=== PATIENT | male | born 1990 | race Caucasian/White ===

== ENCOUNTER 2016-09-22 12:05 | Emergency (ER) | payer OTHER ==
[2016-09-22] MEDS ORDERED: ONDANSETRON 4 MG/2 ML VIAL IVP STA (12:19)
[2016-09-22] MEDS ORDERED: SODIUM CHLORIDE 0.9% 1,000 ML IV STA (12:19)
[2016-09-22] MEDS ORDERED: HYDROmorphone 1 MG/ML 1 ML SYRINGE IVP STA (12:19)
--- NOTE | 2016-09-22 12:21 | ED ---
General Adult HPI - General Chief complaint: Abdominal Pain Stated complaint: Abd Pain Time Seen by Provider: 09/22/16 12:16 Source: patient, RN notes reviewed Mode of arrival: ambulatory Limitations: no limitations - History of Present Illness Initial comments: Patient 26-year-old male who presents emergency room today with a chief complaint of bilateral flank pain that started yesterday. He describes a "sharp " type pain. States both on left and right flank area. States only had pain like this in the past when he does not eat. He states he has been eating. He currently rates pain 9/10. Admits to diarrhea prior to coming to the emergency room. states tried ibuprofen at home with little relief the symptoms. Patient denies any recent fever, chills, shortness of breath, chest pain, nausea or vomiting, numbness or tingling, dysuria or hematuria, constipation, headaches or visual changes, or any other complaints. - Related Data Home Medications Medication Instructions Recorded Confirmed Dextroamphetamine Sulfate 5 mg PO DAILY@1500 09/22/16 09/22/16 [Dexedrine] Ibuprofen [Motrin] 800 mg PO Q6H PRN 09/22/16 09/22/16 Allergies Allergy/AdvReac Type Severity Reaction Status Date / Time cefaclor [From Ceclor] Allergy Rash/Hives Verified 09/22/16 12:52 cephalexin [From Keflex] Allergy Unknown Verified 09/22/16 12:52 Childhood Review of Systems ROS Statement: Those systems with pertinent positive or pertinent negative responses have been documented in the HPI. ROS Other: All systems not noted in ROS Statement are negative. Past Medical History Past Medical History: Sleep Apnea/CPAP/BIPAP Additional Past Medical History / Comment(s): NEUROFIBROMATOSIS, MIGRAINE HEADACHE History of Any Multi-Drug Resistant Organisms: None Reported Past Surgical History: Adenoidectomy, Ear Surgery, Tonsillectomy Additional Past Surgical History / Comment(s): SKIN BIOPSY-ARM, pyloric stenosis repair Past Anesthesia/Blood Transfusion Reactions: No Reported Reaction Past Psychological History: Depression Smoking Status: Never smoker Past Alcohol Use History: Occasional Past Drug Use History: None Reported General Exam - General Exam Comments Initial Comments: General: The patient is awake and alert, in no distress, and does not appear acutely ill. Eye: Pupils are equal, round and reactive to light, extra-ocular movements are intact. No nystagmus. There is normal conjunctiva bilaterally. No signs of icterus. Ears, nose, mouth and throat: There are moist mucous membranes and no oral lesions. Neck: The neck is supple, there is no tenderness or JVD. Cardiovascular: There is a regular rate and rhythm. No murmur, rub or gallop is appreciated. Respiratory: Lungs are clear to auscultation, respirations are non-labored, breath sounds are equal. No wheezes, stridor, rales, or rhonchi. Gastrointestinal: Normal appearance abdomen. Normal bowel sounds. Abdomen soft on palpation. Patient does have tenderness in both left and right lower quadrants. Also tender in the left upper quadrant. No rebound tenderness. No guarding. No CVA tenderness. Musculoskeletal: Normal ROM, no tenderness. Strength 5/5. Sensation intact. Pulses equal bilaterally 2+. Neurological: A&O x 3. CN II-XII intact, There are no obvious motor or sensory deficits. Coordination appears grossly intact. Speech is normal. Skin: Skin is warm and dry and no rashes or lesions are noted. Psychiatric: Cooperative, appropriate mood & affect, normal judgment. Limitations: no limitations Course Vital Signs 09/22/16 09/22/16 09/22/16 12:11 13:45 14:35 Temperature 98.5 F 97.8 F Pulse Rate 97 89 66 Respiratory 18 16 16 Rate Blood Pressure 139/73 132/70 118/74 O2 Sat by Pulse 98 98 97 Oximetry Medical Decision Making - Medical Decision Making Patient reexamined at this time shows no signs of distress. Patient's labs been reviewed unremarkable. CT of the abdomen and pelvis does show evidence for cystic-like structures consistent with his neurofibromatosis. Patient is advised follow-up with family doctor and also his specialist through [facility]. He was is advised to use pain medication. He states he does not want any stronger than Tylenol or Motrin. He'll be continued on these advised to return for any other concerns. - Lab Data Result diagrams: 09/22/16 12:25 09/22/16 12:25 Lab Results 09/22/16 09/22/16 09/22/16 Range/Units 12:25 12:25 13:50 WBC 7.5 (3.8-10.6) k/uL RBC 5.09 (4.30-5.90) m/uL Hgb 15.5 (13.0-17.5) gm/dL Hct 44.6 (39.0-53.0) % MCV 87.5 (80.0-100.0) fL MCH 30.5 (25.0-35.0) pg MCHC 34.8 (31.0-37.0) g/dL RDW 12.7 (11.5-15.5) % Plt Count 226 (150-450) k/uL Neutrophils % 66 % Lymphocytes % 23 % Monocytes % 5 % Eosinophils % 2 % Basophils % 1 % Neutrophils # 4.9 (1.3-7.7) k/uL Lymphocytes # 1.7 (1.0-4.8) k/uL Monocytes # 0.4 (0-1.0) k/uL Eosinophils # 0.2 (0-0.7) k/uL Basophils # 0.1 (0-0.2) k/uL Sodium 142 (137-145) mmol/L Potassium 4.1 (3.5-5.1) mmol/L Chloride 106 (98-107) mmol/L Carbon Dioxide 25 (22-30) mmol/L Anion Gap 11 mmol/L BUN 12 (9-20) mg/dL Creatinine 0.91 (0.66-1.25) mg/dL Est GFR (MDRD) Af Amer >60 (>60 ml/min/1.73 sqM) Est GFR (MDRD) Non-Af >60 (>60 ml/min/1.73 sqM) Glucose 96 (74-99) mg/dL Calcium 9.5 (8.4-10.2) mg/dL Total Bilirubin 1.3 (0.2-1.3) mg/dL AST 14 L (17-59) U/L ALT 34 (21-72) U/L Alkaline Phosphatase 62 (38-126) U/L Total Protein 7.4 (6.3-8.2) g/dL Albumin 4.8 (3.5-5.0) g/dL Amylase 56 (30-110) U/L Lipase 48 (23-300) U/L Urine Color Yellow Urine Appearance Clear (Clear) Urine pH 6.0 (5.0-8.0) Ur Specific Cecilia 1.031 (1.001-1.035) Urine Protein 1+ H (Negative) Urine Glucose (UA) Negative (Negative) Urine Ketones 1+ H (Negative) Urine Blood Negative (Negative) Urine Nitrite Negative (Negative) Urine Bilirubin Negative (Negative) Urine Urobilinogen 2.0 (<2.0) mg/dL Ur Leukocyte Esterase Negative (Negative) Urine WBC 1 (0-5) /hpf Ur Squamous Epith Cells <1 (0-4) /hpf Urine Mucus Many H (None) /hpf Disposition Clinical Impression: Neurofibromatosis, Abdominal pain Disposition: HOME SELF-CARE Condition: Good Instructions: Abdominal Pain (ED) Additional Instructions: Please continue Tylenol/ibuprofen for pain as discussed and follow-up with your specialist and family doctor. Please return for any other concerns. Referrals: Nitin Rogel DO [Primary Care Provider] - 1-2 days Time of Disposition: 15:28
[2016-09-22 12:38] LABS: Basophils # (A) 0.1 k/uL (0-0.2); Basophils % (A) 1 %; CH 31.7; CHCM 36.3; Eosinophils # (A) 0.2 k/uL (0-0.7); Eosinophils % (A) 2 %; HCT 44.6 % (39.0-53.0); HDW 2.73; HGB 15.5 gm/dL (13.0-17.5); Luc # (Auto) 0.17; Luc % (Auto) 2; Lymphocytes # (A) 1.7 k/uL (1.0-4.8); Lymphocytes % (A) 23 %; MCH 30.5 pg (25.0-35.0); MCHC 34.8 g/dL (31.0-37.0); MCV 87.5 fL (80.0-100.0); Mean Platelet Volume 7.5; Monocytes # (A) 0.4 k/uL (0-1.0); Monocytes % (A) 5 %; Neutrophils # (A) 4.9 k/uL (1.3-7.7); Neutrophils % (A) 66 %; RBC 5.09 m/uL (4.30-5.90); RDW 12.7 % (11.5-15.5); WBC 7.5 k/uL (3.8-10.6); WBC (Perox) 7.49
[2016-09-22 12:44] LABS: ALT 34 U/L (21-72); AST 14 U/L (17-59); Alkaline Phosphatase 62 U/L (38-126); Amylase 56 U/L (30-110); Anion Gap 11 mmol/L; Blood Urea Nitrogen 12 mg/dL (9-20); Calcium 9.5 mg/dL (8.4-10.2); Carbon Dioxide 25 mmol/L (22-30); Chloride 106 mmol/L (98-107); Glucose 96 mg/dL (74-99); Non-African American GFR(MDRD) >60 (>60 ml/min/1.73 sqM); Potassium 4.1 mmol/L (3.5-5.1); Sodium 142 mmol/L (137-145); Total Bilirubin 1.3 mg/dL (0.2-1.3); Total Protein 7.4 g/dL (6.3-8.2)
--- NOTE | 2016-09-22 12:49 | XR ---
EXAMINATION TYPE: XR KUB DATE OF EXAM ORDERED: 09/22/2016 HISTORY: abdominal pain. COMPARISON: None. FINDINGS: The abdominal gas pattern is normal. There is no evidence of obstruction or free air. No u nusual calcifications are seen. The lung bases are clear. IMPRESSION: NORMAL ABDOMEN.
[2016-09-22 13:47] VITALS: RESP 16; TEMP 97.8
[2016-09-22 14:09] LABS: Appearance,Urine Clear (Clear); Bilirubin,Urine Negative (Negative); Glucose,Urine (UA) Negative (Negative); Ketones,Urine 1+ (Negative); Leukocyte Esterase,Urine Negative (Negative); Mucus,Urine Many /hpf; Nitrite,Urine Negative (Negative); Particle Count 5786; Protein,Urine 1+ (Negative); Specific Gravity,Urine 1.031 (1.001-1.035); Squamous Epithelial Cell,Urine <1 /hpf (0-4); UA Billing (MACRO vs. MICRO) MICRO; WBC,Urine 1 /hpf (0-5)
[2016-09-22 14:36] VITALS: BP 118/74; PULSE 66
--- NOTE | 2016-09-22 15:05 | CT ---
EXAMINATION TYPE: CT abdomen pelvis wo con DATE OF EXAM: 09/22/2016 COMPARISON: Abdomen same date HISTORY: Pt states of abdominal pain x1 day. CT DLP: 804 mGycm Automated exposure control for dose reduction was used. TECHNIQUE: Helical acquisition of images from the lung bases through the pelvis. FINDINGS: Lack of intravenous contrast may compromise sensitivity. LUNG BASES: No significant abnormality is appreciated. There is no pleural or pericardial effusion AORTA: No significant abnormality is appreciated. LIVER/GB: No significant abnormality is appreciated. PANCREAS: No significant abnormality is seen. SPLEEN: No significant abnormality is seen. ADRENALS: No significant abnormality is seen. KIDNEYS: No significant abnormality is seen. REPRODUCTIVE ORGANS: No significant abnormality is seen. URINARY BLADDER: No significant abnormality is seen. BOWEL: No significant abnormality is seen. FREE AIR: No Free Air is visible. ASCITES: None visible. PELVIC ADENOPATHY: None visualized. RETROPERITONEAL ADENOPATHY: No Retroperitoneal Adenopathy visible. OSSEOUS STRUCTURES: No significant abnormality is seen. Within the abductor musculature there is low dense focus present measuring approximately 6.6 x 4 x 3.1 cm. 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 Within the abdo kristina musculature laterally seen best on axial image 46 there is a 4 cm low dense mass present. Right psoas shows a low dense focus measuring approximately 14 mm, with additional vague areas of low atte nuation bilaterally. In the ischiorectal fat on the right a 2 cm hypodense lesion is also present. Si milar finding present at the level of the neuroforamen on the left at L4-5. Cutaneous nodule noted in the right lower quadrant anteriorly, smaller skin nodules also suspected. There is a small umbilical hernia containing fat. Subcutaneous fat over the right gluteal region shows some increased attenuati on possibly due to local edema or ecchymosis, correlate for any history of trauma. IMPRESSION: FINDINGS LIKELY ARE RELATED TO PATIENT'S HISTORY OF NEUROFIBROMATOSIS. Additional findings above.
== END 2016-09-22 15:37 | disposition home or self-care (01) ==
LOC: EC 12:05
DX: Q85.00 Neurofibromatosis, unspecified (principal); R10.9 Unspecified abdominal pain; Z88.1 Allergy status to other antibiotic agents; Z79.899 Other long term (current) drug therapy
CPT/HCPCS: 99284; 96374; 96375; 96361; 36415; 80053; 82150; 83690; 85025; 81001; 74000; 74176; J2405; J1170

== ENCOUNTER 2016-10-10 10:40 | Emergency (ER) | payer OTHER ==
[2016-10-10] MEDS ORDERED: DIPH,PERTUS(ACELL)TETVAC-LF 0.5 ML VIAL IM ONE (11:57)
--- NOTE | 2016-10-10 12:00 | ED ---
Wound/Laceration HPI - General Chief Complaint: Wound/Laceration Stated Complaint: LACERATION, LEFT MIDDLE FINGER Time Seen by Provider: 10/10/16 11:24 Source: patient, RN notes reviewed Mode of arrival: ambulatory Limitations: no limitations - History of Present Illness Initial Comments: 26-year-old male presents emergency from shingling a laceration to his left hand middle finger. Patient states he was using a box shook patcher to cut a zip tie and slipped and nicked his finger. He states bleeding has stopped but is unsure when his last tetanus was. Patient has full range of motion no numbness or tingling. - Related Data Home Medications Medication Instructions Recorded Confirmed Ibuprofen [Motrin] 800 mg PO Q6H PRN 09/22/16 10/10/16 Allergies Allergy/AdvReac Type Severity Reaction Status Date / Time cefaclor [From Ceclor] Allergy Rash/Hives Verified 10/10/16 11:03 cephalexin [From Keflex] Allergy Unknown Verified 10/10/16 11:03 Childhood Review of Systems ROS Statement: Those systems with pertinent positive or pertinent negative responses have been documented in the HPI. ROS Other: All systems not noted in ROS Statement are negative. Past Medical History Past Medical History: Sleep Apnea/CPAP/BIPAP Additional Past Medical History / Comment(s): NEUROFIBROMATOSIS, MIGRAINE HEADACHE History of Any Multi-Drug Resistant Organisms: None Reported Past Surgical History: Adenoidectomy, Ear Surgery, Tonsillectomy Additional Past Surgical History / Comment(s): SKIN BIOPSY-ARM, pyloric stenosis repair Past Anesthesia/Blood Transfusion Reactions: No Reported Reaction Past Psychological History: Depression Smoking Status: Never smoker Past Alcohol Use History: Occasional Past Drug Use History: None Reported General Exam Limitations: no limitations General appearance: alert, in no apparent distress Respiratory exam: Present: normal lung sounds bilaterally. Absent: respiratory distress, wheezes, rales, rhonchi, stridor Cardiovascular Exam: Present: regular rate, normal rhythm, normal heart sounds. Absent: systolic murmur, diastolic murmur, rubs, gallop, clicks Extremities exam: Present: other (Left hand third digit there is a concern 0.5 cm superficial laceration without deep significant injury. Patient has full range of motion neurovascular intact) Course Vital Signs 10/10/16 10:47 Temperature 99.1 F Pulse Rate 81 Respiratory 20 Rate Blood Pressure 125/63 O2 Sat by Pulse 97 Oximetry Medical Decision Making - Medical Decision Making 26 show male present emergency from for leg laceration. This is a superficial wound. I did offer the patient 1 suture to help close 1 when he states that he just needs his tetanus updated. Patient be discharged at this time return parameters discussed Disposition Clinical Impression: Finger laceration Disposition: HOME SELF-CARE Condition: Stable Instructions: Finger Laceration (ED) Additional Instructions: Please return to the Emergency Department if symptoms worsen or any other concerns. Referrals: Nitin Rogel DO [Primary Care Provider] - 1-2 days Time of Disposition: 11:59
[2016-10-10 12:24] VITALS: BP 123/65; PULSE 77; RESP 18; TEMP 97.8
== END 2016-10-10 12:23 | disposition home or self-care (01) ==
LOC: EC 10:40
DX: S61.213A Laceration without foreign body of left middle finger without damage to nail, initial encounter (principal); Z23 Encounter for immunization; Z88.1 Allergy status to other antibiotic agents; W26.8XXA Contact with other sharp object(s), not elsewhere classified, initial encounter
CPT/HCPCS: 90471; 90715; 99282

== ENCOUNTER 2016-11-22 18:34 | Inpatient (IN) | payer OTHER ==
--- NOTE | 2016-11-22 19:26 | ED ---
General Adult HPI - General Source: patient, RN notes reviewed Mode of arrival: ambulatory Limitations: no limitations <Uri Washington - Last Filed: 11/22/16 19:49> <Katherine Ortiz - Last Filed: 11/22/16 20:51> - General Chief complaint: Neuro Symptoms/Deficit Stated complaint: left hand numbness Time Seen by Provider: 11/22/16 18:48 - History of Present Illness Initial comments: Patient is a 26-year-old male significant past medical history for neurofibromatosis, who presents emergency room today with a chief complaint of numbness sensation to the left lower arm. 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 He states he went onto long runs. He states that he went to turn on the point currently noticed that his left hand was numb. States he has a numbness sensation entire left hand and forearm all the way around. He states that just above the left elbow he does have feeling. He states he has full range of motion. He states he has full strength. He states he just cannot feel anything on this left lower arm. States never had similar symptoms in the past. He denies any other complaints or symptoms. He denies any injury or trauma. Denies any neck pain. Patient denies any recent fever, chills, shortness of breath, chest pain, back pain, abdominal pain, nausea or vomiting, dysuria or hematuria, constipation or diarrhea, headaches or visual changes, or any other complaints. (Uri Washington) - Related Data Home Medications Medication Instructions Recorded Confirmed Ibuprofen [Motrin] 800 mg PO Q6H PRN 09/22/16 11/22/16 Allergies Allergy/AdvReac Type Severity Reaction Status Date / Time cefaclor [From Ceclor] Allergy Rash/Hives Verified 11/22/16 18:59 cephalexin [From Keflex] Allergy Unknown Verified 11/22/16 18:59 Childhood Review of Systems ROS Other: All systems not noted in ROS Statement are negative. <Uri Washington - Last Filed: 11/22/16 19:49> ROS Other: All systems not noted in ROS Statement are negative. <Katherine Ortiz - Last Filed: 11/22/16 20:51> ROS Statement: Those systems with pertinent positive or pertinent negative responses have been documented in the HPI. Past Medical History Past Medical History: Sleep Apnea/CPAP/BIPAP Additional Past Medical History / Comment(s): NEUROFIBROMATOSIS, MIGRAINE HEADACHE History of Any Multi-Drug Resistant Organisms: None Reported Past Surgical History: Adenoidectomy, Ear Surgery, Tonsillectomy Additional Past Surgical History / Comment(s): SKIN BIOPSY-ARM, pyloric stenosis repair Past Anesthesia/Blood Transfusion Reactions: No Reported Reaction Past Psychological History: Depression Smoking Status: Never smoker Past Alcohol Use History: Occasional Past Drug Use History: None Reported <Uri Washington - Last Filed: 11/22/16 19:49> General Exam Limitations: no limitations <Uri Washington - Last Filed: 11/22/16 19:49> <Katherine Ortiz - Last Filed: 11/22/16 20:51> - General Exam Comments Initial Comments: General: The patient is awake and alert, in no distress, and does not appear acutely ill. Eye: Pupils are equal, round and reactive to light, extra-ocular movements are intact. No nystagmus. There is normal conjunctiva bilaterally. No signs of icterus. Ears, nose, mouth and throat: There are moist mucous membranes and no oral lesions. Neck: The neck is supple, there is no tenderness or JVD. Cardiovascular: There is a regular rate and rhythm. No murmur, rub or gallop is appreciated. Respiratory: Lungs are clear to auscultation, respirations are non-labored, breath sounds are equal. No wheezes, stridor, rales, or rhonchi. Gastrointestinal: Soft, non-distended, non-tender abdomen without masses or organomegaly noted. There is no rebound or guarding present. No CVA tenderness. Bowel sounds are unremarkable. Musculoskeletal: Normal ROM, no tenderness. Strength 5/5. Patient has decreased sensation to both sharp and light touch all the way around from the left elbow down to the fingertips. Cap refill less than 2 seconds. Pulses equal bilaterally 2+. Neurological: A&O x 3. CN II-XII intact, There are no obvious motor or sensory deficits. Coordination appears grossly intact. Speech is normal. Skin: Skin is warm and dry and no rashes or lesions are noted. Psychiatric: Cooperative, appropriate mood & affect, normal judgment. 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 (Uri Washington) EKG Findings - EKG Comments: EKG Findings:: EKG performed at 1944: Shows sinus tachycardia 111 bpm. First- degree AV block. CT interval 214. QRS 84. QT/QTC 308/418. No acute ST changes. <Uri Washington - Last Filed: 11/22/16 19:49> Medical Decision Making - Lab Data Result diagrams: 11/22/16 19:14 11/22/16 19:14 <Uri Washington - Last Filed: 11/22/16 19:49> - Lab Data Result diagrams: 11/22/16 19:14 11/22/16 19:14 <Katherine Ortiz - Last Filed: 11/22/16 20:51> - Lab Data Lab Results 11/22/16 11/22/16 11/22/16 Range/Units 19:14 19:14 19:14 WBC 8.0 (3.8-10.6) k/uL RBC 4.77 (4.30-5.90) m/uL Hgb 15.0 (13.0-17.5) gm/dL Hct 40.7 (39.0-53.0) % MCV 85.3 (80.0-100.0) fL MCH 31.5 (25.0-35.0) pg MCHC 36.9 (31.0-37.0) g/dL RDW 12.1 (11.5-15.5) % Plt Count 224 (150-450) k/uL Neutrophils % 57 % Lymphocytes % 31 % Monocytes % 5 % Eosinophils % 6 % Basophils % 0 % Neutrophils # 4.5 (1.3-7.7) k/uL Lymphocytes # 2.5 (1.0-4.8) k/uL Monocytes # 0.4 (0-1.0) k/uL Eosinophils # 0.5 (0-0.7) k/uL Basophils # 0.0 (0-0.2) k/uL Sodium 141 (137-145) mmol/L Potassium 3.9 (3.5-5.1) mmol/L Chloride 105 (98-107) mmol/L Carbon Dioxide 23 (22-30) mmol/L Anion Gap 13 mmol/L BUN 15 (9-20) mg/dL Creatinine 0.90 (0.66-1.25) mg/dL Est GFR (MDRD) Af Amer >60 (>60 ml/min/1.73 sqM) Est GFR (MDRD) Non-Af >60 (>60 ml/min/1.73 sqM) Glucose 111 H (74-99) mg/dL Calcium 9.5 (8.4-10.2) mg/dL Total Bilirubin 0.5 (0.2-1.3) mg/dL AST 17 (17-59) U/L ALT 50 (21-72) U/L Alkaline Phosphatase 49 (38-126) U/L Total Protein 6.5 (6.3-8.2) g/dL Albumin 4.3 (3.5-5.0) g/dL Vitamin B12 334 (239-931) pg/mL Folate 3.79 (>2.75) ng/mL TSH 2.200 (0.465-4.680) mIU/L Disposition <Uri Washington - Last Filed: 11/22/16 19:49> <Katherine Ortiz - Last Filed: 11/22/16 20:51> Clinical Impression: Left arm numbness, Tachycardia Disposition: ADMITTED IP TO THIS [facility] Condition: Good Referrals: Nitin Rogel DO [Primary Care Provider] - 1-2 days
[2016-11-22 19:28] LABS: Basophils % (A) 0 %; CH 31.3; CHCM 36.8; Eosinophils # (A) 0.5 k/uL (0-0.7); Eosinophils % (A) 6 %; HCT 40.7 % (39.0-53.0); HDW 2.71; Luc # (Auto) 0.16; Luc % (Auto) 2; Lymphocytes # (A) 2.5 k/uL (1.0-4.8); Lymphocytes % (A) 31 %; MCH 31.5 pg (25.0-35.0); MCHC 36.9 g/dL (31.0-37.0); MCV 85.3 fL (80.0-100.0); Mean Platelet Volume 7.8; Monocytes # (A) 0.4 k/uL (0-1.0); Monocytes % (A) 5 %; Neutrophils # (A) 4.5 k/uL (1.3-7.7); Neutrophils % (A) 57 %; RBC 4.77 m/uL (4.30-5.90); RDW 12.1 % (11.5-15.5); WBC (Perox) 8.02
[2016-11-22 19:36] LABS: ALT 50 U/L (21-72); AST 17 U/L (17-59); Alkaline Phosphatase 49 U/L (38-126); Anion Gap 13 mmol/L; Blood Urea Nitrogen 15 mg/dL (9-20); Calcium 9.5 mg/dL (8.4-10.2); Carbon Dioxide 23 mmol/L (22-30); Chloride 105 mmol/L (98-107); Glucose 111 mg/dL (74-99); Non-African American GFR(MDRD) >60 (>60 ml/min/1.73 sqM); Potassium 3.9 mmol/L (3.5-5.1); Sodium 141 mmol/L (137-145); Total Bilirubin 0.5 mg/dL (0.2-1.3); Total Protein 6.5 g/dL (6.3-8.2)
[2016-11-22] MEDS ORDERED: SODIUM CHLORIDE 0.9% 1,000 ML IV STA (19:43)
--- NOTE | 2016-11-22 20:19 | CT ---
EXAMINATION TYPE: CT brain wo con DATE OF EXAM: 11/22/2016 COMPARISON: NONE HISTORY: Left arm numbness. CT DLP: 1017.90 mGycm. Automated Exposure Control for Dose Reduction was Utilized. TECHNIQUE: CT scan of the head is performed without contrast. FINDINGS: Ventricles and sulci appear normal. There is no mass effect nor midline shift. There is no sign of intracranial hemorrhage. Calvarium appears normal.. IMPRESSION: Normal head CT scan.
[2016-11-22 20:42] LABS: Vitamin B12 334 pg/mL (239-931)
[2016-11-22] MEDS ORDERED: NITROGLYCERIN SL TABS 0.4 MG TAB SUBLINGUAL PRN (20:52)
[2016-11-22 21:33] LABS: Creatine Kinase 94 U/L (55-170)
[2016-11-22 21:46] LABS: Creatine Kinase MB 0.4 ng/mL (0.0-2.4); Troponin I <0.012 ng/mL (0.000-0.034)
[2016-11-22 21:52] VITALS: BMI 26.3
[2016-11-23] MEDS: SODIUM CHLORIDE 0.9% 1,000 ML IV SCH ×3 (00:36→16:25)
[2016-11-23] MEDS: ACETAMINOPHEN TAB 325 MG TAB PO PRN ×2 (00:36→20:25)
[2016-11-23 02:32] LABS: Creatine Kinase 124 U/L (55-170)
[2016-11-23 02:46] LABS: Creatine Kinase MB 0.4 ng/mL (0.0-2.4); Troponin I <0.012 ng/mL (0.000-0.034)
[2016-11-23 03:11] LABS: Cholesterol 140 mg/dL (<200); HDL Cholesterol 21 mg/dL (40-60)
[2016-11-23] MEDS: MORPHINE SULFATE 2 MG/ML SYRINGE IVP PRN ×2 (05:41→23:38)
[2016-11-23] MEDS: ASPIRIN 325 MG TAB PO SCH (08:30)
--- NOTE | 2016-11-23 09:56 | P.CRDCN ---
History of Present Illness Consult date: 11/23/16 Requesting physician: Johann Betancourt Consult reason: chest pain Chief complaint: Chest pain History of present illness: This is a pleasant 26-year-old gentleman with history of neurofibromatosis, cardiac risk factors negative for hypertension, no diabetes, no hyperlipidemia, he is a nonsmoker, he states he used to drink alcohol heavily but has not done that for several years. He presents to the hospital with symptoms of numbness in his left arm from the elbow down. 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 This morning at the time my examination his main complaint is that of chest pain, he states that the pain is sharp in nature, radiates through to his shoulder blades, he gets mild associated shortness of breath, denies any nausea, no diaphoresis. Pain worsens with deep breathing it also worsens with movement of the chest or lying in certain positions. EKG shows a sinus tachycardia with a first-degree AV block, nonspecific ST-T wave changes in the inferior leads. Troponins are negative 2. CBC normal. Potassium 3.9, BUN 15, creatinine 0.9. TSH is normal. Blood pressure 132/70 with a heart rate in the 1 teens. At the time of my examination this morning, patient continues to complain of sharp chest pain, 3 nitroglycerin were given without any relief of symptoms. He was given morphine earlier which he states brought the pain down to a 4 but it is back up to an 8 again. Past Medical History Past Medical History: Sleep Apnea/CPAP/BIPAP Additional Past Medical History / Comment(s): NEUROFIBROMATOSIS, MIGRAINE HEADACHE History of Any Multi-Drug Resistant Organisms: None Reported Past Surgical History: Adenoidectomy, Ear Surgery, Tonsillectomy Additional Past Surgical History / Comment(s): SKIN BIOPSY-ARM, pyloric stenosis repair Past Anesthesia/Blood Transfusion Reactions: No Reported Reaction Past Psychological History: Depression Smoking Status: Never smoker Past Alcohol Use History: Occasional Past Drug Use History: None Reported - Past Family History Mother Family Medical History: Unable to Obtain Father Family Medical History: Unable to Obtain Medications and Allergies Home Medications Medication Instructions Recorded Confirmed Type Ibuprofen [Motrin] 800 mg PO Q6H PRN 09/22/16 11/22/16 History Allergies Allergy/AdvReac Type Severity Reaction Status Date / Time [facility] Allergy Rash/Hives Verified 11/22/16 18:59 cephalexin [From Keflex] Allergy Unknown Verified 11/22/16 18:59 Childhood Physical Exam Vitals: Vital Signs Temp Pulse Pulse Resp BP BP Pulse Ox 11/23/16 05:42 70 18 137/75 93 L 11/23/16 04:00 97.3 F L 91 14 131/73 97 11/22/16 23:30 95 16 11/22/16 23:28 98.4 F 95 16 145/67 99 11/22/16 21:26 98.6 F 110 H 16 149/76 97 11/22/16 21:12 99.1 F 113 H 18 138/60 98 11/22/16 18:45 98.4 F 110 H 18 132/78 97 Intake and Output 11/22/16 11/23/16 11/23/16 22:59 06:59 14:59 Intake Total 100 Output Total 0 Balance 100 0 Intake: Intake, IV Titration 100 Amount Sodium Chloride 0.9% 1, 100 000 ml @ 100 mls/hr IV . Q10H [facility] Rx#:[id number] Output: Urine 0 Other: Weight 76.204 kg 82.5 kg PHYSICAL EXAMINATION: HEENT: Head is atraumatic, normocephalic. Pupils equal, round. Neck is supple. There is no elevated jugular venous pressure. HEART EXAMINATION: Heart S1, S2 normal. No murmur or gallop heard. CHEST EXAMINATION: Lungs are clear to auscultation and precussion. No chest wall tenderness is noted on palpation or with deep breathing. ABDOMEN: Soft, nontender. Bowel sounds are heard. No organomegaly noted. EXTREMITIES: 2+ peripheral pulses with no evidence of peripheral edema and no calf tenderness noted. NEUROLOGIC patient is awake, alert and oriented -3. Multiple nodularities from the neurofibromatosis noted on the entire body. . Results 11/22/16 19:14 11/22/16 19:14 Cardiac Enzymes 11/22/16 11/22/16 11/23/16 Range/Units 19:14 19:14 01:47 AST 17 (17-59) U/L CK-MB (CK-2) 0.4 0.4 (0.0-2.4) ng/mL Troponin I <0.012 <0.012 (0.000-0.034) ng/mL Lipids 11/23/16 Range/Units 02:10 Triglycerides 219 H (<150) mg/dL Cholesterol 140 (<200) mg/dL HDL Cholesterol 21 L (40-60) mg/dL CBC 11/22/16 Range/Units 19:14 WBC 8.0 (3.8-10.6) k/uL RBC 4.77 (4.30-5.90) m/uL Hgb 15.0 (13.0-17.5) gm/dL Hct 40.7 (39.0-53.0) % Plt Count 224 (150-450) k/uL Comprehensive Metabolic Panel 11/22/16 Range/Units 19:14 Sodium 141 (137-145) mmol/L Potassium 3.9 (3.5-5.1) mmol/L Chloride 105 (98-107) mmol/L Carbon Dioxide 23 (22-30) mmol/L BUN 15 (9-20) mg/dL Creatinine 0.90 (0.66-1.25) mg/dL Glucose 111 H (74-99) mg/dL Calcium 9.5 (8.4-10.2) mg/dL AST 17 (17-59) U/L ALT 50 (21-72) U/L Alkaline Phosphatase 49 (38-126) U/L Total Protein 6.5 (6.3-8.2) g/dL Albumin 4.3 (3.5-5.0) g/dL Current Medications Generic Name Dose Route Start Last Admin Trade Name Freq PRN Reason Stop Dose Admin Acetaminophen 650 mg 11/22/16 20:52 11/23/16 00:36 Tylenol Tab PO 650 mg Q4HR PRN Administration Pain Aspirin 325 mg 11/23/16 09:00 11/23/16 08:30 Aspirin PO 325 mg DAILY MESSI Administration Enoxaparin Sodium 40 mg 11/23/16 09:00 Lovenox SQ DAILY MESSI Sodium Chloride 1,000 mls @ 100 mls/hr 11/22/16 21:00 11/23/16 06:30 Saline 0.9% IV 100 mls/hr .Q10H MESSI Administration Morphine Sulfate 2 mg 11/22/16 20:52 11/23/16 05:41 Morphine Sulfate (Inj) IVP 2 mg Q5M PRN Administration Chest Pain Nitroglycerin 0.4 mg 11/22/16 20:52 Nitrostat SUBLINGUAL Q5M PRN Chest Pain Intake and Output 11/22/16 11/23/16 11/23/16 22:59 06:59 14:59 Intake Total 100 Output Total 0 Balance 100 0 Intake: Intake, IV Titration 100 Amount Sodium Chloride 0.9% 1, 100 000 ml @ 100 mls/hr IV . Q10H [facility] Rx#:[id number] Output: Urine 0 Other: Weight 76.204 kg 82.5 kg 11/22/16 19:14 11/22/16 19:14 EKG Interpretations (text) EKG shows a sinus tachycardia first-degree AV block with nonspecific ST-T wave changes in the inferior leads. Assessment and Plan Plan: Assessment and plan #1 chest pain, atypical for acute coronary syndrome. Patient also has symptoms of left arm numbness from the elbow down. Troponins negative 2. EKG shows a sinus tachycardia with first-degree AV block and nonspecific ST-T wave changes in the inferior leads. #2 sinus tachycardia, TSH 2.2. #3 neurofibromatosis Plan We will obtain an echocardiogram with Doppler study. Obtain third troponin value, if negative we'll discontinue the Lovenox. Patient is noted to be in a sinus tachycardia, we will request a d-dimer be performed as well. Further recommendations to follow. DNP note has been reviewed, I agree with a documented findings and plan of care. Patient was seen and examined.
[2016-11-23 10:02] LABS: Basophils # (A) 0.1 k/uL (0-0.2); Basophils % (A) 1 %; CH 31.9; CHCM 36.5; Eosinophils # (A) 0.4 k/uL (0-0.7); Eosinophils % (A) 4 %; HCT 41.5 % (39.0-53.0); HDW 2.65; HGB 14.5 gm/dL (13.0-17.5); Luc # (Auto) 0.18; Luc % (Auto) 2; Lymphocytes # (A) 2.1 k/uL (1.0-4.8); Lymphocytes % (A) 19 %; MCH 30.6 pg (25.0-35.0); MCHC 34.9 g/dL (31.0-37.0); MCV 87.8 fL (80.0-100.0); Mean Platelet Volume 8.4; Monocytes # (A) 0.5 k/uL (0-1.0); Monocytes % (A) 5 %; Neutrophils # (A) 7.5 k/uL (1.3-7.7); Neutrophils % (A) 70 %; RBC 4.72 m/uL (4.30-5.90); RDW 13.4 % (11.5-15.5); WBC 10.7 k/uL (3.8-10.6); WBC (Perox) 9.96
[2016-11-23] MEDS: ENOXAPARIN 40 MG/0.4 ML SYRINGE SQ SCH (10:27)
[2016-11-23 10:33] LABS: Anion Gap 8 mmol/L; Blood Urea Nitrogen 10 mg/dL (9-20); Calcium 8.6 mg/dL (8.4-10.2); Carbon Dioxide 25 mmol/L (22-30); Chloride 106 mmol/L (98-107); Glucose 85 mg/dL (74-99); Non-African American GFR(MDRD) >60 (>60 ml/min/1.73 sqM); Potassium 3.8 mmol/L (3.5-5.1); Sodium 139 mmol/L (137-145)
--- NOTE | 2016-11-23 11:20 | ECHOF ---
Referral Reason:assess lvf MEASUREMENTS -------- HEIGHT: 170.2 cm WEIGHT: 82.1 kg BP: 110/60 IVSd: 0.9 cm (0.6 - 1.1) LVIDd: 4.4 cm (3.9 - 5.3) LVPWd: 1.0 cm (0.6 - 1.1) IVSs: 1.2 cm LVIDs: 2.9 cm LVPWs: 1.4 cm LA Diam: 2.3 cm (2.7 - 3.8) Ao Diam: 2.8 cm (2.0 - 3.7) AV Cusp: 2.3 cm (1.5 - 2.6) LA Diam: 2.9 cm (2.7 - 3.8) MV EXCURSION: 15.792 mm (> 18.000) MV EF SLOPE: 51 mm/s (70 - 150) EPSS: 1.1 cm MV E Dash: 0.88 m/s MV DecT: 201 ms MV A Dash: 0.86 m/s MV E/A Ratio: 1.02 RAP: 5.00 mmHg RVSP: 10.57 mmHg FINDINGS -------- Sinus rhythm. This was a technically good study. LV size, wall thickness and systolic function are normal, with an EF greater than 55%. The right ventricle is normal in size. The left atrial size is normal. The right atrial size is normal. The aortic valve is trileaflet, and appears structurally normal. No aortic stenosis or regurgitation. There is trace mitral regurgitation. Mild tricuspid regurgitation present. There is no evidence of pulmonary hypertension. The right ventricular systolic pressure, as measured by Doppler, is 10.57mmHg. There is no pulmonic regurgitation present. The aortic root size is normal. There is no pericardial effusion. CONCLUSIONS -------- 1. LV size, wall thickness and systolic function are normal, with an EF greater than 55%. 2. There is trace mitral regurgitation. 3. Mild tricuspid regurgitation present. 4. There is no evidence of pulmonary hypertension. 5. The right ventricular systolic pressure, as measured by Doppler, is 10.57mmHg. [employer] SUPERVISOR: Do Swanson RDCS
--- NOTE | 2016-11-23 14:54 | P.HPIM ---
History of Present Illness H&P Date: 11/23/16 Chief Complaint: Left arm numbness This is a pleasant 26-year-old patient of Dr. Rogel. Has a diagnosis of neurofibromatosis. Chronic stable medical conditions include obstructive sleep apnea. Patient's father and brother have caf au lait spots. 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 The same thing happened again. Patient noticed that he was numb from his elbow down. He also had some weakness distally. The knot of the upper arm. There is no headache no vision changes no changes speech no change in his walking. He does have and the neurologist out of [place]. Earlier he had some sharp left-sided chest pain in the early hours the morning and for which cardiology was consulted. Chest pain was short-lived, no perspiration or radiation no dizziness nor lightheadedness. Review of Systems GEN.: None EYES: None HEENT: None NECK: None RESPIRATORY: None CARDIOVASCULAR: As above GASTROINTESTINAL: None GENITOURINARY: None MUSCULOSKELETAL: None LYMPHATICS: None HEMATOLOGICAL: None PSYCHIATRY: None NEUROLOGICAL: As above DERMATOLOGICAL: Multiple lumps Past Medical History Past Medical History: Sleep Apnea/CPAP/BIPAP Additional Past Medical History / Comment(s): NEUROFIBROMATOSIS, MIGRAINE HEADACHE History of Any Multi-Drug Resistant Organisms: None Reported Past Surgical History: Adenoidectomy, Ear Surgery, Tonsillectomy Additional Past Surgical History / Comment(s): SKIN BIOPSY-ARM, pyloric stenosis repair Past Anesthesia/Blood Transfusion Reactions: No Reported Reaction Past Psychological History: Depression Smoking Status: Never smoker Past Alcohol Use History: Occasional Past Drug Use History: None Reported Additional History: Does not smoke, alcohol occasionally, 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 - Past Family History Mother Family Medical History: Unable to Obtain Additional Family Medical History / Comment(s): Father and brother have caf au lait spots Father Family Medical History: Unable to Obtain Medications and Allergies Home Medications Medication Instructions Recorded Confirmed Type Ibuprofen [Motrin] 800 mg PO Q6H PRN 09/22/16 11/22/16 History Allergies Allergy/AdvReac Type Severity Reaction Status Date / Time cefaclor [From Ceclor] Allergy Rash/Hives Verified 11/22/16 18:59 cephalexin [From Keflex] Allergy Unknown Verified 11/22/16 18:59 Childhood Physical Exam Vitals: Vital Signs Temp Pulse Pulse Resp BP BP Pulse Ox 11/23/16 12:00 97.8 F 99 18 143/66 95 11/23/16 08:00 97.5 F L 99 18 127/63 98 11/23/16 07:25 146/80 11/23/16 05:42 70 18 137/75 93 L 11/23/16 04:00 97.3 F L 91 14 131/73 97 11/22/16 23:30 95 16 11/22/16 23:28 98.4 F 95 16 145/67 99 11/22/16 21:26 98.6 F 110 H 16 149/76 97 11/22/16 21:12 99.1 F 113 H 18 138/60 98 11/22/16 18:45 98.4 F 110 H 18 132/78 97 Intake and Output VITAL SIGNS: Reviewed. BMI noted GENERAL: Average built, sitting up, comfortable. EYES: Pupils equal. Conjunctiva normal. HEENT: External appearance of nose and ears normal, oral cavity grossly normal. NECK: JVD not raised; masses not palpable. HEART: First and second heart sounds are normal; no edema. LUNGS: Respiratory rate normal; clear to auscultation. ABDOMEN: Soft, nontender, liver spleen not palpable, no masses palpable. LYMPHATICS: No lymph nodes palpable in the axilla and neck. PSYCH: Alert and oriented x3; mood and affect normal. NEUROLOGICAL: Cranial nerves grossly intact; no facial asymmetry, patient's good weakness in the left arm below the left elbow power being about 4 x 5 also patient got decreased sensation in the left arm distal to the left elbow.. Results CBC & Chem 7: 11/23/16 09:03 11/23/16 09:03 Labs: Abnormal Lab Results - Last 24 Hours (Table) 11/22/16 11/23/16 11/23/16 Range/Units 19:14 02:10 09:03 WBC 10.7 H (3.8-10.6) k/uL Glucose 111 H (74-99) mg/dL Triglycerides 219 H (<150) mg/dL HDL Cholesterol 21 L (40-60) mg/dL Computed tomography scan of the brain unremarkable Assessment and Plan Plan: Assessment: -This is a patient with known neurofibromatosis who presents with acute onset of numbness in the left arm distal to the elbow. This could well be a manifestation of the neurofibromatosis itself which could be the spinal cord on the surrounding tissue. Neurology Dr. retana was consulted and will await his input. -Left-sided chest pain sharp in nature sounds very atypical probably musculoskeletal which cardiology was consulted -Neurofibromatosis -Obstructive sleep apnea uses CPAP machine Plan: Neurology was consulted. Await their input. Cardiology was consulted who ordered a stress test awaiting results. Monitors in the room rather anxious and explained to her at that the exercise science instructor and the neurologist and speak to her and we'll take it from there. This was explained to the patient.
--- NOTE | 2016-11-23 19:19 | P.CNNES ---
History of Present Illness Consult date: 11/23/16 Requesting physician: Johann Betancourt Reason for Consult: Numbness Chief complaint: Numbness on left side History of Present Illness: The patient is a pleasant 26-year-old male who is being evaluated by the neurology service per the request of Dr. Betancourt for left sided numbness. The patient has history of neurofibromatosis, type I and 2 according to his mother. Yesterday, he developed a sudden onset of numbness and tingling involving the lower half of his left upper extremity. Later at night, he started noticing numbness and tingling in his left foot. He denies any previous symptoms similar to this. He was brought into [facility] emergency room for further workup and management. In the emergency room, a computed tomography scan of the brain was done which was normal. His CBC, comprehensive metabolic profile, cardiac enzymes, vitamin B12 level, and TSH were normal. His fasting lipid panel was normal except for mild dyslipidemia with a cholesterol of 219. At the time of my evaluation, he is laying in his bed then appears to be in no acute distress. He denies any changes in the intensity of the numbness involving the left upper and lower extremity. He denies any extremity weakness. He denies any dizziness, vertigo, or hearing loss. Review of Systems All systems: negative Constitutional: Denies chills, Denies fever Eyes: denies blurred vision, denies pain Ears, nose, mouth and throat: Denies headache, Denies sore throat Cardiovascular: Denies chest pain, Denies shortness of breath Respiratory: Denies cough Gastrointestinal: Denies abdominal pain, Denies diarrhea, Denies nausea, Denies vomiting Musculoskeletal: Reports arm numbness/tingling, Denies myalgias Integumentary: Reports as per HPI, Reports darkening of skin, Denies pruritus, Denies rash Neurological: Reports as per HPI, Reports numbness, Denies weakness Psychiatric: Denies anxiety, Denies depression Endocrine: Denies fatigue, Denies weight change Past Medical History Past Medical History: Sleep Apnea/CPAP/BIPAP Additional Past Medical History / Comment(s): NEUROFIBROMATOSIS, MIGRAINE HEADACHE History of Any Multi-Drug Resistant Organisms: None Reported Past Surgical History: Adenoidectomy, Ear Surgery, Tonsillectomy Additional Past Surgical History / Comment(s): SKIN BIOPSY-ARM, pyloric stenosis repair Past Anesthesia/Blood Transfusion Reactions: No Reported Reaction Past Psychological History: Depression Smoking Status: Never smoker Past Alcohol Use History: Occasional Past Drug Use History: None Reported - Past Family History Mother Family Medical History: Unable to Obtain Additional Family Medical History / Comment(s): Father and brother have caf au lait spots Father Family Medical History: Unable to Obtain Medications and Allergies Home Medications Medication Instructions Recorded Confirmed Type Ibuprofen [Motrin] 800 mg PO Q6H PRN 09/22/16 11/22/16 History Allergies Allergy/AdvReac Type Severity Reaction Status Date / Time cefaclor [From Ceclor] Allergy Rash/Hives Verified 11/22/16 18:59 cephalexin [From Keflex] Allergy Unknown Verified 11/22/16 18:59 Childhood Physical Examination - Vital Signs Vital Signs: Vital Signs Temp Pulse Pulse Resp BP BP Pulse Ox 11/23/16 16:00 98 F 100 18 145/78 97 11/23/16 12:00 97.8 F 99 18 143/66 95 11/23/16 08:00 97.5 F L 99 18 127/63 98 11/23/16 07:25 146/80 11/23/16 05:42 70 18 137/75 93 L 11/23/16 04:00 97.3 F L 91 14 131/73 97 11/22/16 23:30 95 16 11/22/16 23:28 98.4 F 95 16 145/67 99 11/22/16 21:26 98.6 F 110 H 16 149/76 97 11/22/16 21:12 99.1 F 113 H 18 138/60 98 Intake and Output 11/23/16 11/23/16 11/23/16 06:59 14:59 22:59 Intake Total 800 100 Output Total 0 Balance 0 800 100 Intake: Intake, IV Titration 800 Amount Sodium Chloride 0.9% 1, 800 000 ml @ 100 mls/hr IV . Q10H [facility] Rx#:[id number] Oral 100 Output: Urine 0 Other: # Voids 3 Weight 82.5 kg - Constitutional General appearance: average body habitus, cooperative - EENT EENT: ATNC, PERRL, hearing intact - Cardiovascular Cardiovascular: regular rate Extremities: no peripheral edema bilaterally - Gastrointestinal Gastrointestinal: soft, non-tender - Integumentary Integumentary: other (Multiple neurofibromas seen.) - Neurologic The patient is alert aware and oriented 3. Speech and language are normal. Sensory exam showed diminished light touch sensation on the left upper extremity , from the mid arm down. Sensory exam was also diminished in the left lower extremity from the mid leg and distal. Strength is 5-/5 in the left access director, and 5 /5 elsewhere. No facial asymmetry is noticed on cranial nerve testing. No tremors or seizure-like activity is seen. No dysmetria is noticed. - Psychiatric Psychiatric: mood/affect appropriate, cooperative Results - Laboratory Findings CBC and BMP: 11/23/16 09:03 11/23/16 09:03 Abnormal Lab Findings: Abnormal Labs 11/22/16 11/23/16 11/23/16 19:14 02:10 09:03 WBC 10.7 H Glucose 111 H Triglycerides 219 H HDL Cholesterol 21 L - Diagnostic Findings Comments: Computed tomography scan of the brain was reviewed and was normal. All laboratory workup was normal except for slightly elevated cholesterol at 219. 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 I had a lengthy discussion with the patient and his mother regarding the differential diagnosis. I will order an MRI of the brain and cervical spine with and without contrast. The patient will need further outpatient neurophysiological workup. Depending on the MRI findings, I will consider Solu-Medrol or Decadron therapy. Physical therapy will be consulted. I will continue to follow with you. Further recommendations to follow. Thank you for allowing me to participate in the care of your patient. If you have any questions, please for free to contact me. Time with Patient: Greater than 30
[2016-11-24] MEDS: SODIUM CHLORIDE 0.9% 1,000 ML IV SCH ×3 (03:30→20:39)
[2016-11-24 06:02] LABS: Basophils # (A) 0.1 k/uL (0-0.2); Basophils % (A) 1 %; CH 31.7; CHCM 35.7; Eosinophils # (A) 0.4 k/uL (0-0.7); Eosinophils % (A) 5 %; HCT 40.8 % (39.0-53.0); HDW 2.61; HGB 13.9 gm/dL (13.0-17.5); Luc # (Auto) 0.14; Luc % (Auto) 2; Lymphocytes % (A) 28 %; MCH 30.5 pg (25.0-35.0); MCHC 34.2 g/dL (31.0-37.0); MCV 89.2 fL (80.0-100.0); Monocytes # (A) 0.4 k/uL (0-1.0); Monocytes % (A) 6 %; Neutrophils # (A) 4.1 k/uL (1.3-7.7); Neutrophils % (A) 58 %; RBC 4.57 m/uL (4.30-5.90); RDW 13.5 % (11.5-15.5); WBC 7.1 k/uL (3.8-10.6); WBC (Perox) 6.83
[2016-11-24 06:11] LABS: Anion Gap 8 mmol/L; Blood Urea Nitrogen 10 mg/dL (9-20); Calcium 8.8 mg/dL (8.4-10.2); Carbon Dioxide 24 mmol/L (22-30); Chloride 107 mmol/L (98-107); Glucose 82 mg/dL (74-99); Non-African American GFR(MDRD) >60 (>60 ml/min/1.73 sqM); Potassium 4.3 mmol/L (3.5-5.1); Sodium 139 mmol/L (137-145)
[2016-11-24] MEDS: ENOXAPARIN 40 MG/0.4 ML SYRINGE SQ SCH (08:01)
[2016-11-24] MEDS: MORPHINE SULFATE 2 MG/ML SYRINGE IVP PRN (08:02)
[2016-11-24] MEDS: ASPIRIN 325 MG TAB PO SCH (08:02)
--- NOTE | 2016-11-24 11:26 | P.STRESS ---
- Stress Test Note Stress Test Results/Findings: Exam Performed: stress test Exam Date: 11/23/16 Reason for Exam: Chest pain Height: 5 ft 7 in Weight: 80.9 kg Protocol: Faisal Stage: 3 Duration of Exercise: 10:10 Resting Heart Rate: 91 Resting Blood Pressure: 135/72 Maximum Achieved Heart Rate: 172 Maximum Achieved Blood Pressure: 187/72 85% PMHR: 165 100% PMHR: 194 METS: 11.9 Technologist Comment: Stress Test Results/Findings: Resting EKG shows normal sinus rhythm with normal MD interval and QRS duration and normal St t waves.no ST segment depression suggestive ischemia is noted isolated PVCs are noted. Patient did not complain of any chest pain during the test. Isolated PVCs are noted. Conclusion. Stress electrocardiogram is not suggestive ischemia Selected PVCs are noted. His exercise tolerance is normal.
--- NOTE | 2016-11-24 15:17 | MR ---
EXAMINATION TYPE: MR brain/cspine wo/w DATE OF EXAM: 11/24/2016 COMPARISON: 08/28/2014 HISTORY: Left-sided numbness, history of neurofibromatosis. TECHNIQUE: Multiplanar, multisequence images of the brain and brainstem is performed without and with IV contras t, utilizing 0 mL intravenous MultiHance . FINDINGS: Craniovertebral junction is normal. Pituitary is unremarkable. Corpus callosum appears unremarkable. Optic chiasm appears normal. Diffusion-weighted imaging is performed.. No suspicious focal hyperintensity is present to suggest [place] ischemic changes. Cerebellar pontine angle is normal. Internal auditory canals appear normal. Normal vascular flow void s are present. Bilateral cerebral hemispheres are unremarkable. Multiple calvarial hyperintensities on T2 and inversion recovery weighted sequences are again evident and appears stable. The largest anterior right frontal vertex measures 2.4 cm in transverse dimensio n. Additional frontal subcutaneous nodules are present. Scalp lesions near the vertex are evident nor present previously. Suspicious enhancement is not evident within the brain. IMPRESSION: 1. Scattered soft tissue lesions appear stable, largest in the frontal vertex region. 2. Intracranial contents appear normal. EXAMINATION TYPE: MR brain/cspine wo/w DATE OF EXAM: 11/24/2016 COMPARISON: NONE HISTORY: Left-sided numbness CONTRAST: Performed utilizing 0 mL intravenous MultiHance gadolinium contrast. TECHNIQUE: Multiplanar multiecho imaging on a 3.0 Renetta magnet is performed through the cervical spin e. Motion artifact is present causing some limitation on evaluation. FINDINGS: The craniovertebral junction is normal. Vertebral body alignment is normal. Some disc de siccation appears to be present C2-C3, C3-C4, C4-C5. C7-T1: No focal disc herniation or significant disc bulge is evident. No spinal canal stenosis or n eural foraminal stenosis is present. C6-7: Mild disc bulging is anterior thecal sac contact. No cord contact is evident. No spinal canal s tenosis or neural foraminal stenosis is present.. C5-6: No focal disc herniation or significant disc bulge is evident. No spinal canal stenosis or venkat ral foraminal stenosis is present. C4-5: No focal disc herniation or significant disc bulge is evident. No spinal canal stenosis or venkat ral foraminal stenosis is present. C3-4: No focal disc herniation or significant disc bulge is evident. No spinal canal stenosis or venkat ral foraminal stenosis is present. C2-3: No focal disc herniation or significant disc bulge is evident. No spinal canal stenosis or venkat ral foraminal stenosis is present. Postcontrast imaging is performed. Suspicious enhancement is not evident. IMPRESSIONS: 1. Motion artifact limits the examination. 2. Mild disc desiccation. 3. Minimal disc bulge may be present C6-7 without significant thecal sac compression. 4. No suspicious nodules or neural fibromas within the cervical spine.
--- NOTE | 2016-11-24 16:46 | EST ---
Stress Test Results/Findings: Exam Performed: stress test Exam Date: 11/23/16 Reason for Exam: Chest pain Height: 5 ft 7 in Weight: 80.9 kg Protocol: Faisal Stage: 3 Duration of Exercise: 10:10 Resting Heart Rate: 91 Resting Blood Pressure: 135/72 Maximum Achieved Heart Rate: 172 Maximum Achieved Blood Pressure: 187/72 85% PMHR: 165 100% PMHR: 194 METS: 11.9 Technologist Comment: Stress Test Results/Findings: Resting EKG shows normal sinus rhythm with normal [place] interval and QRS duration and normal St t waves.no ST segment depression suggestive ischemia is noted isolated PVCs are noted. Patient did not complain of any chest pain during the test. Isolated PVCs are noted. Conclusion. Stress electrocardiogram is not suggestive ischemia Selected PVCs are noted. His exercise tolerance is normal. MTDD
--- NOTE | 2016-11-24 17:32 | P.PN ---
Progress Note - Text DATE OF SERVICE: 11/24/2016 PRESENTING COMPLAINT: Left hand/arm numbness INTERVAL HISTORY: 6-year-old patient who has a history of neurofibromatosis. 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 First episode was ignored the second one patient came into the emergency department 11/24/2016: Lying in bed appears comfortable. States he continues to have, chest pressure stress test was negative for any acute process. Numbness to left hand and forearm to the elbow as well as numbness to the left foot up to the knee. Anticipating MRI study to be completed today. REVIEW OF SYSTEMS: Done for constitutional ,cardiovascular, GI, pulmonary, neurologic with relevant findings as above. CURRENT MEDICATIONS Aspirin, Lovenox, morphine. PHYSICAL EXAM VITAL SIGNS: Temperature 97.1, pulse 94, respirations 16, blood pressure 135/62, oxygen saturation 97% on room air. GENERAL APPEARANCE: Lying in bed, not in distress. EYES: Pupils equal. Conjunctiva normal. NECK: JVD not raised. Mass not palpable. RESPIRATORY: Respiratory effort normal. Lungs clear to auscultation. CARDIOVASCULAR: First and second sounds normal. No edema. ABDOMEN: Soft. Liver and spleen not palpable. No tenderness. No mass palpable. PSYCHIATRY: Alert and oriented x3. Mood and affect normal. NEUROLOGICAL: Cranial nerves grossly intact. No facial asymmetry. Power and sensation grossly intact INVESTIGATIONS: CBC and BMP unremarkable Stress test: Resting EKG shows normal sinus rhythm normal WV interval and QRS duration normal ST-T waves no ST segment depression, suggestive of ischemia is noted. Isolated PVCs. No complete said chest pain during the test. ASSESSMENT: -Acute onset of numbness in the left arm distal to the elbow as well as left foot traveling up towards the knee, in a patient with known neurofibromatosis. May be manifestation of chronic condition or potentially the spinal cord on the surrounding tissue. -Left-sided chest pain sharp in nature, atypical, likely musculoskeletal, stress test negative -Neurofibromatosis, chronic -Obstructive sleep apnea uses CPAP machine PLAN: await completion of MRI, neurology continues to follow and we'll await their input. Stress test negative. Based on findings from the MRI patient may in fact need to transfer to a tertiary care center, we will continue to follow closely and attempt to facilitate that process if necessary. APPLICATION PENETRATION TESTER statement: Patient was seen and examined by nurse practitioner Nataliya Hirsch and all elements of the case discussed with attending Dr. Betancourt
[2016-11-24] MEDS: ACETAMINOPHEN TAB 325 MG TAB PO PRN (19:00)
--- NOTE | 2016-11-24 19:35 | P.PN ---
Subjective Principal diagnosis: numbness, left side The patient is seen today in a follow-up visit. He is sitting up in his bed then appears to be in no acute distress. He denies any changes in the intensity of the numbness and tingling that he is feeling in his left upper extremity and distal left lower extremity. I did review his MRI of the brain which showed no acute abnormalities. Extracranial nodules are seen which is consistent with his neurofibromatosis diagnosis. I also reviewed his MRI of the cervical spine which showed no evidence of any neuromas. The patient and his mother were reassured from that standpoint. The MRI of the cervical spine did show a mild disc bulge which could be contributing to his left upper extremity symptoms. He denies any new neurological complaints. Objective - Vital Signs Vital signs: Vital Signs Temp 97.1 F L 11/24/16 08:00 Pulse 85 11/24/16 16:00 Resp 16 11/24/16 16:00 BP 130/77 11/24/16 16:00 Pulse Ox 97 11/24/16 16:00 Intake & Output 11/24/16 11/24/16 11/25/16 06:59 18:59 06:59 Intake Total 300 590 Output Total 300 Balance 0 590 Weight 80.9 kg Intake: Intake, IV Titration 300 Amount Sodium Chloride 0.9% 1, 300 000 ml @ 100 mls/hr IV . Q10H MESSI Rx#:[id number] Oral 590 Output: Urine 300 Other: # Voids 1 3 - Constitutional General appearance: Present: average body habitus - EENT Eyes: Present: EOMI - Neck Neck: Present: normal ROM - Cardiovascular Rhythm: regular - Integumentary Integumentary Comment(s): Neurofibromas are seen - Neurologic Neurologic Comment(s): The patient is alert aware and oriented 3. Speech and language are normal. He continues to have sensory deficit in the distal left lower extremity and distal left upper extremity, unchanged from yesterday. No lateralizing weakness is seen. 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 As mentioned above, I did discuss with him and his mother the results of his MRI of the brain and cervical spine. He was reassured that no fibromas are seen within the spinal canal. Treatment options were discussed. I will start him on Solu-Medrol 125 mg IV every 8 hours. Continue with physical therapy. Depending on the extent of his improvement, we will consider clearing him for discharge tomorrow.
[2016-11-24] MEDS: methylPREDNISolone SOD SUCCI 125 MG/2 ML VIAL IV SCH (20:10)
[2016-11-24] MEDS: INSULIN LISPRO (humaLOG) 300 UNIT/3 ML VIAL SQ SCH (20:11)
[2016-11-24] MEDS ORDERED: SENNOSIDES 8.6 MG TAB PO PRN (21:00)
[2016-11-25] MEDS: methylPREDNISolone SOD SUCCI 125 MG/2 ML VIAL IV SCH ×3 (01:06→15:21)
[2016-11-25] MEDS: ASPIRIN 325 MG TAB PO SCH (07:21)
[2016-11-25] MEDS: INSULIN LISPRO (humaLOG) 300 UNIT/3 ML VIAL SQ SCH ×4 (07:21→21:15)
[2016-11-25] MEDS: ENOXAPARIN 40 MG/0.4 ML SYRINGE SQ SCH (07:21)
[2016-11-25] MEDS: SODIUM CHLORIDE 0.9% 1,000 ML IV SCH ×2 (07:22→21:25)
[2016-11-25 07:34] LABS: Glucose,Whole Blood 137 mg/dL (75-99)
[2016-11-25 12:19] LABS: Glucose,Whole Blood 156 mg/dL (75-99)
--- NOTE | 2016-11-25 15:48 | P.PN ---
Subjective Principal diagnosis: Left-sided numbness This is a 26-year-old male continuing to be evaluated by the neurology service. He continues to have some numbness in the left upper and lower extremity. This remains even after his IV steroid treatments. His MRI of the brain and cervical spine showed no acute abnormalities and no new lesions from his known neurofibromatosis. There is a small cervical disc displacement with no adjacent spinal cord abnormality. He denies any new neurological complaints. Preparations are being made to transfer him to the facility at which his neurologist is associated. Objective - Vital Signs Vital signs: Vital Signs Temp 100.7 F H 11/25/16 14:54 Pulse 125 H 11/25/16 14:54 Resp 20 11/25/16 14:54 BP 136/73 11/25/16 14:54 Pulse Ox 95 11/25/16 14:54 Intake & Output 11/24/16 11/25/16 11/25/16 18:59 06:59 18:59 Intake Total 590 500 320 Output Total 1 Balance 590 499 320 Intake: Intake, IV Titration 100 Amount Sodium Chloride 0.9% 1, 100 000 ml @ 100 mls/hr IV . Q10H MESSI Rx#:[id number] Oral 590 400 320 Output: Urine 1 Other: Voiding Method Toilet # Voids 3 1 2 - Constitutional General appearance: Present: average body habitus, cooperative, no acute distress - EENT Eyes: Present: PERRLA. Absent: abnormal pupil, ptosis ENT: Present: hearing grossly normal - Neck Neck: Present: normal ROM. Absent: rigidity - Respiratory Respiratory: negative: prolonged expiration, prolonged inspiration - Cardiovascular Rhythm: regular - Neurologic Neurologic Comment(s): Is alert awake and oriented 3. Speech-language are normal. A left upper and lower extremity mild sensory deficit remains. There is no lateralizing weakness. - Labs CBC & Chem 7: 11/24/16 05:38 11/24/16 05:38 Labs: Abnormal Lab Results - Last 24 Hours (Table) 11/25/16 11/25/16 Range/Units 07:20 12:17 POC Glucose (mg/dL) 137 H 156 H (75-99) mg/dL Assessment and Plan (1) Disturbance of skin sensation Status: Acute (2) Left arm numbness Status: Acute (3) Neurofibromatosis II Status: Chronic (4) Neurofibromatosis, type 1 Status: Chronic Plan: His symptoms remain unchanged. He has had no significant improvement with Solu- Medrol IV. As above transfer arrangements are being made. We agree with this decision. I have performed a history and physical on the above patient. I have reviewed the above note, and agree.
[2016-11-25 17:25] LABS: Glucose,Whole Blood 124 mg/dL (75-99)
[2016-11-25] MEDS: ACETAMINOPHEN TAB 325 MG TAB PO PRN (19:43)
[2016-11-25 21:07] LABS: Glucose,Whole Blood 141 mg/dL (75-99)
[2016-11-26] MEDS: methylPREDNISolone SOD SUCCI 125 MG/2 ML VIAL IV SCH ×2 (00:36→08:38)
[2016-11-26] MEDS: SODIUM CHLORIDE 0.9% 1,000 ML IV SCH (06:35)
[2016-11-26 07:33] LABS: Glucose,Whole Blood 128 mg/dL (75-99)
[2016-11-26 07:34] VITALS: BP 131/67; PULSE 101; RESP 16; TEMP 97.8
[2016-11-26 07:57] LABS: Basophils % (A) 0 %; CH 31.6; CHCM 36.3; Eosinophils % (A) 0 %; HCT 41.8 % (39.0-53.0); Luc # (Auto) 0.08; Luc % (Auto) 0; Lymphocytes # (A) 1.5 k/uL (1.0-4.8); Lymphocytes % (A) 8 %; MCH 31.2 pg (25.0-35.0); MCHC 35.8 g/dL (31.0-37.0); MCV 87.2 fL (80.0-100.0); Mean Platelet Volume 7.7; Monocytes # (A) 0.5 k/uL (0-1.0); Monocytes % (A) 3 %; Neutrophils # (A) 16.7 k/uL (1.3-7.7); Neutrophils % (A) 89 %; RBC 4.79 m/uL (4.30-5.90); RDW 12.4 % (11.5-15.5); WBC 18.8 k/uL (3.8-10.6); WBC (Perox) 19.46
[2016-11-26] MEDS: INSULIN LISPRO (humaLOG) 300 UNIT/3 ML VIAL SQ SCH ×2 (07:57→12:04)
[2016-11-26 08:28] LABS: Blood Urea Nitrogen 17 mg/dL (9-20); Calcium 9.3 mg/dL (8.4-10.2); Carbon Dioxide 22 mmol/L (22-30); Glucose 119 mg/dL (74-99); Non-African American GFR(MDRD) >60 (>60 ml/min/1.73 sqM); Potassium 4.2 mmol/L (3.5-5.1); Sodium 140 mmol/L (137-145)
[2016-11-26 08:31] LABS: Anion Gap 12 mmol/L; Chloride 106 mmol/L (98-107)
--- NOTE | 2016-11-26 08:36 | P.CNOR ---
History of Present Illness - [facility] Consult date: 11/26/16 History of present illness: This is a 26-year-old male admitted to [facility] with numbness to the left upper extremity as well as the left lower extremity. The patient has history of neurofibromatosis. He denies any recent trauma or injury. He denies history of similar symptoms. He states that the numbness to the left arm extends from his elbow to the fingertips. He claims to have no sensation the forearm, hand or fingers. He states that he feels that he has normal strength but just no feeling. He states that the numbness in his lower leg began after his admission and started in the toes and worked its way up to his knee.. We're consulted for orthopedic spine evaluation. The patient advised me this morning that he is being transferred to [facility] wear his neurologist practices. Past Medical History Past Medical History: Sleep Apnea/CPAP/BIPAP Additional Past Medical History / Comment(s): NEUROFIBROMATOSIS, MIGRAINE HEADACHE History of Any Multi-Drug Resistant Organisms: None Reported Past Surgical History: Adenoidectomy, Ear Surgery, Tonsillectomy Additional Past Surgical History / Comment(s): SKIN BIOPSY-ARM, pyloric stenosis repair Past Anesthesia/Blood Transfusion Reactions: No Reported Reaction Past Psychological History: Depression Smoking Status: Never smoker Past Alcohol Use History: Occasional Past Drug Use History: None Reported - Past Family History Mother Family Medical History: Unable to Obtain Additional Family Medical History / Comment(s): Father and brother have caf au lait spots Father Family Medical History: Unable to Obtain Medications and Allergies Home Medications Medication Instructions Recorded Confirmed Type Ibuprofen [Motrin] 800 mg PO Q6H PRN 09/22/16 11/22/16 History Allergies Allergy/AdvReac Type Severity Reaction Status Date / Time cefaclor [From Ceclor] Allergy Rash/Hives Verified 11/22/16 18:59 cephalexin [From Keflex] Allergy Unknown Verified 11/22/16 18:59 Childhood Physical Examination this is a pleasant 26-year-old male in no acute distress. He is alert and oriented 3. Exam of the head neck reveal no obvious deformity. There are multiple small nodules on his skin throughout his body. He has full cervical spine motion without difficulty or pain. There is no pain on palpation about cervical spine or paraspinal musculature. Exam the upper extremities reveals no obvious deformity. He has decreased sensation to the forearm hand and fingers. He has 5/5 strength bilateral upper extremities with food and drug inspector strength, finger abduction and thumb extension. There is slight weakness with finger extension to the left upper extremity compared to the right. Exam of the lower extremities reveals no obvious deformity. He has no hip pain with rotation bilaterally. He is able lift each leg off the bed independently with good strength. He has 5/5 strength with dorsiflexion of the great toe against resistance. He has decreased sensation from the knee down to the toes on the left lower extremity. Results MRI of the cervical spine reveals no cord compression. No obvious myelopathy noted. There is a slight disc bulge at C6 7 with no spinal or foraminal stenosis noted. - Labs Labs: Abnormal Lab Results - Last 24 Hours (Table) 11/25/16 11/25/16 11/25/16 Range/Units 12:17 17:01 21:04 WBC (3.8-10.6) k/uL Neutrophils # (1.3-7.7) k/uL POC Glucose (mg/dL) 156 H 124 H 141 H (75-99) mg/dL 11/26/16 11/26/16 Range/Units 07:06 07:25 WBC 18.8 H (3.8-10.6) k/uL Neutrophils # 16.7 H (1.3-7.7) k/uL POC Glucose (mg/dL) 128 H (75-99) mg/dL H & H 11/22/16 11/23/16 11/24/16 Range/Units 19:14 09:03 05:38 Hgb 15.0 14.5 13.9 (13.0-17.5) gm/dL Hct 40.7 41.5 40.8 (39.0-53.0) % 11/26/16 Range/Units 07:06 Hgb 15.0 (13.0-17.5) gm/dL Hct 41.8 (39.0-53.0) % Result Diagrams: 11/26/16 07:06 11/24/16 05:38 Assessment and Plan (1) Left leg numbness Status: Acute (2) Left arm numbness Status: Acute (3) Neurofibromatosis, type 1 Status: Chronic Plan: The clinical and MRI findings are discussed the patient. He is being transferred out to [facility] which I feel is appropriate. I recommend that he continue on the steroids until transfer.
[2016-11-26] MEDS: ENOXAPARIN 40 MG/0.4 ML SYRINGE SQ SCH (08:38)
[2016-11-26] MEDS: ASPIRIN 325 MG TAB PO SCH (08:38)
--- NOTE | 2016-11-26 11:34 | PN ---
DATE OF SERVICE: 11/25/2016 PRESENTING COMPLAINT: Numbness. INTERVAL HISTORY: This is a patient with neurofibromatosis, initially presented with numbness of the left arm distal to the elbow, then developed numbness below the left knee down to the foot. Started on IV ( ), not much improvement. The patient concerned about the same. No other new symptoms. Review of systems done for constitutional, cardiovascular, GI, pulmonary, relevant findings as above. Current medications are reviewed that include: IV Solu-Medrol 125 mg q8. On examination, temperature 97.4, pulse 101, respiratory rate 16, blood pressure 126/74. Pulse ox 97% on room air. General appearance: Sitting up comfortable. Eyes : Pupils equal. Conjunctivae normal. Neck: JVD not raised. Mass not palpable. Respiratory effort normal. Lungs are clear. Cardiovascular: First and second sounds normal. No edema. Abdomen soft, nontender. Liver and spleen not palpable. Neurological: Decreased sensation distally on the left arm below the elbow and on the left leg below the knee. INVESTIGATIONS: No blood work from today. MRI showed mild dyskinesia C6, C7. ASSESSMENT: 1. Increased numbness on the left arm distal to the elbow and left leg distal to the left knee in a patient with known neurofibromatosis. The patient has been found to have some element of dyskinesia C6, C7 but that does not explain her findings. 2. Musculoskeletal chest pain, resolved. 3. Obstructive sleep apnea, uses CPAP machine. PLAN: The patient is concerned about not getting better. I spoke to the neurological team at [facility] and explained to them that his clinical findings are not compatible with anatomical finding of the MRI and because of high level of care, and expert opinion, and not missing anything, the patient should be transferred there. He thinks the patient will be accepted there. This was done after the patient acceptable to get transferred down to [facility]. In the meantime, continue current medication and treatment plan. Follow. [facility]
[2016-11-26 11:57] LABS: Glucose,Whole Blood 115 mg/dL (75-99)
--- NOTE | 2016-11-26 19:50 | DS ---
FINAL DIAGNOSES: 1. Acute numbness of left arm distal to the elbow and left leg distal to the left knee progressive, getting worse in a patient with known neurofibromatosis. 2. Left sided anterior chest wall pain felt to be musculoskeletal. 3. Obstructive sleep apnea, uses CPAP machine. 4. Neurofibromatosis. CONSULTATION: Dr. Locke from neurology. Dr. Shah from orthopedic spine. Dr. Shaffer from cardiology. HOSPITAL COURSE: This very pleasant gentleman with known history of neurofibromatosis presented with numbness to the left arm distal to the elbow. Initially had tingling of the left toes, then did progress to below the left knee. The patient did undergo brain cervical spine MRI which is essentially unremarkable. Today when I spoke to the patient, he said his left leg was starting to buckle, getting worse. I spoke to the doctor from [facility] , spoke to the transferring team and did state that symptoms getting worse, we do not have a clear cut diagnosis. The patient was started on IV Solu-Medrol to which he was not getting better. Hence transfer to high level of care and worsening neurological status, he is being transferred. The patient also had some sharp chest pain. Did have stress test that was negative. 2D echocardiogram was unremarkable. On examination, numbness and decreased sensation of the left arm, beyond the left elbow and left leg below the left knee and gait dysfunction from the above. DISPOSITION: [facility] for high level of care and worsening symptoms. Discharge planning more than [address] Rogel. RADHA
== END 2016-11-26 13:30 | disposition short-term general hospital (02) | DRG 93 ==
LOC: EC 18:34 → 6SEL 20:52 → OBSVTOIN 11-24 10:13 → 5MS5E 11-24 11:27 → 6SEL 11-24 11:33 → 4MS4W 11-24 20:37
PROVIDERS: ADMIT Hospitalist; ATTEND Hospitalist
DX: R20.0 Anesthesia of skin (principal); M50.20 Other cervical disc displacement, unspecified cervical region; F32.9 Major depressive disorder, single episode, unspecified; Q85.01 Neurofibromatosis, type 1; E78.5 Hyperlipidemia, unspecified; R26.9 Unspecified abnormalities of gait and mobility; R20.2 Paresthesia of skin; R07.89 Other chest pain; G47.33 Obstructive sleep apnea (adult) (pediatric); I44.0 Atrioventricular block, first degree; G43.909 Migraine, unspecified, not intractable, without status migrainosus; R00.0 Tachycardia, unspecified; Z88.1 Allergy status to other antibiotic agents
CPT/HCPCS: 36415; 70450; 70553; 72156; 80048; 80053; 80061; 82550; 82553; 82607; 82746; 84443; 84484; 85025; 85379; 93005; 93017; 93306; 96360; 96361; 99285

== ENCOUNTER 2017-12-27 06:18 | Emergency (ER) | payer OTHER ==
[2017-12-27 06:24] VITALS: BP 132/84; PULSE 62; RESP 18; TEMP 98.4
[2017-12-27] MEDS ORDERED: KETOROLAC 30 MG/ML 1 ML VIAL IVP STA (07:30)
[2017-12-27] MEDS ORDERED: SODIUM CHLORIDE 0.9% 1,000 ML IV STA (07:30)
--- NOTE | 2017-12-27 07:33 | ED ---
Abdominal Pain HPI - General Chief Complaint: Abdominal Pain Stated Complaint: Abdominal Pain Time Seen by Provider: 12/27/17 07:00 Source: patient, RN notes reviewed Mode of arrival: ambulatory Limitations: no limitations - History of Present Illness Initial Comments: This is a 27-year-old male with a benign history states he woke up around 6 AM this morning with sharp right-sided abdominal pain with nausea. States the pain is 6-7/10 severity does get worse with deep breathing denies any overt nausea vomiting states she's had some loose stools for past several days. He is concerned with his appendix. He states he has had pain similar to this in the past he has no known history kidney stones. No cough or phlegm production no abdominal surgery no fevers chills sweats or other symptoms at this time. MD Complaint: abdominal pain - Related Data Home Medications Medication Instructions Recorded Confirmed Hydrochlorothiazide [Hydrodiuril] 25 mg PO DAILY 12/27/17 12/27/17 Verapamil HCl [Verapamil ER] 240 mg PO DAILY 12/27/17 12/27/17 Previous Rx's Medication Instructions Recorded Dicyclomine [Bentyl] 10 mg PO TID PRN #10 capsule 12/27/17 Allergies Allergy/AdvReac Type Severity Reaction Status Date / Time cefaclor [From Ceclor] Allergy Rash/Hives Verified 12/27/17 07:34 cephalexin [From Keflex] Allergy Unknown Verified 12/27/17 07:34 Childhood Review of Systems ROS Statement: Those systems with pertinent positive or pertinent negative responses have been documented in the HPI. ROS Other: All systems not noted in ROS Statement are negative. Past Medical History Past Medical History: Sleep Apnea/CPAP/BIPAP Additional Past Medical History / Comment(s): NEUROFIBROMATOSIS, MIGRAINE HEADACHE History of Any Multi-Drug Resistant Organisms: None Reported Past Surgical History: Adenoidectomy, Ear Surgery, Tonsillectomy Additional Past Surgical History / Comment(s): SKIN BIOPSY-ARM, pyloric stenosis repair Past Anesthesia/Blood Transfusion Reactions: No Reported Reaction Past Psychological History: Depression Smoking Status: Never smoker Past Alcohol Use History: Occasional Past Drug Use History: None Reported - Past Family History Mother Family Medical History: Unable to Obtain Additional Family Medical History / Comment(s): Father and brother have caf au lait spots Father Family Medical History: Unable to Obtain General Exam - General Exam Comments Initial Comments: This is a well-developed well-nourished awake alert oriented times 3 male Limitations: no limitations General appearance: alert, in no apparent distress Head exam: Present: atraumatic, normocephalic, normal inspection Eye exam: Present: normal appearance, PERRL, EOMI. Absent: scleral icterus, conjunctival injection, periorbital swelling ENT exam: Present: normal exam, mucous membranes moist Neck exam: Present: normal inspection. Absent: tenderness, meningismus, lymphadenopathy Respiratory exam: Present: normal lung sounds bilaterally. Absent: respiratory distress, wheezes, rales, rhonchi, stridor Cardiovascular Exam: Present: regular rate, normal rhythm, normal heart sounds. Absent: systolic murmur, diastolic murmur, rubs, gallop, clicks GI/Abdominal exam: Present: soft, tenderness (Tenderness to the right flank and right lower quadrant with no guarding or rebound at this time. No obturator psoas signs noted), normal bowel sounds. Absent: distended, guarding, rebound, rigid Rectal exam: Present: deferred Extremities exam: Present: normal inspection, full ROM, normal capillary refill. Absent: tenderness, pedal edema, joint swelling, calf tenderness Back exam: Present: normal inspection Neurological exam: Present: alert, oriented X3, CN II-XII intact Psychiatric exam: Present: normal affect, normal mood Skin exam: Present: warm, dry, intact, normal color, other (Patient does have multiple skin nodules noted). Absent: rash Course Vital Signs 12/27/17 06:22 Temperature 98.4 F Pulse Rate 62 Respiratory 18 Rate Blood Pressure 132/84 O2 Sat by Pulse 97 Oximetry Medical Decision Making - Medical Decision Making I did discuss the findings with the patient has . Patient be discharged presentation is consistent with a ball spasm. - Lab Data Result diagrams: 12/27/17 07:46 12/27/17 07:46 Lab Results 12/27/17 12/27/17 12/27/17 Range/Units 07:46 07:46 10:26 WBC 6.8 (3.8-10.6) k/uL RBC 4.95 (4.30-5.90) m/uL Hgb 14.8 (13.0-17.5) gm/dL Hct 43.1 (39.0-53.0) % MCV 87.1 (80.0-100.0) fL MCH 29.9 (25.0-35.0) pg MCHC 34.3 (31.0-37.0) g/dL RDW 12.7 (11.5-15.5) % Plt Count 231 (150-450) k/uL Neutrophils % 57 % Lymphocytes % 28 % Monocytes % 6 % Eosinophils % 6 % Basophils % 1 % Neutrophils # 3.9 (1.3-7.7) k/uL Lymphocytes # 1.9 (1.0-4.8) k/uL Monocytes # 0.4 (0-1.0) k/uL Eosinophils # 0.4 (0-0.7) k/uL Basophils # 0.1 (0-0.2) k/uL Sodium 141 (137-145) mmol/L Potassium 3.4 L (3.5-5.1) mmol/L Chloride 105 (98-107) mmol/L Carbon Dioxide 26 (22-30) mmol/L Anion Gap 10 mmol/L BUN 15 (9-20) mg/dL Creatinine 1.02 (0.66-1.25) mg/dL Est GFR (CKD-EPI)AfAm >90 (>60 ml/min/1.73 sqM) Est GFR (CKD-EPI)NonAf >90 (>60 ml/min/1.73 sqM) Glucose 93 (74-99) mg/dL Calcium 9.3 (8.4-10.2) mg/dL Magnesium 1.7 (1.6-2.3) mg/dL Total Bilirubin 0.7 (0.2-1.3) mg/dL AST 13 L (17-59) U/L ALT 31 (21-72) U/L Alkaline Phosphatase 44 (38-126) U/L Total Protein 6.5 (6.3-8.2) g/dL Albumin 4.1 (3.5-5.0) g/dL Amylase 61 (30-110) U/L Lipase 73 (23-300) U/L Urine Color Yellow Urine Appearance Clear (Clear) Urine pH 6.0 (5.0-8.0) Ur Specific Bryan 1.030 (1.001-1.035) Urine Protein 1+ H (Negative) Urine Glucose (UA) Negative (Negative) Urine Ketones Negative (Negative) Urine Blood Negative (Negative) Urine Nitrite Negative (Negative) Urine Bilirubin Negative (Negative) Urine Urobilinogen 3.0 (<2.0) mg/dL Ur Leukocyte Esterase Negative (Negative) Urine WBC 1 (0-5) /hpf Urine Mucus Many H (None) /hpf - Radiology Data Radiology results: report reviewed (I did review the imaging and report no acute findings.), image reviewed Disposition Clinical Impression: Abdominal pain, Spastic colon Disposition: HOME SELF-CARE Condition: Good Prescriptions: Dicyclomine [Bentyl] 10 mg PO TID PRN #10 capsule PRN Reason: Pain Is patient prescribed a controlled substance at d/c from ED?: No Referrals: Nitin Rogel DO [Primary Care Provider] - 1-2 days
[2017-12-27 08:02] LABS: Basophils # (A) 0.1 k/uL (0-0.2); Basophils % (A) 1 %; Eosinophils # (A) 0.4 k/uL (0-0.7); Eosinophils % (A) 6 %; HCT 43.1 % (39.0-53.0); HGB 14.8 gm/dL (13.0-17.5); Lymphocytes # (A) 1.9 k/uL (1.0-4.8); Lymphocytes % (A) 28 %; MCH 29.9 pg (25.0-35.0); MCHC 34.3 g/dL (31.0-37.0); MCV 87.1 fL (80.0-100.0); Mean Platelet Volume 7.2; Monocytes # (A) 0.4 k/uL (0-1.0); Monocytes % (A) 6 %; Neutrophils # (A) 3.9 k/uL (1.3-7.7); Neutrophils % (A) 57 %; Platelet Count 231 k/uL (150-450); RBC 4.95 m/uL (4.30-5.90); RDW 12.7 % (11.5-15.5); WBC 6.8 k/uL (3.8-10.6)
[2017-12-27 08:11] LABS: ALT 31 U/L (21-72); AST 13 U/L (17-59); Albumin 4.1 g/dL (3.5-5.0); Alkaline Phosphatase 44 U/L (38-126); Amylase 61 U/L (30-110); Anion Gap 10 mmol/L; Blood Urea Nitrogen 15 mg/dL (9-20); Calcium 9.3 mg/dL (8.4-10.2); Carbon Dioxide 26 mmol/L (22-30); Chloride 105 mmol/L (98-107); Glucose 93 mg/dL (74-99); Lipase 73 U/L (23-300); Magnesium 1.7 mg/dL (1.6-2.3); Potassium 3.4 mmol/L (3.5-5.1); Sodium 141 mmol/L (137-145); Total Bilirubin 0.7 mg/dL (0.2-1.3); Total Protein 6.5 g/dL (6.3-8.2)
--- NOTE | 2017-12-27 08:25 | XR ---
EXAMINATION TYPE: XR KUB DATE OF EXAM: 12/27/2017 COMPARISON: 09/22/2016 INDICATION: Right lower quadrant pain, nausea TECHNIQUE: Single view abdomen upright view FINDINGS: There is a normal bowel gas pattern. Psoas margins are normal. No organomegaly is present. Mild fecal retention is through the colon. IMPRESSION: 1. Unremarkable Abdomen
--- NOTE | 2017-12-27 10:03 | CT ---
EXAMINATION TYPE: CT abdomen pelvis wo con DATE OF EXAM: 12/27/2017 COMPARISON: 09/22/2016 INDICATION: abdominal pain DLP: 369.2 mGycm, Automated exposure control for dose reduction was used. CONTRAST: 0 mL of Isovue 300. Study performed without Oral Contrast TECHNIQUE: Axial images were obtained from above the diaphragm to the pubic rami in the axial plane a t 5 mm thick sections. Reconstructed images are reviewed on the computer in the coronal plane. FINDINGS: Limited CT sections are obtained the lung bases. The lung bases are clear. CT ABDOMEN: There are multiple subcutaneous and superficial skin nodules. Larger example images serie s 4 image 23. Liver: Portion of the liver included within the [id number] is normal. Spleen: Normal Pancreas: Normal Adrenal glands: The adrenal glands are normal. Gallbladder: Normal Kidneys: No masses are evident. No hydronephrosis is present. No cysts are present. Delayed images were obtained through the kidneys, which remain unremarkable. Aorta: Normal Inferior vena cava: Normal. CT PELVIS: There is a 1.3 cm nodule within the right peroneal region. Series 4 image 69 Loops of bowel within the abdomen and pelvis are normal. There are loops of bowel which are incom pletely distended or lack oral contrast limiting their evaluation. Appendix: Normal as visualized. Urinary bladder: Normal. Genitourinary structures: Prostate is somewhat prominent for the patient age. Osseous structures: No suspicious lytic or sclerotic lesions. There is a 3.3 cm hypodensity within the medial right thigh musculature. Series 4 image 80. Consider abscess and hematoma within the differential. Underlying mass could be considered. There is a 2.2 cm mass in the right rectus abdominis muscular region displacing the peritoneal margin medially. This wa s present previously. There is a 1.4 cm iso to hypoechoic dense area within the gluteus delmer muscl e on right side. Series 4 image 56. There is a 2.1 cm mass in the left presacral space. Series 4 imag e 53. IMPRESSIONS: 1. No suspicious acute changes identified. 2. Multiple lesions masses present previously discussed above may be related to the patient's reporte d neurofibromatosis.
[2017-12-27 11:03] LABS: Appearance,Urine Clear (Clear); Bilirubin,Urine Negative (Negative); Blood,Urine Negative (Negative); Color,Urine Yellow; Glucose,Urine (UA) Negative (Negative); Ketones,Urine Negative (Negative); Leukocyte Esterase,Urine Negative (Negative); Mucus,Urine Many /hpf; Nitrite,Urine Negative (Negative); Protein,Urine 1+ (Negative); WBC,Urine 1 /hpf (0-5)
== END 2017-12-27 11:18 | disposition home or self-care (01) ==
LOC: EC 06:18
DX: K58.9 Irritable bowel syndrome, unspecified (principal); G47.30 Sleep apnea, unspecified; Z99.89 Dependence on other enabling machines and devices; Z87.19 Personal history of other diseases of the digestive system; Z98.890 Other specified postprocedural states; Z79.899 Other long term (current) drug therapy; Z88.1 Allergy status to other antibiotic agents
CPT/HCPCS: 99284; 96374; 96361 ×3; 36415; 80053; 82150; 83690; 83735; 85025; 81001; 74018; 74176; J1885

== ENCOUNTER → 2018-01-10 | Outpatient (CLI) | payer OTHER ==
--- NOTE | 2018-01-10 10:54 | XR ---
EXAMINATION TYPE: XR knee complete LT DATE OF EXAM: 01/10/2018 CLINICAL HISTORY: Arthritic pain in left knee . Pain per order. TECHNIQUE: Three views of the left knee are obtained. COMPARISON: None. FINDINGS: There is no acute fracture/dislocation evident in left knee. Fairly mild tricompartment howie int space loss is present. No significant spurring is seen. The overlying soft tissue appears unremar kable. IMPRESSION: As above.
== END | disposition home or self-care (01) ==
LOC: RADXRMAIN 10:19
PROVIDERS: ATTEND Family Medicine
DX: M25.862 Other specified joint disorders, left knee (principal); M25.562 Pain in left knee

== ENCOUNTER 2018-03-19 20:33 | Emergency (ER) | payer OTHER ==
--- NOTE | 2018-03-19 22:32 | ED ---
Syncope HPI - General Chief Complaint: Extremity Injury, Upper Stated Complaint: Hand numb Time Seen by Provider: 03/19/18 21:35 Source: patient Mode of arrival: ambulatory Limitations: no limitations - History of Present Illness Initial Comments: This patient is a 27-year-old man who presents to be evaluated after a near- syncopal episode. The patient was at work tonight. 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 This is a new job for him. He states that at one point he felt lightheaded, like he was going to pass out. The patient states that he went down to his knees that he would not fall, and then the next thing he knew his work carton and can supply supervisor was showing a flashlight in his face and asking if he was okay. The patient does not believe that he actually lost consciousness. He states that he did not have any trauma. The patient states that he is Back his baseline, just that his right hand feels a little tingly. MD Complaint: felt faint, almost passed out -: hour(s) Prodromal Symptoms: lightheaded -: second(s) Witnessed: yes - by bystander Injuries Sustained Associated with Event: None Current Symptoms: other (Right hand tingling) Context: other (While working) Treatments Prior to Arrival: none - Related Data Home Medications Medication Instructions Recorded Confirmed Hydrochlorothiazide [Hydrodiuril] 25 mg PO DAILY 12/27/17 03/19/18 Verapamil HCl [Verapamil ER] 240 mg PO DAILY 12/27/17 03/19/18 Bismuth Subsalicylate 30 ml PO DAILY 03/19/18 03/19/18 [Pepto-Bismol] Cholecalciferol (Vitamin D3) 2,000 unit PO DAILY 03/19/18 03/19/18 [Vitamin D3] Cyanocobalamin (Vitamin B-12) 2,500 mcg PO DAILY 03/19/18 03/19/18 [Vitamin B12] Allergies Allergy/AdvReac Type Severity Reaction Status Date / Time cefaclor [From Ceclor] Allergy Rash/Hives Verified 03/19/18 20:37 cephalexin [From Keflex] Allergy Unknown Verified 03/19/18 20:37 Childhood Review of Systems ROS Statement: Those systems with pertinent positive or pertinent negative responses have been documented in the HPI. ROS Other: All systems not noted in ROS Statement are negative. Constitutional: Denies: fever, chills Eyes: Denies: vision change Respiratory: Denies: cough, dyspnea Cardiovascular: Reports: as per HPI, syncope (Near syncope). Denies: chest pain , palpitations, orthopnea, edema Gastrointestinal: Denies: abdominal pain, nausea, vomiting, diarrhea Musculoskeletal: Denies: back pain Skin: Denies: rash Neurological: Reports: paresthesias. Denies: headache, weakness, numbness Psychiatric: Denies: anxiety Past Medical History Past Medical History: Sleep Apnea/CPAP/BIPAP Additional Past Medical History / Comment(s): NEUROFIBROMATOSIS, MIGRAINE HEADACHE History of Any Multi-Drug Resistant Organisms: None Reported Past Surgical History: Adenoidectomy, Ear Surgery, Tonsillectomy Additional Past Surgical History / Comment(s): SKIN BIOPSY-ARM, pyloric stenosis repair Past Anesthesia/Blood Transfusion Reactions: No Reported Reaction Past Psychological History: Depression Smoking Status: Never smoker Past Alcohol Use History: Occasional Past Drug Use History: None Reported - Past Family History Mother Family Medical History: Unable to Obtain Additional Family Medical History / Comment(s): Father and brother have caf au lait spots Father Family Medical History: Unable to Obtain General Exam Limitations: no limitations General appearance: alert, in no apparent distress Head exam: Present: atraumatic, normocephalic, normal inspection Eye exam: Present: normal appearance, PERRL, EOMI. Absent: scleral icterus, conjunctival injection, nystagmus ENT exam: Present: normal oropharynx, mucous membranes moist Respiratory exam: Present: normal lung sounds bilaterally. Absent: respiratory distress, wheezes, rales, rhonchi, stridor Cardiovascular Exam: Present: regular rate, normal rhythm, normal heart sounds. Absent: systolic murmur, diastolic murmur, rubs, gallop GI/Abdominal exam: Present: soft. Absent: distended, tenderness, guarding, rebound, rigid, mass Extremities exam: Present: normal inspection, normal capillary refill. Absent: pedal edema, calf tenderness Back exam: Present: normal inspection Neurological exam: Present: alert, oriented X3, CN II-XII intact, normal gait. Absent: motor sensory deficit Skin exam: Present: warm, dry, intact, normal color. Absent: rash Course Vital Signs 03/19/18 20:35 Temperature 98.4 F Pulse Rate 103 H Respiratory 18 Rate Blood Pressure 116/74 O2 Sat by Pulse 96 Oximetry Medical Decision Making - Lab Data Result diagrams: 03/19/18 22:35 03/19/18 22:35 Lab Results 03/19/18 03/19/18 Range/Units 22:35 22:35 WBC 11.3 H (3.8-10.6) k/uL RBC 4.90 (4.30-5.90) m/uL Hgb 15.5 (13.0-17.5) gm/dL Hct 41.9 (39.0-53.0) % MCV 85.6 (80.0-100.0) fL MCH 31.6 (25.0-35.0) pg MCHC 37.0 (31.0-37.0) g/dL RDW 12.1 (11.5-15.5) % Plt Count 252 (150-450) k/uL Neutrophils % 73 % Lymphocytes % 19 % Monocytes % 4 % Eosinophils % 2 % Basophils % 0 % Neutrophils # 8.2 H (1.3-7.7) k/uL Lymphocytes # 2.2 (1.0-4.8) k/uL Monocytes # 0.5 (0-1.0) k/uL Eosinophils # 0.3 (0-0.7) k/uL Basophils # 0.1 (0-0.2) k/uL Sodium 140 (137-145) mmol/L Potassium 3.7 (3.5-5.1) mmol/L Chloride 102 (98-107) mmol/L Carbon Dioxide 26 (22-30) mmol/L Anion Gap 12 mmol/L BUN 16 (9-20) mg/dL Creatinine 0.91 (0.66-1.25) mg/dL Est GFR (CKD-EPI)AfAm >90 (>60 ml/min/1.73 sqM) Est GFR (CKD-EPI)NonAf >90 (>60 ml/min/1.73 sqM) Glucose 95 (74-99) mg/dL Calcium 9.8 (8.4-10.2) mg/dL Magnesium 1.6 (1.6-2.3) mg/dL Disposition Clinical Impression: Disturbance of skin sensation, Near syncope Disposition: HOME SELF-CARE Condition: Good Instructions: Paresthesia (ED), Near Syncope (ED) Is patient prescribed a controlled substance at d/c from ED?: No Referrals: Nitin Rogel DO [Primary Care Provider] - 1-2 days Ana Sahni MD [STAFF PHYSICIAN] - 1-2 days
[2018-03-19 22:58] LABS: Basophils # (A) 0.1 k/uL (0-0.2); Basophils % (A) 0 %; Eosinophils # (A) 0.3 k/uL (0-0.7); Eosinophils % (A) 2 %; HCT 41.9 % (39.0-53.0); HGB 15.5 gm/dL (13.0-17.5); Lymphocytes # (A) 2.2 k/uL (1.0-4.8); Lymphocytes % (A) 19 %; MCH 31.6 pg (25.0-35.0); MCV 85.6 fL (80.0-100.0); Mean Platelet Volume 7.7; Monocytes # (A) 0.5 k/uL (0-1.0); Monocytes % (A) 4 %; Neutrophils # (A) 8.2 k/uL (1.3-7.7); Neutrophils % (A) 73 %; Platelet Count 252 k/uL (150-450); RDW 12.1 % (11.5-15.5); WBC 11.3 k/uL (3.8-10.6)
[2018-03-19 22:59] LABS: Anion Gap 12 mmol/L; Blood Urea Nitrogen 16 mg/dL (9-20); Calcium 9.8 mg/dL (8.4-10.2); Carbon Dioxide 26 mmol/L (22-30); Chloride 102 mmol/L (98-107); Glucose 95 mg/dL (74-99); Magnesium 1.6 mg/dL (1.6-2.3); Potassium 3.7 mmol/L (3.5-5.1); Sodium 140 mmol/L (137-145)
[2018-03-20 00:43] VITALS: BP 129/69; PULSE 78; RESP 20; TEMP 97
== END 2018-03-20 00:43 | disposition home or self-care (01) ==
LOC: EC 20:33
DX: R55 Syncope and collapse (principal); R20.2 Paresthesia of skin; G47.30 Sleep apnea, unspecified; Z99.89 Dependence on other enabling machines and devices; Z86.69 Personal history of other diseases of the nervous system and sense organs; Z98.890 Other specified postprocedural states; Z79.899 Other long term (current) drug therapy; Z88.1 Allergy status to other antibiotic agents
CPT/HCPCS: 36415; 80048; 83735; 85025; 99283; 99284

== ENCOUNTER → 2018-05-17 | Outpatient (CLI) | payer OTHER ==
--- NOTE | 2018-05-18 14:54 | ECHOS ---
Stress Test Results/Findings: Exam Performed: stress echo exercise Exam Date: 05/17/18 Reason for Exam: dyspnea Height: 5 ft 8 in Weight: 83.461 kg Protocol: sosa Stage: 4 Duration of Exercise: 11min 19sec Resting Heart Rate: 79 Resting Blood Pressure: 119/54 Maximum Achieved Heart Rate: 164 Maximum Achieved Blood Pressure: 169/31 85% PMHR: 163 100% PMHR: 192 METS: 11.9 Technologist Comment: Stress Test Results/Findings: Baseline heart rate 79 beats a minute Baseline blood pressure 119/54 mmHg a central ECG shows normal sinus rhythm normal cardiac intervals Impression to exercise on a Sosa protocol for 11 minutes 19 seconds achieving a peak heart rate was 64 beats a minute He complained of shortness of breath at peak exercise no chest pain There is no ECG evidence for ischemia Baseline 2-D echo which showed normal LV size and systolic function without segmental wall motion abnormalities At peak exercise there was excellent augmentation of overall LV contractility without wall (4 motion abnormalities At recovery lesion global LV systolic function remained normal Impression No ECG or echocardiographic evidence for ischemia and good exercise capacity [id number]
== END | disposition home or self-care (01) ==
LOC: RADNMMAIN 09:48
PROVIDERS: ATTEND Family Medicine
DX: R06.09 Other forms of dyspnea (principal)
CPT/HCPCS: 93351

== ENCOUNTER → 2018-06-05 | Outpatient (CLI) | payer OTHER ==
--- NOTE | 2018-06-05 16:18 | CONS ---
CONSULTATION REASON FOR CONSULTATION: Excessive daytime sleepiness and the patient reports waking up tired. This is a 28-year-old boy who is coming in with symptoms of excessive daytime sleepiness. This is not his first visit to the sleep center. The patient was evaluated approximately 3 years ago for the same problem here in the sleep center. At that time the patient was seen by Dr. Moeller. The workup back then included a PSG and MSLT. The PSG back then showed a sleep efficiency of 75%. The sleep architecture was characterized by 9.6% stage I, 66% stage II, 12% stage III and 12.2% REM sleep. REM sleep latency was 139 minutes. The patient had an arousal index of 9.7 with a total of 47 arousals. Apnea-hypopnea index was 0.6. This was negative for sleep apnea. Following that, the patient was given an MSLT and the patient was given a total of 4 naps. The mean sleep latency for a total of 4 naps was 8 minutes and the patient had 4 REM-onset sleeps. Based on that, the patient was given a diagnosis of narcolepsy. Subsequently the patient was given an MWT test on 07/01/2015, and yet again the test was abnormal. The patient fell asleep on 4 naps, achieving REM sleep in all of these naps. Based on all these data, the patient was given the diagnosis of narcolepsy. Initially he was given dextroamphetamine/Dexedrine. The response was not that favorable. The patient continued to be symptomatic and sleepy. Following that he saw his primary care physician, and he was tried on modafinil at various doses; and yet again he continued to be sleepy and he claimed that the treatment itself had no impact or any affect on his excessive daytime sleepiness and fatigue. 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 Currently he is working at [employer] on [employer] [place]. His sleep schedule varies, depending on whether he has to go to work or not. In general he goes to bed around 11 p.m. and wakes up at 6 to 7 a.m. in the morning. He takes naps anytime he has a chance to do so. He is quite busy during the day and gets very tired and sleepy. He does not fall asleep while driving. On few instances he has seen scary dreams and vivid images that were quite disturbing; however, this is not a common occurrence. On a few instances he has also experienced weakness in his muscles. He says this has occurred especially when he is feeling happy and during a laughing episode. I reviewed his medical records from the hospital. I see that the patient has a history of neurofibromatosis. He has been hospitalized with symptoms of right upper extremity numbness, and had further investigation with an MRI of his brachial plexus and the spine that showed neurofibromas possibly causing his upper extremity weakness, knowing that the patient was found to have a large lesion in the axilla anterior to the subscapularis muscle in addition to another lesion in the posterior location, infraclavicular, causing some mass effect on the brachial plexus. He was seen by Neurology back then. On today's evaluation, the patient is symptomatic. He claims that his sleepiness is affecting his quality of life. His weight is essentially stable at 184. Overall he has gained around 11 pounds since his last evaluation back in 2016. He has a soft snore. Denies any insomnia. No choking or gasping sensation. Occasional dryness in his mouth when he wakes up and occasional grinding of the teeth. He is waking up tired and he has fallen asleep during the day, especially on instances that he does not have to. He is very worried about his sleep quality. His Waldorf Score is 12. No history of any motor vehicle accident because of feeling drowsy or sleepy. He used to drink alcohol and currently is done with alcohol drinking; his last drink was approximately one year ago. His other comorbidities include a history of hypertension. PAST MEDICAL HISTORY: 1. Narcolepsy. 2. Neurofibromatosis. 3. Hypertension. 4. History of headaches. SURGICAL HISTORY: Includes: 1. Ear surgery. 2. Tonsillectomy. 3. Adenoidectomy. 4. Skin biopsy. 5. Repair of pyloric stenosis at a young age. SOCIAL HISTORY: Lifetime nonsmoker. No history of alcoholism. No history of IV drugs. FAMILY HISTORY: His father and brother both have [id number] spots. His grandmother allegedly has narcolepsy and she has taken stimulant therapy and she also has obstructive sleep apnea. She is on CPAP therapy. OUTPATIENT MEDICATIONS: Include hydrochlorothiazide and verapamil. REVIEW OF SYSTEMS: Twelve-point review of systems was done. Positive findings were all mentioned above in the history of present illness. Fortunately his right upper extremity weakness has improved, although he still has some numbness. No significant weight gain. No heartburn. No palpitations. No shortness of breath. He has some history of depression. Currently he has no depression. No history of anxiety. He has had vivid dreams during naps, and this has been documented on multiple occasions. PHYSICAL EXAMINATION: HIS VITALS: BP is 122/75, pulse rate 76, respirations 16, temperature 98.3, saturation 98% on room air. Height is 5 feet 6 inches, weight 184. Neck size is 16 inches. GENERAL APPEARANCE: Calm, comfortable. Head is atraumatic, normocephalic. NECK: Supple. There is no JVD. No goiter or neck masses. Evidence of grinding of the teeth. LUNGS: Clear to auscultation. HEART: Heart sounds are regular rate and rhythm. Normal S1, S2. No S3, S4. No murmurs. ABDOMEN: Soft, nontender. No organomegaly. EXTREMITIES: No edema. No cyanosis or clubbing. SKIN: Neurofibromatous cysts and lesions throughout his face, neck upper and lower extremities and trunk. IMPRESSION: 1. Type 1 narcolepsy. Reviewed the sleep studies from 2016. The patient had a negative sleep study. The MSLT showed a mean sleep latency barely above 8 minutes; however, the patient had 4 instances of REM-onset sleep. This, along with his excessive daytime sleepiness, hallucinations, vivid dreams and some cataplectic events, supports the diagnosis of narcolepsy. His MWT test that was done back in 2016 was also abnormal and the patient had 4 episodes of REM-onset sleep during the MWT test. The patient has been tried on stimulants, including dextroamphetamine modafinil, and he has failed to respond to treatment. 2. Neurofibromatosis. 3. Hypertension. PLAN: 1. I had a lengthy discussion with the patient. 2. I am convinced that we have the right diagnosis. I think we are dealing with narcolepsy, type 1. 3. I do not see the need to repeat the sleep study. I reviewed the PSG and MSLT and MWT tests that were done on this patient back in 2016, and the results are quite convincing. Based on this, I discussed with the patient different treatment options. First of all, the patient needs to extend his sleep hours to average around 7 to 8 hours of sleep if possible. He may need to take naps during the day if needed, and these will be power naps. They are very refreshing in case of narcolepsy. I do not think there is a need to put the patient on the stimulant therapy. Based on his history of cataplexy and based on his history of narcolepsy, I think the treatment of choice for this patient will be Xyrem. I explained the medication for this patient. I explained the serious side effects, which could include breathing problems, mental health problems such as confusion, anxiety, depression. I also explained that it can cause sleepwalking. These are obvious side effects of Xyrem. Other side effects are nausea, dizziness, throwing up, bedwetting and diarrhea. He will report to me, should he have any of these side effects. The dose will be started at 2.25 grams x2 in a 3- hour period, and the starting dose will be 4.5 grams. The dose will be titrated up by 1.5 grams to reach a maximum dose of 9 grams over a month. The patient should not drink alcohol or take any other medication without consulting with me while being on Xyrem. The patient should not drive a car or operate heavy machinery or do anything dangerous that requires alertness for the first 6 hours after taking Xyrem. This medication should be kept in a safe place and be taken only during bedtime. The appropriate information was given. A specialty pharmacy will be contacting this patient. We will initiate the treatment and I will see this patient in 2 weeks' time in my office to assess treatment response and make further adjustments if needed. We will continue to follow. MMFRANKIL / IJN: [id number] /
== END ==
LOC: SLEEP 13:13
PROVIDERS: ATTEND Internal Medicine Critical Care Medicine
DX: G47.419 Narcolepsy without cataplexy (principal); Q85.00 Neurofibromatosis, unspecified; I10 Essential (primary) hypertension; Z99.89 Dependence on other enabling machines and devices; Z79.899 Other long term (current) drug therapy
CPT/HCPCS: 99211

== ENCOUNTER → 2018-07-31 | Outpatient (CLI) | payer OTHER ==
--- NOTE | 2018-07-31 16:31 | PN ---
PROGRESS NOTE Deepak is 28, with type 1 narcolepsy. The patient saw me in consultation approximately 2 months ago. Since then I have been trying to improve this patient on Xyrem. He has [place] insurance, and this has been very difficult. He has gotten paperwork going back and forth to try to improve the medication and until now we have not been able to successfully deliver the medication to him. We are still working with a specialty pharmacy. I have discussed this with the [facility] and I have also discussed this with the specialty pharmacy and been in constant contact with them. He had to send in some financial report and paperwork, which he did, and despite that he has not been able to get his medication yet. He is still working at [employer]. He is quite tired and sleepy during the day. He is going to bed around 9 p.m., wakes up frequently throughout the night, and ultimately gets out of bed around 6 a.m. He is averaging around 9 hours of sleep throughout the night. He is not taking any form of stimulant treatment for now. He is very tired and sleepy during the afternoon. He does not fall asleep at work. His quality of life is extremely poor. No reported cataplectic episodes. No episodes of sleep paralysis. He does not take any form of sedative medications or stimulants at this point in time. No alcohol use. REVIEW OF SYSTEMS: Fourteen-point review of system was done. Positive findings are all mentioned above in my history of present illness in addition to my earlier consultation note. In general, the patient remains very sleepy and tired during the day. No history of weight gain. His sleep apnea screen was negative. No snoring. No witnessed apneas. No waking up choking or gasping for air. No vivid dreams. No sleep paralysis. No hallucinations. No significant anxiety or depression. No substance abuse. No head trauma. No meningitis. No other complaints. PHYSICAL EXAMINATION: BP is 123/52, pulse 88, respirations 16, temperature 98.2, saturation 97% on room air. Weight is 186, height 5 feet 7 inches. GENERAL APPEARANCE: Calm, comfortable. Head is atraumatic, normocephalic. NECK: Supple. No JVD. No goiter or neck masses. LUNGS: Clear to auscultation. HEART: Heart sounds are regular rate and rhythm. Normal S1, S2. No S3, S4. No murmurs. ABDOMEN: Soft, nontender. No organomegaly. EXTREMITIES: No edema. No cyanosis or clubbing. Neurologically, the patient has multiple skin neurofibromas throughout the body. SKIN: Neurofibromas. No open wounds or ulcerations. IMPRESSION: 1. Type 1 narcolepsy, symptomatic. Awaiting treatment. Currently the patient is not taking or receiving any form of stimulant treatment, and we are in the process of trying to put this patient on Xyrem. 2. Neurofibromatosis. 3. Hypertension. 4. Excessive hypersomnia. PLAN: 1. Will continue our efforts to get this patient on Xyrem, knowing that he has type 1 narcolepsy, knowing the FDA medication approved for this type of condition. 2. Will try meanwhile to optimize his condition by using Provigil 200 mg once a day. A prescription was given for a total of 60 tablets. 3. Continue implementing good sleep hygiene measures. 4. Frequent naps. 5. Avoid alcohol. 6. Will continue to follow. MMODL / IJN: [id number] /
== END ==
LOC: SLEEP 13:52
PROVIDERS: ATTEND Internal Medicine Critical Care Medicine
DX: G47.419 Narcolepsy without cataplexy (principal); Q85.00 Neurofibromatosis, unspecified; I10 Essential (primary) hypertension; G47.10 Hypersomnia, unspecified; Z79.899 Other long term (current) drug therapy

== ENCOUNTER 2018-12-05 21:24 | Emergency (ER) | payer OTHER ==
[2018-12-05 21:48] VITALS: PULSE 98; RESP 20; TEMP 98.4
--- NOTE | 2018-12-05 22:38 | ED ---
General Adult HPI - General Chief complaint: Recheck/Abnormal Lab/Rx Stated complaint: Dizzy, High BP Time Seen by Provider: 12/05/18 22:11 Source: patient Mode of arrival: ambulatory Limitations: no limitations - History of Present Illness Initial comments: This patient is a 28-year-old man with history of hypertension. He states that he was sent here from his place of employment, [employer] after they found his blood pressure being elevated. It was reportedly approximately 160/90. The patient states that they checked his blood pressure because he had been having dizziness the prior shift at work and he was found to be hypertensive, and they want to make sure that his blood pressure did come down before he was starting work again. The patient denies any symptoms, and states that he is compliant with his hypertensive regimen which includes verapamil and hydrochlorothiazide. -: hour(s) Consistency: constant Improves with: none Worsens with: none Associated Symptoms: denies other symptoms - Related Data Home Medications Medication Instructions Recorded Confirmed Hydrochlorothiazide [Hydrodiuril] 25 mg PO DAILY 12/27/17 12/05/18 Verapamil HCl [Verapamil ER] 240 mg PO DAILY 12/27/17 12/05/18 Ibuprofen [Motrin] 800 mg PO DAILY PRN 12/05/18 12/05/18 Allergies Allergy/AdvReac Type Severity Reaction Status Date / Time cefaclor [From Ceclor] Allergy Rash/Hives Verified 12/05/18 22:18 cephalexin [From Keflex] Allergy Unknown Verified 12/05/18 22:18 Childhood Review of Systems ROS Statement: Those systems with pertinent positive or pertinent negative responses have been documented in the HPI. ROS Other: All systems not noted in ROS Statement are negative. Constitutional: Denies: fever, chills Eyes: Denies: vision change Respiratory: Denies: cough, dyspnea Cardiovascular: Denies: chest pain, palpitations, dyspnea on exertion, orthopnea, edema, syncope Gastrointestinal: Denies: abdominal pain Musculoskeletal: Denies: back pain Neurological: Denies: headache Past Medical History Past Medical History: Sleep Apnea/CPAP/BIPAP Additional Past Medical History / Comment(s): NEUROFIBROMATOSIS, MIGRAINE HEADACHE History of Any Multi-Drug Resistant Organisms: None Reported Past Surgical History: Adenoidectomy, Ear Surgery, Tonsillectomy Additional Past Surgical History / Comment(s): SKIN BIOPSY-ARM, pyloric stenosis repair Past Anesthesia/Blood Transfusion Reactions: No Reported Reaction Past Psychological History: Depression Smoking Status: Never smoker Past Alcohol Use History: Occasional Past Drug Use History: None Reported - Past Family History Mother Family Medical History: Unable to Obtain Additional Family Medical History / Comment(s): Father and brother have caf au lait spots Father Family Medical History: Unable to Obtain General Exam Limitations: no limitations General appearance: alert, in no apparent distress Head exam: Present: atraumatic, normocephalic Eye exam: Present: normal appearance Respiratory exam: Present: normal lung sounds bilaterally. Absent: respiratory distress, wheezes, rales, rhonchi, stridor Cardiovascular Exam: Present: regular rate, normal rhythm, normal heart sounds. Absent: systolic murmur, diastolic murmur, rubs, gallop GI/Abdominal exam: Present: soft. Absent: distended, tenderness, guarding, rebound, rigid, pulsatile mass Extremities exam: Absent: pedal edema Neurological exam: Present: alert, normal gait Skin exam: Present: warm, dry, intact, normal color, other (Now fibromatosis). Absent: rash Course Vital Signs 12/05/18 21:45 Temperature 98.4 F Pulse Rate 98 Respiratory 20 Rate Blood Pressure 151/88 O2 Sat by Pulse 99 Oximetry Medical Decision Making - Medical Decision Making Patient is 20-year-old man with history of hypertension who states she is compliant with his treatment, and was sent here from his place of employment when they found his blood pressure being mildly elevated. He is not having any symptoms. His blood pressure here has been acceptable and he again has no symptoms. We'll have the patient follow with his physician. Discussed return parameters. Disposition Clinical Impression: Hypertension Disposition: HOME SELF-CARE Condition: Good Instructions (If sedation given, give patient instructions): Hypertension (ED) Is patient prescribed a controlled substance at d/c from ED?: No Referrals: Nitin Rogel DO [Primary Care Provider] - 1-2 days
[2018-12-05 22:52] VITALS: BP 96/53
== END 2018-12-05 22:53 | disposition home or self-care (01) ==
LOC: EC 21:24
DX: I10 Essential (primary) hypertension (principal); M72.9 Fibroblastic disorder, unspecified; G47.30 Sleep apnea, unspecified; Z88.1 Allergy status to other antibiotic agents; Z79.899 Other long term (current) drug therapy; Z99.89 Dependence on other enabling machines and devices
CPT/HCPCS: 99283

== ENCOUNTER 2019-01-05 02:24 | Emergency (ER) | payer OTHER ==
[2019-01-05 02:33] VITALS: RESP 18
[2019-01-05] MEDS ORDERED: SODIUM CHLORIDE 0.9% 1,000 ML IV ONE (02:48)
[2019-01-05] MEDS ORDERED: KETOROLAC 30 MG/ML 1 ML VIAL IVP STA (02:48)
[2019-01-05] MEDS ORDERED: ONDANSETRON 4 MG/2 ML VIAL IVP STA (02:48)
[2019-01-05] MEDS ORDERED: DEXAMETHASONE SOD PHOSPHATE 10 MG/ML 1 ML VIAL IV STA (03:58)
[2019-01-05] MEDS ORDERED: ACETAMINOPHEN TAB 500 MG TAB PO STA (03:58)
--- NOTE | 2019-01-05 03:58 | ED ---
Headache HPI - General Chief Complaint: Headache Stated Complaint: headache Time Seen by Provider: 01/05/19 02:39 Mode of arrival: ambulatory Limitations: no limitations - History of Present Illness Initial Comments: 28-year-old male patient with past history significant for neurofibromatosis and migraine headaches presents to the emergency department today for evaluation of headache. Patient states his headache last 2-3 days. Patient states that he has been doing his usual medications without relief. Patient states that the headache worsened this evening and woke him from sleep twice. Patient states that he did have 2 episodes of vomiting this evening. He denies any blurred or double vision. Does report sensitivity to light. Denies any fever or chills. Denies any recent head injury. Denies any dizziness, weakness, numbness, or tingling. States his symptoms are consistent with his usual migraine pattern. Patient denies any recent rash, fever, chills, shortness breath, chest pain, abdominal pain, diarrhea, constipation, back pain, hematuria, dysuria, urinary urgency, urinary frequency, or any other complaints. - Related Data Home Medications Medication Instructions Recorded Confirmed Hydrochlorothiazide [Hydrodiuril] 25 mg PO DAILY 12/27/17 12/05/18 Verapamil HCl [Verapamil ER] 240 mg PO DAILY 12/27/17 12/05/18 Ibuprofen [Motrin] 800 mg PO DAILY PRN 12/05/18 12/05/18 Allergies Allergy/AdvReac Type Severity Reaction Status Date / Time cefaclor [From Ceclor] Allergy Rash/Hives Verified 01/05/19 17:22 cephalexin [From Keflex] Allergy Unknown Verified 01/05/19 17:22 Childhood Review of Systems ROS Statement: Those systems with pertinent positive or pertinent negative responses have been documented in the HPI. ROS Other: All systems not noted in ROS Statement are negative. Past Medical History Past Medical History: Sleep Apnea/CPAP/BIPAP Additional Past Medical History / Comment(s): NEUROFIBROMATOSIS, MIGRAINE HEADACHE History of Any Multi-Drug Resistant Organisms: None Reported Past Surgical History: Adenoidectomy, Ear Surgery, Tonsillectomy Additional Past Surgical History / Comment(s): SKIN BIOPSY-ARM, pyloric stenosis repair Past Anesthesia/Blood Transfusion Reactions: No Reported Reaction Past Psychological History: Depression Smoking Status: Never smoker Past Alcohol Use History: Occasional Past Drug Use History: None Reported - Past Family History Mother Family Medical History: Unable to Obtain Additional Family Medical History / Comment(s): Father and brother have caf au lait spots Father Family Medical History: Unable to Obtain General Exam Limitations: no limitations General appearance: alert, in no apparent distress, other (This is a well- developed, well-nourished adult male patient in no acute distress. Vital signs upon presentation are temperature 97.9F, pulse 89, respirations 18, blood pressure 142/90, pulse ox 98% on room air.) Eye exam: Present: normal appearance, PERRL, EOMI. Absent: scleral icterus, conjunctival injection, periorbital swelling ENT exam: Present: normal exam, normal oropharynx, mucous membranes moist Respiratory exam: Present: normal lung sounds bilaterally. Absent: respiratory distress, wheezes, rales, rhonchi, stridor Cardiovascular Exam: Present: regular rate, normal rhythm, normal heart sounds. Absent: systolic murmur, diastolic murmur, rubs, gallop, clicks GI/Abdominal exam: Present: soft, normal bowel sounds. Absent: distended, tenderness, guarding, rebound, rigid Neurological exam: Present: alert, oriented X3, CN II-XII intact, other (Strength in all 4 extremities is 5/5.) Psychiatric exam: Present: normal affect, normal mood Skin exam: Present: warm, dry, intact, normal color. Absent: rash Course Vital Signs 01/05/19 01/05/19 02:30 04:32 Temperature 97.9 F 98.1 F Pulse Rate 89 98 Respiratory 18 18 Rate Blood Pressure 142/90 153/81 O2 Sat by Pulse 98 98 Oximetry Medical Decision Making - Medical Decision Making 28-year-old male patient presents to the emergency department today for evaluation of migraine headache. Physical examination is unremarkable. He is neurologically intact with no focal deficits. Patient was given several medications and IV fluids here in the emergency department. Patient does report mild improvement of symptoms. Unfortunately unable to administer any Benadryl, Reglan, or other pain medications because patient is driving himself home. He will be discharged this time to follow-up with his primary care physician for recheck in 1-2 days. He is instructed to rest and increase fluids. Return parameters were discussed in detail. He verbalizes understanding and agrees this plan. Disposition Clinical Impression: Migraine headache Disposition: HOME SELF-CARE Condition: Good Instructions (If sedation given, give patient instructions): Migraine Headache (ED) Additional Instructions: Increase fluids. Rest. Follow-up through primary care physician for recheck in 1-2 days. Return to the emergency department immediately for any new, worsening, or concerning symptoms. Is patient prescribed a controlled substance at d/c from ED?: No Referrals: Nitin Rogel DO [Primary Care Provider] - 1-2 days Time of Disposition: 03:58
[2019-01-05 04:34] VITALS: BP 153/81; PULSE 98; TEMP 98.1
== END 2019-01-05 04:41 | disposition home or self-care (01) ==
LOC: EC 02:24
DX: G43.909 Migraine, unspecified, not intractable, without status migrainosus (principal); G47.30 Sleep apnea, unspecified; Z99.89 Dependence on other enabling machines and devices; Z79.899 Other long term (current) drug therapy; Z88.1 Allergy status to other antibiotic agents
CPT/HCPCS: 99283; 96374; 96375 ×2; 96361; J1100; J2405; J1885

== ENCOUNTER 2019-01-05 17:16 | Emergency (ER) | payer OTHER ==
[2019-01-05 17:24] VITALS: RESP 18; TEMP 98
[2019-01-05] MEDS ORDERED: diphenhydrAMINE 50 MG/ML 1 ML VIAL IVP STA (18:13)
[2019-01-05] MEDS ORDERED: SODIUM CHLORIDE 0.9% 1,000 ML IV STA (18:13)
[2019-01-05] MEDS ORDERED: METOCLOPRAMIDE 5 MG/ML 2 ML VIAL IVP STA (18:13)
[2019-01-05] MEDS ORDERED: KETOROLAC 30 MG/ML 1 ML VIAL IVP STA (18:44)
[2019-01-05 19:17] LABS: Basophils % (A) 0 %; Eosinophils # (A) 0.1 k/uL (0-0.7); Eosinophils % (A) 1 %; HCT 39.9 % (39.0-53.0); HGB 14.1 gm/dL (13.0-17.5); Lymphocytes # (A) 1.5 k/uL (1.0-4.8); Lymphocytes % (A) 12 %; MCH 30.6 pg (25.0-35.0); MCHC 35.3 g/dL (31.0-37.0); MCV 86.7 fL (80.0-100.0); Mean Platelet Volume 8.2; Monocytes # (A) 0.6 k/uL (0-1.0); Monocytes % (A) 5 %; Neutrophils % (A) 82 %; Platelet Count 238 k/uL (150-450); RDW 14.2 % (11.5-15.5); WBC 12.2 k/uL (3.8-10.6)
--- NOTE | 2019-01-05 19:20 | ED ---
General Adult HPI - General Chief complaint: Headache Stated complaint: recheck headache Time Seen by Provider: 01/05/19 17:32 Source: patient, RN notes reviewed Mode of arrival: ambulatory Limitations: no limitations - History of Present Illness Initial comments: 28-year-old male presents to the emergency department for a chief complaint of headache 2 days.. Patient is a history of neurofibromatosis and does have tumor in his head and he last had image in 2017. Patient states has history of migraines and this is consistent with his migraines but is somewhat worse than normal. States it is in the center of his forehead. Does admit to nausea and vomiting from his headache that he does occasionally get from his migraines. Denies any fevers or chills. Denies any neck pain or stiffness. Denies any maximal intensity at onset.Patient has no other complaints at this time including shortness of breath, chest pain, abdominal pain, nausea or vomiting, or visual changes. - Related Data Home Medications Medication Instructions Recorded Confirmed Hydrochlorothiazide [Hydrodiuril] 25 mg PO DAILY 12/27/17 12/05/18 Verapamil HCl [Verapamil ER] 240 mg PO DAILY 12/27/17 12/05/18 Ibuprofen [Motrin] 800 mg PO DAILY PRN 12/05/18 12/05/18 Allergies Allergy/AdvReac Type Severity Reaction Status Date / Time cefaclor [From Ceclor] Allergy Rash/Hives Verified 01/05/19 17:22 cephalexin [From Keflex] Allergy Unknown Verified 01/05/19 17:22 Childhood Review of Systems ROS Statement: Those systems with pertinent positive or pertinent negative responses have been documented in the HPI. ROS Other: All systems not noted in ROS Statement are negative. Past Medical History Past Medical History: Sleep Apnea/CPAP/BIPAP Additional Past Medical History / Comment(s): NEUROFIBROMATOSIS, MIGRAINE HEADACHE History of Any Multi-Drug Resistant Organisms: None Reported Past Surgical History: Adenoidectomy, Ear Surgery, Tonsillectomy Additional Past Surgical History / Comment(s): SKIN BIOPSY-ARM, pyloric stenosis repair Past Anesthesia/Blood Transfusion Reactions: No Reported Reaction Past Psychological History: Depression Smoking Status: Never smoker Past Alcohol Use History: Occasional Past Drug Use History: None Reported - Past Family History Mother Family Medical History: Unable to Obtain Additional Family Medical History / Comment(s): Father and brother have caf au lait spots Father Family Medical History: Unable to Obtain General Exam Limitations: no limitations General appearance: alert, in no apparent distress Head exam: Present: atraumatic, normocephalic, normal inspection Eye exam: Present: normal appearance, PERRL, EOMI. Absent: scleral icterus, conjunctival injection, periorbital swelling ENT exam: Present: normal exam, mucous membranes moist Neck exam: Present: normal inspection, full ROM. Absent: tenderness, meningismus (neg kernig, brudzinsky), lymphadenopathy Respiratory exam: Present: normal lung sounds bilaterally. Absent: respiratory distress, wheezes, rales, rhonchi, stridor Cardiovascular Exam: Present: regular rate, normal rhythm, normal heart sounds. Absent: systolic murmur, diastolic murmur, rubs, gallop, clicks Neurological exam: Present: alert, oriented X3, CN II-XII intact, normal gait, other (GCS 15) Expanded Patient oriented to: Present: person, place, time Speech: Present: fluid speech Cranial nerves: EOM's Intact: Normal, Gag Reflex: Normal, Tongue Deviation: Normal, Nystagmus: Normal, Facial Sensation: Normal Cerebellar function: Finger to Nose: Normal Upper motor neuron: Pronator Drift: Normal Sensory exam: Upper Extremity Light Touch: Normal, Upper Extremity Pin Prick: Normal, Lower Extremity Light Touch: Normal, Lower Extremity Pin Prick: Normal Motor strength exam: RUE: 5, LUE: 5, RLE: 5, LLE: 5 Eye Response: (4) open spontaneously Motor Response: (6) obeys commands Verbal Response: (5) oriented [place] Total: 15 Psychiatric exam: Present: normal affect, normal mood Course Vital Signs 01/05/19 01/05/19 01/05/19 17:22 19:08 21:03 Temperature 98 F Pulse Rate 129 H 111 H 97 Respiratory 18 18 18 Rate Blood Pressure 132/72 101/47 O2 Sat by Pulse 98 97 98 Oximetry Medical Decision Making - Medical Decision Making 20-year-old male presents to the emergency room for a chief complaint of headache 2 days. Patient has a history of neurofibromatosis and does have a tumor in his head. States that the headache today is consistent with his migraines but is somewhat worse than normal. His is in the center of his head. Does admit to nausea and vomiting this morning which she gets her migraines. No neck pain or stiffness. Patient initially tachycardic with a heart rate of 129, given IV fluids. Basic labs are obtained which showed a mild degree of dehydration with mild leukocytosis likely reactive in nature. CT brain shows no acute intracranial abnormality. Patient was given first migraine cocktail and pain degree cement 10 to a 9. Patient was then given a second dose of IV steroids and imitrex. Pain decreased to a 4. At this time patient is requesting discharge. He'll be discharged home with migraine diagnoses. He will follow up with primary care in 1-2 days. Patient is aware to return if he has any worsening symptoms such as neck pain, worsening headache, fevers, confusion, difficulty walking, or any other worsening symptoms which were all discussed in depth with him. - Lab Data Result diagrams: 01/05/19 19:07 01/05/19 19:07 Lab Results 01/05/19 01/05/19 Range/Units 19:07 19:07 WBC 12.2 H (3.8-10.6) k/uL RBC 4.60 (4.30-5.90) m/uL Hgb 14.1 (13.0-17.5) gm/dL Hct 39.9 (39.0-53.0) % MCV 86.7 (80.0-100.0) fL MCH 30.6 (25.0-35.0) pg MCHC 35.3 (31.0-37.0) g/dL RDW 14.2 (11.5-15.5) % Plt Count 238 (150-450) k/uL Neutrophils % 82 % Lymphocytes % 12 % Monocytes % 5 % Eosinophils % 1 % Basophils % 0 % Neutrophils # 10.0 H (1.3-7.7) k/uL Lymphocytes # 1.5 (1.0-4.8) k/uL Monocytes # 0.6 (0-1.0) k/uL Eosinophils # 0.1 (0-0.7) k/uL Basophils # 0.0 (0-0.2) k/uL Sodium 139 (137-145) mmol/L Potassium 3.9 (3.5-5.1) mmol/L Chloride 105 (98-107) mmol/L Carbon Dioxide 23 (22-30) mmol/L Anion Gap 11 mmol/L BUN 23 H (9-20) mg/dL Creatinine 0.90 (0.66-1.25) mg/dL Est GFR (CKD-EPI)AfAm >90 (>60 ml/min/1.73 sqM) Est GFR (CKD-EPI)NonAf >90 (>60 ml/min/1.73 sqM) Glucose 127 H (74-99) mg/dL Calcium 9.4 (8.4-10.2) mg/dL Total Bilirubin 0.5 (0.2-1.3) mg/dL AST 22 (17-59) U/L ALT 27 (21-72) U/L Alkaline Phosphatase 43 (38-126) U/L Total Protein 7.0 (6.3-8.2) g/dL Albumin 4.5 (3.5-5.0) g/dL Disposition Clinical Impression: Headache Disposition: HOME SELF-CARE Condition: Good Instructions (If sedation given, give patient instructions): Acute Headache (ED) Additional Instructions: Please take Motrin and Tylenol for pain. Please follow-up with primary care in 1-2 days. Please return to the emergency department if you have any worsening symptoms. Is patient prescribed a controlled substance at d/c from ED?: No Referrals: Nitin Rogel DO [Primary Care Provider] - 1-2 days Time of Disposition: 21:02
[2019-01-05 19:26] LABS: ALT 27 U/L (21-72); AST 22 U/L (17-59); African American GFR (CKD) >90 (>60 ml/min/1.73 sqM); Albumin 4.5 g/dL (3.5-5.0); Alkaline Phosphatase 43 U/L (38-126); Anion Gap 11 mmol/L; Blood Urea Nitrogen 23 mg/dL (9-20); Calcium 9.4 mg/dL (8.4-10.2); Carbon Dioxide 23 mmol/L (22-30); Chloride 105 mmol/L (98-107); Glucose 127 mg/dL (74-99); Potassium 3.9 mmol/L (3.5-5.1); Sodium 139 mmol/L (137-145); Total Bilirubin 0.5 mg/dL (0.2-1.3)
--- NOTE | 2019-01-05 20:01 | CT ---
EXAMINATION TYPE: CT brain wo con DATE OF EXAM: 01/05/2019 COMPARISON: 11/22/2016 HISTORY: 28-year-old male with headache TODAY TECHNIQUE: Examination was done in axial plane without intravenous contrast. Coronal and sagittal r econstructions performed. CT DLP: 1153.4 mGycm Automated exposure control for dose reduction was used. FINDINGS: There is no evidence of acute intracranial hemorrhage, acute ischemic changes, mass, mass-effect, or extra-axial fluid collection. There is no effacement of cerebral sulci or basal subarachnoid cister ns. There is no hydrocephalus. There is no midline shift. Kaye-white matter distinction is preserv ed. Paranasal sinuses and mastoid air cells are well pneumatized. Orbits and globes are intact. IMPRESSION: No acute intracranial abnormality seen.
[2019-01-05] MEDS ORDERED: SUMAtriptan SUCCINATE 6 MG/0.5 ML VIAL SQ STA (20:19)
[2019-01-05] MEDS ORDERED: methylPREDNISolone SOD SUCCI 125 MG/2 ML VIAL IV STA (20:19)
[2019-01-05] MEDS ORDERED: ACETAMINOPHEN TAB 500 MG TAB PO STA (20:20)
[2019-01-05] MEDS ORDERED: DEXAMETHASONE SOD PHOSPHATE 10 MG/ML 1 ML VIAL IV STA (20:21)
[2019-01-05] MEDS ORDERED: HYDROmorphone 0.5 MG/0.5 ML SYRINGE IVP STA (20:41)
[2019-01-05 21:07] VITALS: BP 101/47; PULSE 97
== END 2019-01-05 21:38 | disposition home or self-care (01) ==
LOC: EC 17:16
DX: R51 Headache (principal); R11.2 Nausea with vomiting, unspecified; E86.0 Dehydration; D72.829 Elevated white blood cell count, unspecified; R00.0 Tachycardia, unspecified; G47.30 Sleep apnea, unspecified; Z99.89 Dependence on other enabling machines and devices; Z86.69 Personal history of other diseases of the nervous system and sense organs; Z86.011 Personal history of benign neoplasm of the brain; Z79.899 Other long term (current) drug therapy; Z88.1 Allergy status to other antibiotic agents; Z53.8 Procedure and treatment not carried out for other reasons
CPT/HCPCS: 36415; 80053; 85025; 70450; 99284; 96374; 96375 ×3; 96361 ×2; 96372; J3030; J1200; J1100; J2765; J1885

== ENCOUNTER 2019-02-27 18:25 | Emergency (ER) | payer OTHER ==
[2019-02-27 18:28] VITALS: TEMP 97.9
[2019-02-27] MEDS ORDERED: KETOROLAC 30 MG/ML 1 ML VIAL IM STA (18:44)
[2019-02-27] MEDS ORDERED: ONDANSETRON ODT 4 MG TAB PO STA (18:45)
--- NOTE | 2019-02-27 18:47 | ED ---
General Adult HPI - General Chief complaint: Headache Stated complaint: Migraine Time Seen by Provider: 02/27/19 18:32 Source: patient, RN notes reviewed, old records reviewed Mode of arrival: ambulatory Limitations: no limitations - History of Present Illness Initial comments: 28-year-old male with a past medical history of neurofibromatosis, migraines presents to the emergency department for headache. Patient states he has a history of migraine headaches and states this feels exactly similar. States it started about 24 hours ago. States it came on gradually. Patient has associated nausea but denies vomiting. States he is not yet sensitive to light. Patient states he is currently seeing a neurologist for his migraines and is scheduled to have repeat MRI.Patient has no other complaints at this time including shortness of breath, chest pain, abdominal pain, nausea or vomiting, or visual changes. - Related Data Home Medications Medication Instructions Recorded Confirmed Hydrochlorothiazide [Hydrodiuril] 25 mg PO DAILY 12/27/17 12/05/18 Verapamil HCl [Verapamil ER] 240 mg PO DAILY 12/27/17 12/05/18 Ibuprofen [Motrin] 800 mg PO DAILY PRN 12/05/18 12/05/18 Allergies Allergy/AdvReac Type Severity Reaction Status Date / Time cefaclor [From Ceclor] Allergy Rash/Hives Verified 02/27/19 18:28 cephalexin [From Keflex] Allergy Unknown Verified 02/27/19 18:28 Childhood Review of Systems ROS Statement: Those systems with pertinent positive or pertinent negative responses have been documented in the HPI. ROS Other: All systems not noted in ROS Statement are negative. Past Medical History Past Medical History: Sleep Apnea/CPAP/BIPAP Additional Past Medical History / Comment(s): NEUROFIBROMATOSIS, MIGRAINE HEADACHE History of Any Multi-Drug Resistant Organisms: None Reported Past Surgical History: Adenoidectomy, Ear Surgery, Tonsillectomy Additional Past Surgical History / Comment(s): SKIN BIOPSY-ARM, pyloric stenosis repair Past Anesthesia/Blood Transfusion Reactions: No Reported Reaction Past Psychological History: Depression Smoking Status: Never smoker Past Alcohol Use History: Occasional Past Drug Use History: None Reported - Past Family History Mother Family Medical History: Unable to Obtain Additional Family Medical History / Comment(s): Father and brother have caf au lait spots Father Family Medical History: Unable to Obtain General Exam Limitations: no limitations General appearance: alert, in no apparent distress (Smiling and speaking without difficulty, no distress) Head exam: Present: atraumatic, normocephalic, normal inspection Eye exam: Present: normal appearance, PERRL, EOMI. Absent: scleral icterus, conjunctival injection, periorbital swelling ENT exam: Present: normal exam, mucous membranes moist Neck exam: Present: normal inspection, full ROM. Absent: tenderness, meningismus, lymphadenopathy Respiratory exam: Present: normal lung sounds bilaterally. Absent: respiratory distress, wheezes, rales, rhonchi, stridor Cardiovascular Exam: Present: regular rate, normal rhythm, normal heart sounds. Absent: systolic murmur, diastolic murmur, rubs, gallop, clicks Neurological exam: Present: alert, oriented X3, CN II-XII intact, normal gait, other (GCS 15) Psychiatric exam: Present: normal affect, normal mood Course Vital Signs 02/27/19 02/27/19 02/27/19 18:26 20:28 21:00 Temperature 97.9 F Pulse Rate 79 89 83 Respiratory 18 20 18 Rate Blood Pressure 136/82 131/80 133/72 O2 Sat by Pulse 99 97 97 Oximetry Medical Decision Making - Medical Decision Making Patient's previous visits were reviewed. He did have a computed tomography scan of the brain without contrast on 01/05/2019 that showed no acute intracranial abnormality. Patient presents with headache. History of migraines. States this feels exactly the same. No sudden onset. Negative computed tomography scan 2 months ago. Patient will be getting an MRI shortly ordered by his neurologist. She was given several different medications. Patient does have some improvement in pain. He is resting comfortably, watching TV, there are no evident signs of distress. Patient has no other complaints at this time including shortness of breath, chest pain, abdominal pain, nausea or vomiting, headache, or visual changes. Disposition Clinical Impression: Migraine Disposition: HOME SELF-CARE Condition: Good Instructions (If sedation given, give patient instructions): Acute Headache (ED) Additional Instructions: Please follow up with neurology in 1-2 days. Return to the emergency department if you have any worsening symptoms. Is patient prescribed a controlled substance at d/c from ED?: No Referrals: Nitin Rogel DO [Primary Care Provider] - 1-2 days Time of Disposition: 21:20
[2019-02-27] MEDS ORDERED: SODIUM CHLORIDE 0.9% 1,000 ML IV STA (19:52)
[2019-02-27] MEDS ORDERED: diphenhydrAMINE 50 MG/ML 1 ML VIAL IVP STA (19:52)
[2019-02-27] MEDS ORDERED: METOCLOPRAMIDE 5 MG/ML 2 ML VIAL IVP STA (19:52)
[2019-02-27] MEDS ORDERED: DEXAMETHASONE SOD PHOSPHATE 10 MG/ML 1 ML VIAL IV STA (19:53)
[2019-02-27 21:14] VITALS: BP 133/72; PULSE 83; RESP 18
== END 2019-02-27 21:30 | disposition home or self-care (01) ==
LOC: EC 18:25
DX: G43.909 Migraine, unspecified, not intractable, without status migrainosus (principal); G47.30 Sleep apnea, unspecified; Z99.89 Dependence on other enabling machines and devices; Z79.899 Other long term (current) drug therapy; Z88.1 Allergy status to other antibiotic agents
CPT/HCPCS: 99283; 96374; 96375 ×2; 96361; 96372; J1200; J1100; J2765; J1885

== ENCOUNTER 2019-02-28 19:47 | Emergency (ER) | payer OTHER ==
[2019-02-28] MEDS ORDERED: SODIUM CHLORIDE 0.9% 1,000 ML IV STA ×2 (20:04→21:21)
[2019-02-28] MEDS ORDERED: ACETAMINOPHEN TAB 500 MG TAB PO STA (20:13)
[2019-02-28 20:20] LABS: INR 1.1 (<1.2); Partial Thromboplastin Time 23.3 sec (22.0-30.0); Prothrombin Time 11.4 sec (9.0-12.0)
[2019-02-28 20:22] LABS: ALT 24 U/L (21-72); AST 14 U/L (17-59); African American GFR (CKD) >90 (>60 ml/min/1.73 sqM); Albumin 4.8 g/dL (3.5-5.0); Alkaline Phosphatase 44 U/L (38-126); Anion Gap 12 mmol/L; Blood Urea Nitrogen 17 mg/dL (9-20); Calcium 9.6 mg/dL (8.4-10.2); Carbon Dioxide 23 mmol/L (22-30); Chloride 106 mmol/L (98-107); Glucose 111 mg/dL (74-99); Potassium 3.8 mmol/L (3.5-5.1); Sodium 141 mmol/L (137-145); Total Bilirubin 0.5 mg/dL (0.2-1.3); Total Protein 7.1 g/dL (6.3-8.2)
[2019-02-28 20:29] LABS: Basophils % (A) 0 %; Eosinophils % (A) 0 %; HCT 40.9 % (39.0-53.0); HGB 14.1 gm/dL (13.0-17.5); Lymphocytes # (A) 1.8 k/uL (1.0-4.8); Lymphocytes % (A) 9 %; MCH 30.9 pg (25.0-35.0); MCHC 34.5 g/dL (31.0-37.0); MCV 89.5 fL (80.0-100.0); Mean Platelet Volume 7.2; Monocytes % (A) 5 %; Neutrophils # (A) 16.8 k/uL (1.3-7.7); Neutrophils % (A) 85 %; Platelet Count 236 k/uL (150-450); RBC 4.56 m/uL (4.30-5.90); RDW 12.5 % (11.5-15.5); WBC 19.8 k/uL (3.8-10.6)
--- NOTE | 2019-02-28 21:04 | XR ---
EXAMINATION TYPE: XR chest 2V DATE OF EXAM: 02/28/2019 COMPARISON: 11/10/2014 HISTORY: Chest pain TECHNIQUE: Frontal and lateral views of the chest are obtained. FINDINGS: Heart and mediastinum are normal. Lungs are clear. Diaphragm is normal. Bony thorax appear s normal. IMPRESSION: Normal chest . No change.
--- NOTE | 2019-02-28 21:10 | ED ---
General Adult HPI - General Chief complaint: Syncope Stated complaint: Syncope Time Seen by Provider: 02/28/19 19:50 Source: EMS Mode of arrival: EMS Limitations: no limitations - History of Present Illness Initial comments: Patient is a 28-year-old male presenting to emergency Department after having a syncopal episode at work today. Patient states he was in the ER yesterday for a migraine. Patient states he felt good waking up this morning, no headache, and went to work as normal. Patient states during work he started feeling more fatigued and kind of "out of it." Patient states he was helping pass food out at his work in the next thing he knew he woke up to his coworker shaking him. Coworkers state he was out for approximately 2-3 minutes. Patient denies having a headache at this time. Patient states he is having some left-sided chest pain that feels like something is stabbing him. Patient states he did not feel this this morning. Patient denies fever, chills, recent cold or cough, nausea, vomiting, diarrhea. Patient has no other complaints at this time. Upon arrival to ER, Patient was febrile at 101.2, tachycardia at 113, respiratory 20, BP 134/84, 99% on room air. - Related Data Home Medications Medication Instructions Recorded Confirmed Hydrochlorothiazide [Hydrodiuril] 25 mg PO DAILY 12/27/17 02/28/19 Verapamil HCl [Verapamil ER] 240 mg PO DAILY 12/27/17 02/28/19 Ibuprofen [Motrin] 800 mg PO Q8H PRN 12/05/18 02/28/19 Lisinopril [Zestril] 10 mg PO DAILY 02/28/19 02/28/19 SUMAtriptan SUCCINATE [Imitrex] 100 mg PO BID PRN 02/28/19 02/28/19 Allergies Allergy/AdvReac Type Severity Reaction Status Date / Time cefaclor [From Ceclor] Allergy Rash/Hives Verified 03/01/19 09:29 cephalexin [From Keflex] Allergy Unknown Verified 03/01/19 09:29 Childhood Review of Systems ROS Statement: Those systems with pertinent positive or pertinent negative responses have been documented in the HPI. ROS Other: All systems not noted in ROS Statement are negative. Past Medical History Past Medical History: Sleep Apnea/CPAP/BIPAP Additional Past Medical History / Comment(s): NEUROFIBROMATOSIS, MIGRAINE HE ADACHE History of Any Multi-Drug Resistant Organisms: None Reported Past Surgical History: Adenoidectomy, Ear Surgery, Tonsillectomy Additional Past Surgical History / Comment(s): SKIN BIOPSY-ARM, pyloric stenosis repair Past Anesthesia/Blood Transfusion Reactions: No Reported Reaction Past Psychological History: Depression Smoking Status: Never smoker Past Alcohol Use History: Occasional Past Drug Use History: None Reported - Past Family History Mother Family Medical History: Unable to Obtain Additional Family Medical History / Comment(s): Father and brother have caf au lait spots Father Family Medical History: Unable to Obtain General Exam - General Exam Comments Initial Comments: GENERAL: Well-appearing, well-nourished and in no acute distress. HEAD: Atraumatic, normocephalic. EYES: Pupils equal round and reactive to light, extraocular movements intact, sclera anicteric, conjunctiva are normal. ENT: TMs normal, nares patent, oropharynx clear without exudates. Moist mucous memb ranes. NECK: Normal range of motion, supple without lymphadenopathy or JVD. LUNGS: Breath sounds clear to auscultation bilaterally and equal. No wheezes rales or rhonchi. HEART: Slightly tachycardia rate and rhythm without murmurs, rubs or gallops. ABDOMEN: Soft, nontender, normoactive bowel sounds. No guarding, no rebound. No masses appreciated. : Deferred EXTREMITIES: Normal range of motion, no pitting or edema. No clubbing or cyanosis. NEUROLOGICAL: Cranial nerves II through XII grossly intact. Normal speech, normal gait. PSYCH: Normal mood, normal affect. SKIN: Warm, Dry, normal turgor, no rashes. Patient has history of neurofibromatosis, multiple small tumors covered the body. Limitations: no limitations Course Vital Signs 02/28/19 02/28/19 02/28/19 19:48 21:06 22:05 Temperature 101.2 F H 99.1 F 98.9 F Pulse Rate 113 H 119 H 114 H Respiratory 20 20 16 Rate Blood Pressure 134/84 140/73 136/74 O2 Sat by Pulse 99 99 97 Oximetry 02/28/19 02/28/19 22:14 23:55 Temperature 98.1 F Pulse Rate 101 H 114 H Respiratory 20 Rate Blood Pressure 121/65 O2 Sat by Pulse 99 Oximetry EKG Findings - EKG Comments: EKG Findings:: Ventricular rate 110, MN interval 216, QTC 422. Sinus tach with first-degree AV block. Nonspecific ST and T-wave abnormalities. EKG is similar to previous in 11/22/2016. Medical Decision Making - Medical Decision Making Patient is a 28-year-old male presenting with a syncopal episode at work today. Upon arrival, patient was febrile and tachycardia at 101.2 and a 113. Patient has past medical history of migraines and neurofibromatosis. Patient was in the ER yesterday for a migraine and states he felt fine this morning. Patient's exam is unremarkable. Patient is complaining of some mild left-sided chest pain. EKG shows no acute changes, similar to previous EKG in 2017. Patient's lab reveal a white count of 19.8. Rest of labs are within normal limits. Troponin is normal, coags are normal. Patient's UA shows 1+ ketones, no other acute findings. Influenza is negative. Chest x-ray is normal. CT of the brain shows no acute findings. The leukocytosis is most likely related to the steroids that were given yesterday for his headache. Patient was given 2 L of fluids as well as Tylenol for his fever. Patient is currently afebrile. Patient has no meningeal signs. Discussed with patient doing a lumbar puncture however patient declined at this time. Patient thinks he is feeling this way secondary to not eating for most the day. Patient was given food and is stable for discharge at this time. Discussed with patient his symptoms are most likely related to a viral illness. Return parameters were discussed with the patient he verbalizes understanding. Patient was discussed with Dr. Butt who also evaluated the patient and agrees with this plan of care. - Lab Data Result diagrams: 02/28/19 19:58 02/28/19 19:58 Lab Results 02/28/19 02/28/19 02/28/19 Range/Units 19:58 19:58 19:58 WBC 19.8 H (3.8-10.6) k/uL RBC 4.56 (4.30-5.90) m/uL Hgb 14.1 (13.0-17.5) gm/dL Hct 40.9 (39.0-53.0) % MCV 89.5 (80.0-100.0) fL MCH 30.9 (25.0-35.0) pg MCHC 34.5 (31.0-37.0) g/dL RDW 12.5 (11.5-15.5) % Plt Count 236 (150-450) k/uL Neutrophils % 85 % Lymphocytes % 9 % Monocytes % 5 % Eosinophils % 0 % Basophils % 0 % Neutrophils # 16.8 H (1.3-7.7) k/uL Lymphocytes # 1.8 (1.0-4.8) k/uL Monocytes # 1.0 (0-1.0) k/uL Eosinophils # 0.0 (0-0.7) k/uL Basophils # 0.0 (0-0.2) k/uL PT (9.0-12.0) sec INR (<1.2) APTT (22.0-30.0) sec Sodium 141 (137-145) mmol/L Potassium 3.8 (3.5-5.1) mmol/L Chloride 106 (98-107) mmol/L Carbon Dioxide 23 (22-30) mmol/L Anion Gap 12 mmol/L BUN 17 (9-20) mg/dL Creatinine 0.91 (0.66-1.25) mg/dL Est GFR (CKD-EPI)AfAm >90 (>60 ml/min/1.73 sqM) Est GFR (CKD-EPI)NonAf >90 (>60 ml/min/1.73 sqM) Glucose 111 H (74-99) mg/dL Calcium 9.6 (8.4-10.2) mg/dL Total Bilirubin 0.5 (0.2-1.3) mg/dL AST 14 L (17-59) U/L ALT 24 (21-72) U/L Alkaline Phosphatase 44 (38-126) U/L Troponin I (0.000-0.034) ng/mL Total Protein 7.1 (6.3-8.2) g/dL Albumin 4.8 (3.5-5.0) g/dL Urine Color Urine Appearance (Clear) Urine pH (5.0-8.0) Ur Specific [place] (1.001-1.035) Urine Protein (Negative) Urine Glucose (UA) (Negative) Urine Ketones (Negative) Urine Blood (Negative) Urine Nitrite (Negative) Urine Bilirubin (Negative) Urine Urobilinogen (<2.0) mg/dL Ur Leukocyte Esterase (Negative) Influenza Type A RNA Not Detected (Not Detectd) Influenza Type B (PCR) Not Detected (Not Detectd) 02/28/19 02/28/19 02/28/19 Range/Units 19:58 19:58 22:46 WBC (3.8-10.6) k/uL RBC (4.30-5.90) m/uL Hgb (13.0-17.5) gm/dL Hct (39.0-53.0) % MCV (80.0-100.0) fL MCH (25.0-35.0) pg MCHC (31.0-37.0) g/dL RDW (11.5-15.5) % Plt Count (150-450) k/uL Neutrophils % % Lymphocytes % % Monocytes % % Eosinophils % % Basophils % % Neutrophils # (1.3-7.7) k/uL Lymphocytes # (1.0-4.8) k/uL Monocytes # (0-1.0) k/uL Eosinophils # (0-0.7) k/uL Basophils # (0-0.2) k/uL PT 11.4 (9.0-12.0) sec INR 1.1 (<1.2) APTT 23.3 (22.0-30.0) sec Sodium (137-145) mmol/L Potassium (3.5-5.1) mmol/L Chloride (98-107) mmol/L Carbon Dioxide (22-30) mmol/L Anion Gap mmol/L BUN (9-20) mg/dL Creatinine (0.66-1.25) mg/dL Est GFR (CKD-EPI)AfAm (>60 ml/min/1.73 sqM) Est GFR (CKD-EPI)NonAf (>60 ml/min/1.73 sqM) Glucose (74-99) mg/dL Calcium (8.4-10.2) mg/dL Total Bilirubin (0.2-1.3) mg/dL AST (17-59) U/L ALT (21-72) U/L Alkaline Phosphatase (38-126) U/L Troponin I <0.012 (0.000-0.034) ng/mL Total Protein (6.3-8.2) g/dL Albumin (3.5-5.0) g/dL Urine Color Yellow Urine Appearance Clear (Clear) Urine pH 6.0 (5.0-8.0) Ur Specific [place] 1.037 H (1.001-1.035) Urine Protein Trace H (Negative) Urine Glucose (UA) Negative (Negative) Urine Ketones 1+ H (Negative) Urine Blood Negative (Negative) Urine Nitrite Negative (Negative) Urine Bilirubin Negative (Negative) Urine Urobilinogen 2.0 (<2.0) mg/dL Ur Leukocyte Esterase Negative (Negative) Influenza Type A RNA (Not Detectd) Influenza Type B (PCR) (Not Detectd) Disposition Clinical Impression: Syncope, Viral illness, Febrile Disposition: HOME SELF-CARE Condition: Stable Instructions (If sedation given, give patient instructions): Syncope (ED) Additional Instructions: Please return to the Emergency Department if symptoms worsen or any other concerns. Patient will follow up with neurologist or his PCP as needed. Patient will continue to increase fluids and eat a normal diet. Is patient prescribed a controlled substance at d/c from ED?: No Referrals: Nitin Rogel DO [Primary Care Provider] - 1-2 days
[2019-02-28 22:52] LABS: Appearance,Urine Clear (Clear); Bilirubin,Urine Negative (Negative); Blood,Urine Negative (Negative); Color,Urine Yellow; Glucose,Urine (UA) Negative (Negative); Ketones,Urine 1+ (Negative); Leukocyte Esterase,Urine Negative (Negative); Nitrite,Urine Negative (Negative); Protein,Urine Trace (Negative); Specific Gravity,Urine 1.037 (1.001-1.035)
--- NOTE | 2019-02-28 23:44 | CT ---
EXAMINATION TYPE: CT brain wo con DATE OF EXAM: 02/28/2019 COMPARISON: 01/05/2019 HISTORY: Syncopal episodes, febrile CT DLP: 113.4 mGycm. Automated Exposure Control for Dose Reduction was Utilized. TECHNIQUE: CT scan of the head is performed without contrast. FINDINGS: Ventricles have normal size. There is no mass effect nor midline shift. There is no sign of intracranial hemorrhage. Calvarium is intact. There is no sign of cerebral edema. IMPRESSION: Negative CT scan of the brain. No change.
[2019-02-28 23:55] VITALS: BP 121/65; PULSE 114; RESP 20; TEMP 98.1
== END 2019-03-01 00:37 | disposition home or self-care (01) ==
LOC: EC 19:47
DX: B34.9 Viral infection, unspecified (principal); R55 Syncope and collapse; G43.909 Migraine, unspecified, not intractable, without status migrainosus; Q85.00 Neurofibromatosis, unspecified; G47.30 Sleep apnea, unspecified; Z79.899 Other long term (current) drug therapy; Z88.1 Allergy status to other antibiotic agents; Z99.89 Dependence on other enabling machines and devices
CPT/HCPCS: 36415; 70450; 71046; 80053; 81003; 84484; 85025; 85610; 85730; 87502; 93005; 96360; 96361; 99285

== ENCOUNTER 2019-03-01 09:24 | Emergency (ER) | payer OTHER ==
--- NOTE | 2019-03-01 10:35 | XR ---
EXAMINATION TYPE: XR chest 2V DATE OF EXAM: 03/01/2019 COMPARISON: 02/28/2019 HISTORY: 28-year-old male with syncope and shortness of breath TECHNIQUE: PA and lateral views FINDINGS: The cardiomediastinal silhouette, aorta, and pulmonary vasculature are within normal limits. Lungs an d pleural spaces are clear. IMPRESSION: No acute cardiopulmonary process.
--- NOTE | 2019-03-01 10:36 | ED ---
General Adult HPI - General Chief complaint: Syncope Stated complaint: abnormal ekg Time Seen by Provider: 03/01/19 09:50 Source: patient Mode of arrival: ambulatory Limitations: no limitations - History of Present Illness Initial comments: 28-year-old male presenting for syncopal episodes x 2 days. Patient states that he has had 3 total syncopal episodes within the last 2 days. He states is presented emergency department yesterday for this complaint. Patient states he starts feeling lightheaded and then blacks out not remembering the incident. P atient states that he usually feels it coming on and has not fallen or hit his head. Patient states he did have a headache a few days ago however this is abnormal for him. Patient states that he has no chest pain or shortness of breath. Patient states he feels fine both before and after the episodes. Patient denies any leg swelling history of cancer. 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 Patient states this is being further evaluated by his neurologist and will follow-up. Patient denies known cardiac history however has prescriptions for lisinopril and verapamil and hydrochlorothiazide for hypertension. Patient states he did have a CT was brain yesterday which showed no acute process. Patient had follow-up to his primary care provider when he had a syncopal episode and a normal EKG findings and was sent to the emergency department for further evaluation. Upon arrival patient appears well signs of acute distress. Denies any current complaints - Related Data Home Medications Medication Instructions Recorded Confirmed Hydrochlorothiazide [Hydrodiuril] 25 mg PO DAILY 12/27/17 03/01/19 Verapamil HCl [Verapamil ER] 240 mg PO DAILY 12/27/17 03/01/19 Ibuprofen [Motrin] 800 mg PO Q8H PRN 12/05/18 03/01/19 Lisinopril [Zestril] 10 mg PO DAILY 02/28/19 03/01/19 SUMAtriptan SUCCINATE [Imitrex] 100 mg PO BID PRN 02/28/19 03/01/19 Allergies Allergy/AdvReac Type Severity Reaction Status Date / Time cefaclor [From Ceclor] Allergy Rash/Hives Verified 03/01/19 10:36 cephalexin [From Keflex] Allergy Unknown Verified 03/01/19 10:36 Childhood Review of Systems ROS Statement: Those systems with pertinent positive or pertinent negative responses have been documented in the HPI. ROS Other: All systems not noted in ROS Statement are negative. Past Medical History Past Medical History: Sleep Apnea/CPAP/BIPAP Additional Past Medical History / Comment(s): NEUROFIBROMATOSIS, MIGRAINE HEADACHE History of Any Multi-Drug Resistant Organisms: None Reported Past Surgical History: Adenoidectomy, Ear Surgery, Tonsillectomy Additional Past Surgical History / Comment(s): SKIN BIOPSY-ARM, pyloric stenosis repair Past Anesthesia/Blood Transfusion Reactions: No Reported Reaction Past Psychological History: Depression Smoking Status: Never smoker Past Alcohol Use History: Occasional Past Drug Use History: None Reported - Past Family History Mother Family Medical History: Unable to Obtain Additional Family Medical History / Comment(s): Father and brother have caf au lait spots Father Family Medical History: Unable to Obtain General Exam - General Exam Comments Initial Comments: General: The patient is awake and alert, in no distress Eye: +3 mm pupils are equal, round and reactive to light, extra-ocular movements are intact. No nystagmus. There is normal conjunctiva bilaterally. No signs of icterus. Ears, nose, mouth and throat: There are moist mucous membranes and no oral lesions. Neck: The neck is supple, there is no tenderness or JVD. Cardiovascular: There is a regular rate and rhythm. No murmur, rub or gallop is appreciated. Respiratory: Lungs are clear to auscultation, respirations are non-labored, breath sounds are equal. No wheezes, stridor, rales, or rhonchi. Gastrointestinal: Soft, non-distended, non-tender abdomen without masses or organomegaly noted. There is no rebound or guarding present. Musculoskeletal: Normal ROM, no tenderness. Strength 5/5. Sensation intact. Radial pulses equal bilaterally 2+. Neurological: A&O x 3. CN II-XII intact, There are no obvious motor or sensory deficits. Coordination appears grossly intact. Speech is normal. Skin: Skin is warm and dry and no rashes. Small subcutaneous nodules from head to toe. Sizes ranging from 1 cm or less. Flesh color. No LE edema. Psychiatric: Cooperative, appropriate mood & affect, normal judgment. Limitations: no limitations Course Vital Signs 03/01/19 03/01/19 03/01/19 09:28 12:02 14:25 Temperature 97.7 F 98.1 F Pulse Rate 94 80 96 Respiratory 20 17 16 Rate Blood Pressure 143/71 120/75 129/75 O2 Sat by Pulse 99 99 97 Oximetry - Reevaluation(s) Reevaluation #1: We have contacted and will, a total of 3 times in regards to accepting admitting provider after speaking with physician oral surgery assistant who recommended direct admission--they states they have not recieved a return page from admitting provider. 03/01/19 14:18 Reevaluation #2: AUNG is accepting physician at [facility]. 03/01/19 15:10 Medical Decision Making - Medical Decision Making 28-year-old male history of neurofibromatosis presents versus part for evaluation of syncopal episodes. Patient provided vague history. It was difficult to decipher if episodes were true syncopal episodes versus absent seizure. He was a family history of absent seizures. Differential diagnosis includes hypersensitive carotid sinus syndrome due to fibromatosis type I. Patient has established neurology care at [facility]. At this time given no abnormal laboratory, imaging or specific EKG findings after 2 visits the patient to be further evaluated by both neurology and cardiology inpatient. I contacted and [facility] the patient has established care with neurology at that facility. Spoke with the ER physician Dr. Candelaria who recommended direct admission. I spoke with Chel [id number] to transfer as well as a physician oral surgery assistant that was able to contact accepting admitting provider (see course), and patient will be transferred pending bed availability. Remains stable in ER. Dr. Delatorre will resume care until transfer of patient. Patient on telemetry. - Lab Data Result diagrams: 03/01/19 10:18 03/01/19 10:18 Lab Results 03/01/19 03/01/19 03/01/19 Range/Units 10:18 10:18 10:18 WBC 9.9 (3.8-10.6) k/uL RBC 4.68 (4.30-5.90) m/uL Hgb 14.6 (13.0-17.5) gm/dL Hct 41.7 (39.0-53.0) % MCV 89.1 (80.0-100.0) fL MCH 31.2 (25.0-35.0) pg MCHC 35.0 (31.0-37.0) g/dL RDW 12.5 (11.5-15.5) % Plt Count 199 (150-450) k/uL Neutrophils % 66 % Lymphocytes % 26 % Monocytes % 6 % Eosinophils % 1 % Basophils % 0 % Neutrophils # 6.5 (1.3-7.7) k/uL Lymphocytes # 2.6 (1.0-4.8) k/uL Monocytes # 0.6 (0-1.0) k/uL Eosinophils # 0.1 (0-0.7) k/uL Basophils # 0.0 (0-0.2) k/uL PT 11.2 (9.0-12.0) sec INR 1.1 (<1.2) APTT 24.0 (22.0-30.0) sec Sodium 142 (137-145) mmol/L Potassium 3.7 (3.5-5.1) mmol/L Chloride 109 H (98-107) mmol/L Carbon Dioxide 24 (22-30) mmol/L Anion Gap 9 mmol/L BUN 16 (9-20) mg/dL Creatinine 0.88 (0.66-1.25) mg/dL Est GFR (CKD-EPI)AfAm >90 (>60 ml/min/1.73 sqM) Est GFR (CKD-EPI)NonAf >90 (>60 ml/min/1.73 sqM) Glucose 91 (74-99) mg/dL Calcium 9.2 (8.4-10.2) mg/dL Total Bilirubin 0.8 (0.2-1.3) mg/dL AST 13 L (17-59) U/L ALT 24 (21-72) U/L Alkaline Phosphatase 40 (38-126) U/L Troponin I (0.000-0.034) ng/mL Total Protein 6.8 (6.3-8.2) g/dL Albumin 4.4 (3.5-5.0) g/dL Urine Color Urine Appearance (Clear) Urine pH (5.0-8.0) Ur Specific [place] (1.001-1.035) Urine Protein (Negative) Urine Glucose (UA) (Negative) Urine Ketones (Negative) Urine Blood (Negative) Urine Nitrite (Negative) Urine Bilirubin (Negative) Urine Urobilinogen (<2.0) mg/dL Ur Leukocyte Esterase (Negative) Urine RBC (0-5) /hpf Urine WBC (0-5) /hpf Urine Mucus (None) /hpf 03/01/19 03/01/19 Range/Units 10:18 10:45 WBC (3.8-10.6) k/uL RBC (4.30-5.90) m/uL Hgb (13.0-17.5) gm/dL Hct (39.0-53.0) % MCV (80.0-100.0) fL MCH (25.0-35.0) pg MCHC (31.0-37.0) g/dL RDW (11.5-15.5) % Plt Count (150-450) k/uL Neutrophils % % Lymphocytes % % Monocytes % % Eosinophils % % Basophils % % Neutrophils # (1.3-7.7) k/uL Lymphocytes # (1.0-4.8) k/uL Monocytes # (0-1.0) k/uL Eosinophils # (0-0.7) k/uL Basophils # (0-0.2) k/uL PT (9.0-12.0) sec INR (<1.2) APTT (22.0-30.0) sec Sodium (137-145) mmol/L Potassium (3.5-5.1) mmol/L Chloride (98-107) mmol/L Carbon Dioxide (22-30) mmol/L Anion Gap mmol/L BUN (9-20) mg/dL Creatinine (0.66-1.25) mg/dL Est GFR (CKD-EPI)AfAm (>60 ml/min/1.73 sqM) Est GFR (CKD-EPI)NonAf (>60 ml/min/1.73 sqM) Glucose (74-99) mg/dL Calcium (8.4-10.2) mg/dL Total Bilirubin (0.2-1.3) mg/dL AST (17-59) U/L ALT (21-72) U/L Alkaline Phosphatase (38-126) U/L Troponin I <0.012 (0.000-0.034) ng/mL Total Protein (6.3-8.2) g/dL Albumin (3.5-5.0) g/dL Urine Color Yellow Urine Appearance Clear (Clear) Urine pH 6.0 (5.0-8.0) Ur Specific [place] 1.038 H (1.001-1.035) Urine Protein 1+ H (Negative) Urine Glucose (UA) Negative (Negative) Urine Ketones Negative (Negative) Urine Blood Negative (Negative) Urine Nitrite Negative (Negative) Urine Bilirubin Negative (Negative) Urine Urobilinogen 2.0 (<2.0) mg/dL Ur Leukocyte Esterase Negative (Negative) Urine RBC <1 (0-5) /hpf Urine WBC 2 (0-5) /hpf Urine Mucus Many H (None) /hpf Disposition Clinical Impression: Syncope, Hx of neurofibromatosis Disposition: OTHER INSTITUTION NOT DEFINED Condition: Stable Is patient prescribed a controlled substance at d/c from ED?: No Referrals: Nitin Rogel DO [Primary Care Provider] - 1-2 days Time of Disposition: 11:28 - Out of Hospital Transfer - Req. Specs Out of Hospital Transfer - Requested Specifics: Other Non-Acute (Telemetry; [facility])
[2019-03-01 10:44] LABS: ALT 24 U/L (21-72); AST 13 U/L (17-59); African American GFR (CKD) >90 (>60 ml/min/1.73 sqM); Albumin 4.4 g/dL (3.5-5.0); Alkaline Phosphatase 40 U/L (38-126); Anion Gap 9 mmol/L; Blood Urea Nitrogen 16 mg/dL (9-20); Calcium 9.2 mg/dL (8.4-10.2); Carbon Dioxide 24 mmol/L (22-30); Chloride 109 mmol/L (98-107); Glucose 91 mg/dL (74-99); Potassium 3.7 mmol/L (3.5-5.1); Sodium 142 mmol/L (137-145); Total Bilirubin 0.8 mg/dL (0.2-1.3); Total Protein 6.8 g/dL (6.3-8.2)
[2019-03-01 10:50] LABS: Basophils % (A) 0 %; Eosinophils # (A) 0.1 k/uL (0-0.7); Eosinophils % (A) 1 %; HCT 41.7 % (39.0-53.0); HGB 14.6 gm/dL (13.0-17.5); Lymphocytes # (A) 2.6 k/uL (1.0-4.8); Lymphocytes % (A) 26 %; MCH 31.2 pg (25.0-35.0); MCV 89.1 fL (80.0-100.0); Mean Platelet Volume 7.2; Monocytes # (A) 0.6 k/uL (0-1.0); Monocytes % (A) 6 %; Neutrophils # (A) 6.5 k/uL (1.3-7.7); Neutrophils % (A) 66 %; Platelet Count 199 k/uL (150-450); RBC 4.68 m/uL (4.30-5.90); RDW 12.5 % (11.5-15.5); WBC 9.9 k/uL (3.8-10.6)
[2019-03-01 10:57] LABS: INR 1.1 (<1.2); Prothrombin Time 11.2 sec (9.0-12.0)
[2019-03-01 11:03] LABS: Appearance,Urine Clear (Clear); Bilirubin,Urine Negative (Negative); Blood,Urine Negative (Negative); Color,Urine Yellow; Glucose,Urine (UA) Negative (Negative); Ketones,Urine Negative (Negative); Leukocyte Esterase,Urine Negative (Negative); Mucus,Urine Many /hpf; Nitrite,Urine Negative (Negative); Protein,Urine 1+ (Negative); RBC,Urine <1 /hpf (0-5); Specific Gravity,Urine 1.038 (1.001-1.035); WBC,Urine 2 /hpf (0-5)
[2019-03-01] MEDS ORDERED: KETOROLAC 30 MG/ML 1 ML VIAL IVP STA (16:42)
[2019-03-01] MEDS ORDERED: ACETAMINOPHEN TAB 325 MG TAB PO STA (20:11)
[2019-03-02] MEDS ORDERED: diphenhydrAMINE 50 MG/ML 1 ML VIAL IVP STA (00:23)
[2019-03-02] MEDS ORDERED: METOCLOPRAMIDE 5 MG/ML 2 ML VIAL IVP STA (00:23)
[2019-03-02 06:46] VITALS: PULSE 70; RESP 16
[2019-03-02 08:49] VITALS: BP 131/74; TEMP 98
[2019-03-02] MEDS ORDERED: LISINOPRIL 10 MG TAB PO SCH (09:00)
[2019-03-02] MEDS ORDERED: VERAPAMIL SR 240 MG TABLET.ER PO SCH (09:00)
[2019-03-02] MEDS ORDERED: HYDROCHLOROTHIAZIDE 25 MG TAB PO SCH (09:00)
== END 2019-03-02 09:02 | disposition other institution (70) ==
LOC: EC 09:24
DX: R55 Syncope and collapse (principal); R94.31 Abnormal electrocardiogram [ECG] [EKG]; R42 Dizziness and giddiness; G47.30 Sleep apnea, unspecified; I10 Essential (primary) hypertension; Z79.899 Other long term (current) drug therapy; Z88.1 Allergy status to other antibiotic agents; Z86.69 Personal history of other diseases of the nervous system and sense organs
CPT/HCPCS: 36415; 93005; 80053; 84484; 85025; 85610; 85730; 81001; 71046; 99285; 96374; 96375 ×2; J1200; J2765; J1885

== ENCOUNTER → 2019-03-18 | Outpatient (CLI) | payer OTHER ==
--- NOTE | 2019-04-06 16:27 | HM ---
HOLTER MONITOR REPORT REFERRING DOCTOR: Dr. Rogel The patient was monitored for 14 days. The baseline rhythm appeared to be a sinus mechanism. The patient did have multiple episodes of sinus tachycardia. The patient did have multiple episodes of sinus bradycardia. No profound bradycardia is seen. No advanced AV block seen. No evidence of sinus pause or sinus arrest. The patient did not report any symptoms. CONCLUSION: 1. Sinus rhythm as a baseline mechanism. 2. The patient did have multiple episodes of sinus tachycardia. 3. There is no evidence of any SVT noted. 4. There is no evidence of any advanced AV block. 5. There is no evidence of any sinus pause or sinus arrest. 6. The patient reported no symptoms. MMODL / IJN: [id number] /
== END ==
LOC: RADECHMAIN 11:48
PROVIDERS: ATTEND Family Medicine
DX: R00.0 Tachycardia, unspecified (principal)
CPT/HCPCS: 93270

== ENCOUNTER 2019-03-19 13:53 | Observation (INO) | payer OTHER ==
[2019-03-19] MEDS ORDERED: ASPIRIN 81 MG PO STA (14:16)
--- NOTE | 2019-03-19 14:33 | ED ---
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 Reports that he had an episode of heart rate extending up to 150, 160. Patient reports that during this time. He was at rest. Patient reports that earlier today he did have some chest tightness. Denies any current chest tightness. Denies any other complaints at this time. Systemic: Pt denies fatigue, fever/chills, rash. Pt denies weakness, night sweats, weight loss. Neuro: Pt denies headache, visual disturbances, syncope or pre-syncope. HEENT: Pt denies ocular discharge or irritation, otalgia, rhinorrhea, pharyngitis or notable lymphadenopathy. Cardiopulmonary: Pt denies SOB, heart palpitations, dyspnea on exertion. Abdominal/GI: Pt denies abdominal pain, n/v/d. : Pt denies dysuria, burning w/ urination, frequency/urgency. Denies new onset urinary or bowel incontinence. MSK: Pt denies myalgia, loss of strength or function in extremities. Neuro: Pt denies new onset weakness, paresthesias. - Related Data Home Medications Medication Instructions Recorded Confirmed Hydrochlorothiazide [Hydrodiuril] 25 mg PO DAILY 12/27/17 03/01/19 Verapamil HCl [Verapamil ER] 240 mg PO DAILY 12/27/17 03/01/19 Ibuprofen [Motrin] 800 mg PO Q8H PRN 12/05/18 03/01/19 Lisinopril [Zestril] 10 mg PO DAILY 02/28/19 03/01/19 SUMAtriptan SUCCINATE [Imitrex] 100 mg PO BID PRN 02/28/19 03/01/19 Allergies Allergy/AdvReac Type Severity Reaction Status Date / Time cefaclor [From Ceclor] Allergy Rash/Hives Verified 03/19/19 14:05 cephalexin [From Keflex] Allergy Unknown Verified 03/19/19 14:05 Childhood Review of Systems ROS Statement: Those systems with pertinent positive or pertinent negative responses have been documented in the HPI. ROS Other: All systems not noted in ROS Statement are negative. Past Medical History Past Medical History: Sleep Apnea/CPAP/BIPAP Additional Past Medical History / Comment(s): NEUROFIBROMATOSIS, MIGRAINE HE ADACHE History of Any Multi-Drug Resistant Organisms: None Reported Past Surgical History: Adenoidectomy, Ear Surgery, Tonsillectomy Additional Past Surgical History / Comment(s): SKIN BIOPSY-ARM, pyloric stenosis repair Past Anesthesia/Blood Transfusion Reactions: No Reported Reaction Past Psychological History: Depression Smoking Status: Never smoker Past Alcohol Use History: Occasional Past Drug Use History: None Reported - Past Family History Mother Family Medical History: Unable to Obtain Additional Family Medical History / Comment(s): Father and brother have caf au lait spots Father Family Medical History: Unable to Obtain General Exam - General Exam Comments Initial Comments: Constitutional: NAD, AOX3, Pt has pleasant affect. HEENT: NC/AT, trachea midline, neck supple, no lymphadenopathy. Posterior pharynx non erythematous, without exudates. External ears appear normal, without discharge. Mucous membranes moist. Eyes PERRLA, EOM intact. There is no scleral icterus. No pallor noted. Cardiopulmonary: RRR, no murmurs, rubs or gallops, no JVD noted. Lungs CTAB in anterior and posterior zambrano. No peripheral edema. Abdominal exam: Abdomen soft and non-distended. Abdomen non-tender to palpation in all 4 quadrants. Bowel sounds active in LLQ. No hepatosplenomegaly. No ecchymosis Neuro: CN II-XII grossly intact. No nuchal rigidity. No raccon eyes, no johnson sign, no hemotympanum. No cervical spinal tenderness. MSK: No posterior calf tenderness bilaterally, homans sign negative bilaterally. Posterior tibialis and radial pulse +2 bilaterally. Sensation intact in upper and lower extremities. Full active ROM in upper and lower extremities, 5/5 stregnth. Limitations: no limitations Course Vital Signs 03/19/19 03/19/19 03/19/19 14:02 14:30 15:35 Temperature 98.7 F Pulse Rate 92 80 Pulse Rate [ 85 Dinkey Operator ] Respiratory 20 18 Rate Blood Pressure 125/70 110/65 O2 Sat by Pulse 98 96 Oximetry 03/19/19 03/19/19 03/19/19 16:47 16:55 17:16 Temperature Pulse Rate 112 H 88 130 H Pulse Rate [ Dinkey Operator ] Respiratory 18 18 18 Rate Blood Pressure 123/68 111/63 112/72 O2 Sat by Pulse 98 98 98 Oximetry 03/19/19 17:34 Temperature Pulse Rate 111 H Pulse Rate [ Dinkey Operator ] Respiratory 18 Rate Blood Pressure 121/64 O2 Sat by Pulse 98 Oximetry Medical Decision Making - Medical Decision Making 28-year-old male patient past medical history significant for neurofibromatosis currently wearing an event monitor after syncopal episode and diagnosis of pericarditis approximately 3 weeks ago presents to ED after call from event marketing coordinator 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 Reports that he had an episode of heart rate extending up to 150, 160. Patient reports that during this time. He was at rest. Patient reports that earlier today he did have some chest tightness. Denies any current chest tightness. Denies any other complaints at this time. Patient vital signs stable, did display some mild tachycardia afterwards. Ph ysical exam did not display acute pathology. EKG revealed nonischemic EKG. Review of rhythm strip did not reveal any intergluteal tachycardias. Investigations are non-impressive. Troponin is negative. Patient will be admitted for telemetry observation. Case discussed with Dr. Malone. - Lab Data Result diagrams: 03/19/19 15:15 03/19/19 15:15 Lab Results 03/19/19 03/19/19 03/19/19 Range/Units 15:15 15:15 15:15 WBC 7.7 (3.8-10.6) k/uL RBC 4.40 (4.30-5.90) m/uL Hgb 13.7 (13.0-17.5) gm/dL Hct 38.4 L (39.0-53.0) % MCV 87.3 (80.0-100.0) fL MCH 31.1 (25.0-35.0) pg MCHC 35.6 (31.0-37.0) g/dL RDW 12.2 (11.5-15.5) % Plt Count 249 (150-450) k/uL Neutrophils % 63 % Lymphocytes % 24 % Monocytes % 7 % Eosinophils % 3 % Basophils % 1 % Neutrophils # 4.8 (1.3-7.7) k/uL Lymphocytes # 1.9 (1.0-4.8) k/uL Monocytes # 0.6 (0-1.0) k/uL Eosinophils # 0.2 (0-0.7) k/uL Basophils # 0.1 (0-0.2) k/uL Sodium 139 (137-145) mmol/L Potassium 3.8 (3.5-5.1) mmol/L Chloride 108 H (98-107) mmol/L Carbon Dioxide 25 (22-30) mmol/L Anion Gap 6 mmol/L BUN 17 (9-20) mg/dL Creatinine 0.82 (0.66-1.25) mg/dL Est GFR (CKD-EPI)AfAm >90 (>60 ml/min/1.73 sqM) Est GFR (CKD-EPI)NonAf >90 (>60 ml/min/1.73 sqM) Glucose 121 H (74-99) mg/dL Calcium 9.1 (8.4-10.2) mg/dL Magnesium 1.8 (1.6-2.3) mg/dL Total Bilirubin 0.5 (0.2-1.3) mg/dL AST 15 L (17-59) U/L ALT 29 (21-72) U/L Alkaline Phosphatase 46 (38-126) U/L Troponin I (0.000-0.034) ng/mL NT-Pro-B Natriuret Pep 84 pg/mL Total Protein 6.1 L (6.3-8.2) g/dL Albumin 3.9 (3.5-5.0) g/dL Lipase 92 (23-300) U/L 03/19/19 Range/Units 15:15 WBC (3.8-10.6) k/uL RBC (4.30-5.90) m/uL Hgb (13.0-17.5) gm/dL Hct (39.0-53.0) % MCV (80.0-100.0) fL MCH (25.0-35.0) pg MCHC (31.0-37.0) g/dL RDW (11.5-15.5) % Plt Count (150-450) k/uL Neutrophils % % Lymphocytes % % Monocytes % % Eosinophils % % Basophils % % Neutrophils # (1.3-7.7) k/uL Lymphocytes # (1.0-4.8) k/uL Monocytes # (0-1.0) k/uL Eosinophils # (0-0.7) k/uL Basophils # (0-0.2) k/uL Sodium (137-145) mmol/L Potassium (3.5-5.1) mmol/L Chloride (98-107) mmol/L Carbon Dioxide (22-30) mmol/L Anion Gap mmol/L BUN (9-20) mg/dL Creatinine (0.66-1.25) mg/dL Est GFR (CKD-EPI)AfAm (>60 ml/min/1.73 sqM) Est GFR (CKD-EPI)NonAf (>60 ml/min/1.73 sqM) Glucose (74-99) mg/dL Calcium (8.4-10.2) mg/dL Magnesium (1.6-2.3) mg/dL Total Bilirubin (0.2-1.3) mg/dL AST (17-59) U/L ALT (21-72) U/L Alkaline Phosphatase (38-126) U/L Troponin I <0.012 (0.000-0.034) ng/mL NT-Pro-B Natriuret Pep pg/mL Total Protein (6.3-8.2) g/dL Albumin (3.5-5.0) g/dL Lipase (23-300) U/L - EKG Data -: EKG Interpreted by Me (and Dr. Malone) EKG Comments: 1) ventricular rate 86, when necessary flow 178, QRS 82, QT/QTc 358/428. Normal sinus rhythm, nonspecific ST-T wave abdomen mildly. Abnormal EKG. No concern for acute ischemia. 2) ventricular rate 100, when necessary for 174, QRS 80, QT/QTC 326 as 420. Normal sinus rhythm, normal EKG, no concern for acute ischemia. Disposition Clinical Impression: Tachycardia Disposition: ADMITTED IP TO THIS HOSP Condition: Fair Is patient prescribed a controlled substance at d/c from ED?: No Referrals: Nitin Rogel DO [Primary Care Provider] - 1-2 days
--- NOTE | 2019-03-19 14:43 | XR ---
EXAMINATION TYPE: XR chest 2V DATE OF EXAM: 03/19/2019 COMPARISON: 03/01/2019 HISTORY: 28-year-old male with chest pain TECHNIQUE: PA and lateral views FINDINGS: The cardiomediastinal silhouette, aorta, and pulmonary vasculature are within normal limits. Lungs an d pleural spaces are clear. IMPRESSION: No acute cardiopulmonary process.
[2019-03-19 15:29] LABS: Basophils # (A) 0.1 k/uL (0-0.2); Basophils % (A) 1 %; Eosinophils # (A) 0.2 k/uL (0-0.7); Eosinophils % (A) 3 %; HCT 38.4 % (39.0-53.0); HGB 13.7 gm/dL (13.0-17.5); Lymphocytes # (A) 1.9 k/uL (1.0-4.8); Lymphocytes % (A) 24 %; MCH 31.1 pg (25.0-35.0); MCHC 35.6 g/dL (31.0-37.0); MCV 87.3 fL (80.0-100.0); Mean Platelet Volume 8.4; Monocytes # (A) 0.6 k/uL (0-1.0); Monocytes % (A) 7 %; Neutrophils # (A) 4.8 k/uL (1.3-7.7); Neutrophils % (A) 63 %; Platelet Count 249 k/uL (150-450); RDW 12.2 % (11.5-15.5); WBC 7.7 k/uL (3.8-10.6)
[2019-03-19 15:39] LABS: Partial Thromboplastin Time 24.5 sec (22.0-30.0); Prothrombin Time 10.8 sec (9.0-12.0)
[2019-03-19 15:43] LABS: ALT 29 U/L (21-72); AST 15 U/L (17-59); African American GFR (CKD) >90 (>60 ml/min/1.73 sqM); Albumin 3.9 g/dL (3.5-5.0); Alkaline Phosphatase 46 U/L (38-126); Anion Gap 6 mmol/L; Blood Urea Nitrogen 17 mg/dL (9-20); Calcium 9.1 mg/dL (8.4-10.2); Carbon Dioxide 25 mmol/L (22-30); Chloride 108 mmol/L (98-107); Glucose 121 mg/dL (74-99); Magnesium 1.8 mg/dL (1.6-2.3); Non-African American GFR(CKD) >90 (>60 ml/min/1.73 sqM); Potassium 3.8 mmol/L (3.5-5.1); Sodium 139 mmol/L (137-145); Total Bilirubin 0.5 mg/dL (0.2-1.3); Total Protein 6.1 g/dL (6.3-8.2)
[2019-03-19] MEDS ORDERED: NALOXONE 0.4 MG/ML 1 ML VIAL IV PRN (18:00)
[2019-03-19] MEDS: SODIUM CHLORIDE 0.9% 1,000 ML IV SCH (18:19)
[2019-03-19] MEDS ORDERED: ALBUTEROL NEBULIZED 2.5 MG/3 ML INHALATION PRN (21:37)
[2019-03-19] MEDS: PANTOPRAZOLE 40 MG TABLET PO SCH (21:51)
[2019-03-19] MEDS: VERAPAMIL SR 240 MG TABLET.ER PO SCH (21:51)
[2019-03-19] MEDS: METOPROLOL TARTRATE 12.5 MG TAB PO SCH (22:33)
[2019-03-20] MEDS: ACETAMINOPHEN TAB 325 MG TAB PO PRN (02:42)
[2019-03-20] MEDS: METOPROLOL TARTRATE 12.5 MG TAB PO SCH ×2 (07:51→19:53)
[2019-03-20] MEDS: PANTOPRAZOLE 40 MG TABLET PO SCH (07:51)
[2019-03-20] MEDS: SODIUM CHLORIDE 0.9% 1,000 ML IV SCH ×2 (07:52→19:34)
[2019-03-20] MEDS: COLCHICINE 0.6 MG TAB PO SCH ×2 (09:16→19:53)
[2019-03-20] MEDS ORDERED: IBUPROFEN 800 MG TAB PO PRN (09:57)
--- NOTE | 2019-03-20 10:00 | ECHOF ---
Referral Reason:cp, assess for pericardial effusion MEASUREMENTS -------- HEIGHT: 172.7 cm WEIGHT: 81.6 kg BP: FINDINGS -------- Sinus rhythm. Echo Done 03/12 at [facility], Limited Echo for Pericardial Effusion. There is no pericardial effusion. CONCLUSIONS -------- 1. Sinus rhythm. 2. There is no pericardial effusion. CRIME PREVENTION WORKER: Do Swanson RDCS
[2019-03-20] MEDS: LISINOPRIL 10 MG TAB PO SCH (10:14)
[2019-03-20] MEDS: HYDROCHLOROTHIAZIDE 25 MG TAB PO SCH (10:14)
--- NOTE | 2019-03-20 10:17 | P.CRDCN ---
History of Present Illness History of present illness: 03/01 had a syncopal episode at work. came here and everything was normal. saw his pcp and had an event monitor applied. sent in for abnormal rhythm on monitor. felt an episode of chest pain yesterday all day yesterday like someone was stabbing him. was home watching tv all day. HISTORY OF PRESENTING ILLNESS This is a pleasant 28-year-old male past medical history significant for neurof ibromatosis and hypertension. He also recently was diagnosed with seizures, idiopathic pericarditis and syncope. He presented with palpitations and chest pain. He follows in the office with Deborah. We have been asked to see him in consultation for chest pain. All of his symptoms started earlier this month when he passed out while at work. He ultimately was diagnosed with seizures and idiopathic pericarditis. He is maintained on colchicine and ibuprofen. He followed up with Dr. Cabrera in the office 03/15 and had a repeat echo that was normal. Ejection fraction 55%, normal diastolic function and no pericardial fluid. He saw his PCP on Monday and was complaining of ongoing chest pain and palpitations. Event monitor was placed from the hospital on Monday. Reports that were faxed over from [employer] reveal an episode of sinus tachycardia, heart rate 136. No acute arrhythmia. He continues to feel intermittent episodes of chest pain with no specific aggravating or alleviating factors. Denies shortness of breath, dizziness, nausea, vomiting or diaphoresis. Repeat limited echo shows no pericardial effusion. DIAGNOSTICS EKG reveals sinus mechanism with non-specific abnormalities. No acute changes from previous. Chest xray negative for an acute cardiopulmonary process. Laboratory reviewed, WBC 7.7, hgb 13.7, plt 249, sodium 139, potassium 3.8, creatinine 0.82, cardiac enzymes negative x3, proBNP 84. Current cardiac medications include hydrochlorothiazide 25 mg daily, lisinopril 10 mg daily, Lopressor 12.5 mg BID, verapamil 240 mg daily, colchicine 0.3 mg BID and motrin 800 mg TID PRN. REVIEW OF SYSTEMS At the time of my exam: CONSTITUTIONAL: Denies fever or chills. CARDIOVASCULAR: Denies chest pain, shortness of breath, orthopnea, PND or palpitations. RESPIRATORY: Denies cough. GASTROINTESTINAL: Denies abdominal pain, diarrhea, constipation, nausea or vomiting. MUSCULOSKELETAL: Denies myalgias. NEUROLOGIC: Denies numbness, tingling or weakness. ENDOCRINE: Denies fatigue, weight change, polydipsia or polyurina. GENITOURINARY: Denies burning, hematuria or urgency with micturation. HEMATOLOGIC: Denies history of anemia or bleeding. PHYSICAL EXAMINATION Blood pressure 110/59 heart rate 67 afebrile and maintaining oxygen saturaiton on room air. CONSTITUTIONAL: No apparent distress. HEENT: Head is normocephalic. Pupils are equal, round. Sclerae anicteric. Mucous membranes of the mouth are moist. No JVD. No carotid bruit. CHEST EXAMINATION: Lungs are clear to auscultation. No chest wall tenderness is noted on palpation or with deep breathing. HEART EXAMINATION: Regular rate and rhythm. S1, S2 heard. No murmurs, gallops or rub. ABDOMEN: Soft, nontender. Positive bowel sounds. EXTREMITIES: 2+ peripheral pulses, no lower extremity edema and no calf tenderness. NEUROLOGIC EXAMINATION: Patient is awake, alert and oriented x3. ASSESSMENT Chest pain, atypical. An acute event has been ruled out. Sinus tachycardia History of pericarditis diagnosed at [facility] 05/02/2018 Hypertension Neurofibromatosis PLAN An acute coronary event has been ruled out. The event tracings reveal sinus tachycardia. No acute arrhythmia. Echocardiogram revealed no pericardial effusion. May discontinue colchicine and ibuprofen as his course has been completed and there is no pericardial effusion. Ongoing medical management, we will follow as needed. Follow up with Dr. Cabrera in the office in 2-3 weeks. Thank you kindly for this consultation. Nurse Practitioner note has been reviewed, I agree with a documented findings and plan of care. Patient was seen and examined. Past Medical History Past Medical History: Sleep Apnea/CPAP/BIPAP Additional Past Medical History / Comment(s): NEUROFIBROMATOSIS, MIGRAINE HEADACHE History of Any Multi-Drug Resistant Organisms: None Reported Past Surgical History: Adenoidectomy, Ear Surgery, Tonsillectomy Additional Past Surgical History / Comment(s): SKIN BIOPSY-ARM, pyloric stenosis repair Past Anesthesia/Blood Transfusion Reactions: No Reported Reaction Smoking Status: Never smoker - Past Family History Mother Family Medical History: Unable to Obtain Additional Family Medical History / Comment(s): Father and brother have caf au lait spots Father Family Medical History: Unable to Obtain Medications and Allergies Home Medications Medication Instructions Recorded Confirmed Type Hydrochlorothiazide [Hydrodiuril] 25 mg PO DAILY 12/27/17 03/19/19 History Verapamil HCl [Verapamil ER] 240 mg PO HS 12/27/17 03/19/19 History Ibuprofen [Motrin] 800 mg PO Q8H PRN 12/05/18 03/19/19 History Lisinopril [Zestril] 10 mg PO DAILY 02/28/19 03/19/19 History SUMAtriptan SUCCINATE [Imitrex] 100 mg PO BID PRN 02/28/19 03/19/19 History Albuterol Inhaler [Ventolin Hfa 1 - 2 puff INHALATION RT-Q6H PRN 03/19/19 03/19/19 History Inhaler] Colchicine 0.3 mg PO BID 03/19/19 03/19/19 History Metoprolol Tartrate [Lopressor] 12.5 mg PO BID 03/19/19 03/19/19 History Omeprazole 20 mg PO DAILY 03/19/19 03/19/19 History Allergies Allergy/AdvReac Type Severity Reaction Status Date / Time cefaclor [From Ceclor] Allergy FAMILY Verified 03/19/19 21:18 HISTORY cephalexin [From Keflex] Allergy Dyspnea Verified 03/19/19 21:18 Physical Exam Vitals: Vital Signs Temp Pulse Pulse Pulse Resp BP BP 03/20/19 07:00 98.1 F 67 18 110/59 03/20/19 03:00 18 03/19/19 23:50 98.2 F 80 18 114/62 03/19/19 23:28 18 03/19/19 20:00 98.3 F 71 18 115/65 03/19/19 19:59 86 16 114/68 03/19/19 19:00 84 16 109/62 03/19/19 18:10 112 H 18 128/79 03/19/19 17:34 111 H 18 121/64 03/19/19 17:16 130 H 18 112/72 03/19/19 16:55 88 18 111/63 03/19/19 16:47 112 H 18 123/68 03/19/19 15:35 80 18 110/65 03/19/19 14:30 85 03/19/19 14:02 98.7 F 92 20 125/70 Pulse Ox 03/20/19 07:00 97 03/20/19 03:00 03/19/19 23:50 96 03/19/19 23:28 03/19/19 20:00 98 03/19/19 19:59 96 03/19/19 19:00 96 03/19/19 18:10 98 03/19/19 17:34 98 03/19/19 17:16 98 03/19/19 16:55 98 03/19/19 16:47 98 03/19/19 15:35 96 03/19/19 14:30 03/19/19 14:02 98 Intake and Output 03/19/19 03/20/19 03/20/19 22:59 06:59 14:59 Other: # Voids 1 1 Weight 77.111 kg Results 03/19/19 15:15 03/19/19 15:15 Cardiac Enzymes 03/19/19 03/19/19 03/19/19 Range/Units 15:15 15:15 22:35 AST 15 L (17-59) U/L Troponin I <0.012 <0.012 (0.000-0.034) ng/mL 03/20/19 Range/Units 02:38 AST (17-59) U/L Troponin I <0.012 (0.000-0.034) ng/mL Coagulation 03/19/19 Range/Units 15:15 PT 10.8 (9.0-12.0) sec APTT 24.5 (22.0-30.0) sec CBC 03/19/19 Range/Units 15:15 WBC 7.7 (3.8-10.6) k/uL RBC 4.40 (4.30-5.90) m/uL Hgb 13.7 (13.0-17.5) gm/dL Hct 38.4 L (39.0-53.0) % Plt Count 249 (150-450) k/uL Comprehensive Metabolic Panel 03/19/19 Range/Units 15:15 Sodium 139 (137-145) mmol/L Potassium 3.8 (3.5-5.1) mmol/L Chloride 108 H (98-107) mmol/L Carbon Dioxide 25 (22-30) mmol/L BUN 17 (9-20) mg/dL Creatinine 0.82 (0.66-1.25) mg/dL Glucose 121 H (74-99) mg/dL Calcium 9.1 (8.4-10.2) mg/dL AST 15 L (17-59) U/L ALT 29 (21-72) U/L Alkaline Phosphatase 46 (38-126) U/L Total Protein 6.1 L (6.3-8.2) g/dL Albumin 3.9 (3.5-5.0) g/dL Current Medications Generic Name Dose Route Start Last Admin Trade Name Freq PRN Reason Stop Dose Admin Acetaminophen 650 mg 03/19/19 22:34 03/20/19 02:42 Tylenol Tab PO 650 mg Q4HR PRN Administration Fever and/ or Pain Albuterol Sulfate 2.5 mg 03/19/19 21:37 Ventolin Nebulized INHALATION RT-Q6H PRN Shortness Of Breath Colchicine 0.3 mg 03/20/19 09:00 Colcrys PO BID MESSI Hydrochlorothiazide 25 mg 03/20/19 09:00 Hydrodiuril PO DAILY MESSI Sodium Chloride 1,000 mls @ 80 mls/hr 03/19/19 18:00 03/20/19 07:52 Saline 0.9% IV 80 mls/hr .[id number] MESSI Administration Lisinopril 10 mg 03/20/19 09:00 Zestril PO DAILY MESSI Metoprolol Tartrate 12.5 mg 03/19/19 22:15 03/20/19 07:51 Lopressor PO 12.5 mg BID MESSI Administration Naloxone HCl 0.2 mg 03/19/19 18:00 Narcan IV Q2M PRN Opioid Reversal Pantoprazole Sodium 40 mg 03/19/19 21:45 03/20/19 07:51 Protonix PO 40 mg DAILY MESSI Administration Sumatriptan Succinate 100 mg 03/19/19 22:00 Imitrex PO BID PRN Migraine Headache Verapamil HCl 240 mg 03/19/19 21:45 03/19/19 21:51 Isoptin Sr PO 240 mg HS MESSI Administration Intake and Output 03/19/19 03/20/19 03/20/19 22:59 06:59 14:59 Other: # Voids 1 1 Weight 77.111 kg 03/19/19 15:15 03/19/19 15:15
[2019-03-20] MEDS: SUMAtriptan SUCCINATE 50 MG TAB PO PRN ×2 (13:40→21:28)
[2019-03-20] MEDS: VERAPAMIL SR 240 MG TABLET.ER PO SCH (19:53)
--- NOTE | 2019-03-20 21:52 | P.HPIM ---
History of Present Illness H&P Date: 03/20/19 Chief Complaint: Heart racing History of presenting complaint: This is a very pleasant 28-year-old patient of Dr. Rayna Rogel. Patient has known neurofibromatosis, patient's father and brother have the caf au laitr patches. 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 He did see Dr. Oswaldo Cabrera in the office. Also felt of seizures. Patient had been on colchicine and ibuprofen. Echocardiogram done in the office showed EF of 55%. Saw his family doctor on Monday and has some chest discomfort and palpitation. Found to have sinus tachycardia heart rate in the 130s. No other arrhythmias otherwise. Repeat echocardiogram this morning was negative for any pericardial effusion. No fever no chills. No cough. Patient also notices morning that his leg was numb below the knee down to the feet. When he was walking felt significant numbness. This is a new finding. No pain. No injury. Rest of the left breast normal. Does not complaint of any headache change in vision speech or swallowing. No change in the left arm. Review of systems: GEN.: None EYES: None HEENT: None NECK: None RESPIRATORY: None CARDIOVASCULAR: As above GASTROINTESTINAL: None GENITOURINARY: None MUSCULOSKELETAL: None LYMPHATICS: None HEMATOLOGICAL: None PSYCHIATRY: None NEUROLOGICAL: As above. DERMATOLOGICAL: As above Past medical history to include: Sleep apnea, neurofibromatosis, migraine, idiopathic pericarditis, seizure Social history: Does not smoke. Alcohol occasional. Physical examination: VITAL SIGNS: 98.7, 120, 18, 05/18/1969, 98% room air GENERAL: BMI 25.8, sitting up comfortable. EYES: Pupils equal. Conjunctiva normal. HEENT: External appearance of nose and ears normal, oral cavity grossly normal. NECK: JVD not raised; masses not palpable. HEART: First and second heart sounds are normal; no edema. LUNGS: Respiratory rate normal; clear to auscultation. ABDOMEN: Soft, nontender, liver spleen not palpable, no masses palpable. PSYCH: Alert and oriented x3; mood and affect normal. NEUROLOGICAL: [Cranial nerves grossly intact; no facial asymmetry, decreased sensation in the left leg below the knee down to the foot, some weakness LYMPHATICS: No lymph nodes palpable in the axilla and neck DERMATOLOGICAL: Numerous scattered neurofibromatosis lesions INVESTIGATIONS, reviewed in the clinical context: White count 7.7 hemoglobin 13.7 platelets 249 potassium 3.8 creatinine 0.82 Troponin I 3 negative EKG tracing personally reviewed by me-nonspecific T-wave changes, sinus rhythm Laboratory 2-D echo-no pericardial effusion Assessment: -Paroxysmal sinus tachycardia in a patient who recently had idiopathic pericarditis, with negative limited echocardiogram, no signs of infection. This no fever no white count. -Neurofibromatosis, familial -New-onset of left leg numbness below the knee down to the foot, with some difficulty walking. Patient's has palpable distal dorsalis pedis pulses Plan: Cardiology saw the patient earlier. Patient is on verapamil and Lopressor. Neurology was consulted. Other home medications are continued. Colchicine and ibuprofen may be discontinued as per cardiology. Past Medical History Past Medical History: Sleep Apnea/CPAP/BIPAP Additional Past Medical History / Comment(s): NEUROFIBROMATOSIS, MIGRAINE HEADACHE History of Any Multi-Drug Resistant Organisms: None Reported Past Surgical History: Adenoidectomy, Ear Surgery, Tonsillectomy Additional Past Surgical History / Comment(s): SKIN BIOPSY-ARM, pyloric stenosis repair Past Anesthesia/Blood Transfusion Reactions: No Reported Reaction Smoking Status: Never smoker - Past Family History Mother Family Medical History: Unable to Obtain Additional Family Medical History / Comment(s): Father and brother have caf au lait spots Father Family Medical History: Unable to Obtain Medications and Allergies Home Medications Medication Instructions Recorded Confirmed Type Hydrochlorothiazide [Hydrodiuril] 25 mg PO DAILY 12/27/17 03/19/19 History Verapamil HCl [Verapamil ER] 240 mg PO HS 12/27/17 03/19/19 History Ibuprofen [Motrin] 800 mg PO Q8H PRN 12/05/18 03/19/19 History Lisinopril [Zestril] 10 mg PO DAILY 02/28/19 03/19/19 History SUMAtriptan SUCCINATE [Imitrex] 100 mg PO BID PRN 02/28/19 03/19/19 History Albuterol Inhaler [Ventolin Hfa 1 - 2 puff INHALATION RT-Q6H PRN 03/19/19 03/19/19 History Inhaler] Colchicine 0.3 mg PO BID 03/19/19 03/19/19 History Metoprolol Tartrate [Lopressor] 12.5 mg PO BID 03/19/19 03/19/19 History Omeprazole 20 mg PO DAILY 03/19/19 03/19/19 History Allergies Allergy/AdvReac Type Severity Reaction Status Date / Time cefaclor [From Ceclor] Allergy FAMILY Verified 03/19/19 21:18 HISTORY cephalexin [From Keflex] Allergy Dyspnea Verified 03/19/19 21:18 Physical Exam Vitals: Vital Signs Temp Pulse Pulse Pulse Resp BP BP 03/20/19 08:00 67 18 03/20/19 07:00 98.1 F 67 18 110/59 03/20/19 03:00 18 03/19/19 23:50 98.2 F 80 18 114/62 03/19/19 23:28 18 03/19/19 20:00 98.3 F 71 18 115/65 03/19/19 19:59 86 16 114/68 03/19/19 19:00 84 16 109/62 03/19/19 18:10 112 H 18 128/79 03/19/19 17:34 111 H 18 121/64 03/19/19 17:16 130 H 18 112/72 03/19/19 16:55 88 18 111/63 03/19/19 16:47 112 H 18 123/68 03/19/19 15:35 80 18 110/65 03/19/19 14:30 85 03/19/19 14:02 98.7 F 92 20 125/70 Pulse Ox 03/20/19 08:00 03/20/19 07:00 97 03/20/19 03:00 03/19/19 23:50 96 03/19/19 23:28 03/19/19 20:00 98 03/19/19 19:59 96 03/19/19 19:00 96 03/19/19 18:10 98 03/19/19 17:34 98 03/19/19 17:16 98 03/19/19 16:55 98 03/19/19 16:47 98 03/19/19 15:35 96 03/19/19 14:30 03/19/19 14:02 98 Intake and Output 03/19/19 03/20/19 03/20/19 22:59 06:59 14:59 Other: Voiding Method Toilet # Voids 1 1 Weight 77.111 kg Results CBC & Chem 7: 03/19/19 15:15 03/19/19 15:15 Labs: Abnormal Lab Results - Last 24 Hours (Table) 03/19/19 03/19/19 Range/Units 15:15 15:15 Hct 38.4 L (39.0-53.0) % Chloride 108 H (98-107) mmol/L Glucose 121 H (74-99) mg/dL AST 15 L (17-59) U/L Total Protein 6.1 L (6.3-8.2) g/dL
--- NOTE | 2019-03-20 22:31 | CT ---
EXAMINATION TYPE: CT brain wo con DATE OF EXAM: 03/20/2019 COMPARISON: 02/28/2019 HISTORY: c/o numbness to left leg CT DLP: 1121.4 mGycm. Automated Exposure Control for Dose Reduction was Utilized. TECHNIQUE: CT scan of the head is performed without contrast. FINDINGS: Ventricles have normal size. There is no mass effect nor midline shift. There is no sign of intracranial hemorrhage. The calvarium is intact. IMPRESSION: Normal head CT scan. No change.
[2019-03-20] MEDS: ENOXAPARIN 40 MG/0.4 ML SYRINGE SQ SCH (23:48)
[2019-03-20] MEDS: ASPIRIN 81 MG PO SCH (23:48)
[2019-03-21] MEDS: ACETAMINOPHEN TAB 325 MG TAB PO PRN (04:03)
[2019-03-21 04:27] VITALS: RESP 16
[2019-03-21] MEDS: SODIUM CHLORIDE 0.9% 1,000 ML IV SCH (05:07)
[2019-03-21 08:50] VITALS: BP 99/58; PULSE 72; TEMP 98.1
[2019-03-21] MEDS: ASPIRIN 81 MG PO SCH (08:50)
[2019-03-21] MEDS: LISINOPRIL 10 MG TAB PO SCH (08:53)
[2019-03-21] MEDS: ENOXAPARIN 40 MG/0.4 ML SYRINGE SQ SCH (08:53)
[2019-03-21] MEDS: METOPROLOL TARTRATE 12.5 MG TAB PO SCH (08:53)
[2019-03-21] MEDS: PANTOPRAZOLE 40 MG TABLET PO SCH (08:53)
[2019-03-21] MEDS: HYDROCHLOROTHIAZIDE 25 MG TAB PO SCH (08:54)
--- NOTE | 2019-03-21 19:11 | P.CNNES ---
History of Present Illness Consult date: 03/21/19 Reason for Consult: LLE numbness Chief complaint: LLE numbness History of Present Illness: HISTORY OF PRESENT ILLNESS: Thank you for allowing me to evaluate Mr. Deepak Hurley. Mr. Hurley is a 28 year-old man with PMHx of neurofibromatosis, migraine, sleep apnea, presented to [facility] after getting called from the cardiac event monitoring staff. Of note, patient has been wearing an event monitor after a syncopal episode and diagnosis of pericarditis and about 3 weeks ago. Patient states that he had a similar episode about 2 years ago when he had chest pain and also had entire L-sided numbness that eventually went away. 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 Patient has a neurologist he follows up regularly in [place], and patient also has been following up with Dr. Douglass, neighborhood planner. Patient states that yesterday morning, when he was in the observation unit, patient noticed RLE numbness below his knee level that felt similar to what he had 2 years ago. Patient no longer has the symptom. Denies headache, nausea, vomiting, double/blurry vision, weakness, recent sickness. PAST MEDICAL HISTORY: neurofibromatosis, migraine, sleep apnea PAST SURGICAL HISTORY: Appendectomy, tonsillectomy, skin biopsy, pyloric stenosis repair HOME MEDICATIONS: Verapamil, hydrochlorothiazide, ibuprofen, sumatriptan, lisinopril, albuterol, colchicine, omeprazole, metoprolol ALLERGIES: Cephalexin, cefaclor SOCIAL HISTORY: Never smoker FAMILY HISTORY: Father and brother have caf au lait spots REVIEW OF SYSTEMS: The 14 systems are reviewed and no additional points are identified compared to the review of systems documented history and physical PHYSICAL EXAMINATION: VITAL SIGNS: T 97.9 HR 67 RR 16 BP 107/63 GEN.: NAD, pleasant and cooperative, numerous neurofibromas throughout, less in his b/l LE. HEENT: NCAT, sclera without icterus NECK: Supple SKIN AND EXTREMITIES: Warm to touch, no edema NEURO: MENTAL STATUS: Patient alert and oriented to self, place, time. Able to name the current president. Speech fluent, able to name and repeat, following all commands readily. No right and left disorientation, neglect. CRANIAL NERVES II THROUGH XII: II: Pupils are equal and reactive to light symm etrically. No afferent pupillary defect. Visual zambrano are intact. III, IV, : No ptosis. Extraocular movements full. No nystagmus. V: Facial sensation intact from V1-3. VII. No clear facial asymmetry. VIII: Hearing intact to finger rub bilaterally. IX, X: Symmetric palate elevation. XI: Shoulder shrug intact. XII: Tongue midline without fasciculation or atrophy. MOTOR: Normal bulk/tone. No pronator drift or tremor. Strength is 5/5 throughout all 4 extremities. SENSORY: Intact to light touch in all 4 extremities. Romberg is negative. REFLEXES: 2+ throughout. Toes are downgoing. COORDINATION: Finger to nose intact. No dysmetria. GAIT: Narrow-based and stable. Able to toe/heel/tandem walk DIAGNOSTIC TESTING: LABORATORY: WBC 7.7 hemoglobin 13.7 platelet 249 sodium 139 potassium 3.8 chloride 108 bicarb 25 BUN 17 creatinine 0.82 glucose 121 AST 15 ALT 29 alk phos 46 troponin <0.012 IMAGING: CT head without contrast 03/20/2019: No acute intracranial abnormality. EKG 03/19/2019: Normal sinus rhythm Limited TTE 03/20/2019: Sinus rhythm. There is no pericardial effusion ASSESSMENT/RECOMMENDATIONS: 28 year-old man with PMHx of neurofibromatosis, migraine, sleep apnea, presented to [facility] after getting called from the cardiac event monitoring staff for tachycardia, consulting Neurology for transient LLE numbness. Patient at this time with no symptoms. Patient with a similar episode previously, for which patient has been extensively worked up. There's a possibility that a neurofibroma may be growing and causing these symptoms intermittently but unusual that the numbness is not following any nerve distribution. Patient states he has regular follow ups with his neurologist in [place]. Patient will have one in May or June. Patient is stable for discharge at this time from neurological perspective. Past Medical History Past Medical History: Sleep Apnea/CPAP/BIPAP Additional Past Medical History / Comment(s): NEUROFIBROMATOSIS, MIGRAINE HEADACHE History of Any Multi-Drug Resistant Organisms: None Reported Past Surgical History: Adenoidectomy, Ear Surgery, Tonsillectomy Additional Past Surgical History / Comment(s): SKIN BIOPSY-ARM, pyloric stenosis repair Past Anesthesia/Blood Transfusion Reactions: No Reported Reaction Smoking Status: Never smoker - Past Family History Mother Family Medical History: Unable to Obtain Additional Family Medical History / Comment(s): Father and brother have caf au lait spots Father Family Medical History: Unable to Obtain Medications and Allergies Home Medications Medication Instructions Recorded Confirmed Type Hydrochlorothiazide [Hydrodiuril] 25 mg PO DAILY 12/27/17 03/19/19 History Verapamil HCl [Verapamil ER] 240 mg PO HS 12/27/17 03/19/19 History Ibuprofen [Motrin] 800 mg PO Q8H PRN 12/05/18 03/19/19 History Lisinopril [Zestril] 10 mg PO DAILY 02/28/19 03/19/19 History SUMAtriptan SUCCINATE [Imitrex] 100 mg PO BID PRN 02/28/19 03/19/19 History Albuterol Inhaler [Ventolin Hfa 1 - 2 puff INHALATION RT-Q6H PRN 03/19/19 03/19/19 History Inhaler] Colchicine 0.3 mg PO BID 03/19/19 03/19/19 History Metoprolol Tartrate [Lopressor] 12.5 mg PO BID 03/19/19 03/19/19 History Omeprazole 20 mg PO DAILY 03/19/19 03/19/19 History Allergies Allergy/AdvReac Type Severity Reaction Status Date / Time cefaclor [From Ceclor] Allergy FAMILY Verified 03/19/19 21:18 HISTORY cephalexin [From Keflex] Allergy Dyspnea Verified 03/19/19 21:18 Physical Examination - Vital Signs Vital Signs: Vital Signs Temp Pulse Resp BP Pulse Ox 03/21/19 04:00 97.9 F 67 16 107/63 98 03/21/19 03:43 18 03/21/19 00:00 18 03/20/19 23:19 98.2 F 72 17 96/67 98 03/20/19 20:00 18 03/20/19 18:41 98.3 F 75 18 111/65 97 03/20/19 16:00 98 F 67 18 117/65 97 03/20/19 12:00 68 18 03/20/19 11:08 98.2 F 68 18 126/66 96 03/20/19 08:00 67 18 03/20/19 07:00 98.1 F 67 18 110/59 97 Intake and Output 03/20/19 03/20/19 03/21/19 14:59 22:59 06:59 Intake Total 480 Balance 480 Intake: Oral 480 Other: Voiding Method Toilet Toilet Toilet # Voids 2 1 1 Results - Laboratory Findings CBC and BMP: 03/19/19 15:15 03/19/19 15:15 Abnormal Lab Findings: Abnormal Labs 03/19/19 03/19/19 15:15 15:15 Hct 38.4 L Chloride 108 H Glucose 121 H AST 15 L Total Protein 6.1 L
--- NOTE | 2019-03-21 22:40 | P.DS ---
Providers Date of admission: 03/19/19 17:40 Expected date of discharge: 03/21/19 Attending physician: Johann Betancourt Consults: 03/20/19 08:12 Consult Physician Routine Consulting Provider: Rigo Cabrera Consult Reason/Comments: cp, tachy Do you want consulting provider notified?: Yes 03/20/19 14:30 Consult Physician Routine Consulting Provider: Kamala Henry Consult Reason/Comments: left leg numbness Do you want consulting provider notified?: Yes Primary care physician: Nitin Rogel [facility] Course: Chief Complaint: Heart racing History of presenting complaint: This is a very pleasant 28-year-old patient of Dr. Rayna Rogel. Patient has known neurofibromatosis, patient's father and brother have the caf au laitr patches. 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 He did see Dr. Oswaldo Cabrera in the office. Also felt of seizures. Patient had been on colchicine and ibuprofen. Echocardiogram done in the office showed EF of 55%. Saw his family doctor on Monday and has some chest discomfort and palpitation. Found to have sinus tachycardia heart rate in the 130s. No other arrhythmias otherwise. Repeat echocardiogram this morning was negative for any pericardial effusion. No fever no chills. No cough. Per cardiology patient's colchicine and NSAIDs to be discontinued. Patient was an episode of numbness below the left knee to the foot and loss of over 24 hours. Completely resolved.. Seen by neurology Dr. Henry. It could be peripheral manifestation related to neurofibromatosis. Patient does follow up with the neurologist in [place]. Consultation: Dr. Henry from neurology Dr. Nik Cabrera from cardiology Physical examination: VITAL SIGNS: 98.6, 72, 16, 99/58 and 9 6% room air DERMATOLOGICAL: Numerous scattered neurofibromatosis lesions INVESTIGATIONS, reviewed in the clinical context: White count 7.7 hemoglobin 13.7 platelets 249 potassium 3.8 creatinine 0.82 Troponin I 3 negative EKG tracing personally reviewed by me-nonspecific T-wave changes, sinus rhythm Laboratory 2-D echo-no pericardial effusion Computed tomography scan of the brain-negative Assessment: -Paroxysmal sinus tachycardia in a patient who recently had idiopathic pericarditis, with negative limited echocardiogram, no signs of infection. This no fever no white count. -Neurofibromatosis, familial -New-onset of left leg numbness below the knee down to the foot, possibly from peripheral neuropathy intermittent possibly related to neurofibromatosis Disposition: Home Patient Condition at Discharge: Stable Plan - Discharge Summary New Discharge Prescriptions: Continue Verapamil HCl [Verapamil ER] 240 mg PO HS Hydrochlorothiazide [Hydrodiuril] 25 mg PO DAILY Ibuprofen [Motrin] 800 mg PO Q8H PRN PRN Reason: Migraine Headache SUMAtriptan SUCCINATE [Imitrex] 100 mg PO BID PRN PRN Reason: Migraine Headache Lisinopril [Zestril] 10 mg PO DAILY Albuterol Inhaler [Ventolin Hfa Inhaler] 1 - 2 puff INHALATION RT-Q6H PRN PRN Reason: Shortness Of Breath Colchicine 0.3 mg PO BID Omeprazole 20 mg PO DAILY Metoprolol Tartrate [Lopressor] 12.5 mg PO BID Discharge Medication List Hydrochlorothiazide [Hydrodiuril] 25 mg PO DAILY 12/27/17 [History] Verapamil HCl [Verapamil ER] 240 mg PO HS 12/27/17 [History] Ibuprofen [Motrin] 800 mg PO Q8H PRN 12/05/18 [History] Lisinopril [Zestril] 10 mg PO DAILY 02/28/19 [History] SUMAtriptan SUCCINATE [Imitrex] 100 mg PO BID PRN 02/28/19 [History] Albuterol Inhaler [Ventolin Hfa Inhaler] 1 - 2 puff INHALATION RT-Q6H PRN 03/19/19 [History] Colchicine 0.3 mg PO BID 03/19/19 [History] Metoprolol Tartrate [Lopressor] 12.5 mg PO BID 03/19/19 [History] Omeprazole 20 mg PO DAILY 03/19/19 [History] Follow up Appointment(s)/Referral(s): Nitin Rogel DO [Primary Care Provider] - 1-2 days Kamala Henry MD [STAFF PHYSICIAN] - 1 Week Rigo Cabrera MD [Family Provider] - 1 Week Patient Instructions/Handouts: Chest Pain (DC)
== END 2019-03-21 10:20 | disposition home or self-care (01) ==
LOC: EC 13:53 → 1SOBS 17:40
PROVIDERS: ADMIT Hospitalist; ATTEND Hospitalist
DX: Z79.899 Other long term (current) drug therapy (principal); I47.1 Supraventricular tachycardia; I10 Essential (primary) hypertension; Q85.00 Neurofibromatosis, unspecified; Z88.1 Allergy status to other antibiotic agents; G47.30 Sleep apnea, unspecified; Z99.89 Dependence on other enabling machines and devices; G43.909 Migraine, unspecified, not intractable, without status migrainosus; R26.2 Difficulty in walking, not elsewhere classified; R20.0 Anesthesia of skin; R07.9 Chest pain, unspecified; Z79.1 Long term (current) use of non-steroidal anti-inflammatories (NSAID)
CPT/HCPCS: 96372 ×2; 96360; 99285; 36415; 93005; 93308; 83880; 80053; 83690; 83735; 84484 ×2; 85025; 85610; 85730; 71046; 70450; G0378 ×3; J1650 ×2

== ENCOUNTER 2019-06-07 15:01 | Emergency (ER) | payer OTHER ==
[2019-06-07 15:12] VITALS: RESP 16; TEMP 98.5
--- NOTE | 2019-06-07 15:54 | XR ---
EXAMINATION TYPE: XR chest 2V DATE OF EXAM: 06/07/2019 COMPARISON: 03/19/2019 INDICATION: Difficulty breathing TECHNIQUE: Frontal and lateral views of the chest are obtained. FINDINGS: The heart size is normal. The pulmonary vasculature is normal. The lungs are clear. IMPRESSION: 1. No acute pulmonary process.
[2019-06-07 15:58] LABS: Basophils # (A) 0.1 k/uL (0-0.2); Basophils % (A) 1 %; Eosinophils # (A) 0.7 k/uL (0-0.7); Eosinophils % (A) 7 %; HCT 41.1 % (39.0-53.0); HGB 14.1 gm/dL (13.0-17.5); Lymphocytes % (A) 20 %; MCH 30.7 pg (25.0-35.0); MCHC 34.3 g/dL (31.0-37.0); MCV 89.5 fL (80.0-100.0); Mean Platelet Volume 8.5; Monocytes # (A) 0.4 k/uL (0-1.0); Monocytes % (A) 4 %; Neutrophils # (A) 6.6 k/uL (1.3-7.7); Neutrophils % (A) 66 %; Platelet Count 214 k/uL (150-450); RBC 4.58 m/uL (4.30-5.90); RDW 12.8 % (11.5-15.5)
[2019-06-07 16:05] LABS: ALT 15 U/L (4-49); AST 17 U/L (17-59); African American GFR (CKD) >90 (>60 ml/min/1.73 sqM); Albumin 4.4 g/dL (3.5-5.0); Alkaline Phosphatase 44 U/L (38-126); Anion Gap 10 mmol/L; Blood Urea Nitrogen 20 mg/dL (9-20); Calcium 9.5 mg/dL (8.4-10.2); Carbon Dioxide 22 mmol/L (22-30); Chloride 107 mmol/L (98-107); Glucose 99 mg/dL (74-99); Non-African American GFR(CKD) >90 (>60 ml/min/1.73 sqM); Potassium 4.2 mmol/L (3.5-5.1); Sodium 139 mmol/L (137-145); Total Bilirubin 0.5 mg/dL (0.2-1.3); Total Protein 6.8 g/dL (6.3-8.2)
[2019-06-07 16:42] LABS: D-Dimer <0.17 mg/L FEU (<0.60); Partial Thromboplastin Time 24.4 sec (22.0-30.0); Prothrombin Time 10.8 sec (9.0-12.0)
--- NOTE | 2019-06-07 16:50 | ED ---
SOB HPI - General Chief Complaint: Shortness of Breath Stated Complaint: SOB Time Seen by Provider: 06/07/19 15:14 Source: patient Mode of arrival: ambulatory Limitations: no limitations - History of Present Illness Initial Comments: Patient is a 29-year-old male presenting to emergency Department with complaints of shortness of breath episode that happened at work today. 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 Patient states he called his doctor and they recommended him roge juárez to the ER for evaluation. Patient states he had a single episode of chest pain 5 days ago. Patient states he did go to his PCPs office for a workup there was no abnormality seen. She denies fever, chest pains, nausea, vomiting, abdominal pain. He denies any urinary complaints. He denies any cough or upper respiratory type symptoms. He denies history of asthma. He has no other complaints at this time. Patient states at this moment he is symptom-free. Upon arrival to the ER his vitals are stable. - Related Data Home Medications Medication Instructions Recorded Confirmed Hydrochlorothiazide [Hydrodiuril] 25 mg PO DAILY 12/27/17 03/19/19 Verapamil HCl [Verapamil ER] 240 mg PO HS 12/27/17 03/19/19 Lisinopril [Zestril] 10 mg PO DAILY 02/28/19 03/19/19 SUMAtriptan SUCCINATE [Imitrex] 100 mg PO BID PRN 02/28/19 03/19/19 Albuterol Inhaler [Ventolin Hfa 1 - 2 puff INHALATION RT-Q6H PRN 03/19/19 03/19/19 Inhaler] Metoprolol Tartrate [Lopressor] 12.5 mg PO BID 03/19/19 03/19/19 Omeprazole 20 mg PO DAILY 03/19/19 03/19/19 Allergies Allergy/AdvReac Type Severity Reaction Status Date / Time cefaclor [From Ceclor] Allergy FAMILY Verified 06/07/19 15:12 HISTORY cephalexin [From Keflex] Allergy Dyspnea Verified 06/07/19 15:12 Review of Systems ROS Statement: Those systems with pertinent positive or pertinent negative responses have been documented in the HPI. ROS Other: All systems not noted in ROS Statement are negative. Past Medical History Past Medical History: Sleep Apnea/CPAP/BIPAP Additional Past Medical History / Comment(s): NEUROFIBROMATOSIS, MIGRAINE HEADACHE History of Any Multi-Drug Resistant Organisms: None Reported Past Surgical History: Adenoidectomy, Ear Surgery, Tonsillectomy Additional Past Surgical History / Comment(s): SKIN BIOPSY-ARM, pyloric stenosis repair Past Anesthesia/Blood Transfusion Reactions: No Reported Reaction Past Psychological History: Depression Smoking Status: Never smoker Past Alcohol Use History: Occasional Past Drug Use History: None Reported - Past Family History Mother Family Medical History: Unable to Obtain Additional Family Medical History / Comment(s): Father and brother have caf au lait spots Father Family Medical History: Unable to Obtain General Exam - General Exam Comments Initial Comments: GENERAL: Well-appearing, well-nourished and in no acute distress. HEAD: Atraumatic, normocephalic. EYES: Pupils equal round and reactive to light, extraocular movements intact, sclera anicteric, conjunctiva are normal. ENT: TMs normal, nares patent, oropharynx clear without exudates. Moist mucous membranes. NECK: Normal range of motion, supple without lymphadenopathy or JVD. LUNGS: Breath sounds clear to auscultation bilaterally and equal. No wheezes rales or rhonchi. HEART: Regular rate and rhythm without murmurs, rubs or gallops. ABDOMEN: Soft, nontender, normoactive bowel sounds. No guarding, no rebound. No masses appreciated. : Deferred EXTREMITIES: Normal range of motion, no pitting or edema. No clubbing or cyanosis. NEUROLOGICAL: Normal speech, normal gait. PSYCH: Normal mood, normal affect. SKIN: Warm, Dry, normal turgor, no rashes or lesions noted. Limitations: no limitations Course Vital Signs 06/07/19 06/07/19 15:10 15:44 Temperature 98.5 F Pulse Rate 65 Respiratory 16 16 Rate Blood Pressure 120/71 O2 Sat by Pulse 99 Oximetry Medical Decision Making - Medical Decision Making Patient is a 29-year-old male presenting with shortness of breath episode that happened at work today. This episode only lasted for a few minutes. Patient is currently asymptomatic in the ER. His vital signs are stable. Workup today including chest x-ray, EKG, lab work are all normal. Troponin and d-dimer are both normal. I discussed these findings with the patient. He will follow back up with his PCP. He is stable for discharge at this time. His vitals and symptoms have remained stable. Return parameters were discussed with the patient he verbalizes understanding. - Lab Data Result diagrams: 06/07/19 15:41 06/07/19 15:41 Lab Results 06/07/19 06/07/19 06/07/19 Range/Units 15:41 15:41 15:41 WBC 10.0 (3.8-10.6) k/uL RBC 4.58 (4.30-5.90) m/uL Hgb 14.1 (13.0-17.5) gm/dL Hct 41.1 (39.0-53.0) % MCV 89.5 (80.0-100.0) fL MCH 30.7 (25.0-35.0) pg MCHC 34.3 (31.0-37.0) g/dL RDW 12.8 (11.5-15.5) % Plt Count 214 (150-450) k/uL Neutrophils % 66 % Lymphocytes % 20 % Monocytes % 4 % Eosinophils % 7 % Basophils % 1 % Neutrophils # 6.6 (1.3-7.7) k/uL Lymphocytes # 2.0 (1.0-4.8) k/uL Monocytes # 0.4 (0-1.0) k/uL Eosinophils # 0.7 (0-0.7) k/uL Basophils # 0.1 (0-0.2) k/uL PT 10.8 (9.0-12.0) sec INR 1.0 (<1.2) APTT 24.4 (22.0-30.0) sec D-Dimer <0.17 (<0.60) mg/L FEU Sodium 139 (137-145) mmol/L Potassium 4.2 (3.5-5.1) mmol/L Chloride 107 (98-107) mmol/L Carbon Dioxide 22 (22-30) mmol/L Anion Gap 10 mmol/L BUN 20 (9-20) mg/dL Creatinine 0.86 (0.66-1.25) mg/dL Est GFR (CKD-EPI)AfAm >90 (>60 ml/min/1.73 sqM) Est GFR (CKD-EPI)NonAf >90 (>60 ml/min/1.73 sqM) Glucose 99 (74-99) mg/dL Plasma Lactic Acid Feliz (0.7-2.0) mmol/L Calcium 9.5 (8.4-10.2) mg/dL Total Bilirubin 0.5 (0.2-1.3) mg/dL AST 17 (17-59) U/L ALT 15 (4-49) U/L Alkaline Phosphatase 44 (38-126) U/L Troponin I (0.000-0.034) ng/mL Total Protein 6.8 (6.3-8.2) g/dL Albumin 4.4 (3.5-5.0) g/dL 06/07/19 06/07/19 Range/Units 15:41 15:41 WBC (3.8-10.6) k/uL RBC (4.30-5.90) m/uL Hgb (13.0-17.5) gm/dL Hct (39.0-53.0) % MCV (80.0-100.0) fL MCH (25.0-35.0) pg MCHC (31.0-37.0) g/dL RDW (11.5-15.5) % Plt Count (150-450) k/uL Neutrophils % % Lymphocytes % % Monocytes % % Eosinophils % % Basophils % % Neutrophils # (1.3-7.7) k/uL Lymphocytes # (1.0-4.8) k/uL Monocytes # (0-1.0) k/uL Eosinophils # (0-0.7) k/uL Basophils # (0-0.2) k/uL PT (9.0-12.0) sec INR (<1.2) APTT (22.0-30.0) sec D-Dimer (<0.60) mg/L FEU Sodium (137-145) mmol/L Potassium (3.5-5.1) mmol/L Chloride (98-107) mmol/L Carbon Dioxide (22-30) mmol/L Anion Gap mmol/L BUN (9-20) mg/dL Creatinine (0.66-1.25) mg/dL Est GFR (CKD-EPI)AfAm (>60 ml/min/1.73 sqM) Est GFR (CKD-EPI)NonAf (>60 ml/min/1.73 sqM) Glucose (74-99) mg/dL Plasma Lactic Acid Feliz 0.8 (0.7-2.0) mmol/L Calcium (8.4-10.2) mg/dL Total Bilirubin (0.2-1.3) mg/dL AST (17-59) U/L ALT (4-49) U/L Alkaline Phosphatase (38-126) U/L Troponin I <0.012 (0.000-0.034) ng/mL Total Protein (6.3-8.2) g/dL Albumin (3.5-5.0) g/dL - EKG Data EKG Comments: Ventricular rate 71, OH interval 164, QTC 389. Normal sinus rhythm. Nonspecific ST abnormality. No acute ST segment changes. No signs of ischemic process. Similar to previous EKGs. Disposition Clinical Impression: Shortness of breath Disposition: HOME SELF-CARE Condition: Stable Instructions (If sedation given, give patient instructions): Shortness of Breath (ED) Additional Instructions: Please return to the Emergency Department if symptoms worsen or any other concerns. Follow-up with primary care physician. Is patient prescribed a controlled substance at d/c from ED?: No Referrals: Nitin Rogel DO [Primary Care Provider] - 1-2 days
[2019-06-07 21:07] VITALS: BP 133/77; PULSE 64
== END 2019-06-07 17:16 | disposition home or self-care (01) ==
LOC: EC 15:01
DX: R06.02 Shortness of breath (principal); Q85.00 Neurofibromatosis, unspecified; G47.30 Sleep apnea, unspecified; Z88.1 Allergy status to other antibiotic agents; Z79.899 Other long term (current) drug therapy; Z99.89 Dependence on other enabling machines and devices
CPT/HCPCS: 36415; 71046; 80053; 83605; 84484; 85025; 85379; 85610; 85730; 93005; 99285

== ENCOUNTER → 2019-06-18 | Outpatient (CLI) | payer OTHER ==
--- NOTE | 2019-06-18 11:29 | XR ---
EXAMINATION TYPE: XR chest 2V DATE OF EXAM: 06/18/2019 COMPARISON: 06/07/2019 HISTORY: 29-year-old male for dyspnea TECHNIQUE: Frontal and lateral views FINDINGS: The cardiomediastinal silhouette, aorta, and pulmonary vasculature are within normal limits. Lungs an d pleural spaces are clear. IMPRESSION: No acute cardiopulmonary process.
== END | disposition home or self-care (01) ==
LOC: RADXRMAIN 10:44
PROVIDERS: ATTEND Family Medicine
DX: R07.81 Pleurodynia (principal)
CPT/HCPCS: 71046

== ENCOUNTER → 2019-09-06 | Outpatient (CLI) | payer OTHER ==
[2019-09-06 14:56] LABS: Basophils # (A) 0.1 k/uL (0-0.2); Basophils % (A) 1 %; Eosinophils # (A) 0.8 k/uL (0-0.7); Eosinophils % (A) 7 %; HCT 44.9 % (39.0-53.0); HGB 14.8 gm/dL (13.0-17.5); Lymphocytes # (A) 2.7 k/uL (1.0-4.8); Lymphocytes % (A) 26 %; MCH 29.7 pg (25.0-35.0); MCHC 32.9 g/dL (31.0-37.0); MCV 90.2 fL (80.0-100.0); Mean Platelet Volume 8.7; Monocytes # (A) 0.5 k/uL (0-1.0); Monocytes % (A) 5 %; Neutrophils # (A) 5.9 k/uL (1.3-7.7); Neutrophils % (A) 59 %; Platelet Count 229 k/uL (150-450); RBC 4.98 m/uL (4.30-5.90); RDW 12.1 % (11.5-15.5); WBC 10.2 k/uL (3.8-10.6)
[2019-09-06 15:14] LABS: Creatine Kinase 93 U/L (55-170)
[2019-09-06 15:27] LABS: Creatine Kinase MB 0.5 ng/mL (0.0-2.4); Troponin I <0.012 ng/mL (0.000-0.034)
[2019-09-06 15:42] LABS: Erythrocyte Sedimentation Rate 2 mm/hr (0-15)
== END | disposition home or self-care (01) ==
LOC: LABMAIN 13:54
PROVIDERS: ATTEND Family Medicine
DX: R07.9 Chest pain, unspecified (principal)
CPT/HCPCS: 36415; 82550; 82553; 84484; 85025; 85652

== ENCOUNTER 2019-12-09 09:29 | Emergency (ER) | payer OTHER ==
[2019-12-09 09:32] VITALS: TEMP 98
[2019-12-09] MEDS ORDERED: KETOROLAC 15 MG/ML 1 ML VIAL IVP STA (09:53)
[2019-12-09] MEDS ORDERED: SODIUM CHLORIDE 0.9% 1,000 ML IV STA (09:53)
[2019-12-09] MEDS ORDERED: METOCLOPRAMIDE 5 MG/ML 2 ML VIAL IVP STA (09:53)
[2019-12-09] MEDS ORDERED: diphenhydrAMINE 50 MG/ML 1 ML VIAL IVP STA (09:54)
--- NOTE | 2019-12-09 10:04 | ED ---
Headache HPI - General Chief Complaint: Headache Stated Complaint: low heart rate, headache, nausea Time Seen by Provider: 12/09/19 09:39 Mode of arrival: ambulatory Limitations: no limitations - History of Present Illness Initial Comments: Patient is a 29-year-old male presenting to the emergency Department with complaints of a migraine that started approximately 3 AM this morning. Patient states he does have history of migraines and this feels similar. He states he has not had one for over a year. Patient states he recently had a few teeth pulled and was on antibiotics. He denies any fever, chills, neck pain, chest pain, shortness of breath. He states he did try ibuprofen without relief. He states he is also nauseous and did throw up his breakfast. He states he is also sensitive to light. He states he also charts his blood pressure daily and stated that his heart rate was in the upper 30s this morning. He denies any numbness and tingling to extremities. He denies any abdominal pain. He has no further complaints at this time. Upon arrival to the ER, his vitals are stable. - Related Data Home Medications Medication Instructions Recorded Confirmed lisinopriL [Zestril] 10 mg PO DAILY 02/28/19 12/09/19 Metoprolol Tartrate [Lopressor] 12.5 mg PO BID 03/19/19 12/09/19 Omeprazole 20 mg PO BID 03/19/19 12/09/19 Beclomethasone Dip 80 Mcg/Puff 1 puff INHALATION DAILY 12/09/19 12/09/19 [Qvar 80 mcg] Ibuprofen 800 mg PO Q8H PRN 12/09/19 12/09/19 Topiramate [Topamax] 100 mg PO HS 12/09/19 12/09/19 Verapamil HCl [Verapamil ER] 120 mg PO HS 12/09/19 12/09/19 Allergies Allergy/AdvReac Type Severity Reaction Status Date / Time cefaclor [From Ceclor] Allergy FAMILY Verified 12/09/19 10:12 HISTORY cephalexin [From Keflex] Allergy Dyspnea Verified 12/09/19 10:12 Review of Systems ROS Statement: Those systems with pertinent positive or pertinent negative responses have been documented in the HPI. ROS Other: All systems not noted in ROS Statement are negative. Past Medical History Past Medical History: Sleep Apnea/CPAP/BIPAP Additional Past Medical History / Comment(s): NEUROFIBROMATOSIS, MIGRAINE HEADACHE History of Any Multi-Drug Resistant Organisms: None Reported Past Surgical History: Adenoidectomy, Ear Surgery, Tonsillectomy Additional Past Surgical History / Comment(s): SKIN BIOPSY-ARM, pyloric stenosis repair Past Anesthesia/Blood Transfusion Reactions: No Reported Reaction Past Psychological History: Depression Smoking Status: Never smoker Past Alcohol Use History: Occasional Past Drug Use History: None Reported - Past Family History Mother Family Medical History: Unable to Obtain Additional Family Medical History / Comment(s): Father and brother have caf au lait spots Father Family Medical History: Unable to Obtain General Exam - General Exam Comments Initial Comments: GENERAL: Patient is well-developed and well-nourished. Patient is nontoxic and in no acute distress. HEAD: Atraumatic, normocephalic. EYES: Pupils equal round and reactive to light, extraocular movements intact, sclera anicteric, conjunctiva are normal. Eyelids were unremarkable. ENT: TMs normal, nares patent, oropharynx clear without exudates. Moist mucous membranes. NECK: Normal range of motion, supple without lymphadenopathy or JVD. No neck pain. LUNGS: Unlabored respirations. Breath sounds clear to auscultation bilaterally and equal. No wheezes rales or rhonchi. HEART: Regular rate and rhythm without murmurs, rubs or gallops. ABDOMEN: Soft, nontender, normoactive bowel sounds. No guarding, no rebound. No masses appreciated. : Deferred MUSCULOSKELETAL: Normal extremities with adequate strength and normal range of motion, no pitting or edema. No clubbing or cyanosis. NEUROLOGICAL: Patient is alert and oriented x 3. Motor and sensory are also intact. Cranial nerves II through XII grossly intact. Symmetrical smile. Normal speech, normal gait. PSYCH: Normal mood, normal affect. SKIN: Warm, Dry, normal turgor, no rashes or lesions noted. Limitations: no limitations Course Vital Signs 12/09/19 09:30 Temperature 98.0 F Pulse Rate 87 Respiratory 16 Rate Blood Pressure 123/76 O2 Sat by Pulse 96 Oximetry Medical Decision Making - Medical Decision Making Patient is a 29-year-old male here for a headache since 3 AM this morning, nausea and vomiting. Sensitive to light. He does have a history of migraines. His vital signs are stable, his exam is unremarkable, no neural deficits. Patient was given fluids, typical migraine cocktail. Patient reports improvement in his symptoms. He states he has ready to be discharged. Ayesha ent's vital signs remained stable. He is stable for discharge. Return parameters were discussed with the patient and he verbalized understanding. He will follow up with his PCP. Case discussed with Dr. Villavicencio. Disposition Clinical Impression: Migraine headache Disposition: HOME SELF-CARE Condition: Stable Instructions (If sedation given, give patient instructions): Acute Headache (ED) Additional Instructions: Please return to the Emergency Department if symptoms worsen or any other concerns. Trial of Excedrin for migraine and for future headaches. Follow-up with PCP. Is patient prescribed a controlled substance at d/c from ED?: No Referrals: Nitin Rogel DO [Primary Care Provider] - 1-2 days
[2019-12-09] MEDS ORDERED: ONDANSETRON 4 MG ODT STARTER PACK 2 TAB BTL PO STA (11:05)
[2019-12-09 11:16] VITALS: BP 116/65; PULSE 65; RESP 18
== END 2019-12-09 11:17 | disposition home or self-care (01) ==
LOC: EC 09:29
DX: G43.909 Migraine, unspecified, not intractable, without status migrainosus (principal); G47.30 Sleep apnea, unspecified; Z79.899 Other long term (current) drug therapy; Z79.51 Long term (current) use of inhaled steroids; Z88.1 Allergy status to other antibiotic agents; Z99.89 Dependence on other enabling machines and devices
CPT/HCPCS: 99283; 96374; 96375 ×2; 96361; J1200; J2765; J1885; S0119

== ENCOUNTER 2019-12-25 14:49 | Emergency (ER) | payer OTHER ==
[2019-12-25 14:56] VITALS: RESP 18; TEMP 98.8
[2019-12-25] MEDS ORDERED: KETOROLAC 15 MG/ML 1 ML VIAL IVP STA (15:20)
[2019-12-25 15:40] LABS: Basophils # (A) 0.1 k/uL (0-0.2); Basophils % (A) 1 %; Eosinophils # (A) 0.6 k/uL (0-0.7); Eosinophils % (A) 6 %; HCT 43.3 % (39.0-53.0); HGB 14.8 gm/dL (13.0-17.5); Lymphocytes # (A) 2.5 k/uL (1.0-4.8); Lymphocytes % (A) 24 %; MCH 30.4 pg (25.0-35.0); MCHC 34.2 g/dL (31.0-37.0); MCV 88.9 fL (80.0-100.0); Mean Platelet Volume 8.4; Monocytes # (A) 0.5 k/uL (0-1.0); Monocytes % (A) 4 %; Neutrophils # (A) 6.7 k/uL (1.3-7.7); Neutrophils % (A) 63 %; Platelet Count 238 k/uL (150-450); RBC 4.87 m/uL (4.30-5.90); RDW 12.5 % (11.5-15.5); WBC 10.6 k/uL (3.8-10.6)
[2019-12-25 15:46] LABS: ALT 16 U/L (4-49); AST 20 U/L (17-59); African American GFR (CKD) >90 (>60 ml/min/1.73 sqM); Albumin 4.5 g/dL (3.5-5.0); Alkaline Phosphatase 48 U/L (38-126); Anion Gap 11 mmol/L; Blood Urea Nitrogen 15 mg/dL (9-20); Calcium 9.9 mg/dL (8.4-10.2); Carbon Dioxide 21 mmol/L (22-30); Chloride 104 mmol/L (98-107); Glucose 107 mg/dL (74-99); Magnesium 1.8 mg/dL (1.6-2.3); Non-African American GFR(CKD) >90 (>60 ml/min/1.73 sqM); Potassium 4.3 mmol/L (3.5-5.1); Sodium 136 mmol/L (137-145); Total Bilirubin 0.7 mg/dL (0.2-1.3); Total Protein 6.7 g/dL (6.3-8.2)
[2019-12-25 15:52] LABS: D-Dimer <0.17 mg/L FEU (<0.60); INR 1.1 (<1.2); Partial Thromboplastin Time 24.3 sec (22.0-30.0); Prothrombin Time 10.9 sec (9.0-12.0)
--- NOTE | 2019-12-25 16:07 | ED ---
Chest Pain HPI - General Chief Complaint: Chest Pain Stated Complaint: Chest Pain - sent by pcp Time Seen by Provider: 12/25/19 15:03 Source: patient Mode of arrival: ambulatory Limitations: no limitations - History of Present Illness Initial Comments: Patient is a 29-year-old male, with history of neurofibromatosis, presenting to the emergency Department with complaints of chest pain 2 days as well as some tingling in his left arm that started today. Patient states this first happened yesterday after he ate lunch and was at work, he started having chest pain in the center of his chest, towards the left. He states he called his doctor and he took some Motrin and seemed to improve. Patient states it happened again today but then he had some numbness into his left arm, called his doctor who recommended going to the ER. Patient states he does have history of pericarditis last year that has an unknown cause. His neurology and cardiology are out of [place]. Patient states currently his pain is a 5/10. He denies any nausea, vomiting, abdominal pain, shortness of breath, cough, fever or chills. He denies any injuries or trauma. He has no further complaints at this time. Upon arrival to the ER, his vital signs are stable. - Related Data Home Medications Medication Instructions Recorded Confirmed lisinopriL [Zestril] 10 mg PO DAILY 02/28/19 12/09/19 Metoprolol Tartrate [Lopressor] 12.5 mg PO BID 03/19/19 12/09/19 Omeprazole 20 mg PO BID 03/19/19 12/09/19 Beclomethasone Dip 80 Mcg/Puff 1 puff INHALATION DAILY 12/09/19 12/09/19 [Qvar 80 mcg] Ibuprofen 800 mg PO Q8H PRN 12/09/19 12/09/19 Topiramate [Topamax] 100 mg PO HS 12/09/19 12/09/19 Verapamil HCl [Verapamil ER] 120 mg PO HS 12/09/19 12/09/19 Allergies Allergy/AdvReac Type Severity Reaction Status Date / Time cefaclor [From Ceclor] Allergy FAMILY Verified 12/25/19 14:56 HISTORY cephalexin [From Keflex] Allergy Dyspnea Verified 12/25/19 14:56 Review of Systems ROS Statement: Those systems with pertinent positive or pertinent negative responses have been documented in the HPI. ROS Other: All systems not noted in ROS Statement are negative. EKG Findings - EKG Comments: EKG Findings:: Normal sinus rhythm, nonspecific T-wave changes, no signs of acute ischemia. Ventricular rate 69, NE 168, QTC 360. Past Medical History Past Medical History: Sleep Apnea/CPAP/BIPAP Additional Past Medical History / Comment(s): NEUROFIBROMATOSIS, MIGRAINE HEADACHE History of Any Multi-Drug Resistant Organisms: None Reported Past Surgical History: Adenoidectomy, Ear Surgery, Tonsillectomy Additional Past Surgical History / Comment(s): SKIN BIOPSY-ARM, pyloric stenosis repair Past Anesthesia/Blood Transfusion Reactions: No Reported Reaction Past Psychological History: Depression Smoking Status: Never smoker Past Alcohol Use History: Occasional Past Drug Use History: None Reported - Past Family History Mother Family Medical History: Unable to Obtain Additional Family Medical History / Comment(s): Father and brother have caf au lait spots Father Family Medical History: Unable to Obtain General Exam - General Exam Comments Initial Comments: GENERAL: Patient is well-developed and well-nourished. Patient is nontoxic and in no acute distress. HEAD: Atraumatic, normocephalic. EYES: Pupils equal round and reactive to light, extraocular movements intact, sclera anicteric, conjunctiva are normal. Eyelids were unremarkable. ENT: TMs normal, nares patent, oropharynx clear without exudates. Moist mucous membranes. NECK: Normal range of motion, supple without lymphadenopathy or JVD. LUNGS: Unlabored respirations. Breath sounds clear to auscultation bilaterally and equal. No wheezes rales or rhonchi. HEART: Regular rate and rhythm without murmurs, rubs or gallops. Mild pain with palpation of the sternum. ABDOMEN: Soft, nontender, normoactive bowel sounds. No guarding, no rebound. No masses appreciated. : Deferred MUSCULOSKELETAL: Normal extremities with adequate strength and normal range of motion, no pitting or edema. No clubbing or cyanosis. NEUROLOGICAL: Patient is alert and oriented x 3. Motor and sensory are also intact. Cranial nerves II through XII grossly intact. Symmetrical smile. Normal speech, normal gait. PSYCH: Normal mood, normal affect. SKIN: Warm, Dry, normal turgor, no rashes. Patient has history of neurofibromatosis, multiple lesions covering body. Limitations: no limitations Course Vital Signs 12/25/19 12/25/19 12/25/19 14:52 15:30 16:00 Temperature 98.8 F Pulse Rate 79 70 80 Respiratory 18 18 18 Rate Blood Pressure 159/80 129/74 116/74 O2 Sat by Pulse 97 98 99 Oximetry 12/25/19 12/25/19 16:30 17:00 Temperature Pulse Rate 74 76 Respiratory 19 18 Rate Blood Pressure 113/75 133/77 O2 Sat by Pulse 97 98 Oximetry Chest Pain MDM - MDM Patient is a 29-year-old male here for atypical chest pain with an episode yesterday and then again today. His vital signs are stable. Patient does have mild tenderness with palpation of the sternum. No alleviating factors. EKG s hows no acute process, chest x-ray is normal, lab work also is within normal limits, negative troponin, negative d-dimer. Patient has expressed concern that this could be another pericarditis episode, he spoke with his PCP and they both want to be transferred to [facility]. I did speak to ER physician, Dr. Weber who accepts patient. Patient is unable to drive, we'll transfer via EMS. Patient is agreeable with this plan. Case discussed with Dr. Villavicencio. Disposition Clinical Impression: Atypical chest pain Disposition: OTHER INSTITUTION NOT DEFINED Condition: Stable Is patient prescribed a controlled substance at d/c from ED?: No Referrals: Nitin Rogel DO [Primary Care Provider] - 1-2 days - Out of Hospital Transfer - Req. Specs Out of Hospital Transfer - Requested Specifics: Other Emergency Center ([facility])
--- NOTE | 2019-12-25 16:13 | XR ---
EXAMINATION TYPE: XR chest 2V DATE OF EXAM: 12/25/2019 COMPARISON: Prior chest x-ray 06/18/2019 HISTORY: Chest pain TECHNIQUE: Frontal and lateral views of the chest are obtained. FINDINGS: There is no focal air space opacity, pleural effusion, or pneumothorax seen. The cardiac silhouette size is within normal limits. There are overlying cardiac leads. The osseous structures a re intact. IMPRESSION: No acute cardiopulmonary process.
[2019-12-25 18:12] VITALS: BP 136/75; PULSE 69
== END 2019-12-25 18:56 | disposition other institution (70) ==
LOC: EC 14:49
DX: R07.89 Other chest pain (principal); G47.30 Sleep apnea, unspecified; G43.909 Migraine, unspecified, not intractable, without status migrainosus; Z79.899 Other long term (current) drug therapy; Z79.51 Long term (current) use of inhaled steroids; Z88.1 Allergy status to other antibiotic agents; Z99.89 Dependence on other enabling machines and devices
CPT/HCPCS: 36415; 93005; 85379; 80053; 83735; 84484; 85025; 85610; 85730; 71046; 99285; 96374; J1885

== ENCOUNTER 2020-01-09 20:04 | Emergency (ER) | payer OTHER ==
[2020-01-09 20:09] VITALS: TEMP 98.7
[2020-01-09] MEDS ORDERED: SODIUM CHLORIDE 0.9% 1,000 ML IV ONE (21:22)
--- NOTE | 2020-01-09 23:19 | ED ---
General Adult HPI - General Source: patient, RN notes reviewed, old records reviewed Mode of arrival: ambulatory Limitations: no limitations <Reginaldo Riley - Last Filed: 01/09/20 23:19> <Jose Rivera - Last Filed: 01/10/20 01:17> - General Chief complaint: Urogenital Stated complaint: Catheter issue Time Seen by Provider: 01/09/20 20:38 - History of Present Illness Initial comments: 29-year-old male patient passed history of neurofibromatosis [place] [facility] for evaluation. Patient reports that he had a urinary catheter placed due to urinary retention. He states that last day or so there has been decrease urinary drainage. He reports a does have sensation a little fullness in the superior pubic region. Denies any fevers or chills or dysuria. Denies following up with urologist for [facility]. Denies any other acute complaints at this time. (Reginaldo Riley) - Related Data Home Medications Medication Instructions Recorded Confirmed Metoprolol Tartrate [Lopressor] 25 mg PO BID 03/19/19 12/25/19 Beclomethasone Dip 80 Mcg/Puff 2 puff INHALATION RT-BID 12/09/19 12/25/19 [Qvar 80 mcg] Ibuprofen 800 mg PO Q8H PRN 12/09/19 12/25/19 Topiramate [Topamax] 100 mg PO HS 12/09/19 12/25/19 Verapamil HCl [Verapamil ER] 120 mg PO HS 12/09/19 12/25/19 Colchicine 0.3 mg PO TID PRN 12/25/19 12/25/19 Allergies Allergy/AdvReac Type Severity Reaction Status Date / Time cefaclor [From Ceclor] Allergy FAMILY Verified 01/09/20 20:10 HISTORY cephalexin [From Keflex] Allergy Dyspnea Verified 01/09/20 20:10 Review of Systems ROS Other: All systems not noted in ROS Statement are negative. <Reginaldo Riley - Last Filed: 01/09/20 23:19> ROS Other: All systems not noted in ROS Statement are negative. <Jose Rivera - Last Filed: 01/10/20 01:17> ROS Statement: Those systems with pertinent positive or pertinent negative responses have been documented in the HPI. Past Medical History Past Medical History: Chest Pain / Angina, Prostate Disorder, Sleep Apnea/CPAP/BIPAP Additional Past Medical History / Comment(s): NEUROFIBROMATOSIS, MIGRAINE HEADACHE History of Any Multi-Drug Resistant Organisms: None Reported Past Surgical History: Adenoidectomy, Ear Surgery, Tonsillectomy Additional Past Surgical History / Comment(s): SKIN BIOPSY-ARM, pyloric stenosis repair Past Anesthesia/Blood Transfusion Reactions: No Reported Reaction Past Psychological History: Depression Smoking Status: Never smoker Past Alcohol Use History: Occasional Past Drug Use History: None Reported - Past Family History Mother Family Medical History: Unable to Obtain Additional Family Medical History / Comment(s): Father and brother have caf au lait spots Father Family Medical History: Unable to Obtain <Reginaldo Riley - Last Filed: 01/09/20 23:19> General Exam Limitations: no limitations <Reginaldo Riley - Last Filed: 01/09/20 23:19> General appearance: alert, in no apparent distress Head exam: Present: atraumatic, normocephalic, normal inspection Eye exam: Present: normal appearance, PERRL, EOMI. Absent: scleral icterus, c onjunctival injection, periorbital swelling ENT exam: Present: normal exam, mucous membranes moist Neck exam: Present: normal inspection. Absent: tenderness, meningismus, lymphadenopathy Respiratory exam: Present: normal lung sounds bilaterally. Absent: respiratory distress, wheezes, rales, rhonchi, stridor Cardiovascular Exam: Present: regular rate, normal rhythm, normal heart sounds. Absent: systolic murmur, diastolic murmur, rubs, gallop, clicks GI/Abdominal exam: Present: soft, normal bowel sounds. Absent: distended, tenderness, guarding, rebound, rigid Extremities exam: Present: normal inspection, full ROM, normal capillary refill. Absent: tenderness, pedal edema, joint swelling, calf tenderness Back exam: Present: normal inspection Neurological exam: Present: alert, oriented X3, CN II-XII intact Psychiatric exam: Present: normal affect, normal mood Skin exam: Present: warm, dry, intact, normal color. Absent: rash <Jose Rivera - Last Filed: 01/10/20 01:17> Course <Jose Rivear - Last Filed: 01/10/20 01:17> Vital Signs 01/09/20 01/10/20 20:06 01:11 Temperature 98.7 F Pulse Rate 111 H 87 Respiratory 16 18 Rate Blood Pressure 135/77 136/87 O2 Sat by Pulse 99 99 Oximetry - Reevaluation(s) Reevaluation #1: 01/10/20 01:17 Medical record is reviewed (Jose Rivera) Reevaluation #2: 01/10/20 01:17 Patient heart is improved with hydration (Jose Rivera) Reevaluation #3: 01/10/20 01:17 Informed results and questions are answered (Jose Rivera) Medical Decision Making - Lab Data Result diagrams: 01/09/20 23:15 01/09/20 23:15 <Jose Rivera - Last Filed: 01/10/20 01:17> - Medical Decision Making 29 male with indwelling Martinez catheter patient given significant hydration here in the ER catheter appears to be working without difficulty and can be discharged home (Jose Rivera) - Lab Data Lab Results 01/09/20 01/09/20 01/09/20 Range/Units 23:15 23:15 23:15 WBC 9.4 (3.8-10.6) k/uL RBC 4.60 (4.30-5.90) m/uL Hgb 13.5 (13.0-17.5) gm/dL Hct 40.3 (39.0-53.0) % MCV 87.8 (80.0-100.0) fL MCH 29.4 (25.0-35.0) pg MCHC 33.5 (31.0-37.0) g/dL RDW 12.3 (11.5-15.5) % Plt Count 286 (150-450) k/uL Neutrophils % 66 % Lymphocytes % 26 % Monocytes % 4 % Eosinophils % 4 % Basophils % 1 % Neutrophils # 6.2 (1.3-7.7) k/uL Lymphocytes # 2.4 (1.0-4.8) k/uL Monocytes # 0.4 (0-1.0) k/uL Eosinophils # 0.4 (0-0.7) k/uL Basophils # 0.1 (0-0.2) k/uL Sodium 138 (137-145) mmol/L Potassium 3.8 (3.5-5.1) mmol/L Chloride 110 H (98-107) mmol/L Carbon Dioxide 22 (22-30) mmol/L Anion Gap 6 mmol/L BUN 12 (9-20) mg/dL Creatinine 0.95 (0.66-1.25) mg/dL Est GFR (CKD-EPI)AfAm >90 (>60 ml/min/1.73 sqM) Est GFR (CKD-EPI)NonAf >90 (>60 ml/min/1.73 sqM) Glucose 99 (74-99) mg/dL Calcium 8.8 (8.4-10.2) mg/dL Total Bilirubin 0.4 (0.2-1.3) mg/dL AST 22 (17-59) U/L ALT 13 (4-49) U/L Alkaline Phosphatase 39 (38-126) U/L Creatine Kinase 83 (55-170) U/L Total Protein 6.2 L (6.3-8.2) g/dL Albumin 3.9 (3.5-5.0) g/dL Urine Color Red Urine Appearance Cloudy (Clear) Urine pH 6.0 (5.0-8.0) Ur Specific [place] 1.025 (1.001-1.035) Urine Protein 2+ H (Negative) Urine Glucose (UA) Negative (Negative) Urine Ketones Trace H (Negative) Urine Blood Large H (Negative) Urine Nitrite Negative (Negative) Urine Bilirubin Negative (Negative) Urine Urobilinogen <2.0 (<2.0) mg/dL Ur Leukocyte Esterase Small H (Negative) Urine RBC >182 H (0-5) /hpf Urine WBC 12 H (0-5) /hpf Calcium Oxalate Crystal Few H (None) /hpf Urine Bacteria Occasional H (None) /hpf Urine Mucus Moderate H (None) /hpf Urine Yeast (Budding) Many H (None) /hpf Urine Sperm Few H (None) /hpf Disposition <Reginaldo Riley - Last Filed: 01/09/20 23:19> Is patient prescribed a controlled substance at d/c from ED?: No <Jose Rivera - Last Filed: 01/10/20 01:17> Clinical Impression: Dehydration, Hematuria, Neurofibromatosis, type 1, Indwelling catheter present on admission Disposition: HOME SELF-CARE Condition: Good Instructions (If sedation given, give patient instructions): Dehydration (ED) Referrals: Nitin Rogel DO [Primary Care Provider] - 1-2 days
[2020-01-09 23:23] LABS: Basophils # (A) 0.1 k/uL (0-0.2); Basophils % (A) 1 %; Eosinophils # (A) 0.4 k/uL (0-0.7); Eosinophils % (A) 4 %; HCT 40.3 % (39.0-53.0); HGB 13.5 gm/dL (13.0-17.5); Lymphocytes # (A) 2.4 k/uL (1.0-4.8); Lymphocytes % (A) 26 %; MCH 29.4 pg (25.0-35.0); MCHC 33.5 g/dL (31.0-37.0); MCV 87.8 fL (80.0-100.0); Monocytes # (A) 0.4 k/uL (0-1.0); Monocytes % (A) 4 %; Neutrophils # (A) 6.2 k/uL (1.3-7.7); Neutrophils % (A) 66 %; Platelet Count 286 k/uL (150-450); RDW 12.3 % (11.5-15.5); WBC 9.4 k/uL (3.8-10.6)
[2020-01-09 23:34] LABS: ALT 13 U/L (4-49); AST 22 U/L (17-59); African American GFR (CKD) >90 (>60 ml/min/1.73 sqM); Albumin 3.9 g/dL (3.5-5.0); Alkaline Phosphatase 39 U/L (38-126); Anion Gap 6 mmol/L; Blood Urea Nitrogen 12 mg/dL (9-20); Calcium 8.8 mg/dL (8.4-10.2); Carbon Dioxide 22 mmol/L (22-30); Chloride 110 mmol/L (98-107); Creatine Kinase 83 U/L (55-170); Glucose 99 mg/dL (74-99); Non-African American GFR(CKD) >90 (>60 ml/min/1.73 sqM); Potassium 3.8 mmol/L (3.5-5.1); Sodium 138 mmol/L (137-145); Total Bilirubin 0.4 mg/dL (0.2-1.3); Total Protein 6.2 g/dL (6.3-8.2)
[2020-01-09 23:45] LABS: Appearance,Urine Cloudy (Clear); Bacteria,Urine Occasional /hpf; Bilirubin,Urine Negative (Negative); Blood,Urine Large (Negative); Budding Yeast,Urine Many /hpf; Calcium Oxalate Crystals,Urine Few /hpf; Color,Urine Red; Glucose,Urine (UA) Negative (Negative); Ketones,Urine Trace (Negative); Leukocyte Esterase,Urine Small (Negative); Mucus,Urine Moderate /hpf; Nitrite,Urine Negative (Negative); Protein,Urine 2+ (Negative); RBC,Urine >182 /hpf (0-5); Specific Gravity,Urine 1.025 (1.001-1.035); Sperm,Urine Few /hpf; Urobilinogen,Urine <2.0 mg/dL (<2.0); WBC,Urine 12 /hpf (0-5)
[2020-01-10] MEDS ORDERED: SODIUM CHLORIDE 0.9% 1,000 ML IV ONE (01:03)
[2020-01-10 01:12] VITALS: BP 136/87; PULSE 87; RESP 18
--- NOTE | 2020-01-10 01:47 | ED ---
Medical Decision Making - Medical Decision Making 29 male with Martinez catheter originally placed for cystitis hematuria and urinary retention, was removed once with no success, patient indwelling Martinez now we'll give follow-up with urology for removal - Lab Data Result diagrams: 01/09/20 23:15 01/09/20 23:15 Lab Results 01/09/20 01/09/20 01/09/20 Range/Units 23:15 23:15 23:15 WBC 9.4 (3.8-10.6) k/uL RBC 4.60 (4.30-5.90) m/uL Hgb 13.5 (13.0-17.5) gm/dL Hct 40.3 (39.0-53.0) % MCV 87.8 (80.0-100.0) fL MCH 29.4 (25.0-35.0) pg MCHC 33.5 (31.0-37.0) g/dL RDW 12.3 (11.5-15.5) % Plt Count 286 (150-450) k/uL Neutrophils % 66 % Lymphocytes % 26 % Monocytes % 4 % Eosinophils % 4 % Basophils % 1 % Neutrophils # 6.2 (1.3-7.7) k/uL Lymphocytes # 2.4 (1.0-4.8) k/uL Monocytes # 0.4 (0-1.0) k/uL Eosinophils # 0.4 (0-0.7) k/uL Basophils # 0.1 (0-0.2) k/uL Sodium 138 (137-145) mmol/L Potassium 3.8 (3.5-5.1) mmol/L Chloride 110 H (98-107) mmol/L Carbon Dioxide 22 (22-30) mmol/L Anion Gap 6 mmol/L BUN 12 (9-20) mg/dL Creatinine 0.95 (0.66-1.25) mg/dL Est GFR (CKD-EPI)AfAm >90 (>60 ml/min/1.73 sqM) Est GFR (CKD-EPI)NonAf >90 (>60 ml/min/1.73 sqM) Glucose 99 (74-99) mg/dL Calcium 8.8 (8.4-10.2) mg/dL Total Bilirubin 0.4 (0.2-1.3) mg/dL AST 22 (17-59) U/L ALT 13 (4-49) U/L Alkaline Phosphatase 39 (38-126) U/L Creatine Kinase 83 (55-170) U/L Total Protein 6.2 L (6.3-8.2) g/dL Albumin 3.9 (3.5-5.0) g/dL Urine Color Red Urine Appearance Cloudy (Clear) Urine pH 6.0 (5.0-8.0) Ur Specific [place] 1.025 (1.001-1.035) Urine Protein 2+ H (Negative) Urine Glucose (UA) Negative (Negative) Urine Ketones Trace H (Negative) Urine Blood Large H (Negative) Urine Nitrite Negative (Negative) Urine Bilirubin Negative (Negative) Urine Urobilinogen <2.0 (<2.0) mg/dL Ur Leukocyte Esterase Small H (Negative) Urine RBC >182 H (0-5) /hpf Urine WBC 12 H (0-5) /hpf Calcium Oxalate Crystal Few H (None) /hpf Urine Bacteria Occasional H (None) /hpf Urine Mucus Moderate H (None) /hpf Urine Yeast (Budding) Many H (None) /hpf Urine Sperm Few H (None) /hpf Disposition Clinical Impression: Dehydration, Hematuria, Neurofibromatosis, type 1, Indwelling catheter present on admission, Urinary retention Disposition: HOME SELF-CARE Condition: Good Instructions (If sedation given, give patient instructions): Dehydration (ED) Is patient prescribed a controlled substance at d/c from ED?: No Referrals: Eduard Galo MD [STAFF PHYSICIAN] - 1-2 days
== END 2020-01-10 02:44 | disposition home or self-care (01) ==
LOC: EC 20:04
DX: E86.0 Dehydration (principal); R31.9 Hematuria, unspecified; Q85.01 Neurofibromatosis, type 1; R33.9 Retention of urine, unspecified; F32.9 Major depressive disorder, single episode, unspecified; I25.2 Old myocardial infarction; G47.30 Sleep apnea, unspecified; G43.909 Migraine, unspecified, not intractable, without status migrainosus; Z99.89 Dependence on other enabling machines and devices; Z79.899 Other long term (current) drug therapy; Z96.0 Presence of urogenital implants; Z88.1 Allergy status to other antibiotic agents
CPT/HCPCS: 36415; 80053; 81001; 82550; 85025; 87086; 96360; 96361; 99284

== ENCOUNTER 2020-01-16 18:11 | Emergency (ER) | payer OTHER ==
--- NOTE | 2020-01-16 19:04 | ED ---
General Adult HPI - General Chief complaint: Urogenital Stated complaint: Blood in urine Time Seen by Provider: 01/16/20 18:45 Source: patient, RN notes reviewed, old records reviewed Mode of arrival: ambulatory Limitations: no limitations - History of Present Illness Initial comments: This a 29-year-old male who presents emergency Department complaining of hematuria. Patient states that a catheter placed because of urinary retention that was removed recently replaced again yesterday and today noted blood in the urine. Patient states he has a little suprapubic tenderness but not much. Patient denies any other symptoms. Patient denies a fever chills. Patient denies any upper abdominal pain. Patient denies nausea vomiting diarrhea per patient denies any back pain. - Related Data Home Medications Medication Instructions Recorded Confirmed Metoprolol Tartrate [Lopressor] 25 mg PO BID 03/19/19 12/25/19 Beclomethasone Dip 80 Mcg/Puff 2 puff INHALATION RT-BID 12/09/19 12/25/19 [Qvar 80 mcg] Ibuprofen 800 mg PO Q8H PRN 12/09/19 12/25/19 Topiramate [Topamax] 100 mg PO HS 12/09/19 12/25/19 Verapamil HCl [Verapamil ER] 120 mg PO HS 12/09/19 12/25/19 Colchicine 0.3 mg PO TID PRN 12/25/19 12/25/19 Previous Rx's Medication Instructions Recorded Sulfamethox-Tmp 800-160Mg [Bactrim 1 each PO Q12HR #14 tab 01/16/20 DS 800-160 mg] Allergies Allergy/AdvReac Type Severity Reaction Status Date / Time cefaclor [From Ceclor] Allergy FAMILY Verified 01/16/20 18:46 HISTORY cephalexin [From Keflex] Allergy Dyspnea Verified 01/16/20 18:46 Review of Systems ROS Statement: Those systems with pertinent positive or pertinent negative responses have been documented in the HPI. ROS Other: All systems not noted in ROS Statement are negative. Past Medical History Past Medical History: Chest Pain / Angina, Prostate Disorder, Sleep Apnea/CPAP/BIPAP Additional Past Medical History / Comment(s): NEUROFIBROMATOSIS, MIGRAINE HEADACHE History of Any Multi-Drug Resistant Organisms: None Reported Past Surgical History: Adenoidectomy, Ear Surgery, Tonsillectomy Additional Past Surgical History / Comment(s): SKIN BIOPSY-ARM, pyloric stenosis repair Past Anesthesia/Blood Transfusion Reactions: No Reported Reaction Past Psychological History: Depression Smoking Status: Never smoker Past Alcohol Use History: Occasional Past Drug Use History: None Reported - Past Family History Mother Family Medical History: Unable to Obtain Additional Family Medical History / Comment(s): Father and brother have caf au lait spots Father Family Medical History: Unable to Obtain General Exam - General Exam Comments Initial Comments: GENERAL: Patient is well-developed and well-nourished. Patient is nontoxic and well-hydr ated and is in no acute distress. ENT: Neck is soft and supple. No significant lymphadenopathy is noted. Oropharynx is clear. Moist mucous membranes. Neck has full range of motion without eliciting any pain. EYES: The sclera were anicteric and conjunctiva were pink and moist. Extraocular movements were intact and pupils were equal round and reactive to light. Eyelids were unremarkable. ABDOMEN: Soft and nontender with normal bowel sounds. SKIN: Skin is clear with no lesions or rashes and otherwise unremarkable. NEUROLOGIC: Patient is alert and oriented x3. Cranial nerves II through XII are grossly intact. Motor and sensory are also intact. Normal speech, volume and content. Symmetrical smile. MUSCULOSKELETAL: Normal extremities with adequate strength and full range of motion. LYMPHATICS: No significant lymphadenopathy is noted PSYCHIATRIC: Normal psychiatric evaluation. Limitations: no limitations Course Vital Signs 01/16/20 01/16/20 18:44 20:00 Temperature 98.8 F 98.4 F Pulse Rate 90 75 Respiratory 20 18 Rate Blood Pressure 146/78 126/75 O2 Sat by Pulse 99 100 Oximetry Medical Decision Making - Medical Decision Making Patient received Bactrim in the emergency department - Lab Data Lab Results 01/16/20 Range/Units 19:18 Urine Color Red Urine Appearance Cloudy (Clear) Urine pH 5.5 (5.0-8.0) Ur Specific [place] 1.023 (1.001-1.035) Urine Protein 1+ H (Negative) Urine Glucose (UA) Negative (Negative) Urine Ketones Trace H (Negative) Urine Blood Large H (Negative) Urine Nitrite Negative (Negative) Urine Bilirubin Negative (Negative) Urine Urobilinogen <2.0 (<2.0) mg/dL Ur Leukocyte Esterase Small H (Negative) Urine RBC >182 H (0-5) /hpf Urine WBC 139 H (0-5) /hpf Urine WBC Clumps Many H (None) /hpf Urine Mucus Occasional H (None) /hpf Urine Yeast (Budding) Moderate H (None) /hpf Disposition Clinical Impression: Urinary tract infection Disposition: HOME SELF-CARE Instructions (If sedation given, give patient instructions): Urinary Tract Infection in Men (ED) Prescriptions: Sulfamethox-Tmp 800-160Mg [Bactrim DS 800-160 mg] 1 each PO Q12HR #14 tab Is patient prescribed a controlled substance at d/c from ED?: No Referrals: Nitin Rogel DO [Primary Care Provider] - 1-2 days Time of Disposition: 20:11
[2020-01-16 19:35] LABS: Appearance,Urine Cloudy (Clear); Bilirubin,Urine Negative (Negative); Blood,Urine Large (Negative); Budding Yeast,Urine Moderate /hpf; Color,Urine Red; Glucose,Urine (UA) Negative (Negative); Ketones,Urine Trace (Negative); Leukocyte Esterase,Urine Small (Negative); Mucus,Urine Occasional /hpf; Nitrite,Urine Negative (Negative); PH, Urine 5.5 (5.0-8.0); Protein,Urine 1+ (Negative); RBC,Urine >182 /hpf (0-5); Specific Gravity,Urine 1.023 (1.001-1.035); Urobilinogen,Urine <2.0 mg/dL (<2.0); WBC,Urine 139 /hpf (0-5)
[2020-01-16 20:01] VITALS: BP 126/75; PULSE 75; RESP 18; TEMP 98.4
[2020-01-16] MEDS ORDERED: SULFAMETHOX-TMP 800-160MG 1 EACH TAB PO STA (20:08)
[2020-01-16] MEDS ORDERED: SULFAMETH-TMP DS STARTER PACK 2 TAB BTL PO STA (20:08)
[2020-01-16] MEDS ORDERED: KETOROLAC 15 MG/ML 1 ML VIAL IM STA (21:01)
== END 2020-01-16 21:15 | disposition home or self-care (01) ==
LOC: EC 18:11
DX: N39.0 Urinary tract infection, site not specified (principal); Z88.1 Allergy status to other antibiotic agents; I25.2 Old myocardial infarction; F32.9 Major depressive disorder, single episode, unspecified; G47.30 Sleep apnea, unspecified; G43.909 Migraine, unspecified, not intractable, without status migrainosus; Z99.89 Dependence on other enabling machines and devices; Z79.899 Other long term (current) drug therapy
CPT/HCPCS: 96372 ×2; 99284 ×2; 81001; 87086; 76770; J1885

== ENCOUNTER 2020-01-26 17:45 | Emergency (ER) | payer OTHER ==
[2020-01-26 18:44] LABS: Basophils # (A) 0.1 k/uL (0-0.2); Basophils % (A) 1 %; Eosinophils # (A) 0.9 k/uL (0-0.7); Eosinophils % (A) 11 %; HCT 42.2 % (39.0-53.0); HGB 14.6 gm/dL (13.0-17.5); Lymphocytes # (A) 2.6 k/uL (1.0-4.8); Lymphocytes % (A) 34 %; MCH 30.6 pg (25.0-35.0); MCHC 34.6 g/dL (31.0-37.0); MCV 88.4 fL (80.0-100.0); Mean Platelet Volume 8.4; Monocytes # (A) 0.4 k/uL (0-1.0); Monocytes % (A) 5 %; Neutrophils # (A) 3.6 k/uL (1.3-7.7); Neutrophils % (A) 46 %; Platelet Count 201 k/uL (150-450); RBC 4.78 m/uL (4.30-5.90); RDW 12.2 % (11.5-15.5); WBC 7.7 k/uL (3.8-10.6)
[2020-01-26 18:53] LABS: ALT 23 U/L (4-49); AST 22 U/L (17-59); African American GFR (CKD) >90 (>60 ml/min/1.73 sqM); Albumin 4.3 g/dL (3.5-5.0); Alkaline Phosphatase 49 U/L (38-126); Anion Gap 8 mmol/L; Blood Urea Nitrogen 7 mg/dL (9-20); Calcium 9.4 mg/dL (8.4-10.2); Carbon Dioxide 29 mmol/L (22-30); Chloride 100 mmol/L (98-107); Glucose 100 mg/dL (74-99); Non-African American GFR(CKD) >90 (>60 ml/min/1.73 sqM); Potassium 4.6 mmol/L (3.5-5.1); Sodium 137 mmol/L (137-145); Total Bilirubin 0.4 mg/dL (0.2-1.3); Total Protein 6.6 g/dL (6.3-8.2)
[2020-01-26 19:42] LABS: Prothrombin Time 10.4 sec (9.0-12.0)
[2020-01-26 19:53] LABS: Partial Thromboplastin Time 20.7 sec (22.0-30.0)
[2020-01-26 20:11] LABS: Appearance,Urine Clear (Clear); Bilirubin,Urine Negative (Negative); Blood,Urine Moderate (Negative); Color,Urine Light Yellow; Glucose,Urine (UA) Negative (Negative); Ketones,Urine Negative (Negative); Leukocyte Esterase,Urine Negative (Negative); Nitrite,Urine Negative (Negative); Protein,Urine Negative (Negative); RBC,Urine 30 /hpf (0-5); Specific Gravity,Urine 1.007 (1.001-1.035); Urobilinogen,Urine <2.0 mg/dL (<2.0); WBC,Urine <1 /hpf (0-5)
--- NOTE | 2020-01-26 20:53 | CT ---
EXAMINATION TYPE: CT abdomen pelvis w con DATE OF EXAM: 01/26/2020 COMPARISON: 12/27/2017 HISTORY: Hematuria with dark blood in stool. CT DLP: 975.1 mGycm Automated exposure control for dose reduction was used. CONTRAST: Performed with IV Contrast, patient injected with 100 mL of Isovue 300. Lung bases are clear. There is no pleural effusion. Heart size is normal. Liver spleen stomach pancreas gallbladder appear normal. Bile ducts are not dilated. There is no adrenal mass. Kidneys show satisfactory contrast opacification. There is no hydronephrosi s. Bladder distends smoothly. There is no inguinal hernia. There is 3.5 cm rounded low-density area i n the adductor longus muscle on the right side. This is also present on old CT scan and unchanged. Th ere is a similar appearing lesion in the right side transversus abdominis muscle that measures 4 x 2 cm. This also appears not significantly different than old exam. There are small rounded 1 cm hypoden sities in the right side posterior back muscles. There is 1 cm cutaneous nodule on the right anterior abdominal wall. There is no ascites or free air. There is no bowel obstruction. There is no mesenteric edema. Appendi x is partly filled with air and appears normal. Lumbar vertebra have normal alignment. Disc spaces are fairly normal. The bony pelvis is intact. IMPRESSION: No acute abnormality within the abdomen pelvis. Masses in the muscles on the right side as above appe ar not significantly different than old exam and consistent with neurofibromas. Subcutaneous linear density posterior to the left iliac bone consistent with subcutaneous scarring an d unchanged. I do not see a definite cause for GI bleeding.
--- NOTE | 2020-01-26 21:35 | ED ---
GI Bleed HPI - General Chief complaint: GI Bleed Stated complaint: blood in stool/pain when cathing Time Seen by Provider: 01/26/20 17:54 Source: patient Mode of arrival: ambulatory Limitations: no limitations - History of Present Illness Initial comments: Patient is a 29-year-old male past medical history of neurofibromatosis who presents emergency room with reported hematuria and melenic stools. Patient has been seen in the emergency department 3 times for similar complaint. He recently began having urinary retention and had a catheter placed. He follow-up with Dr. Galo and now straight caths multiple times daily. Reports that he frequently has hematuria. She has an MRI pending of his spine for the recent retention. Patient presents emergency department today for melenic stools. Denies previous history of similar. States that he had 2 bowel movements today for which she saw some dark blood in the toilet bowl. Denies abdominal pain or rectal pain. Colonoscopy 2 years ago was unremarkable. Denies fevers or chills. No diarrhea. Admits to slight difficulty with constipation. No mucoid stools. Denies any back pain. No lower extremity weakness. Patient is not on any blood thinners. No history of peptic ulcer disease. No alcohol or NSAID use. No other alleviating, precipitating or modifying factors - Related Data Home Medications Medication Instructions Recorded Confirmed Metoprolol Tartrate [Lopressor] 25 mg PO BID 03/19/19 12/25/19 Beclomethasone Dip 80 Mcg/Puff 2 puff INHALATION RT-BID 12/09/19 12/25/19 [Qvar 80 mcg] Ibuprofen 800 mg PO Q8H PRN 12/09/19 12/25/19 Topiramate [Topamax] 100 mg PO HS 12/09/19 12/25/19 Verapamil HCl [Verapamil ER] 120 mg PO HS 12/09/19 12/25/19 Colchicine 0.3 mg PO TID PRN 12/25/19 12/25/19 Previous Rx's Medication Instructions Recorded Sulfamethox-Tmp 800-160Mg [Bactrim 1 each PO Q12HR #14 tab 01/16/20 DS 800-160 mg] Allergies Allergy/AdvReac Type Severity Reaction Status Date / Time cefaclor [From Ceclor] Allergy FAMILY Verified 01/26/20 17:50 HISTORY cephalexin [From Keflex] Allergy Dyspnea Verified 01/26/20 17:50 portuguese dressing Allergy Anaphylaxis Uncoded 01/26/20 17:50 Review of Systems ROS Statement: Those systems with pertinent positive or pertinent negative responses have been documented in the HPI. ROS Other: All systems not noted in ROS Statement are negative. Past Medical History Past Medical History: Chest Pain / Angina, Prostate Disorder, Sleep Apnea/CPAP/BIPAP Additional Past Medical History / Comment(s): NEUROFIBROMATOSIS, MIGRAINE HEADACHE History of Any Multi-Drug Resistant Organisms: None Reported Past Surgical History: Adenoidectomy, Ear Surgery, Tonsillectomy Additional Past Surgical History / Comment(s): SKIN BIOPSY-ARM, pyloric stenosis repair Past Anesthesia/Blood Transfusion Reactions: No Reported Reaction Past Psychological History: Depression Smoking Status: Never smoker Past Alcohol Use History: Occasional Past Drug Use History: None Reported - Past Family History Mother Family Medical History: Unable to Obtain Additional Family Medical History / Comment(s): Father and brother have caf au lait spots Father Family Medical History: Unable to Obtain General Exam Limitations: no limitations General appearance: alert, in no apparent distress Head exam: Present: atraumatic, normocephalic, normal inspection Eye exam: Present: normal appearance, PERRL, EOMI. Absent: scleral icterus, conjunctival injection, periorbital swelling ENT exam: Present: normal exam, mucous membranes moist Neck exam: Present: normal inspection. Absent: tenderness, meningismus, lymphadenopathy Respiratory exam: Present: normal lung sounds bilaterally. Absent: respiratory distress, wheezes, rales, rhonchi, stridor Cardiovascular Exam: Present: regular rate, normal rhythm, normal heart sounds. Absent: systolic murmur, diastolic murmur, rubs, gallop, clicks GI/Abdominal exam: Present: soft, normal bowel sounds. Absent: distended, tenderness, guarding, rebound, rigid Rectal exam: Present: normal inspection, heme (-) stool. Absent: black stool, bloody stool, hemorrhoids Extremities exam: Present: normal inspection, full ROM, normal capillary refill. Absent: tenderness, pedal edema, joint swelling, calf tenderness Back exam: Present: normal inspection Neurological exam: Present: alert, oriented X3, CN II-XII intact Psychiatric exam: Present: normal affect, normal mood Skin exam: Present: warm, dry, intact, normal color, rash. Absent: other (multiple soft tissue masses diffusely scattered over entire body) Course Vital Signs 01/26/20 01/26/20 01/26/20 17:48 22:02 22:54 Temperature 98.0 F 98.5 F 98.1 F Pulse Rate 90 86 81 Respiratory 18 18 16 Rate Blood Pressure 131/81 135/78 135/77 O2 Sat by Pulse 98 98 98 Oximetry Medical Decision Making - Medical Decision Making Upon arrival the patient is placed into room 3. A thorough history and physical exam was performed. Rectal exam was performed which demonstrates a small amount of brown stool. No bloody stool noted. Peripheral IV was established. Laboratory studies were conducted. Hemoglobin is 14.6 which is up from the patient's previous value of 13.5 on January 08. Coagulation studies are normal. Urinalysis shows moderate blood with 30 red blood cells. Fecal occult is negative. As the patient has new onset urinary retention with rectal bleeding and did recommend a CT of the patient's abdomen. It demonstrates no acute abnormality within the abdomen and pelvis. I discussed results with the patient. He does straight cath himself. We obtained a post cath bladder scan which demonstrates he has 50 mL in his bladder. Patient appears to be completely emptying his bladder. I did discuss the diagnosis, differential and treatment options. He remained hemolytically stable at this time with a negative occult. The patient will be discharged home and is to follow up with GI and Dr. Galo. Return to the emergency room for any new or worsening symptoms. Patient will be discharged home in stable condition - Lab Data Result diagrams: 01/26/20 18:35 01/26/20 18:35 Lab Results 01/26/20 01/26/20 01/26/20 Range/Units 18:35 18:35 18:35 WBC 7.7 (3.8-10.6) k/uL RBC 4.78 (4.30-5.90) m/uL Hgb 14.6 (13.0-17.5) gm/dL Hct 42.2 (39.0-53.0) % MCV 88.4 (80.0-100.0) fL MCH 30.6 (25.0-35.0) pg MCHC 34.6 (31.0-37.0) g/dL RDW 12.2 (11.5-15.5) % Plt Count 201 (150-450) k/uL Neutrophils % 46 % Lymphocytes % 34 % Monocytes % 5 % Eosinophils % 11 % Basophils % 1 % Neutrophils # 3.6 (1.3-7.7) k/uL Lymphocytes # 2.6 (1.0-4.8) k/uL Monocytes # 0.4 (0-1.0) k/uL Eosinophils # 0.9 H (0-0.7) k/uL Basophils # 0.1 (0-0.2) k/uL PT 10.4 (9.0-12.0) sec INR 1.0 (<1.2) APTT 20.7 L (22.0-30.0) sec Sodium 137 (137-145) mmol/L Potassium 4.6 (3.5-5.1) mmol/L Chloride 100 (98-107) mmol/L Carbon Dioxide 29 (22-30) mmol/L Anion Gap 8 mmol/L BUN 7 L (9-20) mg/dL Creatinine 0.87 (0.66-1.25) mg/dL Est GFR (CKD-EPI)AfAm >90 (>60 ml/min/1.73 sqM) Est GFR (CKD-EPI)NonAf >90 (>60 ml/min/1.73 sqM) Glucose 100 H (74-99) mg/dL Plasma Lactic Acid Efliz (0.7-2.0) mmol/L Calcium 9.4 (8.4-10.2) mg/dL Total Bilirubin 0.4 (0.2-1.3) mg/dL AST 22 (17-59) U/L ALT 23 (4-49) U/L Alkaline Phosphatase 49 (38-126) U/L Total Protein 6.6 (6.3-8.2) g/dL Albumin 4.3 (3.5-5.0) g/dL Urine Color Urine Appearance (Clear) Urine pH (5.0-8.0) Ur Specific [place] (1.001-1.035) Urine Protein (Negative) Urine Glucose (UA) (Negative) Urine Ketones (Negative) Urine Blood (Negative) Urine Nitrite (Negative) Urine Bilirubin (Negative) Urine Urobilinogen (<2.0) mg/dL Ur Leukocyte Esterase (Negative) Urine RBC (0-5) /hpf Urine WBC (0-5) /hpf Stool Occult Blood (Negative) 01/26/20 01/26/20 01/26/20 Range/Units 18:35 19:19 19:19 WBC (3.8-10.6) k/uL RBC (4.30-5.90) m/uL Hgb (13.0-17.5) gm/dL Hct (39.0-53.0) % MCV (80.0-100.0) fL MCH (25.0-35.0) pg MCHC (31.0-37.0) g/dL RDW (11.5-15.5) % Plt Count (150-450) k/uL Neutrophils % % Lymphocytes % % Monocytes % % Eosinophils % % Basophils % % Neutrophils # (1.3-7.7) k/uL Lymphocytes # (1.0-4.8) k/uL Monocytes # (0-1.0) k/uL Eosinophils # (0-0.7) k/uL Basophils # (0-0.2) k/uL PT (9.0-12.0) sec INR (<1.2) APTT (22.0-30.0) sec Sodium (137-145) mmol/L Potassium (3.5-5.1) mmol/L Chloride (98-107) mmol/L Carbon Dioxide (22-30) mmol/L Anion Gap mmol/L BUN (9-20) mg/dL Creatinine (0.66-1.25) mg/dL Est GFR (CKD-EPI)AfAm (>60 ml/min/1.73 sqM) Est GFR (CKD-EPI)NonAf (>60 ml/min/1.73 sqM) Glucose (74-99) mg/dL Plasma Lactic Acid Feliz 1.9 (0.7-2.0) mmol/L Calcium (8.4-10.2) mg/dL Total Bilirubin (0.2-1.3) mg/dL AST (17-59) U/L ALT (4-49) U/L Alkaline Phosphatase (38-126) U/L Total Protein (6.3-8.2) g/dL Albumin (3.5-5.0) g/dL Urine Color Light Yellow Urine Appearance Clear (Clear) Urine pH 7.0 (5.0-8.0) Ur Specific [place] 1.007 (1.001-1.035) Urine Protein Negative (Negative) Urine Glucose (UA) Negative (Negative) Urine Ketones Negative (Negative) Urine Blood Moderate H (Negative) Urine Nitrite Negative (Negative) Urine Bilirubin Negative (Negative) Urine Urobilinogen <2.0 (<2.0) mg/dL Ur Leukocyte Esterase Negative (Negative) Urine RBC 30 H (0-5) /hpf Urine WBC <1 (0-5) /hpf Stool Occult Blood Negative (Negative) Disposition Clinical Impression: Rectal bleed, Hematuria, Urinary retention Disposition: HOME SELF-CARE Condition: Stable Instructions (If sedation given, give patient instructions): Gastrointestinal Bleeding (ED) Additional Instructions: Please call and make an appointment with your GI doctor. Return to the emerge ncy room for any new or worsening symptoms Is patient prescribed a controlled substance at d/c from ED?: No Referrals: Nitin Rogel DO [Primary Care Provider] - 1-2 days Anabela Cabrera MD [STAFF PHYSICIAN] - 1-2 days Time of Disposition: 21:34
[2020-01-26 22:55] VITALS: BP 135/77; PULSE 81; RESP 16; TEMP 98.1
== END 2020-01-26 22:53 | disposition home or self-care (01) ==
LOC: EC 17:45
DX: K62.5 Hemorrhage of anus and rectum (principal); R31.9 Hematuria, unspecified; R33.9 Retention of urine, unspecified; I20.9 Angina pectoris, unspecified; G47.30 Sleep apnea, unspecified; G43.909 Migraine, unspecified, not intractable, without status migrainosus; Z79.51 Long term (current) use of inhaled steroids; Z79.899 Other long term (current) drug therapy; Z88.1 Allergy status to other antibiotic agents; Z91.048 Other nonmedicinal substance allergy status; Z99.89 Dependence on other enabling machines and devices; Z96.0 Presence of urogenital implants
CPT/HCPCS: 36415; 80053; 83605; 85025; 85610; 85730; 82272; 81001; 74177; 99285; Q9967

== ENCOUNTER 2020-02-05 19:45 | Emergency (ER) | payer OTHER ==
[2020-02-05 19:50] VITALS: RESP 18
--- NOTE | 2020-02-05 20:22 | ED ---
General Adult HPI - General Chief complaint: Urogenital Stated complaint: Catheter issues Time Seen by Provider: 02/05/20 19:52 Source: patient, RN notes reviewed Mode of arrival: ambulatory Limitations: no limitations - History of Present Illness Initial comments: Patient is a pleasant 29-year-old male presenting to the emergency department with sensation of urinary urgency however decreased output. Patient has had difficulty with urinating over the past couple months. Patient did self catheterization and then has had a Martinez catheter in place for the past week. Patient does have a urologist at [facility]. Patient does feel like his bladder is somewhat distended. Patient states this is mildly uncomfortable, not severely painful. No back pain. No fevers. No nausea vomiting. - Related Data Home Medications Medication Instructions Recorded Confirmed Metoprolol Tartrate [Lopressor] 25 mg PO BID 03/19/19 12/25/19 Beclomethasone Dip 80 Mcg/Puff 2 puff INHALATION RT-BID 12/09/19 12/25/19 [Qvar 80 mcg] Ibuprofen 800 mg PO Q8H PRN 12/09/19 12/25/19 Topiramate [Topamax] 100 mg PO HS 12/09/19 12/25/19 Verapamil HCl [Verapamil ER] 120 mg PO HS 12/09/19 12/25/19 Colchicine 0.3 mg PO TID PRN 12/25/19 12/25/19 Previous Rx's Medication Instructions Recorded Sulfamethox-Tmp 800-160Mg [Bactrim 1 each PO Q12HR #14 tab 01/16/20 DS 800-160 mg] Sulfamethox-Tmp 800-160Mg [Bactrim 1 each PO Q12HR #18 tab 02/05/20 DS 800-160 mg] Allergies Allergy/AdvReac Type Severity Reaction Status Date / Time cefaclor [From Ceclor] Allergy FAMILY Verified 02/05/20 19:50 HISTORY cephalexin [From Keflex] Allergy Dyspnea Verified 02/05/20 19:50 bahamian dressing Allergy Anaphylaxis Uncoded 02/05/20 19:50 Review of Systems ROS Statement: Those systems with pertinent positive or pertinent negative responses have been documented in the HPI. ROS Other: All systems not noted in ROS Statement are negative. Constitutional: Denies: fever Eyes: Denies: eye pain ENT: Denies: ear pain Respiratory: Denies: cough Cardiovascular: Denies: chest pain Endocrine: Denies: fatigue Gastrointestinal: Denies: abdominal pain Genitourinary: Reports: as per HPI, urgency Musculoskeletal: Denies: back pain Skin: Reports: lesions (Chronic) Neurological: Denies: headache Past Medical History Past Medical History: Chest Pain / Angina, Prostate Disorder, Sleep Apnea/CPAP/BIPAP Additional Past Medical History / Comment(s): NEUROFIBROMATOSIS, MIGRAINE HEADACHE History of Any Multi-Drug Resistant Organisms: None Reported Past Surgical History: Adenoidectomy, Ear Surgery, Tonsillectomy Additional Past Surgical History / Comment(s): SKIN BIOPSY-ARM, pyloric stenosis repair Past Anesthesia/Blood Transfusion Reactions: No Reported Reaction Past Psychological History: Depression Smoking Status: Never smoker Past Alcohol Use History: Occasional Past Drug Use History: None Reported - Past Family History Mother Family Medical History: Unable to Obtain Additional Family Medical History / Comment(s): Father and brother have caf au lait spots Father Family Medical History: Unable to Obtain General Exam Limitations: no limitations General appearance: alert, in no apparent distress Head exam: Present: normocephalic Eye exam: Present: normal appearance Neck exam: Present: normal inspection Respiratory exam: Present: normal lung sounds bilaterally Cardiovascular Exam: Present: regular rate, normal rhythm GI/Abdominal exam: Present: soft. Absent: distended, tenderness Extremities exam: Present: normal inspection Neurological exam: Present: alert Psychiatric exam: Present: normal affect, normal mood Skin exam: Present: other (Diffuse skin lesions consistent with history of neurofibromatosis) Course Vital Signs 02/05/20 19:49 Temperature 99 F Pulse Rate 69 Respiratory 18 Rate Blood Pressure 131/78 O2 Sat by Pulse 99 Oximetry Medical Decision Making - Medical Decision Making Full catheter did drain when patient stood up. Catheter was easily flushed by nursing staff. Patient reevaluated and updated. - Lab Data Lab Results 02/05/20 Range/Units 20:49 Urine Color Yellow Urine Appearance Cloudy (Clear) Urine pH 7.5 (5.0-8.0) Ur Specific [place] 1.022 (1.001-1.035) Urine Protein 2+ H (Negative) Urine Glucose (UA) Negative (Negative) Urine Ketones Negative (Negative) Urine Blood Moderate H (Negative) Urine Nitrite Negative (Negative) Urine Bilirubin Negative (Negative) Urine Urobilinogen <2.0 (<2.0) mg/dL Ur Leukocyte Esterase Large H (Negative) Urine RBC 88 H (0-5) /hpf Urine WBC 101 H (0-5) /hpf Urine WBC Clumps Occasional H (None) /hpf Triple Phos Crystals Occasional H (None) /hpf Urine Bacteria Rare H (None) /hpf Urine Mucus Rare H (None) /hpf Disposition Clinical Impression: Urinary tract infection Disposition: HOME SELF-CARE Condition: Stable Instructions (If sedation given, give patient instructions): Urinary Tract Infection in Men (ED) Additional Instructions: Please follow-up with your urologist in the next couple days for recheck. Return for fever, vomiting, abdominal or back pain, catheter not draining, worsening symptoms or other concerns. Prescription was sent to [facility] pharmacy Prescriptions: Sulfamethox-Tmp 800-160Mg [Bactrim DS 800-160 mg] 1 each PO Q12HR #18 tab Is patient prescribed a controlled substance at d/c from ED?: No When asked, does pt state using other controlled substances?: No Referrals: Nitin Rogel DO [Primary Care Provider] - 1-2 days Eduard Galo MD [STAFF PHYSICIAN] - 1-2 days Time of Disposition: 21:37
[2020-02-05 21:09] LABS: Appearance,Urine Cloudy (Clear); Bacteria,Urine Rare /hpf; Bilirubin,Urine Negative (Negative); Blood,Urine Moderate (Negative); Color,Urine Yellow; Glucose,Urine (UA) Negative (Negative); Ketones,Urine Negative (Negative); Leukocyte Esterase,Urine Large (Negative); Mucus,Urine Rare /hpf; Nitrite,Urine Negative (Negative); PH, Urine 7.5 (5.0-8.0); Protein,Urine 2+ (Negative); RBC,Urine 88 /hpf (0-5); Specific Gravity,Urine 1.022 (1.001-1.035); Triple Phosphate Crystal,Urine Occasional /hpf; Urobilinogen,Urine <2.0 mg/dL (<2.0); WBC,Urine 101 /hpf (0-5)
[2020-02-05] MEDS ORDERED: SULFAMETH-TMP DS STARTER PACK 2 TAB BTL PO STA (21:39)
[2020-02-05 21:48] VITALS: BP 122/73; PULSE 80; TEMP 97.7
== END 2020-02-05 21:49 | disposition home or self-care (01) ==
LOC: EC 19:45
DX: N39.0 Urinary tract infection, site not specified (principal); G43.909 Migraine, unspecified, not intractable, without status migrainosus; I25.2 Old myocardial infarction; Q85.00 Neurofibromatosis, unspecified; G47.30 Sleep apnea, unspecified; Z79.899 Other long term (current) drug therapy; Z91.09 Other allergy status, other than to drugs and biological substances; Z88.1 Allergy status to other antibiotic agents; Z99.89 Dependence on other enabling machines and devices
CPT/HCPCS: 51798; 81001; 87086; 99284

== ENCOUNTER → 2020-02-18 | Outpatient (CLI) | payer OTHER ==
--- NOTE | 2020-02-18 20:52 | MR ---
EXAMINATION TYPE: MR lspine/sacrum wo con DATE OF EXAM: 02/18/2020 COMPARISON: MRI lumbar spine February 22, 2017. January 26, 2020 CT abdomen and pelvis HISTORY: Urinary retention TECHNIQUE: Multiplanar, multisequence imaging of the lumbar spine and sacrum are performed without IV contrast. FINDINGS: Lumbar spine: Sagittal images of the lumbar spine show vertebral body heights and alignment to appear satisfactory. Disc desiccation L5-S1 level otherwise the intervertebral discs demonstrate normal heights and hydra tion. The conus medullaris is normal in position and signal ending mid L1 level. The bone marrow si gnal intensity is within normal limits. Axial images show to the T12-L1, L1-L2, and L2-L3 levels all to appear within normal limits. Axial images at L3-L4 level show mild facet degenerative changes bilaterally otherwise are unremarkab le. Axial images at L4-L5 levels mild broad-based posterior disc protrusion minimally effacing the anteri or thecal sac. Axial images at L5-S1 level broad-based right paracentral disc protrusion mildly effacing the anterio r thecal sac, patent bilateral neural foramina. There are multiple T1 hypointense and T2 hyperintense lesions scattered throughout the paraspinal mus cles bilaterally of varying size and shape, for reference 11 mm lesion noted right iliopsoas muscle a xial image debris. They were present on prior MRI February 22, 2017. Sacrum: Sacral alar are maintained bilaterally. Sacroiliac joints are symmetric and felt within normal limits . Small Tarlov cyst right S3 level axial image 13. There are additional scattered round well-circumsc ribed T1 hypointense and T2 hyperintense lesions in the presacral and perirectal fat bilaterally, lar gest lesion right gluteal region axial image 14 is noted. There is 2.1 cm lesion presacral space left of midline near course of the left S2 nerve which is slightly cranially displaced. Visualized portio n of the bladder is unremarkable. Bone marrow signal intensity is preserved. IMPRESSION: Multiple round well-circumscribed lesions likely reflect neurofibromas redemonstrated thr oughout the surrounding tissues of the lumbar spine and sacrum. Mild degenerative changes mid to lowe r lumbar spine.
== END | disposition home or self-care (01) ==
LOC: RADMRIMAIN 08:33
PROVIDERS: ATTEND Urology
DX: M47.816 Spondylosis without myelopathy or radiculopathy, lumbar region (principal); G95.89 Other specified diseases of spinal cord
CPT/HCPCS: 72148; 72195

== ENCOUNTER 2020-02-20 08:23 | Emergency (ER) | payer OTHER ==
[2020-02-20 08:29] VITALS: BP 123/80; PULSE 98; RESP 18; TEMP 97.4
--- NOTE | 2020-02-20 08:54 | ED ---
General Adult HPI - General Chief complaint: Urogenital Stated complaint: male gu Time Seen by Provider: 02/20/20 08:33 Source: patient, RN notes reviewed Mode of arrival: ambulatory Limitations: no limitations - History of Present Illness Initial comments: Patient is a pleasant 29-year-old male presenting to the emergency Department with complaints of catheter stuck. Patient does do self catheterizations and did drink himself prior to arrival. Patient has had difficulty getting the Martinez catheter out despite several attempts. No pain. No suprapubic fullness. Patient has been undergoing problems with Martinez catheter over the past several months and does see a urologist. Patient does have recent scope and easily did have an MRI. Patient did get in touch with his urology office however they could not get him in for an hour or more. - Related Data Home Medications Medication Instructions Recorded Confirmed Metoprolol Tartrate [Lopressor] 25 mg PO BID 03/19/19 12/25/19 Beclomethasone Dip 80 Mcg/Puff 2 puff INHALATION RT-BID 12/09/19 12/25/19 [Qvar 80 mcg] Ibuprofen 800 mg PO Q8H PRN 12/09/19 12/25/19 Topiramate [Topamax] 100 mg PO HS 12/09/19 12/25/19 Verapamil HCl [Verapamil ER] 120 mg PO HS 12/09/19 12/25/19 Colchicine 0.3 mg PO TID PRN 12/25/19 12/25/19 Previous Rx's Medication Instructions Recorded Sulfamethox-Tmp 800-160Mg [Bactrim 1 each PO Q12HR #14 tab 01/16/20 DS 800-160 mg] Sulfamethox-Tmp 800-160Mg [Bactrim 1 each PO Q12HR #18 tab 02/05/20 DS 800-160 mg] Allergies Allergy/AdvReac Type Severity Reaction Status Date / Time cefaclor [From Ceclor] Allergy FAMILY Verified 02/20/20 08:29 HISTORY cephalexin [From Keflex] Allergy Dyspnea Verified 02/20/20 08:29 ethiopian dressing Allergy Anaphylaxis Uncoded 02/20/20 08:29 Review of Systems ROS Statement: Those systems with pertinent positive or pertinent negative responses have been documented in the HPI. ROS Other: All systems not noted in ROS Statement are negative. Constitutional: Denies: fever Eyes: Denies: eye pain ENT: Denies: ear pain Respiratory: Denies: cough Cardiovascular: Denies: palpitations Endocrine: Denies: fatigue Gastrointestinal: Denies: abdominal pain, vomiting Genitourinary: Reports: as per HPI. Denies: dysuria Skin: Denies: pruritus Neurological: Denies: weakness Past Medical History Past Medical History: Chest Pain / Angina, Prostate Disorder, Sleep Apnea/CPAP/BIPAP Additional Past Medical History / Comment(s): NEUROFIBROMATOSIS, MIGRAINE HEADACHE, urinary retention History of Any Multi-Drug Resistant Organisms: None Reported Past Surgical History: Adenoidectomy, Ear Surgery, Tonsillectomy Additional Past Surgical History / Comment(s): SKIN BIOPSY-ARM, pyloric stenosis repair Past Anesthesia/Blood Transfusion Reactions: No Reported Reaction Past Psychological History: Depression Smoking Status: Never smoker Past Alcohol Use History: Occasional Past Drug Use History: None Reported - Past Family History Mother Family Medical History: Unable to Obtain Additional Family Medical History / Comment(s): Father and brother have caf au lait spots Father Family Medical History: Unable to Obtain General Exam Limitations: no limitations General appearance: alert, in no apparent distress Head exam: Present: normocephalic Eye exam: Present: normal appearance Neck exam: Present: normal inspection Respiratory exam: Present: normal lung sounds bilaterally Cardiovascular Exam: Present: regular rate, normal rhythm GI/Abdominal exam: Present: soft. Absent: tenderness exam: Present: normal inspection, other (Straight catheter extending from the urethra) Extremities exam: Present: normal inspection Neurological exam: Present: alert Psychiatric exam: Present: normal affect, normal mood Skin exam: Present: other (Multiple skin nodules consistent with history of neurofibromatosis) Course Vital Signs 02/20/20 08:26 Temperature 97.4 F L Pulse Rate 98 Respiratory 18 Rate Blood Pressure 123/80 O2 Sat by Pulse 99 Oximetry Procedures - Procedures Initial comment: Straight catheter removed from the urethra without difficulty. No Complication. Disposition Clinical Impression: Urinary catheter dysfunction Disposition: HOME SELF-CARE Condition: Stable Instructions (If sedation given, give patient instructions): Martinez Catheter Placement and Care (ED) Additional Instructions: Please follow-up with your primary care physician and urologist in the next day or 2 for recheck. Return for catheter problems, fevers, abdominal pain, worsening or changing symptoms or other concerns. Is patient prescribed a controlled substance at d/c from ED?: No Referrals: Juan F,Nitin, DO [Primary Care Provider] - 1-2 days Kory Carter MD [STAFF PHYSICIAN] - 1-2 days Time of Disposition: 08:53
== END 2020-02-20 09:10 | disposition home or self-care (01) ==
LOC: EC 08:23
DX: T83.098A Other mechanical complication of other urinary catheter, initial encounter (principal); I20.9 Angina pectoris, unspecified; G47.30 Sleep apnea, unspecified; G43.909 Migraine, unspecified, not intractable, without status migrainosus; Z79.899 Other long term (current) drug therapy; Z79.51 Long term (current) use of inhaled steroids; Z88.1 Allergy status to other antibiotic agents; Z91.048 Other nonmedicinal substance allergy status; Z99.89 Dependence on other enabling machines and devices
CPT/HCPCS: 51798; 99283

== ENCOUNTER 2020-04-12 07:09 | Emergency (ER) | payer MEDICARE, OTHER ==
[2020-04-12 07:13] VITALS: BP 135/80; PULSE 84; RESP 18; TEMP 98
--- NOTE | 2020-04-12 07:36 | ED ---
General Adult HPI - General Chief complaint: Urogenital Stated complaint: Urogenital Time Seen by Provider: 04/12/20 07:17 Source: patient, RN notes reviewed Mode of arrival: ambulatory Limitations: no limitations - History of Present Illness Initial comments: Patient is a pleasant 29-year-old male returning to the emergency Department with difficulty with urination. Last normal amount of urine output was yesterday around 4. Patient feels his catheter was in the right position however no urine came out. Patient does feel somewhat full. Patient does have history of similar symptoms chronically over the past few months and does see urology. Patient did have MRI done and they're questioning placing stimulator. - Related Data Home Medications Medication Instructions Recorded Confirmed Metoprolol Tartrate [Lopressor] 25 mg PO BID 03/19/19 04/12/20 Topiramate [Topamax] 100 mg PO HS 12/09/19 04/12/20 Fluticasone Propionate [Flovent 1 puff INHALATION RT-BID 04/12/20 04/12/20 Hfa 110 mcg] Ibuprofen [Motrin] 800 mg PO Q8H PRN 04/12/20 04/12/20 Verapamil HCl [Verapamil ER] 240 mg PO HS 04/12/20 04/12/20 Allergies Allergy/AdvReac Type Severity Reaction Status Date / Time cefaclor [From Ceclor] Allergy FAMILY Verified 04/12/20 07:45 HISTORY cephalexin [From Keflex] Allergy Dyspnea Verified 04/12/20 07:45 brazilian dressing Allergy Anaphylaxis Uncoded 04/12/20 07:45 Review of Systems ROS Statement: Those systems with pertinent positive or pertinent negative responses have been documented in the HPI. ROS Other: All systems not noted in ROS Statement are negative. Constitutional: Denies: fever Eyes: Denies: eye pain ENT: Denies: ear pain Respiratory: Denies: cough Cardiovascular: Denies: chest pain Endocrine: Denies: fatigue Gastrointestinal: Denies: nausea Genitourinary: Reports: as per HPI Musculoskeletal: Denies: back pain Skin: Denies: rash Neurological: Denies: weakness Past Medical History Past Medical History: Chest Pain / Angina, Prostate Disorder, Sleep Apnea/CPAP/BIPAP Additional Past Medical History / Comment(s): NEUROFIBROMATOSIS, MIGRAINE HEADACHE, urinary retention History of Any Multi-Drug Resistant Organisms: None Reported Past Surgical History: Adenoidectomy, Ear Surgery, Tonsillectomy Additional Past Surgical History / Comment(s): SKIN BIOPSY-ARM, pyloric stenosis repair Past Anesthesia/Blood Transfusion Reactions: No Reported Reaction Past Psychological History: Depression Smoking Status: Never smoker Past Alcohol Use History: Occasional Past Drug Use History: None Reported - Past Family History Mother Family Medical History: Unable to Obtain Additional Family Medical History / Comment(s): Father and brother have caf au lait spots Father Family Medical History: Unable to Obtain General Exam Limitations: no limitations General appearance: alert, in no apparent distress Head exam: Present: normocephalic Eye exam: Present: normal appearance Respiratory exam: Present: normal lung sounds bilaterally Cardiovascular Exam: Present: regular rate, normal rhythm GI/Abdominal exam: Present: soft. Absent: distended, tenderness Extremities exam: Present: normal inspection Neurological exam: Present: alert. Absent: motor sensory deficit Expanded Motor strength exam: RLE: 5, LLE: 5 Psychiatric exam: Present: normal affect, normal mood Skin exam: Present: other (Lesions consistent with history of neurofibromatosis) Course Vital Signs 04/12/20 07:10 Temperature 98 F Pulse Rate 84 Respiratory 18 Rate Blood Pressure 135/80 O2 Sat by Pulse 98 Oximetry Medical Decision Making - Medical Decision Making Bladder scan with 2 readings over 200. Martinez catheter will be placed Martinez catheter with over 300 mL output Disposition Clinical Impression: Urinary retention Disposition: HOME SELF-CARE Condition: Stable Instructions (If sedation given, give patient instructions): Urinary Retention in Men (ED) Additional Instructions: Please follow-up with urology this week, call tomorrow. Return for fevers, abdominal pain, leg weakness or loss of sensation, worsening symptoms or other concerns. Please also follow-up with primary care physician. Is patient prescribed a controlled substance at d/c from ED?: No Referrals: Nitin Rogel DO [Primary Care Provider] - 1-2 days Eduard Galo MD [STAFF PHYSICIAN] - 1-2 days Time of Disposition: 07:35
== END 2020-04-12 07:55 | disposition home or self-care (01) ==
LOC: EC 07:09
DX: R33.9 Retention of urine, unspecified (principal); G47.30 Sleep apnea, unspecified; G43.909 Migraine, unspecified, not intractable, without status migrainosus; I25.2 Old myocardial infarction; N42.9 Disorder of prostate, unspecified; Z79.899 Other long term (current) drug therapy; Z88.1 Allergy status to other antibiotic agents; Z91.09 Other allergy status, other than to drugs and biological substances; Z86.69 Personal history of other diseases of the nervous system and sense organs
CPT/HCPCS: 51702; 51798; 99283

== ENCOUNTER 2020-11-17 11:12 | Emergency (ER) | payer MEDICARE, OTHER ==
[2020-11-17 11:20] VITALS: BP 152/107; PULSE 83; RESP 16; TEMP 98
[2020-11-17] MEDS ORDERED: MORPHINE SULFATE 4 MG/ML SYRINGE IV STA (11:35)
[2020-11-17] MEDS ORDERED: ONDANSETRON 4 MG/2 ML VIAL IVP STA (11:35)
[2020-11-17] MEDS ORDERED: SODIUM CHLORIDE 0.9% 1,000 ML IV STA (11:35)
[2020-11-17 12:35] LABS: ALT 20 U/L (4-49); AST 17 U/L (17-59); African American GFR (CKD) >90 (>60 ml/min/1.73 sqM); Albumin 4.3 g/dL (3.5-5.0); Alkaline Phosphatase 51 U/L (38-126); Amylase 85 U/L (30-110); Anion Gap 8 mmol/L; Blood Urea Nitrogen 23 mg/dL (9-20); Calcium 9.5 mg/dL (8.4-10.2); Carbon Dioxide 23 mmol/L (22-30); Chloride 108 mmol/L (98-107); Glucose 94 mg/dL (74-99); Lipase 89 U/L (23-300); Non-African American GFR(CKD) 86 (>60 ml/min/1.73 sqM); Sodium 139 mmol/L (137-145); Total Bilirubin 0.5 mg/dL (0.2-1.3); Total Protein 6.7 g/dL (6.3-8.2)
--- NOTE | 2020-11-17 12:55 | CT ---
EXAMINATION TYPE: CT abdomen pelvis w con DATE OF EXAM: 11/17/2020 COMPARISON: 01/26/2020 INDICATION: LLQ pain DLP: 906.2 mGycm, Automated exposure control for dose reduction was used. CONTRAST: 100 mL of Isovue 300. Study performed without Oral Contrast TECHNIQUE: Axial images were obtained from above the diaphragm to the pubic rami in the axial plane a t 5 mm thick sections. Reconstructed images are reviewed on the computer in the coronal plane. FINDINGS: Limited CT sections are obtained the lung bases. The lung bases are clear. CT ABDOMEN: Liver: Normal Spleen: Normal Pancreas: Normal Adrenal glands: The adrenal glands are normal. Gallbladder: Normal Kidneys: No masses are evident. No hydronephrosis is present. No cysts are present. Delayed images were obtained through the kidneys, which remain unremarkable. Aorta: Normal Inferior vena cava: Normal. CT PELVIS: Loops of bowel within the abdomen and pelvis are normal. Diverticulosis of the sigmoid colon is note d. There are loops of bowel which are incompletely distended or lack oral contrast limiting their e valuation. Appendix: Normal as visualized. Urinary bladder: Normal. Genitourinary structures: Prostate appears normal Osseous structures: No suspicious lytic or sclerotic lesions. Soft tissues: There is a hypodensity within the thigh muscles measuring 3.2 cm and 18 Hounsfield unit s. An additional hypodensities in the posterior gluteus delmer measures 1.4 cm and was present previ ously. These were present previously. This is nonspecific. Resolving hematoma could be considered. IMPRESSIONS: 1. No suspicious abnormalities account for left lower quadrant pain. 2. Diverticulosis without acute diverticulitis. 3. Low to intermediate collection within the left medial thigh musculature could be resolving hematom a. An additional right gluteus delmer more subtle hypodensity is present.
[2020-11-17 13:04] LABS: Basophils # (A) 0.1 k/uL (0-0.2); Basophils % (A) 1 %; Eosinophils # (A) 0.5 k/uL (0-0.7); Eosinophils % (A) 5 %; HCT 43.3 % (39.0-53.0); HGB 15.3 gm/dL (13.0-17.5); Lymphocytes # (A) 2.5 k/uL (1.0-4.8); Lymphocytes % (A) 27 %; MCH 31.4 pg (25.0-35.0); MCHC 35.4 g/dL (31.0-37.0); MCV 88.8 fL (80.0-100.0); Mean Platelet Volume 8.8; Monocytes # (A) 0.5 k/uL (0-1.0); Monocytes % (A) 5 %; Neutrophils # (A) 5.7 k/uL (1.3-7.7); Neutrophils % (A) 61 %; Platelet Count 212 k/uL (150-450); RBC 4.87 m/uL (4.30-5.90); WBC 9.4 k/uL (3.8-10.6)
--- NOTE | 2020-11-17 13:24 | ED ---
Abdominal Pain HPI - General Chief Complaint: Abdominal Pain Stated Complaint: abd pain Time Seen by Provider: 11/17/20 11:22 Source: family, RN notes reviewed Mode of arrival: ambulatory Limitations: no limitations - History of Present Illness Initial Comments: Patient is a 30-year-old male that presents to the emergency department stating that he had abdominal pain starting last night. He notes that he went to bed woke up pain was still there. He notes that he took some Motrin which relieved the pain or he notes that he got ready for work came in stated the pain started to come back. He noted the pain was approximate 7-8 out of 10. He notes that Motrin did help mildly. He noted that moving around made the pain worse. He can emergency room to get evaluated for possible appendicitis as she did not want that to happen. He was otherwise a well-appearing 30-year-old male who was well-hydrated. He denied any abdominal medical history. He denied any blood in his stool. He denied any chest pain shortness of breath headache vomiting jakub rrhea constipation fever fatigue chills. - Related Data Home Medications Medication Instructions Recorded Confirmed Metoprolol Tartrate [Lopressor] 25 mg PO BID 03/19/19 04/12/20 Topiramate [Topamax] 100 mg PO HS 12/09/19 04/12/20 Fluticasone Propionate [Flovent 1 puff INHALATION RT-BID 04/12/20 04/12/20 Hfa 110 mcg] Ibuprofen [Motrin] 800 mg PO Q8H PRN 04/12/20 04/12/20 Verapamil HCl [Verapamil ER] 240 mg PO HS 04/12/20 04/12/20 Allergies Allergy/AdvReac Type Severity Reaction Status Date / Time cefaclor [From Ceclor] Allergy FAMILY Verified 11/17/20 11:19 HISTORY cephalexin [From Keflex] Allergy Dyspnea Verified 11/17/20 11:19 sami dressing Allergy Anaphylaxis Uncoded 11/17/20 11:19 Review of Systems ROS Statement: Those systems with pertinent positive or pertinent negative responses have been documented in the HPI. ROS Other: All systems not noted in ROS Statement are negative. Past Medical History Past Medical History: Chest Pain / Angina, Prostate Disorder, Sleep Apnea/CPA P/BIPAP Additional Past Medical History / Comment(s): NEUROFIBROMATOSIS, MIGRAINE HEADACHE, urinary retention History of Any Multi-Drug Resistant Organisms: None Reported Past Surgical History: Adenoidectomy, Ear Surgery, Tonsillectomy Additional Past Surgical History / Comment(s): SKIN BIOPSY-ARM, pyloric stenosis repair Past Anesthesia/Blood Transfusion Reactions: No Reported Reaction Past Psychological History: Depression Smoking Status: Never smoker Past Alcohol Use History: Occasional Past Drug Use History: None Reported - Past Family History Mother Family Medical History: Unable to Obtain Additional Family Medical History / Comment(s): Father and brother have caf au lait spots Father Family Medical History: Unable to Obtain General Exam Limitations: no limitations General appearance: alert, in no apparent distress Head exam: Present: atraumatic, normocephalic, normal inspection Eye exam: Present: normal appearance, PERRL, EOMI. Absent: scleral icterus, conjunctival injection, periorbital swelling ENT exam: Present: normal exam Neck exam: Present: normal inspection Respiratory exam: Present: normal lung sounds bilaterally. Absent: respiratory distress, wheezes, rales, rhonchi, stridor Cardiovascular Exam: Present: regular rate, normal rhythm, normal heart sounds. Absent: systolic murmur, diastolic murmur, rubs, gallop, clicks GI/Abdominal exam: Present: soft, tenderness (Left lower quadrant, right upper quadrant and right lower quadrant with deep palpation.), normal bowel sounds. Absent: distended, guarding, rebound, rigid Extremities exam: Present: normal inspection, full ROM, normal capillary refill. Absent: tenderness, pedal edema, joint swelling, calf tenderness Neurological exam: Present: alert, oriented X3 Psychiatric exam: Present: normal affect, normal mood Skin exam: Present: warm, dry, intact, normal color. Absent: rash Course Vital Signs 11/17/20 11:19 Temperature 98.0 F Pulse Rate 83 Respiratory 16 Rate Blood Pressure 152/107 O2 Sat by Pulse 98 Oximetry Medical Decision Making - Medical Decision Making 30-year-old male complaining of abdominal pain starting last night. Labs, 1 L normal saline, 4 g of Zofran, 4 mg of morphine, CT of the abdomen and pelvis ordered. Labs unremarkable always within normal limits. Computed tomography scan negative for any acute abdominal process. Case discussed with Dr. Villavicencio, patient can discharge home with follow-up primary care. - Lab Data Result diagrams: 11/17/20 12:09 11/17/20 12:09 Lab Results 11/17/20 11/17/20 11/17/20 Range/Units 12:09 12:09 12:09 WBC 9.4 (3.8-10.6) k/uL RBC 4.87 (4.30-5.90) m/uL Hgb 15.3 (13.0-17.5) gm/dL Hct 43.3 (39.0-53.0) % MCV 88.8 (80.0-100.0) fL MCH 31.4 (25.0-35.0) pg MCHC 35.4 (31.0-37.0) g/dL RDW 12.0 (11.5-15.5) % Plt Count 212 (150-450) k/uL MPV 8.8 Neutrophils % 61 % Lymphocytes % 27 % Monocytes % 5 % Eosinophils % 5 % Basophils % 1 % Neutrophils # 5.7 (1.3-7.7) k/uL Lymphocytes # 2.5 (1.0-4.8) k/uL Monocytes # 0.5 (0-1.0) k/uL Eosinophils # 0.5 (0-0.7) k/uL Basophils # 0.1 (0-0.2) k/uL Sodium 139 (137-145) mmol/L Potassium 4.0 (3.5-5.1) mmol/L Chloride 108 H (98-107) mmol/L Carbon Dioxide 23 (22-30) mmol/L Anion Gap 8 mmol/L BUN 23 H (9-20) mg/dL Creatinine 1.15 (0.66-1.25) mg/dL Est GFR (CKD-EPI)AfAm >90 (>60 ml/min/1.73 sqM) Est GFR (CKD-EPI)NonAf 86 (>60 ml/min/1.73 sqM) Glucose 94 (74-99) mg/dL Plasma Lactic Acid Feliz 0.9 (0.7-2.0) mmol/L Calcium 9.5 (8.4-10.2) mg/dL Total Bilirubin 0.5 (0.2-1.3) mg/dL AST 17 (17-59) U/L ALT 20 (4-49) U/L Alkaline Phosphatase 51 (38-126) U/L Total Protein 6.7 (6.3-8.2) g/dL Albumin 4.3 (3.5-5.0) g/dL Amylase 85 (30-110) U/L Lipase 89 (23-300) U/L - Radiology Data Radiology results: report reviewed, image reviewed CT of the abdomen and pelvis: No suspicious abnormalities account for left lower quadrant pain. Diverticulosis without acute diverticulitis. Low to intermediate fluid collection with in the left medial thigh musculature could be resolving hematoma. An additional right gluteus delmer more subtle hypodensity is present. Disposition Clinical Impression: Abdominal pain Disposition: HOME SELF-CARE Condition: Stable Instructions (If sedation given, give patient instructions): Abdominal Pain (ED) Additional Instructions: Please return to the Emergency Department if symptoms worsen or any other concerns. Follow-up with primary care in the next 1-2 days. Work note given for today. Continue take at home Motrin around the clock as needed for pain control. Eat a bland diet to help with digestion and bowel rest. Is patient prescribed a controlled substance at d/c from ED?: No Referrals: Nitin Rogel DO [Primary Care Provider] - 1-2 days Time of Disposition: 13:24
== END 2020-11-17 13:40 | disposition home or self-care (01) ==
LOC: EC 11:12
DX: R10.32 Left lower quadrant pain (principal); R10.11 Right upper quadrant pain; R10.31 Right lower quadrant pain; Z79.899 Other long term (current) drug therapy
CPT/HCPCS: 96374; 96375; 99284; 80053; 82150; 83605; 83690; 85025; 74177; J2270; J2405; Q9967

== ENCOUNTER → 2020-12-03 | Outpatient (CLI) | payer MEDICARE, OTHER ==
--- NOTE | 2020-12-03 13:25 | US ---
EXAMINATION TYPE: US abdomen complete DATE OF EXAM: 12/03/2020 COMPARISON: CLINICAL HISTORY: I73.9 Peripheral vascular disease. LLQ pain per patient. Patient not NPO, patient has been on liquid diet and had sprite and beef broth EXAM MEASUREMENTS: Liver Length: 16.1 cm Gallbladder Wall: 0.1 cm CBD: 0.3 cm Spleen: 13.6 cm Right Kidney: 9.4 x 5.0 x 3.2 cm Left Kidney: 9.8 x 4.1 x 3.9 cm Pancreas: Mid and tail obscured by overlying bowel gas Liver: wnl Gallbladder: Limited visualization due to nonNPO status Evidence for sonographic Garcia's sign: neg CBD: wnl Spleen: enlarged in size Right Kidney: No hydronephrosis or masses seen Left Kidney: No hydronephrosis or masses seen Upper IVC: wnl Abd Aorta: No AAA visualized in portions seen IMPRESSION: 1. Limited exam as discussed above demonstrates borderline splenomegaly.
== END | disposition home or self-care (01) ==
LOC: RADUSWWP 12:18
PROVIDERS: ATTEND Family Medicine
DX: R16.1 Splenomegaly, not elsewhere classified (principal)
CPT/HCPCS: 76700

== ENCOUNTER 2020-12-04 11:55 | Inpatient (IN) | payer MEDICARE, OTHER ==
[2020-12-04 12:53] LABS: Basophils # (A) 0.1 k/uL (0-0.2); Basophils % (A) 1 %; Eosinophils # (A) 0.4 k/uL (0-0.7); Eosinophils % (A) 4 %; HCT 45.4 % (39.0-53.0); HGB 15.9 gm/dL (13.0-17.5); Lymphocytes # (A) 2.3 k/uL (1.0-4.8); Lymphocytes % (A) 24 %; MCH 31.7 pg (25.0-35.0); MCV 90.3 fL (80.0-100.0); Mean Platelet Volume 8.2; Monocytes # (A) 0.5 k/uL (0-1.0); Monocytes % (A) 6 %; Neutrophils # (A) 6.3 k/uL (1.3-7.7); Neutrophils % (A) 64 %; Platelet Count 270 k/uL (150-450); RBC 5.02 m/uL (4.30-5.90); WBC 9.8 k/uL (3.8-10.6)
[2020-12-04] MEDS ORDERED: KETOROLAC 15 MG/ML 1 ML VIAL IVP STA (12:56)
[2020-12-04] MEDS ORDERED: SODIUM CHLORIDE 0.9% 1,000 ML IV STA ×3 (12:56→13:41)
--- NOTE | 2020-12-04 12:56 | ED ---
Abdominal Pain HPI - General Chief Complaint: Abdominal Pain Stated Complaint: L side pain Time Seen by Provider: 12/04/20 12:20 Source: patient, RN notes reviewed Mode of arrival: ambulatory Limitations: no limitations - History of Present Illness Initial Comments: This is a 30-year-old male with a history of neurofibromatosis and a history of a stimulator for his bladder who presents with complaints of stabbing left-sided chest and upper quadrant pain. He recently been admitted to [facility] for the same an ultrasound done yesterday with results pending he did have a endoscopy which was apparently within normal limits. He does state he's had decreased oral intake even on a liquid diet. He does occasionally have some lightheadedness and dizziness with attempts to ambulate The pain is about 8/10 severity no shortness of breath no cough or phlegm production he says he does occasionally is some hematuria was cleared up. No fevers chills sweats other symptoms at this time no other modifying factors MD Complaint: flank pain - Related Data Home Medications Medication Instructions Recorded Confirmed Topiramate [Topamax] 100 mg PO BID 12/09/19 12/04/20 Verapamil HCl [Verapamil ER] 240 mg PO DAILY 04/12/20 12/04/20 Ciprofloxacin HCl [Cipro] 500 mg PO Q12HR 12/04/20 12/04/20 EPINEPHrine (Auto Inject) [Epipen] 0.3 mg IM ONCE PRN 12/04/20 12/04/20 Metoprolol Succinate (ER) [Toprol 50 mg PO DAILY 12/04/20 12/04/20 Xl] PARoxetine [Paxil] 20 mg PO DAILY 12/04/20 12/04/20 Pantoprazole Sodium [Protonix] 40 mg PO DAILY 12/04/20 12/04/20 metroNIDAZOLE [Flagyl] 500 mg PO Q8H 12/04/20 12/04/20 Allergies Allergy/AdvReac Type Severity Reaction Status Date / Time cefaclor [From Ceclor] Allergy FAMILY Verified 12/04/20 16:07 HISTORY cephalexin [From Keflex] Allergy Dyspnea Verified 12/04/20 16:07 mohawk dressing Allergy Anaphylaxis Uncoded 12/04/20 12:07 Review of Systems ROS Statement: Those systems with pertinent positive or pertinent negative responses have been documented in the HPI. ROS Other: All systems not noted in ROS Statement are negative. Past Medical History Past Medical History: Chest Pain / Angina, Prostate Disorder, Sleep Apnea/CPAP/BIPAP Additional Past Medical History / Comment(s): NEUROFIBROMATOSIS, MIGRAINE HEADACHE, urinary retention History of Any Multi-Drug Resistant Organisms: None Reported Past Surgical History: Adenoidectomy, Ear Surgery, Tonsillectomy Additional Past Surgical History / Comment(s): SKIN BIOPSY-ARM, pyloric stenosis repair Past Anesthesia/Blood Transfusion Reactions: No Reported Reaction Past Psychological History: Depression Smoking Status: Never smoker Past Alcohol Use History: Occasional Past Drug Use History: None Reported - Past Family History Mother Family Medical History: Unable to Obtain Additional Family Medical History / Comment(s): Father and brother have caf au lait spots Father Family Medical History: Unable to Obtain General Exam - General Exam Comments Initial Comments: This is a well-developed well-nourished awake alert oriented times 3 male Limitations: no limitations General appearance: alert, anxious Head exam: Present: atraumatic, normocephalic, normal inspection Eye exam: Present: normal appearance, PERRL, EOMI. Absent: scleral icterus, conjunctival injection, periorbital swelling ENT exam: Present: mucous membranes dry Neck exam: Present: normal inspection. Absent: tenderness, meningismus, lymphadenopathy Respiratory exam: Present: normal lung sounds bilaterally. Absent: respiratory distress, wheezes, rales, rhonchi, stridor Cardiovascular Exam: Present: regular rate, normal rhythm, normal heart sounds. Absent: systolic murmur, diastolic murmur, rubs, gallop, clicks GI/Abdominal exam: Present: soft, tenderness (Left flank and some anterior tenderness palpation no overt guarding rebound masses or bruits), normal bowel sounds. Absent: distended, guarding, rebound, rigid Rectal exam: Present: deferred Extremities exam: Present: full ROM, normal capillary refill. Absent: tenderness, pedal edema, joint swelling, calf tenderness Back exam: Present: normal inspection Neurological exam: Present: alert, oriented X3, CN II-XII intact Psychiatric exam: Present: normal affect, normal mood Skin exam: Present: warm, dry, intact, normal color, other (Patient does demonstrate the stigmata of neurofibromatosis with multiple lesions over his entire integument.). Absent: rash Course Vital Signs 12/04/20 12/04/20 12:03 14:36 Temperature 98.4 F 98.1 F Pulse Rate 83 71 Respiratory 20 13 Rate Blood Pressure 129/76 121/62 O2 Sat by Pulse 97 96 Oximetry Medical Decision Making - Medical Decision Making The patient has gotten minimal relief thus far from a medication was rendered at this time the abdominal pain is of unknown etiology I did discuss findings with the [facility] service patient will be admitted to Dr. Kinsey. - Lab Data Result diagrams: 12/04/20 12:42 12/04/20 12:42 Lab Results 12/04/20 12/04/20 12/04/20 Range/Units 12:42 12:42 12:42 WBC 9.8 (3.8-10.6) k/uL RBC 5.02 (4.30-5.90) m/uL Hgb 15.9 (13.0-17.5) gm/dL Hct 45.4 (39.0-53.0) % MCV 90.3 (80.0-100.0) fL MCH 31.7 (25.0-35.0) pg MCHC 35.0 (31.0-37.0) g/dL RDW 13.0 (11.5-15.5) % Plt Count 270 (150-450) k/uL MPV 8.2 Neutrophils % 64 % Lymphocytes % 24 % Monocytes % 6 % Eosinophils % 4 % Basophils % 1 % Neutrophils # 6.3 (1.3-7.7) k/uL Lymphocytes # 2.3 (1.0-4.8) k/uL Monocytes # 0.5 (0-1.0) k/uL Eosinophils # 0.4 (0-0.7) k/uL Basophils # 0.1 (0-0.2) k/uL Sodium 139 (137-145) mmol/L Potassium 4.6 (3.5-5.1) mmol/L Chloride 107 (98-107) mmol/L Carbon Dioxide 22 (22-30) mmol/L Anion Gap 10 mmol/L BUN 10 (9-20) mg/dL Creatinine 0.91 (0.66-1.25) mg/dL Est GFR (CKD-EPI)AfAm >90 (>60 ml/min/1.73 sqM) Est GFR (CKD-EPI)NonAf >90 (>60 ml/min/1.73 sqM) Glucose 105 H (74-99) mg/dL Lactic Ac Sepsis Rflx Plasma Lactic Acid Feliz 2.1 H* (0.7-2.0) mmol/L Calcium 9.8 (8.4-10.2) mg/dL Magnesium 1.9 (1.6-2.3) mg/dL Total Bilirubin 0.5 (0.2-1.3) mg/dL AST 23 (17-59) U/L ALT 28 (4-49) U/L Alkaline Phosphatase 48 (38-126) U/L Creatine Kinase 59 (55-170) U/L Troponin I (0.000-0.034) ng/mL Total Protein 6.8 (6.3-8.2) g/dL Albumin 4.3 (3.5-5.0) g/dL Amylase 77 (30-110) U/L Lipase 126 (23-300) U/L 12/04/20 12/04/20 12/04/20 Range/Units 12:42 13:14 16:30 WBC (3.8-10.6) k/uL RBC (4.30-5.90) m/uL Hgb (13.0-17.5) gm/dL Hct (39.0-53.0) % MCV (80.0-100.0) fL MCH (25.0-35.0) pg MCHC (31.0-37.0) g/dL RDW (11.5-15.5) % Plt Count (150-450) k/uL MPV Neutrophils % % Lymphocytes % % Monocytes % % Eosinophils % % Basophils % % Neutrophils # (1.3-7.7) k/uL Lymphocytes # (1.0-4.8) k/uL Monocytes # (0-1.0) k/uL Eosinophils # (0-0.7) k/uL Basophils # (0-0.2) k/uL Sodium (137-145) mmol/L Potassium (3.5-5.1) mmol/L Chloride (98-107) mmol/L Carbon Dioxide (22-30) mmol/L Anion Gap mmol/L BUN (9-20) mg/dL Creatinine (0.66-1.25) mg/dL Est GFR (CKD-EPI)AfAm (>60 ml/min/1.73 sqM) Est GFR (CKD-EPI)NonAf (>60 ml/min/1.73 sqM) Glucose (74-99) mg/dL Lactic Ac Sepsis Rflx Y Plasma Lactic Acid Feliz 0.9 (0.7-2.0) mmol/L Calcium (8.4-10.2) mg/dL Magnesium (1.6-2.3) mg/dL Total Bilirubin (0.2-1.3) mg/dL AST (17-59) U/L ALT (4-49) U/L Alkaline Phosphatase (38-126) U/L Creatine Kinase (55-170) U/L Troponin I <0.012 (0.000-0.034) ng/mL Total Protein (6.3-8.2) g/dL Albumin (3.5-5.0) g/dL Amylase (30-110) U/L Lipase (23-300) U/L - Radiology Data Radiology results: report reviewed (Evaluation of various modalities show no acute findings patient does have evidence of diverticulosis also evidence of some splenic hypertrophy. No other findings), image reviewed Disposition Clinical Impression: Abdominal pain Disposition: ADMITTED IP TO THIS [facility] Condition: Stable Referrals: Nitin Rogel DO [Primary Care Provider] - 1-2 days
[2020-12-04 13:15] LABS: ALT 28 U/L (4-49); AST 23 U/L (17-59); African American GFR (CKD) >90 (>60 ml/min/1.73 sqM); Albumin 4.3 g/dL (3.5-5.0); Alkaline Phosphatase 48 U/L (38-126); Amylase 77 U/L (30-110); Anion Gap 10 mmol/L; Blood Urea Nitrogen 10 mg/dL (9-20); Calcium 9.8 mg/dL (8.4-10.2); Carbon Dioxide 22 mmol/L (22-30); Chloride 107 mmol/L (98-107); Creatine Kinase 59 U/L (55-170); Glucose 105 mg/dL (74-99); Lipase 126 U/L (23-300); Magnesium 1.9 mg/dL (1.6-2.3); Non-African American GFR(CKD) >90 (>60 ml/min/1.73 sqM); Potassium 4.6 mmol/L (3.5-5.1); Sodium 139 mmol/L (137-145); Total Bilirubin 0.5 mg/dL (0.2-1.3); Total Protein 6.8 g/dL (6.3-8.2)
--- NOTE | 2020-12-04 13:39 | XR ---
EXAMINATION TYPE: XR KUB DATE OF EXAM: 12/04/2020 COMPARISON: 12/27/2017 HISTORY: Abdomen pain TECHNIQUE: Single view abdomen upright view FINDINGS: There are multiple scattered rounded densities throughout the abdomen. These were present p reviously. Correlate with patient's history. Normal colonic bowel gas is present. Psoas margins are normal. Osseous structures appear normal. Electronic device is over the left hip. IMPRESSION: 1. No suspicious interval changes. 2. Scattered nodularities likely within subcutaneous tissue. Does the patient have neurofibromatosis? Correlate with the patient's history
[2020-12-04] MEDS ORDERED: DICYCLOMINE 10 MG/ML 2 ML AMP IM STA (14:33)
--- NOTE | 2020-12-04 15:31 | CT ---
EXAMINATION TYPE: CT abdomen pelvis w con DATE OF EXAM: 12/04/2020 COMPARISON: 11/17/2020 INDICATION: Continued pain from prior scan. DLP: 932 mGycm, Automated exposure control for dose reduction was used. CONTRAST: 100 mL of Isovue 300. Study performed without Oral Contrast TECHNIQUE: Axial images were obtained from above the diaphragm to the pubic rami in the axial plane a t 5 mm thick sections. Reconstructed images are reviewed on the computer in the coronal plane. FINDINGS: Limited CT sections are obtained the lung bases. The lung bases are clear. CT ABDOMEN: No free fluid is evident. No organ lacerations are identified. There is a 5.0 x 2.4 cm hy podensity within the lateral abdominal musculature to the right. This could be a intramuscular hemato ma. This is slightly smaller than comparison. Liver: Normal Spleen: Normal Pancreas: Normal Adrenal glands: The adrenal glands are normal. Gallbladder: Decompressed but otherwise unremarkable Kidneys: No masses are evident. No hydronephrosis is present. No cysts are present. Delayed images were obtained through the kidneys, which remain unremarkable. Aorta: Vascular calcification is within the aorta. Inferior vena cava: Normal. CT PELVIS: A few diverticula are present. No acute diverticulitis is evident. This study is performed without or al contrast limiting bowel evaluation. Fecal debris is within the ascending colon. Appendix: Normal as visualized. Urinary bladder: Normal. Genitourinary structures: Prostate is slight prominence Osseous structures: No suspicious lytic or sclerotic lesions. There is a hypodense area within the medial quadriceps muscles near the inguinal region this was pres ent previously IMPRESSIONS: 1. No suspicious acute abnormality to account for abdomen pain. 2. Findings are stable over the interval.
[2020-12-04] MEDS ORDERED: ORPHENADRINE 30 MG/ML 2 ML VIAL IVP STA (15:47)
[2020-12-04] MEDS ORDERED: HYDROmorphone 0.5 MG/0.5 ML SYRINGE IVP STA (15:50)
[2020-12-04] MEDS ORDERED: NALOXONE 0.4 MG/ML 1 ML VIAL IV PRN (17:59)
[2020-12-04] MEDS ORDERED: PANTOPRAZOLE 40 MG/10 ML VIAL IVP ONE (18:01)
[2020-12-04 20:49] LABS: Appearance,Urine Clear (Clear); Bilirubin,Urine Negative (Negative); Blood,Urine Negative (Negative); Color,Urine Yellow; Glucose,Urine (UA) Negative (Negative); Ketones,Urine Negative (Negative); Leukocyte Esterase,Urine Negative (Negative); Nitrite,Urine Negative (Negative); PH, Urine 7.5 (5.0-8.0); Protein,Urine Negative (Negative); Urobilinogen,Urine <2.0 mg/dL (<2.0)
[2020-12-04 21:05] LABS: Amphetamine Screen,Urine Not Detected (NotDetected); Barbiturate Screen,Urine Not Detected (NotDetected); Benzodiazepines Screen,Urine Not Detected (NotDetected); Cocaine Screen,Urine Not Detected (NotDetected); Methadone Screen, Urine Not Detected (NotDetected); Opiate Screen,Urine Detected (NotDetected); Oxycodone Screen, Urine Not Detected (NotDetected); Phencyclidine Screen,Urine Not Detected (NotDetected); Tricyclic Antidepressant,Urine Not Detected (NotDetected); Urn Cannabinoid Scrn Not Detected (NotDetected)
--- NOTE | 2020-12-04 21:29 | HP ---
HISTORY AND PHYSICAL DATE OF SERVICE: 12/04/2020 CHIEF COMPLAINT: Abdominal pain. HISTORY OF PRESENT ILLNESS: This 30-year-old gentleman with a past medical history of prostate disorder, history of sleep apnea, history of neurofibromatosis, migraine headaches, adenoidectomy, history of depression, being followed by Dr. Nitin Rogel in the outpatient setting, was complaining of left abdominal pain starting from the front of the abdomen radiating to the back which was sharp in character. The patient was apparently recently admitted to [facility]. The patient also had a stimulant for bladder. The pain was more stabbing in character. The patient did have endoscopy recently and was evaluated by Dr. Cabrera and Dr. Nielson apparently at [facility]. The patient also had diminished p.o. intake. Because of severe pain, the patient came to [facility] and was admitted for evaluation and treatment. The patient had an abdominal ultrasound recently which showed splenomegaly. The patient also underwent abdominal and pelvic CT scan which showed no splenomegaly. Liver was also normal. There is no history of any fever, rigors or chills. No history of headache, loss of consciousness, seizures at this time. PAST MEDICAL HISTORY: Chest pain, angina, sleep apnea, neurofibromatosis type 1 and 2, migraine headaches, adenoidectomy, ear surgery, depression. MEDICATIONS: Home medications are Flagyl, verapamil, Topamax, Protonix, Paxil, Toprol, EpiPen, Cipro. Doses are reviewed. ALLERGIES: CEFACLOR, KEFLEX and EG[place] DRESSING. FAMILY HISTORY: Unable to obtain. Father and brother had cafe au lait spots. REVIEW OF SYSTEMS: ENT: No diminished hearing. No diminished vision. CARDIOVASCULAR SYSTEM: No angina, palpitations. RESPIRATORY SYSTEM: No cough, hemoptysis. GI: As mentioned earlier. : As mentioned earlier. NERVOUS SYSTEM: As mentioned earlier. ALLERGY/IMMUNOLOGY: No asthma or hay fever. MUSCULOSKELETAL: As mentioned earlier. HEMATOLOGY/ONCOLOGY: No history of anemia. ENDOCRINE: No history of diabetes or hypothyroidism. CONSTITUTIONAL: As mentioned earlier. DERMATOLOGY: As mentioned earlier. RHEUMATOLOGY: Negative. PSYCHIATRY: As mentioned earlier. PHYSICAL EXAMINATION: Patient is alert and oriented x3. Pulse 71, blood pressure 120/60, respiration 13, 98.2, pulse ox 96% on room air. HEENT: Conjunctivae normal. NECK: No jugular venous distention. CARDIOVASCULAR SYSTEM: S1, S2 muffled. RESPIRATORY: Breath sounds diminished at the bases. No rhonchi. No crackles. ABDOMEN: Soft. Mild diffuse tenderness in the left side of the abdomen. No guarding. No rigidity. No mass palpable. LEGS: No edema. No swelling. NERVOUS SYSTEM: Higher functions as mentioned earlier. Moves all 4 limbs. No focal motor or sensory deficit. LYMPHATICS: No lymph node palpable in neck, axillae or groin. SKIN: Diffuse neurofibromatosis and cafe au lait spots also present. JOINTS: No active deforming arthropathy. LABS: CBC within normal limits. Lactic acid is 2.1 and 0.9. Glucose 105. ASSESSMENT: 1. Left-sided abdominal pain for evaluation. Rule out nephrolithiasis. 2. Neurofibromatosis. 3. History of apparent splenomegaly on the ultrasound of the abdomen. 4. Elevated plasma lactic acid 2.1, improved with IV fluids. 5. History of chest pain. 6. History of prostate disorder. 7. History of sleep apnea. 8. History of migraine headaches. 9. History of neurofibromatosis, type 1 and 2. 10.History of adenoidectomy. 11.History of tonsillectomy. 12.History of skin biopsy. 13.History of pyloric stenosis repair. 14.History of depression. 15.FULL CODE. RECOMMENDATIONS AND DISCUSSION: In this 30-year-old gentleman who presented with multiple complex medical issues, we will monitor the patient closely, continue the current medications, continue symptomatic treatment. I would recommend proton pump inhibitors empirically. N.p.o. except medications. Repeat labs. Closely monitor. Guarded prognosis because of multiple complex medical issues. Further recommendations to follow. I will check a UA with micro also to complete the workup. See orders for further details. MMODL / IJN: [id number] / RADHA
[2020-12-04] MEDS: SODIUM CHLORIDE 0.9% 1,000 ML IV SCH (21:42)
[2020-12-04] MEDS: PANTOPRAZOLE 40 MG/10 ML VIAL IV SCH (21:51)
[2020-12-04] MEDS: HYDROmorphone 1 MG/ML 1 ML SYRINGE IVP PRN (21:52)
[2020-12-04] MEDS: LEVOFLOXACIN 500MG-D5W PMX 500 MG in DEXTROSE/WATER 1 100ML.BAG IVPB SCH (22:07)
[2020-12-04] MEDS: TOPIRAMATE 100 MG TAB PO SCH (22:07)
[2020-12-05] MEDS: metroNIDAZOLE-NS PMX 500 MG in SALINE 1 100ML.BAG IVPB SCH ×4 (00:43→23:47)
[2020-12-05] MEDS: HYDROmorphone 1 MG/ML 1 ML SYRINGE IVP PRN ×4 (01:56→16:31)
[2020-12-05] MEDS: SODIUM CHLORIDE 0.9% 1,000 ML IV SCH ×3 (01:58→16:24)
[2020-12-05] MEDS: ONDANSETRON 4 MG/2 ML VIAL IVP PRN ×2 (03:58→11:47)
[2020-12-05 06:24] LABS: Basophils # (A) 0.1 k/uL (0-0.2); Basophils % (A) 1 %; Eosinophils # (A) 0.4 k/uL (0-0.7); Eosinophils % (A) 5 %; HCT 41.1 % (39.0-53.0); HGB 14.2 gm/dL (13.0-17.5); Lymphocytes % (A) 27 %; MCH 31.7 pg (25.0-35.0); MCHC 34.5 g/dL (31.0-37.0); MCV 91.7 fL (80.0-100.0); Mean Platelet Volume 8.2; Monocytes # (A) 0.4 k/uL (0-1.0); Monocytes % (A) 5 %; Neutrophils # (A) 4.5 k/uL (1.3-7.7); Neutrophils % (A) 60 %; Platelet Count 223 k/uL (150-450); RBC 4.48 m/uL (4.30-5.90); RDW 13.2 % (11.5-15.5); WBC 7.4 k/uL (3.8-10.6)
[2020-12-05] MEDS: PANTOPRAZOLE 40 MG/10 ML VIAL IV SCH ×2 (08:01→20:33)
[2020-12-05] MEDS: METOPROLOL SUCCINATE (ER) 50 MG TAB.ER.24H PO SCH (08:07)
[2020-12-05] MEDS: PARoxetine 20 MG TAB PO SCH (08:08)
[2020-12-05] MEDS: TOPIRAMATE 100 MG TAB PO SCH ×2 (08:08→20:34)
[2020-12-05] MEDS: VERAPAMIL SR 240 MG TABLET.ER PO SCH (08:08)
[2020-12-05] MEDS ORDERED: PANTOPRAZOLE 40 MG/10 ML VIAL IV SCH (09:00)
[2020-12-05 09:48] LABS: African American GFR (CKD) 132.4 (60.0-200.0); Anion Gap 1.7 mmol/L (4.00-12.00); BUN/Creat Ratio 11.11 Ratio (12.00-20.00); Calcium 8.3 mg/dL (8.7-10.3); Carbon Dioxide 24.3 mmol/L (21.6-31.8); Non-African American GFR(CKD) 114.2 (60.0-200.0); Potassium 4.8 mmol/L (3.5-5.5)
[2020-12-05 11:33] VITALS: BMI 25.8
--- NOTE | 2020-12-05 15:56 | PN ---
PROGRESS NOTE DATE OF SERVICE: 12/05/2020. HISTORY OF PRESENT ILLNESS: This 30-year-old gentleman with a past medical history of neurofibroma type 1 and 2, being followed by Dr. Nitin Rogel in the outpatient setting, was recently admitted to [facility] with complaints of severe abdominal pain. The patient had recurrence of abdominal pain with failure of outpatient therapy. Patient was admitted for evaluation and treatment. An ultrasound apparently showed evidence of splenomegaly up to 13.6 cm, however, the CT scan is reported as normal. There is no history of any fever, rigor or chills at this time. PHYSICAL EXAMINATION: Alert and oriented. Pulse 67, blood pressure 120/72, respiration 18, temperature 98.2, pulse ox 98% on room air. Conjunctivae normal. Neck no JVD. Cardiovascular exam normal. Muffled breath sounds at the bases. No rhonchi no crackles. Abdomen is soft, mild diffuse tenderness in the left side of the abdomen present. Skin multiple neurofibromatous and capsular patches also present. LABS: CBC within normal limits. ASSESSMENT: 1. Left-sided abdominal pain, rule out nephrolithiasis or related to neurofibromatosis. 2. Neurofibromatosis type 1 and 2. 3. History of hepatosplenomegaly on ultrasound, but with normal CT scan of the abdomen. 4. Elevated plasma lactic acid 2.1, improved with IV fluids, possibly dehydration present on admission. 5. History of chest pain. 6. History of prostate disorder. 7. History of sleep apnea. 8. History of migraine headaches. 9. History of adenoidectomy. 10.History of tonsillectomy. 11.History of skin biopsy. 12.History of pyloric stenosis repair. 13.History of depression. 14.FULL CODE. RECOMMENDATIONS: Continue current management and symptomatic treatment. Add Neurontin to the current regimen. Advance diet to clear liquids and advance as tolerated. Cautious IV fluids. Guarded prognosis because of multiple complex medical issues. Further recommendations to follow. MMODL / IJN: [id number] /
[2020-12-05] MEDS: GABAPENTIN 100 MG CAP PO SCH ×2 (16:23→22:00)
[2020-12-05] MEDS: KETOROLAC 15 MG/ML 1 ML VIAL IVP PRN ×2 (18:04→23:53)
[2020-12-05] MEDS: LEVOFLOXACIN 500MG-D5W PMX 500 MG in DEXTROSE/WATER 1 100ML.BAG IVPB SCH (20:34)
[2020-12-06] MEDS: HYDROmorphone 1 MG/ML 1 ML SYRINGE IVP PRN ×4 (05:20→23:47)
[2020-12-06] MEDS: SODIUM CHLORIDE 0.9% 1,000 ML IV SCH ×2 (06:26→10:19)
[2020-12-06] MEDS: metroNIDAZOLE-NS PMX 500 MG in SALINE 1 100ML.BAG IVPB SCH ×3 (07:37→23:44)
[2020-12-06] MEDS: ONDANSETRON 4 MG/2 ML VIAL IVP PRN ×2 (07:37→17:34)
[2020-12-06] MEDS: GABAPENTIN 100 MG CAP PO SCH ×3 (08:17→19:59)
[2020-12-06] MEDS: PARoxetine 20 MG TAB PO SCH (08:17)
[2020-12-06] MEDS: VERAPAMIL SR 240 MG TABLET.ER PO SCH (08:18)
[2020-12-06] MEDS: PANTOPRAZOLE 40 MG/10 ML VIAL IV SCH ×2 (08:18→19:59)
[2020-12-06] MEDS: METOPROLOL SUCCINATE (ER) 50 MG TAB.ER.24H PO SCH (08:18)
[2020-12-06] MEDS: TOPIRAMATE 100 MG TAB PO SCH ×2 (08:18→19:59)
--- NOTE | 2020-12-06 14:13 | PN ---
PROGRESS NOTE DATE OF SERVICE: 12/06/2020 This 30-year-old gentleman with a past medical history of neurofibromatosis, type 1 and 2, being followed by Dr. Nitin Rogel, was admitted with abdominal pain. The patient was struggling with abdominal pain for several weeks, according to the patient's mother, and the patient has been in different hospitals apparently. The patient also had multiple evaluations. Currently the CT scan of the abdomen and pelvis did not show any acute abnormality; however, the patient had an ultrasound of the abdomen on top of this which showed some splenomegaly. The pain is consistently on the left side and the patient's mother also reports seeing some red skin lesions. The patient was apparently admitted to [facility], was evaluated by Dr. Cabrera also at this time. The patient apparently had an EGD as well. The patient's mother is frustrated because there is no specific reason for the abdominal pain at this time. The patient's mother also reports that the patient previously had evidence of hematemesis, and they could not find any specific lesions. She is also worried about his gallbladder. The patient also had some urinary difficulties, which have been evaluated by multiple doctors, and finally [facility] performed a bladder stimulator, which gives some relief at this time. The patient was also given empiric antibiotics. Past medical history reviewed. REVIEW OF SYSTEMS: CARDIOVASCULAR SYSTEM: No angina or palpitations. RESPIRATION: No cough. GI: As mentioned earlier. : ntd CURRENT MEDICATIONS: Current medications are reviewed and include Neurontin, Dilaudid, Toradol, Levaquin, Flagyl, Protonix, Paxil, Topamax, Isoptin. Dilaudid 1 mg q. p.r.n. PHYSICAL EXAMINATION: Patient is alert, oriented x3. Pulse 62, blood pressure 110/65, respirations 17, temperature 98.2, pulse ox 98% on room air. HEENT: Conjunctivae normal. NECK: No jugular venous distention. CARDIOVASCULAR SYSTEM: S1, S2 muffled. RESPIRATORY: Breath sounds diminished at the bases. A few scattered rhonchi. ABDOMEN: Soft. Mild diffuse tenderness in the left mid quadrant present. No guarding. No rigidity. No mass palpable. LEGS: No edema. No swelling. NERVOUS SYSTEM: No focal deficit. SKIN: Multiple diffuse neurofibromatosis and cafe au lait patches also present. LABS: CBC within normal limits. Sodium 137, potassium 4.8. Anion gap is 1.70. ASSESSMENT: 1. Intractable left-sided abdominal pain of undetermined etiology. 2. Neurofibromatosis, type 1 and 2. 3. History of splenomegaly on ultrasound with normal CT scan of the abdomen reported later. 4. Elevated plasma lactic acid of 2.1, improved with IV fluids, possible dehydration, present on admission. 5. History of chest pain. 6. History of prostate disorder. 7. History of sleep apnea. 8. History of migraine headaches. 9. History of adenoidectomy. 10.History of tonsillectomy. 11.History of skin biopsy. 12.History of pyloric stenosis repair. 13.History of depression. 14.FULL CODE. RECOMMENDATIONS AND DISCUSSION: I recommend to continue current medications, continue with symptomatic treatment. I recommend surgical and gastroenterology evaluations. Continue with conservative line of management. Repeat labs will be ordered for tomorrow. Guarded prognosis, which I discussed at length with the patient's family at the bedside. Further recommendations to follow. MMODL / IJN: [id number] / MTDBuddy
[2020-12-06 15:13] LABS: ALT 22 U/L (4-49); AST 22 U/L (17-59); African American GFR (CKD) >90 (>60 ml/min/1.73 sqM); Albumin 3.5 g/dL (3.5-5.0); Albumin/Globulin Ratio 1.5; Alkaline Phosphatase 32 U/L (38-126); Anion Gap 8 mmol/L; Blood Urea Nitrogen 12 mg/dL (9-20); Calcium 8.7 mg/dL (8.4-10.2); Carbon Dioxide 18 mmol/L (22-30); Chloride 108 mmol/L (98-107); Globulin 2.4 g/dL; Glucose 118 mg/dL (74-99); Non-African American GFR(CKD) >90 (>60 ml/min/1.73 sqM); Potassium 3.7 mmol/L (3.5-5.1); Sodium 134 mmol/L (137-145); Total Bilirubin 0.6 mg/dL (0.2-1.3); Total Protein 5.9 g/dL (6.3-8.2)
[2020-12-06] MEDS: KETOROLAC 15 MG/ML 1 ML VIAL IVP PRN (15:57)
--- NOTE | 2020-12-06 18:04 | P.GSCN ---
History of Present Illness Consult date: 12/06/20 History of present illness: CHIEF COMPLAINT: Abdominal pain HISTORY OF PRESENT ILLNESS: The patient is a 30 year old male who presents with 1 month history of chronic abdominal pain at the left flank to left lower back. He was hospitalizwed at [facility] in the last 2 to 3 weeks for similar episode and had EGD which he reports only showed gastritis. His pain mildly did improve but recurred after going back home. "The pain is so severe that I can't eat; I am always nauseated." He has been seeing his primary care provider for persistent left lower quadrant abdominal pain. No recent colonoscopies performed. He does report change in bowel habits with diarrhea. He also reports having blood in his urine and had a recent cysto less than 4 weeks ago and was clear. He presented to the emergency room due to the severity of his left lower quadrant abdominal pain. This pain is moderate to severe and sharp in nature. General surgery is consulted for persistent left flank and lower abdominal pain. PAST MEDICAL HISTORY: See list and reviewed PAST SURGICAL HISTORY: See list and reviewed MEDICATIONS: See list and reviewed ALLERGIES: See list and reviewed SOCIAL HISTORY: See list and reviewed FAMILY HISTORY: See list and reviewed REVIEW OF ORGAN SYSTEMS: CONSTITUTIONAL: No fevers or chills. EYES: Denies any trouble with vision. No glasses. HEENT: No difficulties with hearing. No nosebleeds. No difficulty swallowing. RESPIRATORY: Has sleep apnea. CARDIOVASCULAR: History of angina and chest pain. GASTROINTESTINAL: Has change in bowel habits. Has EGD less than 4 weeks ago with gastritis. GENITOURINARY: Has pre-existing prostate disorder. Has history of urinary retention. History of hematuria with recent cysto. NEUROLOGICAL: Has migraine disorder. MUSCULOSKELETAL: Denies any back pain, stiffness or joint arthritis. SKIN: Neurofibromatosis PSYCHIATRIC: Has depressive disorder. ENDOCRINE: Denies current thyroid disorders. Denies any blood sugar glucose intolerance. HEME/LYMPHATIC: Denies any lumps and bumps around the neck. No recent deep venous thrombosis. ALLERGY/IMMUNOLOGY: No immunoglobulin therapy. No immune deficiencies. BREAST: Denies current breast lumps, pain or nipple discharge. PHYSICAL EXAM: VITALS: Reviewed CONSTITUTIONAL: Well developed and in no acute distress. EYES: Conjuctivae without sclera icterus. Extraocular movements grossly intact. HEAD, EARS, NOSE, THROAT: Moist buccal mucosa. Head is atraumatic, normocephalic. Hears conversational speech. No nasal drainage. NECK: Mobile. No JV distention. No gorss thyroidomegaly. RESPIRATORY: Non-labored respirations and equal bilateral excursions. No gross wheezes. CARDIOVASCULAR: Regular rate and rhythm. Extremities without moderate edema. Palpable 2+ radial pulses. ABDOMEN: Moderate to severe tenderness left flank. LYMPH: No gross neck lymphadenopathy. MUSCULOSKELETAL: Nail and fingers with good capillary refill. SKIN: Warm and well perfused with good skin turgor. NEUROLOGIC: Cranial nerves II through XII grossly intact. Sensation upper and extremities intact. No focal or lateralizing signs. PSYCH: Appropriate affect. Alert and oriented to person, place and time. Displays appropriate insight. CLINCAL LABS: Reviewed. WBC normal at 7.4. Initial lactate elevated 2.1 now normal. Creatinine normal 0.9. IMAGING: Independently reviewed CT of the abdomen and pelvis demonstrates decompression of the sigmoid colon to rectum and location of pain. Moderate retained stool along the ascending colon and cecum. Intramuscular mass or tumor along the right upper abdominal wall identified. This is my independent interpretation. RADIOLOGY: Report reviewed from ultrasound of the abdomen demonstrating splenomegaly from October 2020. RECORDS: previous old records reviewed with abdominal pain records from the ER visit [address] of the abdomen and pelvis demonstrates stool within the sigmoid colon and few diverticulosis without diverticulitis. ASSESSMENT: 1. Left lower quadrant abdominal pain 2. Neurofibromatosis 3. Left flank pain PLAN: 1. May benefit from colonoscopy to further assess colitis as he has change in bowel habits and left lower quadrant pain at his sigmoid colon. 2. Supportive measure with IV fluid hydration 3. Abdominal binder for support. Thank you for this kind consultation. Past Medical History Past Medical History: Chest Pain / Angina, Prostate Disorder, Sleep Apnea/CPAP/BIPAP Additional Past Medical History / Comment(s): NEUROFIBROMATOSIS, MIGRAINE HEADACHE, urinary retention History of Any Multi-Drug Resistant Organisms: None Reported Past Surgical History: Adenoidectomy, Ear Surgery, Tonsillectomy Additional Past Surgical History / Comment(s): SKIN BIOPSY-ARM, pyloric stenosis repair Past Anesthesia/Blood Transfusion Reactions: No Reported Reaction Past Psychological History: Depression Smoking Status: Never smoker Past Alcohol Use History: Occasional Past Drug Use History: None Reported - Past Family History Mother Family Medical History: Unable to Obtain Additional Family Medical History / Comment(s): Father and brother have caf au lait spots Father Family Medical History: Unable to Obtain Medications and Allergies Home Medications Medication Instructions Recorded Confirmed Type Topiramate [Topamax] 100 mg PO BID 12/09/19 12/04/20 History Verapamil HCl [Verapamil ER] 240 mg PO DAILY 04/12/20 12/04/20 History Ciprofloxacin HCl [Cipro] 500 mg PO Q12HR 12/04/20 12/04/20 History EPINEPHrine (Auto Inject) [Epipen] 0.3 mg IM ONCE PRN 12/04/20 12/04/20 History Metoprolol Succinate (ER) [Toprol 50 mg PO DAILY 12/04/20 12/04/20 History Xl] PARoxetine [Paxil] 20 mg PO DAILY 12/04/20 12/04/20 History Pantoprazole Sodium [Protonix] 40 mg PO DAILY 12/04/20 12/04/20 History metroNIDAZOLE [Flagyl] 500 mg PO Q8H 12/04/20 12/04/20 History Allergies Allergy/AdvReac Type Severity Reaction Status Date / Time cefaclor [From Ceclor] Allergy FAMILY Verified 12/04/20 16:07 HISTORY cephalexin [From Keflex] Allergy Dyspnea Verified 12/04/20 16:07 Fish Containing Products Allergy Unknown Verified 12/05/20 05:01 [Fish] arabic dressing Allergy Anaphylaxis Uncoded 12/04/20 12:07 Surgical - Exam Vital Signs Temp Pulse Resp BP Pulse Ox 98.4 F 83 20 129/76 97 12/04/20 12:03 12/04/20 12:03 12/04/20 12:03 12/04/20 12:03 12/04/20 12:03 Results - Labs 12/05/20 06:06 12/06/20 14:05 Assessment and Plan (1) Left lower quadrant abdominal pain Current Visit: Yes Status: Acute Code(s): R10.32 - LEFT LOWER QUADRANT PAIN SNOMED Code(s): 082701962 (2) Neurofibromatosis II Current Visit: No Status: Chronic Code(s): Q85.02 - NEUROFIBROMATOSIS, TYPE 2 SNOMED Code(s): 67414210
[2020-12-06] MEDS: LEVOFLOXACIN 500MG-D5W PMX 500 MG in DEXTROSE/WATER 1 100ML.BAG IVPB SCH (19:58)
[2020-12-07] MEDS: KETOROLAC 15 MG/ML 1 ML VIAL IVP PRN ×2 (02:13→14:02)
[2020-12-07] MEDS: metroNIDAZOLE-NS PMX 500 MG in SALINE 1 100ML.BAG IVPB SCH ×3 (08:00→23:30)
[2020-12-07] MEDS: METOPROLOL SUCCINATE (ER) 50 MG TAB.ER.24H PO SCH (08:01)
[2020-12-07] MEDS: PARoxetine 20 MG TAB PO SCH (08:01)
[2020-12-07] MEDS: GABAPENTIN 100 MG CAP PO SCH (08:01)
[2020-12-07] MEDS: TOPIRAMATE 100 MG TAB PO SCH ×2 (08:01→20:02)
[2020-12-07] MEDS: PANTOPRAZOLE 40 MG/10 ML VIAL IV SCH ×2 (08:01→20:02)
[2020-12-07] MEDS: VERAPAMIL SR 240 MG TABLET.ER PO SCH (08:01)
[2020-12-07] MEDS: SODIUM CHLORIDE 0.9% 1,000 ML IV SCH ×2 (08:02→20:03)
[2020-12-07 08:59] LABS: Basophils # (A) 0.03 X 10*3/uL (0.00-0.10); Basophils % (A) 0.5 %; Eosinophils # (A) 0.28 X 10*3/uL (0.04-0.35); Eosinophils % (A) 4.6 %; HCT 36.8 % (39.6-50.0); HGB 12.9 g/dL (13.0-17.0); Lymphocytes # (A) 1.78 X 10*3/uL (0.90-5.00); Lymphocytes % (A) 29.5 %; MCH 31.2 pg (27.0-32.0); MCHC 35.1 g/dL (32.0-37.0); MCV 88.9 fL (80.0-97.0); Mean Platelet Volume 11.2 fL (9.5-12.2); Monocytes % (A) 8.3 %; Neutrophils # (A) 3.42 X 10*3/uL (1.80-7.70); Neutrophils % (A) 56.8 %; Platelet Count 198 X 10*3/uL (140-440); RBC 4.14 X 10*6/uL (4.40-5.60); RDW 12.3 % (11.5-14.5); WBC 6.03 X 10*3/uL (4.50-10.00)
[2020-12-07] MEDS: HYDROmorphone 1 MG/ML 1 ML SYRINGE IVP PRN ×4 (09:18→23:30)
[2020-12-07] MEDS: polyethylene glycoL 3350 17 GM POWD.PACK PO SCH (10:45)
[2020-12-07] MEDS: ONDANSETRON 4 MG/2 ML VIAL IVP PRN ×2 (10:46→18:05)
--- NOTE | 2020-12-07 15:00 | PN ---
PROGRESS NOTE DATE OF SERVICE: 12/07/2020 This 30-year-old gentleman was admitted with significant abdominal pain which is in the left lower quadrant and left flank and also left mid abdomen with severe pain, 10/10, which was going on for almost the last month. He is being closely followed at this time. The patient apparently had upper endoscopy by Dr. Cabrera during a recent hospitalization at [facility]. Results are not available. The patient also had a colonoscopy a few years ago. Currently Dr. Thao is following the patient concerning possible colonoscopy to rule out the possibility of colitis. Otherwise, the patient is on symptomatic treatment and pain medications. Patient also had splenomegaly on the ultrasound, which was not confirmed by the CT scan. The patient is being evaluated by Dr. Cabrera also. The patient has some mild hyponatremia. The patient is on Ensure supplements. The patient has symptomatic treatment of the pain as well. Past medical history reviewed. REVIEW OF SYSTEMS: CARDIOVASCULAR SYSTEM: No angina, palpitations. RESPIRATORY SYSTEM: As mentioned earlier. GI: As mentioned earlier. : No dysuria. NERVOUS SYSTEM: No numbness, weakness. MEDICATIONS: Current medications are reviewed and include Neurontin, Dilaudid, Toradol, Levaquin, Narcan, Zofran, , Protonix. PHYSICAL EXAMINATION: Patient is alert, oriented x3. Pulse is 55, blood pressure 108/64, respirations 16, temperature 98.1, pulse ox 98% on room air. HEENT: Conjunctivae normal. NECK: No jugular venous distention. CARDIOVASCULAR: S1, S2 muffled. RESPIRATION: Breath sounds diminished at the bases. No rhonchi. No crackles. ABDOMEN: Soft. Mild diffuse tenderness present. LEGS: No edema. No swelling. NERVOUS SYSTEM: No focal deficit. LABS: WBC 6.0, hemoglobin 12.9. Sodium 134. ASSESSMENT: 1. Intractable left-sided abdominal pain of undetermined etiology. Rule out colitis. 2. Neurofibromatosis, type 1 and 2. 3. History of splenomegaly on ultrasound with a normal CT scan of the abdomen reported later. 4. Mild hyponatremia. 5. Elevated plasma lactic acid at 2.1 on admission, improved with IV fluids; possibly dehydration, present on admission. 6. History of chest pain. 7. History of prostate disorder. 8. History of hematemesis. 9. History of sleep apnea. 10.History of migraine headaches. 11.History of adenoidectomy. 12.History of tonsillectomy. 13.History of skin biopsy. 14.History of pyloric stenosis repair. 15.History of depression. 16.FULL CODE. RECOMMENDATIONS AND DISCUSSION: I recommend to continue current medications, continue with symptomatic treatment. Continue with proton pump inhibitors. Closely follow with Surgery and Gastroenterology. Guarded prognosis because of multiple complex medical issues. I would also recommend repeat labs. Further recommendations to follow. MMODL / IJN: [id number] / MTDD
--- NOTE | 2020-12-07 16:39 | P.PN ---
Subjective Progress Note Date: 12/07/20 CHIEF COMPLAINT: Abdominal pain HISTORY OF PRESENT ILLNESS: The patient is a 30 year old male who presents with left lower quadrant abdominal pain. Today he reports his abdominal pain is epigastric including left upper quadrant. His pain is 10 out of 10. He has past history of gastritis however he reports recurrent and some more severe symptoms. Genital surgery is following regarding his abdominal pain. REVIEW OF ORGAN SYSTEMS: No fevers or chills. Reports chronic nausea. Had transient chest pain. PHYSICAL EXAM: VITALS: Reviewed CONSTITUTIONAL: Well developed and in no acute distress. EYES: Conjuctivae without sclera icterus. Extraocular movements grossly intact. HEAD, EARS, NOSE, THROAT: Moist buccal mucosa. Head is atraumatic, normocephalic. Hears conversational speech. No nasal drainage. RESPIRATORY: Non-labored respirations and equal bilateral excursions. No gross wheezes. CARDIOVASCULAR: Regular rate and rhythm. ABDOMEN: Tender left lower quadrant tender left upper quadrant. MUSCULOSKELETAL: No clubbing cyanosis or edema. SKIN: Warm and well perfused with good skin turgor. Diffuse neurofibromatosis along the skin NEUROLOGIC: Cranial nerves II through XII grossly intact. Sensation upper and extremities intact. No focal or lateralizing signs. PSYCH: Appropriate affect. Alert and oriented to person, place and time. Displays appropriate insight. CLINCAL LABS: Reviewed. WBC normal at 6.03. Hemoglobin down 14.2-12.9 ASSESSMENT: 1. Left lower quadrant abdominal pain 2. Neurofibromatosis 3. Left flank pain 4. New epigastric and left upper quadrant pain PLAN: 1. Recommend lower endoscopy as symptoms aren't suspicious of diverticulosis and colitis as reviewed on computed tomography scan. 2. He reports recurrent symptoms of gastritis. Recommend upper endoscopy as medications are not improving symptoms. 3. Also recommend ultrasound and HIDA scan with his atypical chest pain. Objective - Vital Signs Vital signs: Vital Signs Temp 98.1 F 12/07/20 07:00 Pulse 55 L 12/07/20 07:00 Resp 16 12/07/20 07:00 BP 108/64 12/07/20 07:00 Pulse Ox 98 12/07/20 07:00 Intake & Output 12/06/20 12/07/20 12/07/20 18:59 06:59 18:59 Intake Total 1522 700 Output Total 420 Balance 1522 700 -420 Intake: Intake, IV Titration 100 700 Amount Levofloxacin 500Mg-D5w 100 Pmx 500 mg In Dextrose/ Water 1 100ml.bag @ 100 mls/hr IVPB Q24H [facility] Rx#: [id number] Sodium Chloride 0.9% 1, 600 000 ml @ 75 mls/hr IV . [id number] [facility] Rx#:[id number] metroNIDAZOLE-NS PMX 500 100 mg In Saline 1 100ml.bag @ 100 mls/hr IVPB Q8HR [facility] Rx#:[id number] Oral 1422 Output: Urine 420 Other: Voiding Method Toilet Toilet Toilet - Labs CBC & Chem 7: 12/07/20 05:36 12/06/20 14:05 Labs: Abnormal Lab Results - Last 24 Hours (Table) 12/06/20 12/07/20 Range/Units 14:05 05:36 RBC 4.14 L (4.40-5.60) X 10*6/uL Hgb 12.9 L (13.0-17.0) g/dL Hct 36.8 L (39.6-50.0) % Sodium 134 L (137-145) mmol/L Chloride 108 H (98-107) mmol/L Carbon Dioxide 18 L (22-30) mmol/L Glucose 118 H (74-99) mg/dL Alkaline Phosphatase 32 L (38-126) U/L Total Protein 5.9 L (6.3-8.2) g/dL Assessment and Plan (1) Left lower quadrant abdominal pain Current Visit: Yes Status: Acute Code(s): R10.32 - LEFT LOWER QUADRANT PAIN SNOMED Code(s): 345596787 (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
--- NOTE | 2020-12-07 17:07 | P.CONS ---
History of Present Illness - Reason for Consult Consult date: 12/07/20 LLQ pain Requesting physician: Miguel Angel Kinsey - Chief Complaint Abdominal pain, nausea and vomiting - History of Present Illness As a pleasant 30-year-old white male with a past medical history of neurofibromatosis who presented to the emergency department with complaints of left flank pain. He was recently admitted and discharged from [facility] where he underwent an EGD with Dr. Cabrera approximately 2 weeks ago which she states was significant for gastritis. States he's been on a clear liquid diet for one month now, the pain is constant, he has frequent nausea and vomiting. He states his last bowel movement was last Monday. Patient denies judge ving any previous colonoscopies. Denies taking anything for his constipation at home. Today's labs show WBC 6, hemoglobin 12.9, hematocrit 36, platelet count 198,000, total bilirubin 0.6, alkaline phosphatase 32, AST 22, ALT 22. Abdominal x-ray showed no suspicious interval changes. Scattered nodularities likely within subcutaneous tissue. Also when a CT of the abdomen and pelvis showing no suspicious acute abnormality to account for Abdomen pain. Findings are stable over the interval. There was a 5.0 x 2.4 cm hypodensity within the lateral abdominal musculature to the right. This could be intramuscular hematoma. It does show focal debris within the ascending colon. Review of Systems REVIEW OF SYSTEMS: CARDIOPULMONARY: No chest pain or shortness of breath. Gastrointestinal: Abdominal pain, greatest in the left lower quadrant and flank region.. Nausea and dry heaves. No hematemesis, coffee-ground emesis. No rectal bleeding, or melena. GENITOURINARY: No dysuria or hematuria. MUSCULOSKELETAL: Reports normal range of motion., Joint pain. SKIN: No rashes. No jaundice. Patient has neurofibromatosis ENDOCRINE: No chills, fevers. No excessive weight gain or loss. No polydipsia or polyuria. PSYCHIATRIC: Unremarkable. NEUROLOGY: No change in mental status. Denies dizziness, headache. ENT: Vision unremarkable. CONSTITUTIONAL: No recent weight loss. No fever, chills, night sweats. Past Medical History Past Medical History: Chest Pain / Angina, Prostate Disorder, Sleep Apnea/CPAP/BIPAP Additional Past Medical History / Comment(s): NEUROFIBROMATOSIS, MIGRAINE HEADACHE, urinary retention History of Any Multi-Drug Resistant Organisms: None Reported Past Surgical History: Adenoidectomy, Ear Surgery, Tonsillectomy Additional Past Surgical History / Comment(s): SKIN BIOPSY-ARM, pyloric stenosis repair Past Anesthesia/Blood Transfusion Reactions: No Reported Reaction Past Psychological History: Depression Smoking Status: Never smoker Past Alcohol Use History: Occasional Past Drug Use History: None Reported - Past Family History Mother Family Medical History: Unable to Obtain Additional Family Medical History / Comment(s): Father and brother have caf au lait spots Father Family Medical History: Unable to Obtain Medications and Allergies Home Medications Medication Instructions Recorded Confirmed Type Topiramate [Topamax] 100 mg PO BID 12/09/19 12/04/20 History Verapamil HCl [Verapamil ER] 240 mg PO DAILY 04/12/20 12/04/20 History Ciprofloxacin HCl [Cipro] 500 mg PO Q12HR 12/04/20 12/04/20 History EPINEPHrine (Auto Inject) [Epipen] 0.3 mg IM ONCE PRN 12/04/20 12/04/20 History Metoprolol Succinate (ER) [Toprol 50 mg PO DAILY 12/04/20 12/04/20 History Xl] PARoxetine [Paxil] 20 mg PO DAILY 12/04/20 12/04/20 History Pantoprazole Sodium [Protonix] 40 mg PO DAILY 12/04/20 12/04/20 History metroNIDAZOLE [Flagyl] 500 mg PO Q8H 12/04/20 12/04/20 History Allergies Allergy/AdvReac Type Severity Reaction Status Date / Time cefaclor [From Ceclor] Allergy FAMILY Verified 12/04/20 16:07 HISTORY cephalexin [From Keflex] Allergy Dyspnea Verified 12/04/20 16:07 Fish Containing Products Allergy Unknown Verified 12/05/20 05:01 [Fish] sinhala dressing Allergy Anaphylaxis Uncoded 12/04/20 12:07 Physical Exam Vitals: Vital Signs Temp Pulse Resp BP BP Pulse Ox 12/07/20 07:00 98.1 F 55 L 16 108/64 98 12/07/20 01:40 98.1 F 71 18 114/68 98 12/06/20 20:02 98.3 F 72 16 97/57 98 12/06/20 14:54 97.8 F 64 17 100/50 97 Intake and Output 12/06/20 12/07/20 12/07/20 22:59 06:59 14:59 Intake Total 811 600 Output Total 420 Balance 811 600 -420 Intake: Intake, IV Titration 100 600 Amount Levofloxacin 500Mg-D5w 100 Pmx 500 mg In Dextrose/ Water 1 100ml.bag @ 100 mls/hr IVPB Q24H [facility] Rx#: [id number] Sodium Chloride 0.9% 1, 600 000 ml @ 75 mls/hr IV . [id number] [facility] Rx#:[id number] Oral 711 Output: Urine 420 Other: Voiding Method Toilet Toilet Toilet General appearance: The patient is alert, oriented, appears in no acute distress. HET: Head is normocephalic and atraumatic. Conjunctiva pink. Sclera anicteric. Neck: Supple without lymphadenopathy. Trachea midline. Heart: S1 S2. Regular rate and rhythm. Lungs: Clear to auscultation. Abdomen: Soft, left lower quadrant tenderness to palpation, nondistended with bowel sounds. No guarding or rigidity. Skin: No rashes. No jaundice. Diffuse neurofibromatosis. Extremities: Normal skin color and turgor. No pedal edema. Neurological: No focal deficits. Alert and oriented 3.. Results CBC & Chem 7: 12/07/20 05:36 12/06/20 14:05 Labs: Abnormal Lab Results - Last 24 Hours (Table) 12/06/20 12/07/20 Range/Units 14:05 05:36 RBC 4.14 L (4.40-5.60) X 10*6/uL Hgb 12.9 L (13.0-17.0) g/dL Hct 36.8 L (39.6-50.0) % Sodium 134 L (137-145) mmol/L Chloride 108 H (98-107) mmol/L Carbon Dioxide 18 L (22-30) mmol/L Glucose 118 H (74-99) mg/dL Alkaline Phosphatase 32 L (38-126) U/L Total Protein 5.9 L (6.3-8.2) g/dL Comments: CT of abdomen and pelvis no suspicious acute abnormality to account for abdominal pain Abdominal x-ray no suspicious interval changes. Scattered nodularities likely within subcutaneous tissue Assessment and Plan (1) Abdominal pain Narrative/Plan: 30-year-old who presented to the emergency department for further evaluation of left lower quadrant and flank abdominal pain. Patient was recently admitted and discharged from [facility] Monday when extensive evaluation with no findings to account for his abdominal pain. He underwent an EGD by Dr. Cabrera showing mild gastritis. He was seen by urology with no significant findings. He states he continues to have this left flank pain over the last 1 month duration, he has been on clear liquid diet, states his last bowel movement was one week ago. States he is having difficult time keeping any liquids down, states he can only keep down very flavored clear and sharp. No acute findings on CT of the abdomen and pelvis or abdominal x-ray. Labs were unremarkable. Unclear etiology of pain. Gen. surgery was consult did and is following patient. Discussed with patient consider possible colonoscopy as pain is in left lower quadrant. Patient states Dr. Thao with general surgery is planning on proceeding with EGD and colonoscopy. GI will defer to general surgery. Current Visit: Yes Status: Acute Code(s): R10.9 - UNSPECIFIED ABDOMINAL PAIN SNOMED Code(s): 90048541 (2) Nausea and vomiting Current Visit: Yes Status: Acute Code(s): R11.2 - NAUSEA WITH VOMITING, UNSP ECIFIED SNOMED Code(s): 85847991 Plan: 1. Continue symptomatic and supportive care 2. Continue antiemetics as needed 3. Recommend Protonix 40 mg IV twice a day 4. CT of abdomen and pelvis reviewed as well as abdominal x-ray with no acute findings 5. Recommend MiraLAX daily for constipation 6. Discussed possible colonoscopy with patient, however he states he plans to undergo EGD and colonoscopy with general surgery Dr. Thao. We'll defer endoscopy to them. Thank you for this consultation, we will continue to follow. Dr. Oswaldo Cabrera I agree with the dictator's note, documented as a scribe by Inez Castro.
[2020-12-07] MEDS: LEVOFLOXACIN 500MG-D5W PMX 500 MG in DEXTROSE/WATER 1 100ML.BAG IVPB SCH (20:08)
[2020-12-08] MEDS: METOPROLOL SUCCINATE (ER) 50 MG TAB.ER.24H PO SCH (08:14)
[2020-12-08] MEDS: PANTOPRAZOLE 40 MG/10 ML VIAL IV SCH ×2 (08:14→21:33)
[2020-12-08] MEDS: PARoxetine 20 MG TAB PO SCH (08:15)
[2020-12-08] MEDS: TOPIRAMATE 100 MG TAB PO SCH ×2 (08:15→21:34)
[2020-12-08] MEDS: VERAPAMIL SR 240 MG TABLET.ER PO SCH (08:15)
[2020-12-08] MEDS: HYDROmorphone 1 MG/ML 1 ML SYRINGE IVP PRN ×3 (08:16→21:33)
[2020-12-08] MEDS: metroNIDAZOLE-NS PMX 500 MG in SALINE 1 100ML.BAG IVPB SCH ×2 (08:16→16:18)
[2020-12-08] MEDS: polyethylene glycoL 3350 17 GM POWD.PACK PO SCH (08:17)
--- NOTE | 2020-12-08 08:33 | US ---
EXAMINATION TYPE: US gallbladder DATE OF EXAM: 12/08/2020 COMPARISON: CT 12/04/2020 CLINICAL HISTORY: 30 year-old male Epigastric abdominal pain, gallstones. Patient stated has left lat eral abdominal pain. EXAM MEASUREMENTS: Liver Length: 14.2 cm Gallbladder Wall: 0.2 cm CBD: 0.3 cm Right Kidney: 9.5 x 5.6 x 4.0 cm Pancreas: Suboptimal visualization of most of the pancreatic body and tail due to shadowing from bow el gas. Visualized head and neck show no gross abnormally. Liver: wnl Gallbladder: wnl Evidence for sonographic Garcia's sign: no CBD: wnl Right Kidney: wnl IMPRESSION: Suboptimal visualization of the pancreas. Otherwise, unremarkable sonographic examination of the righ t upper quadrant.
[2020-12-08 10:53] LABS: Basophils # (A) 0.05 X 10*3/uL (0.00-0.10); Basophils % (A) 0.9 %; Eosinophils # (A) 0.28 X 10*3/uL (0.04-0.35); Eosinophils % (A) 5.2 %; HCT 37.7 % (39.6-50.0); HGB 12.7 g/dL (13.0-17.0); Lymphocytes # (A) 1.52 X 10*3/uL (0.90-5.00); MCHC 33.7 g/dL (32.0-37.0); MCV 89.1 fL (80.0-97.0); Mean Platelet Volume 11.4 fL (9.5-12.2); Monocytes # (A) 0.48 X 10*3/uL (0.20-1.00); Monocytes % (A) 8.8 %; Neutrophils # (A) 3.08 X 10*3/uL (1.80-7.70); Neutrophils % (A) 56.7 %; Platelet Count 196 X 10*3/uL (140-440); RBC 4.23 X 10*6/uL (4.40-5.60); RDW 12.3 % (11.5-14.5); WBC 5.43 X 10*3/uL (4.50-10.00)
[2020-12-08 11:49] LABS: African American GFR (CKD) 93.5 (60.0-200.0); Anion Gap 5.7 mmol/L (4.00-12.00); BUN/Creat Ratio 9.17 Ratio (12.00-20.00); Calcium 8.5 mg/dL (8.7-10.3); Carbon Dioxide 21.3 mmol/L (21.6-31.8); Non-African American GFR(CKD) 80.7 (60.0-200.0)
[2020-12-08] MEDS: SODIUM CHLORIDE 0.9% 1,000 ML IV SCH (12:39)
[2020-12-08] MEDS: ONDANSETRON 4 MG/2 ML VIAL IVP PRN ×2 (13:56→22:04)
--- NOTE | 2020-12-08 14:12 | P.PN ---
Subjective Progress Note Date: 12/08/20 Principal diagnosis: Abdominal pain, nausea and vomiting 30-year-old male patient who presented to the emergency department with chronic abdominal pain associated with nausea and vomiting over the last 1 month's duration. He is been having left lower quadrant and upper quadrant pain radiating to his flank and was recently hospitalized at [facility] and underwent extensive evaluation including an EGD that showed mild gastritis. He was also seen by urology. states abdominal pain is about the same, he states he states he did vomit up some of his dinner yesterday. States he has not had a bowel movement yet. He is scheduled for an EGD and colonoscopy with Dr. Thao tomorrow. He underwent a gallbladder ultrasound with no significant findings. Objective - Vital Signs Vital signs: Vital Signs Temp 98.1 F 12/08/20 07:58 Pulse 69 12/08/20 07:58 Resp 16 12/08/20 07:58 BP 117/71 12/08/20 07:58 Pulse Ox 99 12/08/20 07:58 Intake & Output 12/07/20 12/08/20 12/08/20 18:59 06:59 18:59 Output Total 1250 400 580 Balance -1250 -400 -580 Weight 77.111 kg Output: Urine 1250 400 580 Other: Voiding Method Toilet Toilet Toilet # Voids 2 2 - Exam General appearance: The patient is alert, oriented, appears in no acute distress. HET: Head is normocephalic and atraumatic. Conjunctiva pink. Sclera anicteric. Neck: Supple without lymphadenopathy. Abdomen: Soft, diffuse tenderness, nondistended with bowel sounds. No guarding or rigidity. Extremities: Normal skin color and turgor. No pedal edema Skin: No rashes, no jaundice. Neurofibromatosis. Neurological: No focal deficits. Alert and oriented 3. - Labs CBC & Chem 7: 12/08/20 06:35 12/08/20 06:35 Assessment and Plan (1) Abdominal pain Narrative/Plan: 30-year-old who presented to the emergency department for further evaluation of left lower quadrant and flank abdominal pain. Patient was recently admitted and discharged from [facility] Monday when extensive evaluation with no findings to account for his abdominal pain. He underwent an EGD by Dr. Cabrera showing mild gastritis. He was seen by urology with no significant findings. He states he continues to have this left flank pain over the last 1 month duration, he has been on clear liquid diet, states his last bowel movement was o ne week ago. States he is having difficult time keeping any liquids down, states he can only keep down very flavored clear and sharp. No acute findings on CT of the abdomen and pelvis or abdominal x-ray. Labs were unremarkable. Unclear etiology of pain. Gen. surgery was consult did and is following patient. Discussed with patient consider possible colonoscopy as pain is in left lower quadrant. Patient states Dr. Thao with general surgery is planning on proceeding with EGD and colonoscopy. GI will defer to general surgery. Current Visit: Yes Status: Acute Code(s): R10.9 - UNSPECIFIED ABDOMINAL PAIN SNOMED Code(s): 79869189 (2) Nausea and vomiting Current Visit: Yes Status: Acute Code(s): R11.2 - NAUSEA WITH VOMITING, UNSPECIFIED SNOMED Code(s): 37889276 Plan: 1. Continue symptomatic and supportive care 2. Continue antiemetics as needed 3. Recommend Protonix 40 mg IV twice a day 4. CT of abdomen and pelvis reviewed as well as abdominal x-ray with no acute findings 5. Recommend MiraLAX daily for constipation 6. Discussed possible colonoscopy with patient, however he states he plans to undergo EGD and colonoscopy with general surgery Dr. Thao. We'll defer endoscopy to them. Thank you for this consultation, we will continue to follow. Dr. Oswaldo Cabrera I agree with the dictator's note, documented as a scribe by Inez Castro.
[2020-12-08] MEDS ORDERED: POLYETHYLENE GLYCOL LYTES SOLN 4,000 ML SOLN.RECON PO ONE (15:49)
--- NOTE | 2020-12-08 17:40 | PN ---
PROGRESS NOTE DATE OF SERVICE: 12/08/2020 This 30-year-old gentleman who was admitted with severe intractable abdominal pain is being closely monitored at this time. Dr. Thao is planning colonoscopy. No chest pain. No palpitations. No fever. PHYSICAL EXAMINATION: Alert and oriented times three. Pulse 65. Blood pressure 101/50, respirations 16, temperature 98.4, pulse ox 98% on room air. HEENT: Conjunctivae normal. Neck: No JVD. Cardiovascular: S1, S2. Respiratory: Breath sounds diminished in the bases. Abdomen: Soft. Mild diffuse tenderness in the left side of the abdomen. No guarding. No rigidity. No mass palpable. Legs: No edema. No swelling. Nervous system: No focal deficits. Skin: Multiple neurofibromas. LAB STUDIES: WBC 5.4, hemoglobin 12.7. ASSESSMENT: 1. Intractable left-sided abdominal pain of undetermined etiology, rule out colitis. 2. Neurofibromatosis type 1 and 2. 3. History of splenomegaly on ultrasound with normal CT scan of the abdomen and pelvis reported recently. 4. Mild hyponatremia. 5. Elevated plasma lactic acid of 2.1 on admission, improved with IV fluids, possibly dehydration present on admission. 6. History of chest pain. 7. History of prostate disorder. 8. History of hematemesis. 9. History of sleep apnea. 10.History of migraine headaches. 11.History of adenoidectomy. 12.History of tonsillectomy. 13.History of skin biopsy. 14.History of pyloric stenosis repair. 15.History of depression. 16.FULL CODE. RECOMMENDATIONS AND DISCUSSION: This 30-year-old gentleman who presented with multiple complex medical issues, we will monitor the patient closely, continue the current management, medications and symptomatic treatment. Otherwise at this time, repeat labs. Colonoscopy per Dr. Thao. The D-dimer is 1.37. Further recommendations to follow. MMODL / IJN: [id number] /
[2020-12-08] MEDS: LEVOFLOXACIN 500MG-D5W PMX 500 MG in DEXTROSE/WATER 1 100ML.BAG IVPB SCH (21:33)
[2020-12-09] MEDS: metroNIDAZOLE-NS PMX 500 MG in SALINE 1 100ML.BAG IVPB SCH ×4 (00:26→23:18)
[2020-12-09] MEDS: SODIUM CHLORIDE 0.9% 1,000 ML IV SCH ×2 (00:27→16:43)
[2020-12-09] MEDS: HYDROmorphone 1 MG/ML 1 ML SYRINGE IVP PRN ×4 (02:16→20:48)
[2020-12-09] MEDS: ONDANSETRON 4 MG/2 ML VIAL IVP PRN ×3 (04:02→20:20)
[2020-12-09] MEDS: PANTOPRAZOLE 40 MG/10 ML VIAL IV SCH ×2 (08:17→20:45)
[2020-12-09] MEDS: METOPROLOL SUCCINATE (ER) 50 MG TAB.ER.24H PO SCH ×2 (08:17→08:18)
[2020-12-09] MEDS: PARoxetine 20 MG TAB PO SCH (08:18)
[2020-12-09] MEDS: VERAPAMIL SR 240 MG TABLET.ER PO SCH (08:18)
[2020-12-09] MEDS: TOPIRAMATE 100 MG TAB PO SCH ×2 (08:18→20:45)
[2020-12-09] MEDS: polyethylene glycoL 3350 17 GM POWD.PACK PO SCH (08:18)
[2020-12-09 08:49] LABS: Basophils # (A) 0.03 X 10*3/uL (0.00-0.10); Basophils % (A) 0.7 %; Eosinophils # (A) 0.21 X 10*3/uL (0.04-0.35); Eosinophils % (A) 4.6 %; HCT 37.2 % (39.6-50.0); Lymphocytes # (A) 1.33 X 10*3/uL (0.90-5.00); Lymphocytes % (A) 29.4 %; MCH 30.7 pg (27.0-32.0); MCHC 34.9 g/dL (32.0-37.0); MCV 87.7 fL (80.0-97.0); Mean Platelet Volume 11.2 fL (9.5-12.2); Monocytes % (A) 8.8 %; Neutrophils # (A) 2.53 X 10*3/uL (1.80-7.70); Neutrophils % (A) 56.1 %; Platelet Count 184 X 10*3/uL (140-440); RBC 4.24 X 10*6/uL (4.40-5.60); RDW 12.1 % (11.5-14.5); WBC 4.52 X 10*3/uL (4.50-10.00)
[2020-12-09 09:52] LABS: African American GFR (CKD) 103.9 (60.0-200.0); Anion Gap 3.4 mmol/L (4.00-12.00); BUN/Creat Ratio 8.18 Ratio (12.00-20.00); Calcium 8.3 mg/dL (8.7-10.3); Carbon Dioxide 23.6 mmol/L (21.6-31.8); Non-African American GFR(CKD) 89.6 (60.0-200.0); Potassium 4.2 mmol/L (3.5-5.5)
[2020-12-09] MEDS: KETOROLAC 15 MG/ML 1 ML VIAL IVP PRN ×2 (10:06→23:22)
[2020-12-09] MEDS ORDERED: PROPOFOL 10 MG/ML 20 ML VIAL IV ONE (11:06)
[2020-12-09] MEDS ORDERED: fentaNYL (PF) 50 MCG/ML 2 ML AMP ONE (11:06)
[2020-12-09] MEDS ORDERED: LIDOCAINE 1% INJ 10MG/ML (20 ML MDV) ONE (11:06)
[2020-12-09] MEDS ORDERED: IV FLUID CONTINUATION 1,000 ML IV ONE (11:06)
[2020-12-09] MEDS ORDERED: MIDAZOLAM 2 MG/2 ML VIAL ONE (11:06)
--- NOTE | 2020-12-09 11:19 | P.PCN ---
Date of Procedure: 12/09/20 Description of Procedure: PREOPERATIVE DIAGNOSIS: Gastroesophageal reflux disease. Gastritis POSTOPERATIVE DIAGNOSIS: Gastritis. Gastroesophageal reflux disease. OPERATION: Esophagogastroduodenoscopy with biopsies along antrum. SURGEON: Altagracia Thao MD ANESTHESIA: MAC. INDICATIONS: The patient is a 30-year-old male who presents with worsening down pain and history of gastritis. Benefits and risks of the procedure were described. Informed consent was obtained. DESCRIPTION: The patient was brought into the endoscopy suite and laid in the left lateral decubitus position. An Olympus gastroscope was passed along the posterior oropharynx down to the distal esophagus where the squamocolumnar junction was encountered at 39 cm from the incisors. The stomach was entered and no bile reflux was found. Additional findings are listed below. Biopsies with cold forceps were obtained of the antrum. The first through third portion of the duodenum was examined and unremarkable. Retroflexion of the scope confirmed Hill grade 2 lower esophageal valve. The squamocolumnar junction demonstrated LA grade A erosive esophagitis. The stomach was desufflated. The patient tolerated the procedure well. FINDINGS: Squamocolumnar junction 39 cm from the incisors. Diaphragmatic hiatus at 39 cm. Hill grade 2 lower esophageal valve. LA grade A erosive esophagitis. No active duodenitis. Chronic gastritis RECOMMENDATIONS: Upper endoscopy as needed.
--- NOTE | 2020-12-09 11:41 | P.PCN ---
Date of Procedure: 12/09/20 Description of Procedure: PREOPERATIVE DIAGNOSIS: Colitis with abdominal pain POSTOPERATIVE DIAGNOSIS: Colitis with abdominal pain Diverticulosis, scattered. Poor prep OPERATION: Colonoscopy with random cold forceps biopsies for colitis SURGEON: Altagracia Thao MD. ANESTHESIA: MAC. INDICATIONS: The patient is a 30-year-old male who presents with left upper including left lower quadrant abdominal pain change in bowel habits with colitis. Benefits and risks were described and informed consent was obtained. DESCRIPTION OF PROCEDURE: The patient had undergone Sutab prep. The patient had been brought into the operating room and laid in the left lateral decubitus position. After adequate intravenous sedation, the rectum was examined with 2% lidocaine jelly. No external hemorrhoids were encountered. The rectal tone was within normal limits. No lesions were palpated in the rectal vault. An Olympus colonoscope was advanced to the ascending colon. The prep was poor moderate liquid stools obscuring complete view of the mucosa. A few scattered diverticulosis was encountered at the sigmoid colon. No large colonic polyps were found. Random cold forceps biopsies were obtained for colitis. Retroflexion of the scope demonstrated grade 1 internal hemorrhoids without active bleeding or infl ammation. The colon was desufflated. The patient had tolerated the procedure well. Withdrawal time was over 6 minutes. FINDINGS: Aronchick preparation quality scale 4 (1-5) Internal hemorrhoids, grade 1 No external prolapsed hemorrhoids. No arteriovenous malformations. No adenomatous polyps. Random biopsies for colitis Diffuse sigmoid diverticulosis RECOMMENDATIONS: Lower endoscopy as needed. Plan - Discharge Summary Discharge Rx Participant: No New Discharge Prescriptions: No Action Topiramate [Topamax] 100 mg PO BID Verapamil HCl [Verapamil ER] 240 mg PO DAILY Ciprofloxacin HCl [Cipro] 500 mg PO Q12HR Metoprolol Succinate (ER) [Toprol Xl] 50 mg PO DAILY metroNIDAZOLE [Flagyl] 500 mg PO Q8H Pantoprazole Sodium [Protonix] 40 mg PO DAILY EPINEPHrine (Auto Inject) [Epipen] 0.3 mg IM ONCE PRN PRN Reason: Anaphylaxis PARoxetine [Paxil] 20 mg PO DAILY Discharge Medication List Topiramate [Topamax] 100 mg PO BID 12/09/19 [History] Verapamil HCl [Verapamil ER] 240 mg PO DAILY 04/12/20 [History] Ciprofloxacin HCl [Cipro] 500 mg PO Q12HR 12/04/20 [History] EPINEPHrine (Auto Inject) [Epipen] 0.3 mg IM ONCE PRN 12/04/20 [History] Metoprolol Succinate (ER) [Toprol Xl] 50 mg PO DAILY 12/04/20 [History] PARoxetine [Paxil] 20 mg PO DAILY 12/04/20 [History] Pantoprazole Sodium [Protonix] 40 mg PO DAILY 12/04/20 [History] metroNIDAZOLE [Flagyl] 500 mg PO Q8H 12/04/20 [History] Follow up Appointment(s)/Referral(s): Nitin Rogel DO [Primary Care Provider] - 1-2 days
--- NOTE | 2020-12-09 12:48 | P.PN ---
Subjective Progress Note Date: 12/09/20 Principal diagnosis: Abdominal pain, nausea and vomiting 30-year-old male patient who presented to the emergency department with chronic abdominal pain associated with nausea and vomiting over the last 1 month's duration. He is been having left lower quadrant and upper quadrant pain radiating to his flank and was recently hospitalized at [facility] and underwent extensive evaluation including an EGD that showed mild gastritis. He was also seen by urology. States abdominal pain is about the same, 10/10 mostly in left upper and lower quadrant. States he still having nausea no vomiting today however yesterday he did vomit while trying to complete his prep. No blood in stool. He is scheduled for an EGD and colonoscopy with Dr. Thao today. He underwent a gallbladder ultrasound with no significant findings. Objective - Vital Signs Vital signs: Vital Signs Temp 98.0 F 12/09/20 07:00 Pulse 57 L 12/09/20 07:00 Resp 17 12/09/20 07:00 BP 118/70 12/09/20 07:00 Pulse Ox 97 12/09/20 07:00 Intake & Output 12/08/20 12/09/20 12/09/20 18:59 06:59 18:59 Intake Total 237 350 Output Total 580 Balance -343 350 Intake: Oral 237 350 Output: Urine 580 Other: Voiding Method Toilet Toilet # Voids 1 3 - Exam General appearance: The patient is alert, oriented, appears in no acute distress. HET: Head is normocephalic and atraumatic. Conjunctiva pink. Sclera anicteric. Neck: Supple without lymphadenopathy. Abdomen: Soft, diffuse tenderness, nondistended with bowel sounds. No guarding or rigidity. Extremities: Normal skin color and turgor. No pedal edema Skin: No rashes, no jaundice. Neurofibromatosis. Neurological: No focal deficits. Alert and oriented 3. - Labs CBC & Chem 7: 12/09/20 06:32 12/09/20 06:32 Labs: Abnormal Lab Results - Last 24 Hours (Table) 12/08/20 12/08/20 12/09/20 Range/Units 06:35 06:35 06:32 RBC 4.23 L 4.24 L (4.40-5.60) X 10*6/uL Hgb 12.7 L (13.0-17.0) g/dL Hct 37.7 L 37.2 L (39.6-50.0) % Chloride 110 H (96-109) mmol/L Carbon Dioxide 21.3 L (21.6-31.8) mmol/L BUN/Creatinine Ratio 9.17 L (12.00-20.00) Ratio Plasma Lactic Acid Feliz (0.7-2.0) mmol/L Calcium 8.5 L (8.7-10.3) mg/dL 12/09/20 Range/Units 06:32 RBC (4.40-5.60) X 10*6/uL Hgb (13.0-17.0) g/dL Hct (39.6-50.0) % Chloride (96-109) mmol/L Carbon Dioxide (21.6-31.8) mmol/L BUN/Creatinine Ratio (12.00-20.00) Ratio Plasma Lactic Acid Feliz 0.6 L (0.7-2.0) mmol/L Calcium (8.7-10.3) mg/dL Assessment and Plan (1) Abdominal pain Narrative/Plan: 30-year-old who presented to the emergency department for further evaluation of left lower quadrant and flank abdominal pain. Patient was recently admitted and discharged from [facility] Monday when extensive evaluation with no findings to account for his abdominal pain. He underwent an EGD by Dr. Cabrera showing mild gastritis. He was seen by urology with no significant findings. He states he continues to have this left flank pain over the last 1 month duration, he has been on clear liquid diet, states his last bowel movement was one week ago. States he is having difficult time keeping any liquids down, states he can only keep down very flavored clear and sharp. No acute findings on CT of the abdomen and pelvis or abdominal x-ray. Labs were unremarkable. Unclear etiology of pain. Gen. surgery was consult did and is following patient. Discussed with patient consider possible colonoscopy as pain is in left lower quadrant. Patient states Dr. Thao with general surgery is planning on proceeding with EGD and colonoscopy. GI will defer to general surgery. Patient underwent EGD and colonoscopy today with general surgery. Patient was found to have diffuse sigmoid diverticulosis, internal hemorrhoids, grade 1 and random biopsies obtained. Current Visit: Yes Status: Acute Code(s): R10.9 - UNSPECIFIED ABDOMINAL PAIN SNOMED Code(s): 10562204 (2) Nausea and vomiting Current Visit: Yes Status: Acute Code(s): R11.2 - NAUSEA WITH VOMITING, UNSPECIFIED SNOMED Code(s): 15165783 Plan: 1. Continue symptomatic and supportive care 2. Continue antiemetics as needed 3. Recommend Protonix 40 mg IV twice a day 4. CT of abdomen and pelvis reviewed as well as abdominal x-ray and gallbladder ultrasound with no acute findings 5. Recommend MiraLAX daily for constipation 6. Colonoscopy performed by general surgery showing diffuse sigmoid diverticulosis with grade 1 internal hemorrhoids, with random biopsies. 7. Will add Bentyl TID 8. Patient to follow-up outpatient for biopsy results with Dr. Thao. Follow-up with gastroenterology as needed. Thank you for this consultation, we will be on stand by Dr. Oswaldo Cabrera I agree with the dictator's note, documented as a scribe by Inez Castro.
[2020-12-09] MEDS: DICYCLOMINE 10 MG CAP PO SCH ×2 (16:47→20:45)
--- NOTE | 2020-12-09 20:26 | PN ---
PROGRESS NOTE DATE OF SERVICE: 12/09/2020 This 30-year-old gentleman who was admitted with severe abdominal pain is on empiric antibiotics. Dr. Thao performed a colonoscopy today. Colonoscopy showed some colitis as well as scattered diverticulosis. The preparation was poor. The patient had random biopsies for colitis. No chest pain. No palpitations. No fever. PHYSICAL EXAMINATION: Patient is alert and oriented x3. Pulse 59, blood pressure 91/49, respiration 17, temperature 97.9, pulse ox 97% on room air. HEENT: Conjunctivae normal. NECK: No jugular venous distention. CARDIOVASCULAR: S1, S2 muffled. RESPIRATION: Breath sounds diminished at the bases. ABDOMEN: Soft. Mild tenderness in the left side of the abdomen. NERVOUS SYSTEM: No focal deficit. LABS: D-dimer is 0.37. Other labs are noted. ASSESSMENT: 1. Intractable left-sided abdominal pain of undetermined etiology; possibly colitis, status post colonoscopy. 2. Neurofibromatosis, type 1 and 2. 3. History of splenomegaly on ultrasound with normal CT scan of the abdomen and pelvis reported recently. 4. Mild hyponatremia. 5. Elevated plasma lactic acid of 2.1 on admission, improved with IV fluids; possibly dehydration, present on admission. 6. History of chest pain. 7. History of prostate disorder. 8. History of hematemesis. 9. History of sleep apnea. 10.History of migraine headaches. 11.History of adenoidectomy. 12.History of tonsillectomy. 13.History of skin biopsy. 14.History of pyloric stenosis repair. 15.History of depression. 16.FULL CODE. RECOMMENDATIONS AND DISCUSSION: I recommend to continue current medications, continue with monitoring, symptomatic treatment. Closely follow with Surgery and Gastroenterology. Prognosis is guarded. Further recommendations to follow. MMODL / IJN: [id number] /
[2020-12-09] MEDS: LEVOFLOXACIN 500MG-D5W PMX 500 MG in DEXTROSE/WATER 1 100ML.BAG IVPB SCH (20:45)
[2020-12-10] MEDS: HYDROmorphone 1 MG/ML 1 ML SYRINGE IVP PRN ×4 (04:03→21:33)
[2020-12-10] MEDS: SODIUM CHLORIDE 0.9% 1,000 ML IV SCH ×2 (05:11→08:54)
[2020-12-10] MEDS: PARoxetine 20 MG TAB PO SCH (08:43)
[2020-12-10] MEDS: TOPIRAMATE 100 MG TAB PO SCH ×2 (08:43→21:34)
[2020-12-10] MEDS: VERAPAMIL SR 240 MG TABLET.ER PO SCH (08:43)
[2020-12-10] MEDS: DICYCLOMINE 10 MG CAP PO SCH ×3 (08:44→21:34)
[2020-12-10] MEDS: PANTOPRAZOLE 40 MG/10 ML VIAL IV SCH ×2 (08:45→21:33)
[2020-12-10] MEDS: metroNIDAZOLE-NS PMX 500 MG in SALINE 1 100ML.BAG IVPB SCH ×2 (08:53→17:09)
[2020-12-10] MEDS: polyethylene glycoL 3350 17 GM POWD.PACK PO SCH (08:59)
--- NOTE | 2020-12-10 11:14 | NM ---
EXAMINATION TYPE: NM hepatobiliary w CCK DATE OF EXAM: 12/10/2020 COMPARISON: NONE HISTORY: cholecystitis TECHNIQUE: After the intravenous administration of 4.9 mCi Tc 99m Mebrofenin hepatobiliary scintigrap hy is performed. Immediate images post injection. FINDINGS: There is satisfactory initial accumulation of tracer by the liver. The gallbladder is visualized wit hin 10 minutes. The small bowel activity is noted within 10 minutes. At one hour CCK was administer ed, patient was injected with 1.55 mcg of Kinevac, and gallbladder ejection fraction is calculated at 81 %, in the normal range. Therefore there is no scintigraphic evidence of cystic or common bile du ct obstruction to suggest acute cholecystitis or gallbladder dyskinesia. IMPRESSION: Exam is within normal limits.
[2020-12-10] MEDS: ONDANSETRON 4 MG/2 ML VIAL IVP PRN ×2 (11:34→17:13)
[2020-12-10] MEDS: KETOROLAC 15 MG/ML 1 ML VIAL IVP PRN ×2 (15:28→21:32)
--- NOTE | 2020-12-10 16:51 | P.PN ---
Progress Note - Text Progress Note Date: 12/10/20 Thank you for allowing us to participate in the care of the patient, the GI se rvice will sign off, gastroenterology will not be available at the hospital this weekend and if further evaluation by gastroenterology is required the patient will need transfer as per the primary team's discretion. Dr. Oswaldo Cabrera I agree with the dictator's note, documented as a scribe by Inez Castro.
--- NOTE | 2020-12-10 19:14 | PN ---
PROGRESS NOTE DATE OF SERVICE: 12/10/2020. This 30-year-old gentleman who was admitted with significant left-sided abdominal pain also had a HIDA scan, multiple consultants are following the patient. The patient also had colonoscopy. Biopsies are pending at this time. Patient complaining of persistent pain. The patient apparently also complained of hematuria. Please refer to the nurse's notes for further details regarding the red urine observed. PHYSICAL EXAMINATION: Alert and oriented x2. Pulse 67. Blood pressure 98/50. Respirations 18. Temperature 98 degrees, pulse ox 94% on room air. HEENT: Conjunctivae normal. Neck: No JVD. Cardiovascular: S1, S2, muffled. No S3, no S4. Respiratory: Diminished breath sounds at the bases. No rhonchi. Abdomen: Soft. Diffuse tenderness in the left side of the abdomen. No guarding. No rigidity. No mass palpable. Legs: No edema. No swelling. Nervous system: No focal deficits. LABS: WBC 4.5, hemoglobin 13, sodium 137, potassium 4.2. ASSESSMENT: 1. Intractable left-sided abdominal pain of undetermined etiology possibly colitis status post colonoscopy. 2. Neurofibromatosis type 1 and 2. 3. Hematuria, red urine for evaluation. 4. History of splenomegaly on ultrasound with normal CT scan of the abdomen and pelvis reported recently. 5. Mild hyponatremia. 6. Elevated plasma lactic acid of 2.1, present on admission, improved with IV fluids, possible dehydration, present on admission. 7. History of chest pain. 8. History of prostate disorder. 9. History of methamphetamines. 10.Sleep apnea. 11.History of migraine headaches. 12.History of adenoidectomy. 13.History of tonsillectomy. 14.History of skin biopsy. 15.History of pyloric stenosis repair. 16.History of depression. 17.FULL CODE. RECOMMENDATIONS AND DISCUSSION: Recommend to continue current medication, continue symptomatic treatment. Otherwise I recommend closely follow with Gastroenterology and surgery. Check UA with micro. Guarded prognosis. Further recommendations to follow. MMODL / IJN: [id number] /
[2020-12-10] MEDS: LEVOFLOXACIN 500MG-D5W PMX 500 MG in DEXTROSE/WATER 1 100ML.BAG IVPB SCH (21:34)
--- NOTE | 2020-12-10 21:49 | P.PN ---
Subjective Progress Note Date: 12/10/20 CHIEF COMPLAINT: Abdominal pain HISTORY OF PRESENT ILLNESS: The patient is a 30 year old male who presents with left lower quadrant abdominal pain and neurofibromatosis. Numerous studies were performed for his abdominal pain. HIDA is completed. He is tolerating peanut butter and crackers. REVIEW OF ORGAN SYSTEMS: No fevers or chills. No acute cardiac event. PHYSICAL EXAM: VITALS: Reviewed CONSTITUTIONAL: Well developed and in no acute distress. EYES: Conjuctivae without sclera icterus. Extraocular movements grossly intact. HEAD, EARS, NOSE, THROAT: Moist buccal mucosa. Head is atraumatic, normocephalic. Hears conversational speech. No nasal drainage. RESPIRATORY: Non-labored respirations and equal bilateral excursions. No gross wheezes. CARDIOVASCULAR: Regular rate and rhythm. ABDOMEN: No peritonitis. Tender left upper abdomen. MUSCULOSKELETAL: No clubbing cyanosis or edema. SKIN: Diffuse neurofibromatosis along the skin NEUROLOGIC: Cranial nerves II through XII grossly intact. Sensation upper and extremities intact. No focal or lateralizing signs. PSYCH: Appropriate affect. Alert and oriented to person, place and time. Displays appropriate insight. CLINCAL LABS: Reviewed. No new labs. STUDIES: HIDA scan independently reviewed without cholecystitis. Ejection fraction over 80%. ASSESSMENT: 1. Left lower quadrant abdominal pain 2. Neurofibromatosis 3. Left flank pain 4. Epigastric and left upper quadrant pain PLAN: 1. All surgical work-up has been performed without a surgical source of his pain. 2. Recommend referral to tertiary care center for neurofibromatosis and chronic abdominal pain. 3. Patient stable from a surgical standpoint for discharge. General surgery signing off. Objective - Vital Signs Vital signs: Vital Signs Temp 98.0 F 12/10/20 15:00 Pulse 67 12/10/20 15:00 Resp 18 12/10/20 15:00 BP 98/59 12/10/20 15:00 Pulse Ox 95 12/10/20 15:00 Intake & Output 12/10/20 12/10/20 12/11/20 06:59 18:59 06:59 Intake Total 300 Balance 300 Weight 77.111 kg Intake: Oral 300 Other: Voiding Method Toilet Toilet # Voids 1 2 - Labs CBC & Chem 7: 12/09/20 06:32 12/09/20 06:32 Assessment and Plan (1) Left lower quadrant abdominal pain Current Visit: Yes Status: Acute Code(s): R10.32 - LEFT LOWER QUADRANT PAIN SNOMED Code(s): 300819704 (2) Neurofibromatosis II Current Visit: No Status: Chronic Code(s): Q85.02 - NEUROFIBROMATOSIS, TYPE 2 SNOMED Code(s): 58099478
[2020-12-10 22:51] LABS: Appearance,Urine Cloudy (Clear); Bilirubin,Urine Negative (Negative); Blood,Urine Large (Negative); Color,Urine Light Red; Glucose,Urine (UA) Negative (Negative); Ketones,Urine Negative (Negative); Leukocyte Esterase,Urine Negative (Negative); Mucus,Urine Rare /hpf; Nitrite,Urine Negative (Negative); Protein,Urine Trace (Negative); RBC,Urine >182 /hpf (0-5); Specific Gravity,Urine 1.015 (1.001-1.035); Urobilinogen,Urine <2.0 mg/dL (<2.0)
[2020-12-11] MEDS: HYDROmorphone 1 MG/ML 1 ML SYRINGE IVP PRN ×5 (00:40→21:17)
[2020-12-11] MEDS: metroNIDAZOLE-NS PMX 500 MG in SALINE 1 100ML.BAG IVPB SCH ×3 (00:40→15:44)
[2020-12-11] MEDS: KETOROLAC 15 MG/ML 1 ML VIAL IVP PRN (03:25)
[2020-12-11] MEDS: ONDANSETRON 4 MG/2 ML VIAL IVP PRN ×4 (03:25→21:17)
[2020-12-11] MEDS: SODIUM CHLORIDE 0.9% 1,000 ML IV SCH ×2 (08:20→21:10)
[2020-12-11] MEDS: VERAPAMIL SR 240 MG TABLET.ER PO SCH (08:24)
[2020-12-11] MEDS: TOPIRAMATE 100 MG TAB PO SCH ×2 (08:25→21:11)
[2020-12-11] MEDS: DICYCLOMINE 10 MG CAP PO SCH ×3 (08:25→21:11)
[2020-12-11] MEDS: PARoxetine 20 MG TAB PO SCH (08:25)
[2020-12-11] MEDS: polyethylene glycoL 3350 17 GM POWD.PACK PO SCH (08:26)
[2020-12-11] MEDS: PANTOPRAZOLE 40 MG/10 ML VIAL IV SCH ×2 (08:27→21:10)
[2020-12-11] MEDS: METOPROLOL SUCCINATE (ER) 50 MG TAB.ER.24H PO SCH (08:27)
--- NOTE | 2020-12-11 18:06 | PN ---
PROGRESS NOTE DATE OF SERVICE: 12/11/2020 This 30-year-old gentleman admitted with abdominal pain is being closely monitored at this time. The patient had some appearance of hematuria, also. HIDA scan was within normal limits. Gastroenterology as well as Surgery are following the patient closely. No chest pain. No palpitations. No fever. PHYSICAL EXAMINATION: Alert and oriented x3. Pulse 65, blood pressure 111/64, respiration 12, temperature 98.6, pulse ox 98% on room air. HEENT: Conjunctivae normal. NECK: No jugular venous distention. CARDIOVASCULAR: S1, S2 muffled. RESPIRATORY SYSTEM: Breath sounds diminished at the bases. A few rhonchi. No crackles. ABDOMEN: Soft, non-tender. NERVOUS SYSTEM: No focal deficit. LABS: Sodium 137, potassium 4.2. UA shows more than 182 RBCs and some mucus. ASSESSMENT: 1. Intractable left-sided abdominal pain of undetermined etiology; possible colitis, status post colonoscopy. 2. Neurofibromatosis, type 1 and 2. 3. Hematuria and red urine for evaluation. 4. History of splenomegaly on ultrasound with normal CT scan of the abdomen and pelvis reported recently. 5. Mild hyponatremia. 6. Elevated plasma lactic acid at 2.1, present on admission, improved with IV fluids; possibly dehydration, present on admission. 7. History of chest pain. 8. History of prostate disorder. 9. History of methamphetamines. 10.Sleep apnea. 11.History of migraine headache. 12.History of adenoidectomy. 13.History of tonsillectomy. 14.History of skin biopsy. 15.History of pyloric stenosis repair. 16.History of depression. 17.FULL CODE. RECOMMENDATIONS AND DISCUSSION: I recommend to continue current medications, continue with symptomatic treatment. Otherwise at this time I would monitor the patient closely. Follow closely with Gastroenterology as well as Surgery. I also recommend the pillowcase turner to get in touch with [facility] for a possible transfer because of the continued abdominal pain and other multiple complex medical issues. Discussed with the patient and the patient's mother at the bedside. Further recommendations to follow. MMODL / IJN: [id number] /
[2020-12-11] MEDS: LEVOFLOXACIN 500MG-D5W PMX 500 MG in DEXTROSE/WATER 1 100ML.BAG IVPB SCH (21:10)
[2020-12-12] MEDS: metroNIDAZOLE-NS PMX 500 MG in SALINE 1 100ML.BAG IVPB SCH ×3 (00:10→16:57)
[2020-12-12] MEDS: HYDROmorphone 1 MG/ML 1 ML SYRINGE IVP PRN ×4 (04:36→21:06)
[2020-12-12] MEDS: PANTOPRAZOLE 40 MG/10 ML VIAL IV SCH ×2 (10:22→21:07)
[2020-12-12] MEDS: VERAPAMIL SR 240 MG TABLET.ER PO SCH (10:23)
[2020-12-12] MEDS: polyethylene glycoL 3350 17 GM POWD.PACK PO SCH (10:24)
[2020-12-12] MEDS: DICYCLOMINE 10 MG CAP PO SCH ×3 (10:24→21:08)
[2020-12-12] MEDS: METOPROLOL SUCCINATE (ER) 50 MG TAB.ER.24H PO SCH (10:24)
[2020-12-12] MEDS: PARoxetine 20 MG TAB PO SCH (10:24)
[2020-12-12] MEDS: ONDANSETRON 4 MG/2 ML VIAL IVP PRN ×2 (10:25→19:56)
[2020-12-12] MEDS: TOPIRAMATE 100 MG TAB PO SCH ×2 (10:25→21:07)
[2020-12-12] MEDS: SODIUM CHLORIDE 0.9% 1,000 ML IV SCH ×2 (11:28→21:08)
[2020-12-12] MEDS: KETOROLAC 15 MG/ML 1 ML VIAL IVP PRN (12:31)
--- NOTE | 2020-12-12 12:46 | PN ---
PROGRESS NOTE DATE OF SERVICE: 12/12/2020 This 30-year-old gentleman who was admitted with abdominal pain is being closely monitored at this time. The patient had intractable left-sided abdominal pain. Patient also had vomiting and some hematuria also. Evaluation and callback from [facility] is being expected at this time. The patient had extensive evaluation including a HIDA scan which was negative. Patient also had a colonoscopy and biopsy and random biopsies showed no abnormalities and stomach biopsies showed mild chronic gastritis. H pylori was negative. PHYSICAL EXAMINATION: Alert and oriented x3. The pulse is 57, blood pressure 128/60, respirations 16, temperature 97.9, pulse ox 98 percent on room air. HEENT: Conjunctivae normal. Neck no JVD. Cardiovascular: S1, S2, muffled. No S3, no S4. Respiratory: Diminished breath sounds at the bases. Scattered rhonchi. Abdomen: Soft. Nervous system: No focal deficits. LABS: Hemoglobin 13, sodium 137, UA noted. Some hematuria present. ASSESSMENT: 1. Intractable left-sided abdominal pain of undetermined etiology, possibly colitis status post colonoscopy. 2. Neurofibromatosis, type I and II. 3. Hematuria and red urine for evaluation. 4. History of splenomegaly on ultrasound with normal CT scan of the abdomen and pelvis reported recently. 5. Mild hyponatremia. 6. Elevated plasma lactic acid 2.1, present on admission, improved with IV fluids. 7. Possibly dehydration present on admission. 8. History of chest pain. 9. History of prostate disorder. 10.Obstructive sleep apnea. 11.History of migraine. 12.History of adenoidectomy. 13.History of tonsillectomy. 14.History of skin biopsy. 15.History of pyloric stenosis repair. 16.History of depression. 17.FULL CODE. RECOMMENDATIONS AND DISCUSSION: Recommend to continue current medications, symptomatic treatment. Otherwise at this time we will continue to monitor. Prognosis guarded. Further recommendations to follow. Await [facility] transfer. MMODL / IJN: [id number] /
[2020-12-12 20:19] LABS: Amorphous Sediment,Urine Few /hpf; Appearance,Urine Cloudy (Clear); Bilirubin,Urine Negative (Negative); Blood,Urine Negative (Negative); Color,Urine Light Red; Glucose,Urine (UA) Negative (Negative); Ketones,Urine Negative (Negative); Leukocyte Esterase,Urine Negative (Negative); Mucus,Urine Rare /hpf; Nitrite,Urine Negative (Negative); Protein,Urine Negative (Negative); Specific Gravity,Urine 1.014 (1.001-1.035); Urobilinogen,Urine <2.0 mg/dL (<2.0)
[2020-12-12] MEDS: LEVOFLOXACIN 500MG-D5W PMX 500 MG in DEXTROSE/WATER 1 100ML.BAG IVPB SCH (21:08)
[2020-12-13] MEDS: HYDROmorphone 1 MG/ML 1 ML SYRINGE IVP PRN ×4 (00:40→20:49)
[2020-12-13] MEDS: metroNIDAZOLE-NS PMX 500 MG in SALINE 1 100ML.BAG IVPB SCH ×4 (00:41→23:35)
[2020-12-13] MEDS: KETOROLAC 15 MG/ML 1 ML VIAL IVP PRN ×2 (02:32→13:28)
[2020-12-13] MEDS: PANTOPRAZOLE 40 MG/10 ML VIAL IV SCH ×2 (08:11→20:48)
[2020-12-13] MEDS: DICYCLOMINE 10 MG CAP PO SCH ×3 (08:12→20:48)
[2020-12-13] MEDS: TOPIRAMATE 100 MG TAB PO SCH ×2 (08:12→20:49)
[2020-12-13] MEDS: PARoxetine 20 MG TAB PO SCH (08:12)
[2020-12-13] MEDS: VERAPAMIL SR 240 MG TABLET.ER PO SCH (08:12)
[2020-12-13] MEDS: METOPROLOL SUCCINATE (ER) 50 MG TAB.ER.24H PO SCH (08:13)
[2020-12-13] MEDS: polyethylene glycoL 3350 17 GM POWD.PACK PO SCH (08:13)
[2020-12-13] MEDS: ONDANSETRON 4 MG/2 ML VIAL IVP PRN ×2 (08:25→20:48)
[2020-12-13] MEDS: SODIUM CHLORIDE 0.9% 1,000 ML IV SCH (08:25)
--- NOTE | 2020-12-13 13:15 | PN ---
PROGRESS NOTE DATE OF SERVICE: 12/13/2020 This 30-year-old gentleman who was admitted with significant abdominal pain for about a month's duration was also complaining of vomiting, unable to keep anything down, as well as hematuria. I talked to [facility] transfer team yesterday. There were no beds available. No chest pain. No palpitations. No fever. PHYSICAL EXAMINATION: Alert and oriented x3. Pulse 52, blood pressure 116/70, respirations 16, temperature 98.1, pulse ox 99% on room air. HEENT: Conjunctivae normal. NECK: No jugular venous distention. CARDIOVASCULAR: S1, S2 muffled. RESPIRATION: Breath sounds diminished at the bases. A few scattered rhonchi. ABDOMEN: Soft. Mild diffuse discomfort. LEGS: No edema. No swelling. NERVOUS SYSTEM: No focal deficit. LABS: Labs are noted. Repeat UA shows no RBCs. Initial UA showed more than 182 RBCs. ASSESSMENT: 1. Intractable left-sided abdominal pain of undetermined etiology, status post colonoscopy. No evidence of colitis in the biopsies. 2. Neurofibromatosis, type 1 and 2. 3. Hematuria and red urine for evaluation. 4. History of splenomegaly on ultrasound with normal CT scan of the chest, abdomen and pelvis reported recently. 5. Mild hyponatremia. 6. Elevated plasma lactic acid at 2.1, present on admission, improved with IV fluids. 7. Possible dehydration, present on admission. 8. History of chest pain. 9. History of prostate disorder. 10.Obstructive sleep apnea. 11.History of migraine. 12.History of adenoidectomy. 13.History of tonsillectomy. 14.History of skin biopsy. 15.History of pyloric stenosis repair. 16.History of depression. 17.FULL CODE. RECOMMENDATIONS AND DISCUSSION: I recommend to continue current medications, continue with symptomatic treatment. Otherwise, closely follow with the consultants. Prognosis is guarded. Further recommendations to follow. Will contact [facility] again and, if there are no beds, will consider outpatient followup. MMODL / IJN: [id number] /
[2020-12-13] MEDS: LEVOFLOXACIN 500MG-D5W PMX 500 MG in DEXTROSE/WATER 1 100ML.BAG IVPB SCH (20:51)
[2020-12-14] MEDS: SODIUM CHLORIDE 0.9% 1,000 ML IV SCH ×2 (00:54→22:45)
[2020-12-14] MEDS: HYDROmorphone 1 MG/ML 1 ML SYRINGE IVP PRN ×4 (02:00→21:21)
[2020-12-14] MEDS: KETOROLAC 15 MG/ML 1 ML VIAL IVP PRN ×3 (02:01→21:19)
[2020-12-14] MEDS: PANTOPRAZOLE 40 MG/10 ML VIAL IV SCH ×2 (08:16→21:20)
[2020-12-14] MEDS: metroNIDAZOLE-NS PMX 500 MG in SALINE 1 100ML.BAG IVPB SCH ×3 (08:16→23:29)
[2020-12-14] MEDS: DICYCLOMINE 10 MG CAP PO SCH ×3 (08:16→21:20)
[2020-12-14] MEDS: TOPIRAMATE 100 MG TAB PO SCH ×2 (08:17→21:21)
[2020-12-14] MEDS: VERAPAMIL SR 240 MG TABLET.ER PO SCH (08:17)
[2020-12-14] MEDS: METOPROLOL SUCCINATE (ER) 50 MG TAB.ER.24H PO SCH (08:17)
[2020-12-14] MEDS: PARoxetine 20 MG TAB PO SCH (08:17)
[2020-12-14] MEDS: ONDANSETRON 4 MG/2 ML VIAL IVP PRN ×2 (10:53→21:19)
[2020-12-14] MEDS: polyethylene glycoL 3350 17 GM POWD.PACK PO SCH (12:17)
[2020-12-14] MEDS: LEVOFLOXACIN 500MG-D5W PMX 500 MG in DEXTROSE/WATER 1 100ML.BAG IVPB SCH (21:20)
--- NOTE | 2020-12-15 02:54 | P.PN ---
Subjective Progress Note Date: 12/14/20 This is a 30-year-old male who was recently admitted with significant abdominal pain and continues to have extreme nausea and unable to tolerate any oral diet and has continued vomiting and is being closely monitored. Again discussed with [facility] about possible transfer and there are no beds available and on-call physician also discussed and read the notes of the virtual visit that was conducted today with his urologist out of [facility] Dr. Juan Logan and mentioned that the patient has a SMN stimulator and was instructed to turn this off to see if this is causing the continued abdominal discomfort. Patient will need to continue with intermittent straight catheteri zation along with will add bladder scans to monitor for retention. Will decrease the diet to clear liquids with no further ensure ordered and monitor for worsening abdominal discomfort as patient states the pain is intensifying up the left side of the abdomen. Review of systems: Constitutional: No reports of fatigue, fever, or chills Cardiovascular: No reports of chest pain or palpitations Respiratory: No reports of shortness of breath or cough GI: reports continued nausea and vomiting with increase in left-sided abdominal pain : No reports of dysuria or retention Neurovascular: No reports of weakness or numbness All medications have been reviewed Objective - Vital Signs Vital signs: Vital Signs Temp 98.0 F 12/14/20 07:00 Pulse 63 12/14/20 07:00 Resp 17 12/14/20 07:00 BP 126/73 12/14/20 07:00 Pulse Ox 99 12/14/20 07:00 Intake & Output 12/13/20 12/14/20 12/14/20 18:59 06:59 18:59 Intake Total 0 Balance 0 Intake: Oral 0 Other: Voiding Method Toilet Toilet Toilet Urinal Urinal Urinal # Voids 2 2 # Bowel Movements 0 - Exam Gen: This is a 30-year-old male lying in bed awake, alert and oriented 3, well-developed, well-nourished. HEENT: Head is atraumatic, normocephalic. Pupils equal, round. Sclerae is a nicteric. NECK: Supple. No JVD. No lymphadenopathy. No thyromegaly. LUNGS: Clear to auscultation. No wheezes or rhonchi. No intercostal retractions. HEART: Regular rate and rhythm. No murmur. ABDOMEN: Soft. Bowel sounds are present. No masses. tenderness of the left side of the abdomen . EXTREMITIES: No pedal edema. No calf tenderness. NEUROLOGICAL: Patient is awake, alert and oriented x3. Cranial nerves 2 through 12 are grossly intact. - Labs CBC & Chem 7: 12/09/20 06:32 12/09/20 06:32 Assessment and Plan Assessment: Intractable left-sided abdominal pain of undetermined etiology status post colonoscopy with no evidence of colitis in the biopsies Neurofibromatosis type I and 2 Hematuria and red urine for evaluation History of splenomegaly on ultrasound with normal computed tomography scan of th e chest, abdomen, and pelvis reported recently Mild hyponatremia, improved Elevated plasma lactic acid of 2.1, present on admission, improved with IV fluids Possible dehydration, present on admission History of chest pain History of prostate disorder History of sleep apnea, obstructive History of migraine History of adenoidectomy history of tonsillectomy History of skin biopsy History of pyloric stenosis repair History of depression Full code Plan: Continue with current medications and symptomatic treatment. Continue IV fluids and will drop the diet down to clear liquids with ice chips only as patient states that he has continued abdominal pain and unable to hold down any food. If abdominal pain continues will add NG tube. Attempted transfer to [facility] again today and again no beds available. Patient had virtual visit with urologist out of [facility] Dr. Logan who instructed the patient to turn off stimulator and monitor for any increased abdominal pain and will need intermittent straight catheterization. Patient states he has turned off the stimulator and residential treatment staff unsure if patient has done so. Will monitor with bladder scans and monitor further abdominal discomfort. Encouraged increase ambulation. Patient will need to follow up outpatient with [facility] and his specialists. Prognosis is guarded. Time with Patient: Greater than 30
[2020-12-15] MEDS: SODIUM CHLORIDE 0.9% 1,000 ML IV SCH (03:59)
[2020-12-15] MEDS: HYDROmorphone 1 MG/ML 1 ML SYRINGE IVP PRN ×4 (04:40→21:55)
[2020-12-15] MEDS: KETOROLAC 15 MG/ML 1 ML VIAL IVP PRN ×2 (07:51→21:55)
[2020-12-15] MEDS: ONDANSETRON 4 MG/2 ML VIAL IVP PRN (07:51)
[2020-12-15] MEDS: metroNIDAZOLE-NS PMX 500 MG in SALINE 1 100ML.BAG IVPB SCH ×2 (07:51→16:24)
[2020-12-15] MEDS: TOPIRAMATE 100 MG TAB PO SCH ×2 (08:50→21:54)
[2020-12-15] MEDS: PARoxetine 20 MG TAB PO SCH (08:50)
[2020-12-15] MEDS: PANTOPRAZOLE 40 MG/10 ML VIAL IV SCH ×2 (08:50→21:53)
[2020-12-15] MEDS: DICYCLOMINE 10 MG CAP PO SCH ×3 (08:50→21:54)
[2020-12-15] MEDS: METOPROLOL SUCCINATE (ER) 50 MG TAB.ER.24H PO SCH (08:50)
[2020-12-15] MEDS: VERAPAMIL SR 240 MG TABLET.ER PO SCH (08:50)
[2020-12-15] MEDS: polyethylene glycoL 3350 17 GM POWD.PACK PO SCH (08:51)
[2020-12-15 15:03] LABS: Basophils % (A) 1 %; Eosinophils # (A) 0.2 k/uL (0-0.7); Eosinophils % (A) 4 %; HCT 40.9 % (39.0-53.0); HGB 14.3 gm/dL (13.0-17.5); Lymphocytes # (A) 1.5 k/uL (1.0-4.8); Lymphocytes % (A) 31 %; MCH 31.9 pg (25.0-35.0); MCHC 35.1 g/dL (31.0-37.0); Mean Platelet Volume 8.5; Monocytes # (A) 0.3 k/uL (0-1.0); Monocytes % (A) 7 %; Neutrophils # (A) 2.7 k/uL (1.3-7.7); Neutrophils % (A) 56 %; Platelet Count 176 k/uL (150-450); RBC 4.49 m/uL (4.30-5.90); RDW 13.7 % (11.5-15.5); WBC 4.8 k/uL (3.8-10.6)
[2020-12-15 15:16] LABS: African American GFR (CKD) >90 (>60 ml/min/1.73 sqM); Anion Gap 8 mmol/L; Blood Urea Nitrogen 14 mg/dL (9-20); Calcium 8.7 mg/dL (8.4-10.2); Carbon Dioxide 18 mmol/L (22-30); Chloride 109 mmol/L (98-107); Glucose 88 mg/dL (74-99); Non-African American GFR(CKD) >90 (>60 ml/min/1.73 sqM); Potassium 3.9 mmol/L (3.5-5.1); Sodium 135 mmol/L (137-145)
[2020-12-15] MEDS: DEXTROSE 5%-0.9% NACL 1,000 ML IV SCH (15:27)
[2020-12-15] MEDS: LEVOFLOXACIN 500MG-D5W PMX 500 MG in DEXTROSE/WATER 1 100ML.BAG IVPB SCH (21:53)
[2020-12-16] MEDS: metroNIDAZOLE-NS PMX 500 MG in SALINE 1 100ML.BAG IVPB SCH ×3 (00:08→16:39)
[2020-12-16] MEDS: DEXTROSE 5%-0.9% NACL 1,000 ML IV SCH ×2 (03:17→18:36)
[2020-12-16] MEDS: PANTOPRAZOLE 40 MG/10 ML VIAL IV SCH ×2 (08:30→20:53)
[2020-12-16] MEDS: TOPIRAMATE 100 MG TAB PO SCH ×2 (08:31→20:53)
[2020-12-16] MEDS: METOPROLOL SUCCINATE (ER) 50 MG TAB.ER.24H PO SCH (08:31)
[2020-12-16] MEDS: DICYCLOMINE 10 MG CAP PO SCH ×3 (08:31→20:53)
[2020-12-16] MEDS: VERAPAMIL SR 240 MG TABLET.ER PO SCH (08:31)
[2020-12-16] MEDS: KETOROLAC 15 MG/ML 1 ML VIAL IVP PRN ×2 (08:32→20:54)
[2020-12-16] MEDS: polyethylene glycoL 3350 17 GM POWD.PACK PO SCH (08:32)
[2020-12-16] MEDS: HYDROmorphone 1 MG/ML 1 ML SYRINGE IVP PRN (08:32)
[2020-12-16] MEDS: PARoxetine 20 MG TAB PO SCH (08:32)
--- NOTE | 2020-12-16 08:52 | P.PN ---
Subjective Progress Note Date: 12/15/20 This is a 30-year-old male who was recently admitted with significant abdominal pain and continues to have extreme nausea and unable to tolerate any oral diet and has continued vomiting and is being closely monitored. Again discussed with [facility] about possible transfer and there are no beds available and on-call physician also discussed and read the notes of the virtual visit that was conducted today with his urologist out of [facility] Dr. Juan Logan and mentioned that the patient has a SMN stimulator and was instructed to turn this off to see if this is causing the continued abdominal discomfort. Patient will need to continue with intermittent straight catheteri zation along with will add bladder scans to monitor for retention. Will decrease the diet to clear liquids with no further ensure ordered and monitor for worsening abdominal discomfort as patient states the pain is intensifying up the left side of the abdomen. 12/15/2020 Patient was made nothing by mouth with just ice chips and states he continues to vomit but has not shown the nursing staff any of his emesis and states he had vomiting this morning of fecal matter in [employer] [place] and at the bedside to show staff. When asking the patient if he was vomiting stool or if he brought it into the bathroom he stated "I don't know". Patient states he continues to have extreme abdominal discomfort that is radiating up the left side and is painful on palpation. Patient also states that he did turn his stimulator off per urology out of [facility] and feels no urge to void and states he has not urinated since yesterday when he turned the device off. Bladder scanning was less than 200 and nursing staff informed to continue bladder scanning every shift. Vital signs within stable. Labs are all within normal limits. Given patient's abdominal pain and continued nausea and vomiting will make the patient strictly nothing by mouth and will add dextrose to gentle IV hydration and continue. Will consult psych given his malingering behavior and continued denial of falsifying his emesis with fecal matter. [facility] has signed off and not accepting transfer at this time. Patient was made aware. Review of systems: Constitutional: No reports of fatigue, fever, or chills Cardiovascular: No reports of chest pain or palpitations Respiratory: No reports of shortness of breath or cough GI: reports continued nausea and vomiting with increase in left-sided abdominal pain : No reports of dysuria or retention, patient denies the urge to void Neurovascular: No reports of weakness or numbness All medications have been reviewed Objective - Vital Signs Vital signs: Vital Signs Temp 97.8 F 12/15/20 07:58 Pulse 63 12/15/20 07:58 Resp 16 12/15/20 07:58 BP 123/77 12/15/20 07:58 Pulse Ox 99 12/15/20 07:58 Intake & Output 12/14/20 12/15/20 12/15/20 18:59 06:59 18:59 Intake Total 0 1000 Balance 0 1000 Weight 77.111 kg Intake: Intake, IV Titration 1000 Amount IV Fluid Continuation 1, 1000 000 ml @ 0 mls/hr IV .[employer] [facility] Rx#:[id number] Oral 0 Other: Voiding Method Toilet Toilet Toilet Urinal Urinal Urinal # Voids 3 2 # Bowel Movements 1 - Exam Gen: This is a 30-year-old male lying in bed awake, alert and oriented 3, well- developed, well-nourished. No acute distress noted. HEENT: Head is atraumatic, normocephalic. Pupils equal, round. Sclerae is anicteric. NECK: Supple. No JVD. No lymphadenopathy. No thyromegaly. LUNGS: Clear to auscultation. No wheezes or rhonchi. No intercostal retractions. HEART: Regular rate and rhythm. No murmur. ABDOMEN: Soft. Bowel sounds are present. No masses. tenderness of the left side of the abdomen . EXTREMITIES: No pedal edema. No calf tenderness. NEUROLOGICAL: Patient is awake, alert and oriented x3. Cranial nerves 2 through 12 are grossly intact. - Labs CBC & Chem 7: 12/15/20 14:51 12/15/20 14:51 Assessment and Plan Assessment: Intractable left-sided abdominal pain of undetermined etiology status post col onoscopy with no evidence of colitis in the biopsies Neurofibromatosis type I and 2 Hematuria and red urine for evaluation with repeat urinalysis being negative History of splenomegaly on ultrasound with normal computed tomography scan of the chest, abdomen, and pelvis reported recently Mild hyponatremia, improved Elevated plasma lactic acid of 2.1, present on admission, improved with IV fluids Possible dehydration, present on admission History of chest pain History of prostate disorder History of sleep apnea, obstructive History of migraine History of adenoidectomy history of tonsillectomy History of skin biopsy History of pyloric stenosis repair History of depression Malingering behavior Full code Plan: Continue with current medications and symptomatic treatment. Continue IV fluids and will add dextrose and make the patient strictly nothing by mouth as patient has continued abdominal pain with nausea and vomiting and states he had fecal matter in his vomit and unsure if it was brought to the bathroom and patient stooled in the basin and when questioning the patient he stated "I don't know". Patient states he feels hungry but continues to be unable to tolerate oral intake. GI and surgery have signed off of the patient. [facility] has close the case and is not accepting transfer at this time. Patient had stimulator device turned off per his urologist out [facility] and states he has no urge to void. Abdomen is nondistended and soft on palpation. Patient has left-sided discomfort and tender to palpate. Patient states he has not had any voiding since he turned the stimulator off yesterday. Will continue with bladder scans and intermittent cath as needed. Bladder scan done later in the afternoon and straight cath for a 500 mL of urine that was clear and yellow. Labs drawn today within normal limits and patient is afebrile and white blood c ount within normal limits. Patient does continue on IV antibiotics and will likely discontinue. Will consult psychiatry for further evaluation given his malingering behavior and await report. Will reevaluate the patient in the morning and is having no further episodes of nausea and vomiting will start diet and monitor for tolerance. Encouraged increase ambulation. Patient will need to follow up outpatient with [facility] and his specialists. Prognosis is guarded.
[2020-12-16] MEDS ORDERED: HYDROcodone/APAP 5-325MG 1 EACH TAB PO PRN (14:09)
--- NOTE | 2020-12-16 14:19 | P.CN ---
Psychiatric Consult - . 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 He claims that he recently was discharged from the [facility] for similar complaints. He had also mentioned that he was feeling dizzy and lightheaded. According to EMR and notes patient was apparently having and complaining of ongoing nausea and vomiting. He is in had reported that she was vomiting fecal matter. PUPPET DEVELOPER note claims that patient was attempting to falsify his emesis with feces. Nurse taking care of patient also states that patient has been also finding some of his symptoms and poor ensure into the bucket and states that he vomited out. Patient was seen talking on the phone when teletypewriter installer entered the room and appears to be calm and cooperative at first. He was suspicious as to why teletypewriter installer had to come to evaluate him. He states that he has been having side pain which has been worsening. He claims that he does not know if cause and nothing has really been helping him "things only take the edge off". He claims that he did not have any stressors or triggers at home. He is denying any changes in his mood and claims that he is not feeling depressed and is looking forward to getting his fiance. When asked about the fecal matter patient described it as happening once a day for the past week or so. He did not seem very concerned about why this was occurring and tended to shift topics to something else . At this time patient denies any suicidal or homical ideations, intent or plan. Patient denies any auditory, visual hallucinations and denies any paranoia or delusions. Patients admits to using PAST PSYCHIATRIC HISTORY: Patient has a significant psychiatric history. 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 Patient denies being on any psychiatric medications. Patient denies any previous psychiatric hospitalizations. Patient denies any psychiatric outpatient follow- up. Patient denies any history of suicide attempts in the past. PAST MEDICAL HISTORY: GERD, hypertension, neurofibromatosis. ALLERGIES: as per EMR. CHEMICAL DEPENDENCY HISTORY: as per HPI. FAMILY PSYCHIATRIC/SUBSTANCE USE HISTORY: denies SOCIAL HISTORY: Patient was born and raised in [place]. 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 He states he has not had any legal problems or halfway in the past.. MENTAL STATUS EXAM: General Appearance: Patient appears to be stated age is alert, gaurded and evasive at times. Patient appears to have fair hygiene and grooming wearing hospital gown with fair eye contact. Behavior: Patient is calmly lying in bed without any agitated behavior. gaurded Speech: Patient's speech is fluent and nonpressured. Mood/Affect: Patient reports their mood is "in pain", affect is congruent Suicidality/Homicidality: Patient denies having any suicidal or homicidal ideation intent or plan. Perceptions: Patient denies any visual hallucinations and denies any auditory hallucinations Though content/process: There is no evidence of any delusional thought content and thought process is linear and goal-directed. preoccupied with pain/discomfort. Memory and concentration: AOX3, grossly intact for the purposes of this session. Can spell "WORLD" backwards Judgment and insight: poor IMPRESSIONS: possibly Malingering PLAN: -At this time patient DOES NOT meet criteria for inpatient psychiatric admission. -Would recommend the following medication changes/additions: Can continue with Paxil 20 mg daily for premature ejaculation. No other medications indicated at this time. -fruit farmworker to provide patient with outpatient mental health/psychiatry resources for appropriate follow up upon discharge -Communicated plan to patient's nurse -Psychiatry will sign off at this time -Please contact with any questions.
[2020-12-16] MEDS: ONDANSETRON 4 MG/2 ML VIAL IVP PRN (16:22)
--- NOTE | 2020-12-16 20:04 | US ---
EXAMINATION TYPE: US abdomen limited DATE OF EXAM: 12/16/2020 COMPARISON: 12/04/2020 CT CLINICAL HISTORY: Continued left-sided abdominal pain. Left-sided abdominal pain. EXAM MEASUREMENTS: Spleen: 13.2 cm Left Kidney: 10.7 x 5.3 x 4.4 cm 1. Spleen: Measures 13.2 cm in length, upper limits of normal. Normal appearance. 2. Left Kidney: Normal. IMPRESSION: Normal appearance of the spleen and left kidney.
[2020-12-16] MEDS: LEVOFLOXACIN 500MG-D5W PMX 500 MG in DEXTROSE/WATER 1 100ML.BAG IVPB SCH (20:53)
[2020-12-17] MEDS: metroNIDAZOLE-NS PMX 500 MG in SALINE 1 100ML.BAG IVPB SCH ×2 (00:37→08:44)
[2020-12-17] MEDS: ONDANSETRON 4 MG/2 ML VIAL IVP PRN ×2 (01:22→08:50)
[2020-12-17] MEDS: DEXTROSE 5%-0.9% NACL 1,000 ML IV SCH (05:22)
[2020-12-17] MEDS: KETOROLAC 15 MG/ML 1 ML VIAL IVP PRN ×2 (05:22→13:22)
--- NOTE | 2020-12-17 08:17 | P.PN ---
Subjective Progress Note Date: 12/16/20 This is a 30-year-old male who was recently admitted with significant abdominal pain and continues to have extreme nausea and unable to tolerate any oral diet and has continued vomiting and is being closely monitored. Again discussed with [facility] about possible transfer and there are no beds available and on-call physician also discussed and read the notes of the virtual visit that was conducted today with his urologist out of [facility] Dr. Juan Logan and mentioned that the patient has a SMN stimulator and was instructed to turn this off to see if this is causing the continued abdominal discomfort. Patient will need to continue with intermittent straight catheteri zation along with will add bladder scans to monitor for retention. Will decrease the diet to clear liquids with no further ensure ordered and monitor for worsening abdominal discomfort as patient states the pain is intensifying up the left side of the abdomen. 12/15/2020 Patient was made nothing by mouth with just ice chips and states he continues to vomit but has not shown the nursing staff any of his emesis and states he had vomiting this morning of fecal matter in [employer] and at the bedside to show staff. When asking the patient if he was vomiting stool or if he brought it into the bathroom he stated "I don't know". Patient states he continues to have extreme abdominal discomfort that is radiating up the left side and is painful on palpation. Patient also states that he did turn his stimulator off per urology out of [facility] and feels no urge to void and states he has not urinated since yesterday when he turned the device off. Bladder scanning was less than 200 and nursing staff informed to continue bladder scanning every shift. Vital signs within stable. Labs are all within normal limits. Given patient's abdominal pain and continued nausea and vomiting will make the patient strictly nothing by mouth and will add dextrose to gentle IV hydration and continue. Will consult psych given his malingering behavior and continued denial of falsifying his emesis with fecal matter. [facility] has signed off and not accepting transfer at this time. Patient was made aware. 12/16/2020 Patient is seen and evaluated this morning and was maintained on nothing by mouth with IV hydration and no further reports of nausea or vomiting noted. Patient states he is hungry and will start clear liquid diet and monitor for tolerance. Discussed with patient about possible discharge if able to tolerate diet and will have patient follow-up outpatient with his primary care provider along with specialists out of [facility]. Psychiatry evaluated the patient for malingering behavior and does not meet any type of criteria for inpatient status. Patient and mother at the bedside making threatening gestures to [facility] stating he is in continued pain and unable to tolerate any oral intake and not able to be discharged. As mentioned previously patient has been nothing by mouth and was not taking in any oral intake. Patient states he continues to have abdominal discomfort on the left side and per nursing staff continues to request IV Dilaudid along with Toradol given at the same time. Will Order abdominal ultrasound and continue to monitor the patient closely. Review of systems: Constitutional: No reports of fatigue, fever, or chills Cardiovascular: No reports of chest pain or palpitations Respiratory: No reports of shortness of breath or cough GI: reports continued left-sided abdominal pain, no reports of nausea or vomiting : No reports of dysuria or retention, patient denies the urge to void Neurovascular: No reports of weakness or numbness All medications have been reviewed Objective - Vital Signs Vital signs: Vital Signs Temp 97.6 F 12/16/20 08:28 Pulse 63 12/16/20 08:28 Resp 16 12/16/20 08:28 BP 138/68 12/16/20 08:28 Pulse Ox 95 12/16/20 11:48 Intake & Output 12/15/20 12/16/20 12/16/20 18:59 06:59 18:59 Intake Total 0 Output Total 1108 300 966 Balance -1108 -300 -966 Intake: Oral 0 Output: Urine 600 300 500 Straight 600 Post Void Residual 508 466 Other: Voiding Method Toilet Toilet Toilet Urinal Urinal Urinal # Voids 1 1 - Exam Gen: This is a 30-year-old male lying in bed awake, alert and oriented 3, well- developed, well-nourished. No acute distress noted. HEENT: Head is atraumatic, normocephalic. Pupils equal, round. Sclerae is anicteric. NECK: Supple. No JVD. No lymphadenopathy. No thyromegaly. LUNGS: Clear to auscultation. No wheezes or rhonchi. No intercostal retractions. HEART: Regular rate and rhythm. No murmur. ABDOMEN: Soft. Bowel sounds are present. No masses. tenderness of the left side of the abdomen . EXTREMITIES: No pedal edema. No calf tenderness. NEUROLOGICAL: Patient is awake, alert and oriented x3. Cranial nerves 2 through 12 are grossly intact. - Labs CBC & Chem 7: 12/15/20 14:51 12/15/20 14:51 Assessment and Plan Assessment: Intractable left-sided abdominal pain of undetermined etiology status post colonoscopy with no evidence of colitis in the biopsies Neurofibromatosis type I and 2 Hematuria and red urine for evaluation with repeat urinalysis being negative History of splenomegaly on ultrasound with normal computed tomography scan of the chest, abdomen, and pelvis reported recently Mild hyponatremia, improved Elevated plasma lactic acid of 2.1, present on admission, improved with IV fluids Possible dehydration, present on admission History of chest pain History of prostate disorder History of sleep apnea, obstructive History of migraine History of adenoidectomy history of tonsillectomy History of skin biopsy History of pyloric stenosis repair History of depression Malingering behavior Full code Plan: Continue with current medications and symptomatic treatment. Continue IV fluids. Patient has remained nothing by mouth throughout the night with no further reports of nausea or vomiting noted. Patient continues to be voiding per nursing staff with no difficulties. Will continue bladder scans as stimulator has been turned off. Patient continues to have left-sided abdominal pain stating his pain is not being managed properly and per nursing staff continues to request IV pain medications and his Toradol together. Patient has not required any Zofran throughout the night into this afternoon. Will start clear liquid diet and monitor for tolerance and is able to tolerate patient will be discharged. Per nursing staff patient threatening lawsuit stating he will not be discharged as his pain is not managed and he continues to not be able to to lerate any oral intake. Per nursing staff patient was given water and tolerated with no reports of nausea or vomiting noted. Will advance diet slowly as tolerated. Upon reevaluation patient continued to date he is having left-sided abdominal pain and ordered abdominal ultrasound showing normal appearance of the spleen and left kidney. Mother at the bedside as well making threatening gestures that was reported by nursing staff. If patient has any further episodes of nausea or vomiting and unable to tolerate diet will initiate NG tube and make the patient nothing by mouth again. Encouraged increase ambulation. Patient will need to follow up outpatient with [facility] and his specialists. Pro gnosis is guarded.
[2020-12-17] MEDS: polyethylene glycoL 3350 17 GM POWD.PACK PO SCH ×2 (08:50→08:58)
[2020-12-17] MEDS: METOPROLOL SUCCINATE (ER) 50 MG TAB.ER.24H PO SCH (08:50)
[2020-12-17] MEDS: PANTOPRAZOLE 40 MG/10 ML VIAL IV SCH (08:50)
[2020-12-17] MEDS: PARoxetine 20 MG TAB PO SCH (08:51)
[2020-12-17] MEDS: TOPIRAMATE 100 MG TAB PO SCH (08:51)
[2020-12-17] MEDS: DICYCLOMINE 10 MG CAP PO SCH (08:51)
[2020-12-17] MEDS: VERAPAMIL SR 240 MG TABLET.ER PO SCH (08:51)
[2020-12-17 08:56] VITALS: RESP 17
[2020-12-17 14:53] VITALS: BP 107/58; PULSE 65; TEMP 98.4
--- NOTE | 2020-12-17 16:27 | P.DS ---
Providers Date of admission: 12/07/20 08:40 Expected date of discharge: 12/17/20 Attending physician: Miguel Angel Kinsey Consults: 12/15/20 14:15 Consult Physician Stat Consulting Provider: Los No Reason/Comments: malingering Do you want consulting provider notified?: Yes Primary care physician: Nitin Rogel [facility] Course: Final diagnosis Intractable left-sided abdominal pain of undetermined etiology status post colonoscopy with no evidence of colitis in the biopsies Neurofibromatosis type I and 2 Hematuria and red urine for evaluation with repeat urinalysis being negative History of splenomegaly on ultrasound with normal computed tomography scan of the chest, abdomen, and pelvis reported recently Mild hyponatremia, improved Elevated plasma lactic acid of 2.1, present on admission, improved with IV fluids Possible dehydration, present on admission History of chest pain History of prostate disorder History of sleep apnea, obstructive History of migraine History of adenoidectomy history of tonsillectomy History of skin biopsy History of pyloric stenosis repair History of depression Malingering behavior Full code Discharge disposition Patient is being discharged in a stable condition with guarded prognosis to home. Patient will follow-up with Dr. Rayna Rogel in the outpatient setting upon discharge. Patient instructed to continue with low fiber diet and slowly advance as tolerated. Patient also instructed to follow-up with his [facility] urologist Dr. Logan on discharge along with neurology outpatient. Total time taken is greater than 35 minutes. Hospital course This is a 30-year-old male who was recently admitted with significant abdominal pain and continues to have extreme nausea and unable to tolerate any oral diet and has continued vomiting and is being closely monitored. Again discussed with [facility] about possible transfer and there are no beds available and on-call physician also discussed and read the notes of the virtual visit that was conducted today with his urologist out of [facility] Dr. Juan Logan and mentioned that the patient has a SNS stimulator and was instructed to turn this off to see if this is causing the continued abdominal discomfort. Patient will need to continue with intermittent straight catheterization along with will add bladder scans to monitor for retention. Will decrease the diet to clear liquids with no further ensure ordered and monitor for worsening abdominal discomfort as patient states the pain is intensifying up the left side of the abdomen. 12/15/2020 Patient was made nothing by mouth with just ice chips and states he continues to vomit but has not shown the nursing staff any of his emesis and states he had vomiting this morning of fecal matter in [place] and at the bedside to show staff. When asking the patient if he was vomiting stool or if he brought it into the bathroom he stated "I don't know". Patient states he continues to have extreme abdominal discomfort that is radiating up the left side and is painful on palpation. Patient also states that he did turn his stimulator off per urology out of [facility] and feels no urge to void and states he has not urinated since yesterday when he turned the device off. Bladder scanning was less than 200 and nursing staff informed to continue bladder scanning every shift. Vital signs within stable. Labs are all within normal limits. Given patient's abdominal pain and continued nausea and vomiting will make the patient strictly nothing by mouth and will add dextrose to gentle IV hydration and continue. Will consult psych given his malingering behavior and continued denial of falsifying his emesis with fecal matter. [facility]orio has signed off and not accepting transfer at this time. Patient was made aware. 12/16/2020 Patient is seen and evaluated this morning and was maintained on nothing by mouth with IV hydration and no further reports of nausea or vomiting noted. Patient states he is hungry and will start clear liquid diet and monitor for tolerance. Discussed with patient about possible discharge if able to tolerate diet and will have patient follow-up outpatient with his primary care provider along with specialists out of [facility]. Psychiatry evaluated the patient for malingering behavior and does not meet any type of criteria for inpatient status. Patient and mother at the bedside making threatening gestures to [facility] stating he is in continued pain and unable to tolerate any oral intake and not able to be discharged. As mentioned previously patient has been nothing by mouth and was not taking in any oral intake. Patient states he continues to have abdominal discomfort on the left side and per nursing staff continues to request IV Dilaudid along with Toradol given at the same time. Will Order abdominal ultrasound and continue to monitor the patient closely. 12/17/2020 Patient is seen and evaluated in follow-up this morning stating he has been vomiting all night although has not reported to nursing staff at the time of his vomiting until after the event and has had unwitnessed vomiting noted. Patient continued to request IV pain medications and refusing Parachute. Vital signs within stable, no reports of chest pain, shortness of breath, or palpitations noted. Patient made himself an appointment for follow-up with primary care provider Dr. Rogel for December 23 at 10:15 AM and instructed to keep this appointment. A copy of this dictation will be sent to primary care provider. Currently no reports of chest pain, shortness of breath, or palpitations. Patient is afebrile. Patient has been evaluated by surgery along with GI and underwent HIDA scan which was within normal limits abdominal CT was negative, abdominal ultrasound was negative, and labs have been within normal limits. Multiple attempts at transferring the patient to tertiary treatment center have been made and been refused by all facilities. Instructed the patient that it is highly recommended that he follows up with a tertiary treatment center such as [facility] if he has continued uncontrolled abdominal pain and inability to tolerate oral intake. Per nursing staff patient was noted to tolerate food that mother brought in last night with no reports of nausea or vomiting noted. Patient again refusing to be discharged stating that his primary care provider told him that he is not to be discharged while continuing with vomiting. Patient has had no documented witnessed events of vomiting any fecal matter or food during this hospitalization. Patient is being discharged today. Guarded prognosis. Gen: This is a 30-year-old male lying in bed awake, alert and oriented 3, well- developed, well-nourished. No acute distress noted. Temp is 98.4F, pulse is 65, respirations are 16, blood pressure 107/58, oxygen saturation is 98% on room air. HEENT: Head is atraumatic, normocephalic. Pupils equal, round. Sclerae is anicteric. NECK: Supple. No JVD. No lymphadenopathy. No thyromegaly. LUNGS: Clear to auscultation. No wheezes or rhonchi. No intercostal retractions. HEART: Regular rate and rhythm. No murmur. ABDOMEN: Soft. Bowel sounds are present. No masses. tenderness of the left side of the abdomen . EXTREMITIES: No pedal edema. No calf tenderness. NEUROLOGICAL: Patient is awake, alert and oriented x3. Cranial nerves 2 through 12 are grossly intact. Please refer to medication reconciliation sheet for a list of medications. Patient Condition at Discharge: Stable Plan - Discharge Summary Discharge Rx Participant: No New Discharge Prescriptions: New polyethylene glycoL 3350 [Miralax] 17 gm PO DAILY 30 Days #30 powd.pack Dicyclomine [Bentyl] 10 mg PO TID #30 cap HYDROcodone/APAP 5-325MG [Parachute 5-325] 1 each PO Q6HR PRN #12 tab PRN Reason: Pain Ondansetron Odt [Zofran Odt] 4 mg PO Q8HR PRN #20 tab PRN Reason: Nausea Continue Topiramate [Topamax] 100 mg PO BID Verapamil HCl [Verapamil ER] 240 mg PO DAILY Metoprolol Succinate (ER) [Toprol XL] 50 mg PO DAILY Pantoprazole Sodium [Protonix] 40 mg PO DAILY EPINEPHrine (Auto Inject) [Epipen] 0.3 mg IM ONCE PRN PRN Reason: Anaphylaxis PARoxetine [Paxil] 20 mg PO DAILY Discontinued Ciprofloxacin HCl [Cipro] 500 mg PO Q12HR metroNIDAZOLE [Flagyl] 500 mg PO Q8H Discharge Medication List Topiramate [Topamax] 100 mg PO BID 12/09/19 [History] Verapamil HCl [Verapamil ER] 240 mg PO DAILY 04/12/20 [History] EPINEPHrine (Auto Inject) [Epipen] 0.3 mg IM ONCE PRN 12/04/20 [History] Metoprolol Succinate (ER) [Toprol XL] 50 mg PO DAILY 12/04/20 [History] PARoxetine [Paxil] 20 mg PO DAILY 12/04/20 [History] Pantoprazole Sodium [Protonix] 40 mg PO DAILY 12/04/20 [History] Dicyclomine [Bentyl] 10 mg PO TID #30 cap 12/17/20 [Rx] HYDROcodone/APAP 5-325MG [Parachute 5-325] 1 each PO Q6HR PRN #12 tab 12/17/20 [Rx] Ondansetron Odt [Zofran Odt] 4 mg PO Q8HR PRN #20 tab 12/17/20 [Rx] polyethylene glycoL 3350 [Miralax] 17 gm PO DAILY 30 Days #30 powd.pack 12/17/20 [Rx] Follow up Appointment(s)/Referral(s): Altagracia Thao MD [STAFF PHYSICIAN] - 12/24/20 Nitin Rogel DO [Primary Care Provider] - 1-2 days (Keep appointment you made for Dec.23 @ 10:15am) Patient Instructions/Handouts: Low Fat Diet (DC), Acute Abdominal Pain (DC) Activity/Diet/Wound Care/Special Instructions: Activity limited to follow-up Follow up with Dr. Rayna Rogel upon discharge Follow up with [facility] urology Dr. Logan in one week Okay to resume stimulator Follow-up with [facility] neurology outpatient If needing emergency services for continued symptoms discussed and recommended to follow-up at tertiary treatment center such as [facility] ER Continue low fiber diet and advance as tolerated Discharge Disposition: HOME SELF-CARE
== END 2020-12-17 16:40 | disposition home or self-care (01) | DRG 392 ==
LOC: EC 11:55 → 6NMEDSUR 17:59 → OBSVTOIN 12-07 08:40
PROVIDERS: ADMIT Internal Medicine; ATTEND Internal Medicine
PROC: 0DB78ZX Excision of Stomach, Pylorus, Via Natural or Artificial Opening Endoscopic, Diagnostic (ICD-10-PCS; principal; 2020-12-07)
PROC: 0DBE8ZX Excision of Large Intestine, Via Natural or Artificial Opening Endoscopic, Diagnostic (ICD-10-PCS; 2020-12-09 11:35)
DX: K57.30 Diverticulosis of large intestine without perforation or abscess without bleeding (principal); E87.1 Hypo-osmolality and hyponatremia; K22.10 Ulcer of esophagus without bleeding; E87.2 Acidosis; K21.9 Gastro-esophageal reflux disease without esophagitis; K44.9 Diaphragmatic hernia without obstruction or gangrene; F32.9 Major depressive disorder, single episode, unspecified; G47.33 Obstructive sleep apnea (adult) (pediatric); G89.29 Other chronic pain; R31.9 Hematuria, unspecified; K29.50 Unspecified chronic gastritis without bleeding; K52.9 Noninfective gastroenteritis and colitis, unspecified; G43.909 Migraine, unspecified, not intractable, without status migrainosus; N42.9 Disorder of prostate, unspecified; R16.1 Splenomegaly, not elsewhere classified; E86.0 Dehydration; K64.0 First degree hemorrhoids; L98.9 Disorder of the skin and subcutaneous tissue, unspecified; Q85.01 Neurofibromatosis, type 1; Q85.02 Neurofibromatosis, type 2; Z76.5 Malingerer [conscious simulation]; Z79.899 Other long term (current) drug therapy; Z88.1 Allergy status to other antibiotic agents; Z91.013 Allergy to seafood; Z84.0 Family history of diseases of the skin and subcutaneous tissue; Z90.89 Acquired absence of other organs; Z98.890 Other specified postprocedural states
CPT/HCPCS: 36415; 43239; 45380; 74018; 74177; 76705; 78227; 80048; 80053; 80306; 81001; 81003; 82150; 82550; 83605; 83690; 83735; 84484; 85025; 85379; 85652; 86140; 88305; 94760; 96361; 96372; 96374; 96375; 99285